=== PATIENT | male | born 1955 | race Caucasian/White ===

== ENCOUNTER 2017-08-06 11:37 | Emergency (ER) | END 2017-08-06 13:35 | disposition home or self-care (01) ==

== ENCOUNTER 2018-07-30 23:46 | Inpatient (IN) | payer MEDICAID, OTHER ==
[~2018-07-30] VITALS: Ht 172.7 cm; Wt 82.0 kg
[~2018-07-30 23:46] MED LIST: FAMO-96 PO
[2018-07-30 23:52] VITALS: Ht 172.7 cm; Wt 82.0 kg
[2018-07-31] VITALS (14 sets, daily range): BP systolic 96–112; BP diastolic 59–93; PULSE 95–107; RESP 18–28
[2018-07-31] MEDS ORDERED: ONDANSETRON 4 MG INJ IV STA (04:20)
[2018-07-31] MEDS ORDERED: PIPER-TAZO 3.375 GM IV (PMX) 100 ML IVPB STA (04:20)
[2018-07-31] MEDS ORDERED: VANCOMYCIN 1 GM (PMX) 250 ML IVPB STA (04:20)
[2018-07-31] MEDS ORDERED: KETAMINE HCL (50 MG/ML) 1ml syringe IV STA (04:20)
[2018-07-31] MEDS ORDERED: SODIUM CHLORIDE 0.9% 1L BAG IV* STA (05:00)
--- NOTE | 2018-07-31 05:35 | ERD ---
ER Documentation Chief Complaint Chief Complaint LENCHO,from home,BLE pain,lower back pain,abd pain HPI 62-year-old homeless male brought in by ambulance complaining of bilateral lower extremity pain that is been going on for quite some time. He states that he was recently admitted to another hospital and discharged ago. He states he was discharged to a rehab but he does not use any drugs or alcohol. He last changed his dressings himself yesterday. He is complaining of severe 10 out of 10 pain in bilateral lower extremities, back, and abdomen. Pain is throbbing, with no alleviating factors. Exacerbated by touch and movement. No fevers or chills. ROS All systems reviewed and are negative except as per history of present illness. Medications Home Meds Discontinued Scripts Famotidine* (Pepcid*) 20 Mg Tablet, 20 MG PO BID for 4 Days, TAB Prov:JAYLINDANITA 08/06/17 Allergies Allergies: Coded Allergies: Fish Containing Products (Unverified Allergy, Unknown, 07/31/18) onion (Unverified Allergy, Unknown, 07/31/18) PMhx/Soc Hx Cardiac Disorders: Yes (htn, dm) Hx Alcohol Use: No Hx Substance Use: No Hx Tobacco Use: No Smoking Status: Current every day smoker FmHx Family History: No diabetes Physical Exam Vitals Vital Signs Date Temp Pulse Resp B/P (MAP) Pulse Ox O2 O2 Flow FiO2 Time Delivery Rate 07/31/18 97.8 106 18 115/89 98 16:06 (98) 07/31/18 106 15 115/ 98 Mechanical 16:00 Ventilator 07/31/18 97.7 108 20 145/86 97 15:30 (105) 07/31/18 115 14 140/86 98 Mechanical 15:00 (104) Ventilator 07/31/18 97.9 114 18 148/88 93 13:30 (108) 07/31/18 97.9 113 18 159/103 93 Nasal 2.0 13:04 (121) Cannula 07/31/18 115 20 146/92 91 Nasal 2.0 11:00 (110) Cannula 07/31/18 109 20 111/71 95 Nasal 3.0 07:00 (84) Cannula 07/31/18 110 16 121/90 95 Nasal 3.0 06:08 (100) Cannula 07/31/18 122 16 104/87 97 Nasal 05:26 (93) Cannula 07/31/18 Nasal 2 05:07 Cannula 07/30/18 99.0 60 18 140/77 99 23:52 (98) Physical Exam Const: In significant distress secondary to pain. Unkempt Head: Atraumatic Eyes: Normal Conjunctiva ENT: Dry oral mucosa. Normal External Ears, Nose and Mouth. Neck: Full range of motion. No meningismus. Resp: Tachypneic. Clear to auscultation bilaterally Cardio: Tachycardic with regular rhythm. no murmurs Abd: Soft, non tender, non distended. Normal bowel sounds Skin: No petechiae or rashes Back: No midline or flank tenderness Ext: Bilateral lower extremities with 3+ edema, symmetric. Multiple wounds on bilateral lower extremities with vesicular lesions with clear fluid. Erythematous bilaterally up to the knees. Cool to touch bilaterally. No crepitus to palpation. No brawny discoloration. No signs of tissue necrosis. Neur: Awake and alert Psych: Very anxious Result Diagram: 07/31/18 0459 07/31/18 0459 Results 24 hrs Laboratory Tests Test 07/31/18 04:43 07/31/18 04:59 07/31/18 06:40 07/31/18 08:43 POC Venous 3.8 mmol/L 3.0 mmol/L Lactate White Blood 8.6 10^3/ul Count Red Blood Count 3.59 10^6/ul Hemoglobin 9.9 g/dl Hematocrit 31.2 % Mean Corpuscular 86.9 fl Volume Mean Corpuscular 27.6 pg Hemoglobin Mean Corpuscular 31.7 g/dl Hemoglobin Daily nt Red Cell 24.4 % Distribution Width Platelet Count 433 10^3/UL Mean Platelet 9.6 fl Volume Immature 0.700 % Granulocytes % Neutrophils % 74.9 % Lymphocytes % 14.3 % Monocytes % 8.9 % Eosinophils % 0.6 % Basophils % 0.6 % Nucleated Red 0.0 /100WBC Blood Cells % Immature 0.060 10^3/ul Granulocytes # Neutrophils # 6.5 10^3/ul Lymphocytes # 1.2 10^3/ul Monocytes # 0.8 10^3/ul Eosinophils # 0.1 10^3/ul Basophils # 0.1 10^3/ul Nucleated Red 0.0 10^3/ul Blood Cells # Prothrombin Time 18.1 Sec Prothrombin Time 1.4 Ratio INR 1.49 International Normalized Ratio Activated 25.6 Sec Partial Thrombop last Time Sodium Level 134 mmol/L Potassium Level 3.2 mmol/L Chloride Level 92 mmol/L Carbon Dioxide 26 mmol/L Level Anion Gap 16 Blood Urea 31 mg/dl Nitrogen Creatinine 1.06 mg/dl Est Glomerular > 60 mL/min Filtrat Rate mL/min Glucose Level 113 mg/dl Calcium Level 8.8 mg/dl Total Bilirubin 0.9 mg/dl Direct Bilirubin 0.00 mg/dl Indirect 0.9 mg/dl Bilirubin Aspartate Amino 65 IU/L Transf (AST/SGOT ) Alanine 42 IU/L Aminotransferase (ALT/SGPT) Alkaline 113 IU/L Phosphatase Total Protein 7.7 g/dl Albumin 3.6 g/dl Globulin 4.10 g/dl Albumin/Globulin 0.87 Ratio Lactic Acid 5.4 mmol/L Level Test 07/31/18 08:45 07/31/18 15:00 Blood Gas Blood arterial Blood arterial Specimen Source Arterial Blood 07/31/2018 8:44: 07/31/2018 3:00: Date Drawn 31 AM 00 PM Arterial Blood 7.430 7.246 pH (Temp corrected) Arterial Blood 36.2 mmhg 45.9 mmhg pCO2 (Temp correct) Arterial Blood 93.1 mmHG 296.5 mmHG pO2 (Temp corrected) Arterial Blood 23.5 mmol/L 19.5 mmol/L HCO3 Arterial Blood -0.5 mmol/L -7.5 mmol/L Base Excess Arterial Blood 96.2 mmHG 99.8 mmHG Oxygen Saturatio n Doug Test N/A N/A Arterial Blood Right Brachial Right Brachial Gas Puncture Site Arterial 0.6 % 0.8 % Blood Carboxyhem oglobin Arterial Blood 0.5 % 0.5 % Methemoglobin Blood Gas A-a O2 56.6 mmHg 370.6 mmHg Differential Oxyhemoglobin 95.1 % 98.5 % Percent Blood Gas 37.0 C 37.0 C Temperature Blood Gas NASAL CANNULA VENT - AC Modality FiO2 27.0 % 100.0 % Blood Gas Luz Elena Laguna Notified Whom Blood Gas 07/31/2018 8:54: 07/31/2018 3:13: Notified Time 14 AM 00 PM Blood Gas 16.0 Respiration Rate Blood Gas Actual 16 Respiration Rate Blood Gas Tidal 500.0 mL Volume Blood Gas Low 5.0 cmH2O PEEP Setting Blood Gas O. IHSAN Critical Value Read Back Current Medications Medications Dose Sig/Yesenia Start Time Status Last (Trade) Ordered Route PRN Stop Time Admin Dose Reason Admin Vancomycin 250 ml @ ONCE STAT 07/31/18 DC 07/31/18 HCl 125 mls/hr IVPB 04:20 06:07 07/31/18 06:19 Piperacillin 100 ml @ ONCE STAT 07/31/18 DC 07/31/18 Sod/ 200 mls/hr IVPB 04:20 05:17 Tazobactam 07/31/18 04:49 Sod Ondansetron 4 mg ONCE STAT 07/31/18 DC 07/31/18 HCl (Zofran IV 04:20 05:16 Inj) 07/31/18 04:22 Ketamine 25 mg ONCE STAT 07/31/18 DC 07/31/18 HCl IV 04:20 05:30 (Ketamine 07/31/18 04:22 HCl) Sodium 2,450 ml BOLUS OVER 2 07/31/18 DC 07/31/18 Chloride HOURS STAT 05:00 05:22 (NS) IV* 07/31/18 05:01 Ondansetron 4 mg ER BRIDGE 07/31/18 HCl (Zofran PRN IV 06:30 Inj) NAUSEA/VOMITI 08/01/18 06:29 NG 650 mg ER BRIDGE 07/31/18 Acetaminophen PRN PO 06:30 (Tylenol .MILD PAIN 08/01/18 06:29 Tab) 1-3 OR TEMP Lorazepam 1 mg ONCE ONCE 07/31/18 DC 07/31/18 (Ativan) IV 07:00 07:02 07/31/18 07:01 Haloperidol 5 mg ONCE ONCE 07/31/18 DC 07/31/18 (Haldol) IM 09:00 09:45 07/31/18 09:01 IV Flush 3 ml PER 07/31/18 (NS 3 ml) PROTOCOL IV 09:30 Ondansetron 4 mg Q6H PRN 07/31/18 HCl (Zofran IV 09:30 Inj) NAUSEA/VOMITI NG 650 mg Q6H PRN 07/31/18 Acetaminophen PO .PAIN 1-3 09:30 (Tylenol OR TEMP Tab) Vancomycin VANCOMYCIN PER 07/31/18 HCl (Vanco PER PHARMACY PROTOCOL XX 09:30 Iv Per Pharmacy) Vancomycin 250 ml @ Q12H IVPB 07/31/18 HCl 125 mls/hr 18:00 VANCO 1700 ONCE 08/01/18 Miscellaneous TROUGH ON XX 17:00 04/2... 08/01/18 17:01 Information (*Rx Drug Level Order Reminder*) Haloperidol 5 mg ONCE ONCE 07/31/18 DC (Haldol) IM 13:30 07/31/18 13:31 Propofol 100 ml @ ud STK-MED 07/31/18 DC ONCE .ROUTE 14:22 07/31/18 14:23 Sodium 1,000 ml @ [id number] IV 07/31/18 Chloride 80 mls/hr 14:15 Famotidine 20 mg Q12 IV 07/31/18 (Pepcid Iv) 21:00 Enoxaparin 40 mg DAILY SC 08/01/18 Sodium 09:00 (Lovenox) Propofol 100 ml @ PER 07/31/18 2.455 mls/ PROTOCOL IV 14:30 hr Piperacillin 100 ml @ Q6H IVPB 07/31/18 Sod/ 200 mls/hr 17:00 Tazobactam Sod 150 mg ONCE STAT 07/31/18 DC 07/31/18 Succinylcholi IV 14:26 14:39 ne Chloride 07/31/18 14:28 (Anectine Syringe) Etomidate 20 mg ONCE STAT 07/31/18 DC 07/31/18 (Amidate) IV 14:26 14:39 07/31/18 14:28 Propofol 100 ml @ ONCE STAT 07/31/18 07/31/18 2.455 mls/ IV 14:26 14:45 hr 08/02/18 07:09 1 mg ONCE STAT 07/31/18 DC 07/31/18 Hydromorphone IV 14:26 14:45 HCl 07/31/18 14:28 (Dilaudid) Potassium 100 ml @ Q2H IVPB 07/31/18 Chloride 50 mls/hr 14:30 07/31/18 18:29 Fentanyl 100 ml @ TITRATE IV 07/31/18 2.5 mls/hr 16:30 Procedures/MDM EMERGENT LABS AND DIAGNOSTIC STUDIES: Lab Results above were reviewed and interpreted by me. CBC: Anemia, thrombocytosis, possibly due to infection. No leukocytosis CMP: No evidence of clinically significant electrolyte abnormality, acidosis, renal failure, hypoglycemia, liver disease, or biliary obstruction Lactate elevated, consistent with severe sepsis 12-lead EKG was interpreted by Vinita Chao MD: Sinus tachycardia at 110 bpm with PACs. Left axis deviation Abnormal R wave progression Inferior Q waves No acute ST or T wave changes suggestive of acute ischemia or STEMI. Radiology Results as interpreted by Radiology below were reviewed by Saravanan Chao MD: Chest x-ray: IMPRESSION: 1. Diffuse right sided opacities improved when compared to the examination of 07/14/2018 representing residual infiltrates, atelectasis, and/or layering pleural effusion. 2. Decreased right-sided pleural effusion with associated right lower lobe atelectasis. 3. Stable moderate cardiomegaly with aortic atherosclerosis. Initial Nursing notes reviewed. Previous Medical Records requested via the Electronic Health Record. EMERGENCY DEPARTMENT COURSE / MEDICAL DECISION MAKING: Admit MDM: Patient's infectious symptoms have not stabilized, and the patient is at risk of rapid decompensation. The patient will be admitted for careful hydration, antibiotic therapy, and infectious source control. Severe Sepsis criteria: Infectious source: Bilateral lower extremity cellulitis End organ damage indicated by: Lactate > 2.0 mmol/L Sepsis Management: Time of recognition of severe sepsis: 0445 Within 3 hours of recognition: Blood cultures x 2 before broad-spectrum antibiotics: Yes 30 ml/kg NS bolus - Completed Initial lactate 3.8 Repeat lactate pending Septic Shock Assessment: Any lactic acid > 4.0 No Persistent hypotension (SBP < 90 or 40 mmHg drop, MAP < 65) despite 30 mL/kg IV fluid bolus No Accepting Care Team Current data and ongoing care discussed. Admitting Physician: [facility] Promotion Officer(s): Outstanding Data: cultures Critical Care Time: 35 minutes Treatments/Evaluations: Close monitoring and treatment of unstable vital signs, cardiorespiratory, and neurologic status, while maintaining tight balance of fluid, respiratory, and cardiac interventions. This includes the administration of emergency fluid management while maintaining close respiratory support as well as the provision of immediate and broad-spectrum antibiotic therapy, while performing a simultaneous assessment for possible sources in order to direct targeted therapy. This time includes discussing the case with the patient and the patients family.This time also includes the consideration for invasive and chemical support to prevent cardiopulmonary collapse. This time does not include all procedures stated elsewhere in this record. This time also includes reviewing old records, labs and radiological studies. This time includes e xamining and reexamining the patient. Additionally, this time also includes arranging care with admitting and consulting physicians. Departure Diagnosis: Primary Impression: Open wound of both lower extremities with complication Encounter type: initial encounter Qualified Codes: S81.801A - Unspecified open wound, right lower leg, initial encounter; S81.802A - Unspecified open wound, left lower leg, initial encounter Additional Impressions: Cellulitis of both lower extremities Severe sepsis Condition: Serious ALEX CHAO MD Jul 31, 2018 05:35 GERMAIN JOHNSON MD Jul 31, 2018 16:20
[2018-07-31] MEDS ORDERED: ACETAMINOPHEN 325 MG TAB PO PRN ×2 (06:30→09:30)
[2018-07-31] MEDS ORDERED: ONDANSETRON 4 MG INJ IV PRN (06:30)
[2018-07-31] MEDS ORDERED: SUCCINYLCHOLINE CHLORIDE 100 MG/5 ML SYG IV ONE (07:00)
[2018-07-31] MEDS ORDERED: LORAZEPAM 2 MG INJ IV ONE (07:00)
[2018-07-31] MEDS ORDERED: ETOMIDATE 20 MG INJ ONE (07:00)
[2018-07-31] MEDS ORDERED: HALOPERIDOL 5 MG INJ IM ONE ×2 (09:00→13:30)
--- NOTE | 2018-07-31 09:21 | HP ---
Date/Time of Note Date/Time of Note DATE: 07/31/18 TIME: 09:13 Assessment/Plan VTE Prophylaxis SCD applied (from Ns): No SCD contraindicated: other Pharmacological prophylaxis: NA/contraindicated Pharm contraindication: low risk/ambulating Lines/Catheters IV [facility]from [facility] Saline Lock Assessment/Plan Hospital Course SUBJECTIVE: Seen and evaluated patient in ER room 18, disoriented x4, moving around/agitated/restless OBJECTIVE: Vital signs-see below PHYSICAL EXAM: Constitutional: Unkempt/disheveled HEENT: Head atraumatic and normocephalic. Eyes: Extraocular muscles intact. Anicteric sclerae. Pupils equal bilaterally, reactive to light. NECK: Supple without lymph node. CHEST: Clear and good breath sounds equally. No wheezing. No rhonchi. HEART: S1, S2. Regular rate and rhythm. ABDOMEN: Soft/non tender with no rebound tenderness. Bowel sounds were present. EXTREMITIES: Bilateral lower extremity cellulitis with multiple open wounds. No cyanosis, clubbing or edema. NEUROLOGIC: Disoriented x4, restless/moving around. No focal deficit. PSYCHOSOCIAL: No signs of depression. INTEGUMENTARY: Multiple open wounds on bilateral lower extremities. ASSESSMENT AND PLAN: 62-year-old homeless male who is also a poor historian, admitted through emergency room with worsening bilateral lower extremity cellulitis/pain.... Bilateral lower extremity open wound/cellulitis -Start antimicrobials -ID consult/podiatry evaluation Lactic acidosis, rule out sepsis vs Type B w/dehydration -Lactate improved with IV fluids. -Continue empiric antimicrobials and follow-up cultures. Encephalopathy, toxic metabolic vs drug-induced -Obtain drug toxicology -Avoid further sedating drugs -Brain CT Dehydration -Fluids Hypokalemia -Replete Chronic normocytic anemia -Stable H&H Homelessness -SW consult DVT prophylaxis: Not indicated PUD prophylaxis: Not indicated Rest of the management depend on hospital course. Approximately 60 m spent on this history and physical. Patient is seen in collaboration with Dr. Barcenas Result Diagram: 07/31/18 0459 07/31/18 0459 Results 24hrs Laboratory Tests Test 07/31/18 04:43 07/31/18 04:59 07/31/18 06:40 07/31/18 08:45 POC Venous 3.8 *H 3.0 *H Lactate White Blood Count 8.6 Red Blood Count 3.59 L Hemoglobin 9.9 #L Hematocrit 31.2 L Mean Corpuscular 86.9 Volume Mean Corpuscular 27.6 L Hemoglobin Mean Corpuscular 31.7 L Hemoglobin Concen t Red Cell 24.4 #H Distribution Width Platelet Count 433 #H Mean Platelet 9.6 Volume Immature 0.700 H Granulocytes % Neutrophils % 74.9 Lymphocytes % 14.3 L Monocytes % 8.9 Eosinophils % 0.6 Basophils % 0.6 Nucleated Red 0.0 Blood Cells % Immature 0.060 H Granulocytes # Neutrophils # 6.5 Lymphocytes # 1.2 Monocytes # 0.8 Eosinophils # 0.1 Basophils # 0.1 Nucleated Red 0.0 Blood Cells # Prothrombin Time 18.1 H Prothrombin Time 1.4 Ratio INR International 1.49 Normalized Ratio Activated 25.6 Partial Thrombopl ast Time Sodium Level 134 L Potassium Level 3.2 L Chloride Level 92 L Carbon Dioxide 26 Level Anion Gap 16 H Blood Urea 31 H Nitrogen Creatinine 1.06 Est Glomerular > 60 Filtrat Rate mL/min Glucose Level 113 Calcium Level 8.8 Total Bilirubin 0.9 Direct Bilirubin 0.00 Indirect 0.9 Bilirubin Aspartate Amino 65 H Transf (AST/SGOT) Alanine 42 Aminotransferase (ALT/SGPT) Alkaline 113 Phosphatase Total Protein 7.7 Albumin 3.6 Globulin 4.10 H Albumin/Globulin 0.87 Ratio Blood Gas Blood arterial Specimen Source Arterial Blood 07/31/2018 8:44:3 Date Drawn 1 AM Arterial Blood pH 7.430 (Temp corrected) Arterial Blood 36.2 pCO2 (Temp correct) Arterial Blood 93.1 pO2 (Temp corrected) Arterial Blood 23.5 HCO3 Arterial Blood -0.5 Base Excess Arterial Blood 96.2 Oxygen Saturation Doug Test N/A Arterial Blood Right Brachial Gas Puncture Site Arterial 0.6 Blood Carboxyhemo globin Arterial Blood 0.5 Methemoglobin Blood Gas A-a O2 56.6 H Differential Oxyhemoglobin 95.1 Percent Blood Gas 37.0 Temperature Blood Gas NASAL CANNULA Modality FiO2 27.0 Blood Gas Luz Elena Notified Whom Blood Gas 07/31/2018 8:54:1 Notified Time 4 AM HPI/ROS Admit Date/Time Admit Date/Time Hx of Present Illness This a 62-year-old male who is also homeless, presented to the emergency room w ith worsening bilateral lower extremity pain with chronic ulcers. Patient denied any IV drug abuse history. In the emergency room, patient was very restless and anxious and agitated and was given haloperidol, Ativan and ketamine. At my encounter with the patient, he is disoriented x4, moving around, not following any commands. As such, ROS is very limited. Labs showed hemoglobin 9.9, hematocrit 31.2, platelet 433, sodium 134, potassium 3.2, venous lactate 3.8. Vital signs with temperature 99.0, blood pressure 140/77, pulse rate 60, respiratory rate 18 on arrival. Patient was given Zosyn and vancomycin in the emergency room with IV fluids. ROS Again, patient is currently sedated, disoriented x4, review of system is unlimited. PMH/Family/Social Past Medical History Unknown Medications Current Medications Ondansetron HCl (Zofran Inj) 4 mg ER BRIDGE PRN IV NAUSEA/VOMITING; Start 07/31/18 at 06:30; Stop 08/01/18 at 06:29 Acetaminophen (Tylenol Tab) 650 mg ER BRIDGE PRN PO .MILD PAIN 1-3 OR TEMP; Start 07/31/18 at 06:30; Stop 08/01/18 at 06:29 Coded Allergies: Fish Containing Products (Unverified Allergy, Unknown, 07/31/18) onion (Unverified Allergy, Unknown, 07/31/18) Past Surgical History Unknown Social History Unknown Smoking Status: Current every day smoker Exam/Review of Systems Vital Signs Vitals Vital Signs Date Temp Pulse Resp B/P (MAP) Pulse Ox O2 O2 Flow FiO2 Time Delivery Rate 07/31/18 109 20 111/71 95 Nasal 3.0 07:00 (84) Cannula 07/30/18 99.0 23:52 ADDI LOPEZ NP Jul 31, 2018 09:21
[2018-07-31] MEDS ORDERED: VANCOMYCIN IV PER PHARMACY XX SCH (09:30)
[2018-07-31] MEDS ORDERED: NACL 0.9% 3 ML SYG IV SCH (09:30)
--- NOTE | 2018-07-31 13:13 | QN ---
Documentation Comment SEPSIS MANAGEMENT Time of recognition of septic shock: 842. VOLUME REASSESSMENT FOR SEPTIC SHOCK: Reevaluation Time: 11:00 AM Temp 97.9, BP 146/92, HR 115, RR 20, Pox 91% Heart tachycardic rate with normal rhythm Lungs no crackles Skin warm & dry Cap Refill less than 2 seconds Peripheral pulses radially present CRITICAL CARE Critical care time 35 minutes Emergent fluid management while maintaining close respiratory support. Provision of immediate and broad-spectrum antibiotic therapy. Simultaneous assessment for possible sources in order to direct targeted therapy. C onsideration for invasive and chemical support to prevent cardiopulmonary collapse. Critical care time is independent of procedures performed. ROBERTH RITTER MD Jul 31, 2018 13:13
--- NOTE | 2018-07-31 14:12 | CONS ---
DATE OF ADMISSION: 07/30/2018 DATE OF CONSULTATION: 07/31/2018 TYPE OF CONSULTATION: Infectious disease. REASON FOR CONSULTATION: Antibiotic management. HISTORY OF PRESENT ILLNESS: Geoff Carty is a 62-year-old homeless male who was brought in by sonya myers complaining of bilateral lower extremity pain, low back pain and abdominal pain which has been going on for a number of weeks. He was admitted to another hospital and was discharged to a rehab [facility], but he did not use any drugs or alcohol at the time. He complains of severe 10/10, bilateral lower extremity, back and abdominal pain. Pain is throbbing with no alleviating factors. PAST MEDICAL HISTORY: Includes hypertension and diabetes. SOCIAL HISTORY: He is a current every day smoker. He does not drink or abuse drugs. ALLERGIES: NONE TO PENICILLIN, SULFA OR FOODS. HE IS ALLERGIC TO FISH CONTAINING PRODUCTS. MEDICATIONS: Per chart. REVIEW OF SYSTEMS: Noncontributory. PHYSICAL EXAMINATION: GENERAL: The patient is a well-developed, well-nourished male who is alert, responsive, in no acute distress. VITAL SIGNS: Stable. He is afebrile. SKIN: Without generalized rash. HEENT: Within normal limits. NECK: Supple. LYMPH NODES: None palpable. CHEST: Decreased breath sounds at the bases. He is tachypneic. HEART: Tachycardic without murmur or gallop. ABDOMEN: Soft, nontender without organosplenomegaly or masses. EXTREMITIES: Without cyanosis, clubbing. He has some bilateral lower extremity 3+ edema, symmetrica l. Multiple wounds on both lower extremities with vesicular lesions with clear fluid, erythema bilat erally up to the knees, cool to the touch. No crepitus to palpation. RECTAL AND GENITAL: Deferred. NEUROLOGICAL: No focal neurological abnormality. ANCILLARY LABORATORY DATA: White count 8.6 with 75% polys, H and H of 9.9 and 31.2, platelet count 4 33,000. BUN and creatinine is 31/1.06. Blood sugar 113. HOSPITAL COURSE: The patient was started on vancomycin and Zosyn. The patient with anemia, thromboc ytosis. No leukocytosis. X-ray shows diffuse right-sided opacities, improved when compared to the e xamination on 07/14/2018, representing residual infiltrates, atelectasis and layering pleural effusio n, decreased right-sided pleural effusion, stable moderate cardiomegaly with atherosclerosis. He had venous studies show no DVT. Arterial studies, with the patient being combative, bilateral lower ext remity arteries monophasic forms could represent inflow disease; however there is much motion which c ould be artifact. The patient was begun on vancomycin and also received some Zosyn. Blood cultures and urine were ordered. He received vancomycin and Zosyn in the emergency room. We will continue liz laboy on this regimen. He should be seen by podiatry. I will dictate my findings to the hospitalist. Dictated By: DELIA TEJADA MD, JD/NTS Conf#: [id number] DID#: [id number] CC: ROBERTH RITTER MD;*End*
--- NOTE | 2018-07-31 14:15 | EN ---
Date/Time of Note Date/Time of Note DATE: 07/31/18 TIME: 14:09 Event Note Medicine Medicine Event Note Nurse called, patient is extremely disoriented, restless, with respiratory distress. Examined patient in the emergency room. Unable to obtain oxygen saturation secondary to too much moving around. He is completely disoriented,garbled speech with slightly labored breathing. Patient already received Haldol, Ativan and ketamine in the emergency room with no improvement in mental status or restlessness. . At this time, we are worried about patient ability to maintain a patent airway and to protect airway against aspiration. I also anticipate a deteriorating course that will eventually lead to respiratory failure. Patient also with Worsening lactate level. So sedating patient more without keeping adequate ventilation is not appropriate. At this time endotracheal tube intubation with mechanical ventilation and keeping patient sedated on propofol for the next 24 to 48 hours would be warranted. Patient also needs hemodynamic monitoring, fluid administration, broad-spectrum IV antimicrobials, lactate monitoring as such placing a central line is also warranted. Discussed this with attending MD Dr. Gamboa and Dr. Chapman in ER. Rec:ER to intubate/central line to be placed. Further studies to rule out infectious encephalitis including West Nile virus,VZV/HSV consider lumbar puncture in light of severe sepsis/acute encephalopathy.Neurology consult.MRI when stable. Case d/w ADDI Bell V. NURSE WOUND Jul 31, 2018 14:15
[2018-07-31] MEDS ORDERED: PROPOFOL 100 ML ONE (14:22)
[2018-07-31] MEDS ORDERED: SUCCINYLCHOLINE CHLORIDE 100 MG/5 ML SYG IV STA (14:26)
[2018-07-31] MEDS ORDERED: HYDROmorphONE 1 MG/ML SYG IV STA (14:26)
[2018-07-31] MEDS ORDERED: ETOMIDATE 20 MG INJ IV STA (14:26)
[2018-07-31] MEDS ORDERED: PROPOFOL 100 ML IV STA (14:26)
--- NOTE | 2018-07-31 15:55 | CONS ---
Assessment/Plan Assessment/Plan Hospital Course 62 yo M with uncertain PMH who presents to the ED for evaluation of pain and other sx. He was noted to become altered... for which neurology is consulted. The clinical picture is most consistent with an acute toxic encephalopathy...due to illicit drug use and multiple psychotropic medications. A focal MANAGEMENT SUPERVISOR process is less likely, though not entirely excluded. CTH was unrevealing. P: Await MRI brain for further characterization Add UA, UDS, B12, ammonia Limit sedating medications where possible Other medical management and supportive care per primary Will follow clinically, to recommend neurologic studies, as necessary Consultation Date/Type/Reason Admit Date/Time Type of Consult Neurology Reason for Consultation ams Requesting Provider: ADDI LOPEZ NP Date/Time of Note DATE: 07/31/18 TIME: 15:55 Hx of Present Illness The pt is currently unable to contribute a hx. He was reportedly agitated, requiring sedation. He was later intubated for airway protection. He remains in the ED, on propofol gtt. He is awaiting transfer to ICU. It is elsewhere noted: Chief Complaint BIBRA,from home,BLE pain,lower back pain,abd pain HPI 62-year-old homeless male brought in by ambulance complaining of bilateral lower extremity pain that is been going on for quite some time. He states that he was recently admitted to another hospital and discharged ago. He states he was discharged to a rehab but he does not use any drugs or alcohol. He last changed his dressings himself yesterday. He is complaining of severe 10 out of 10 pain in bilateral lower extremities, back, and abdomen. Pain is throbbing, with no alleviating factors. Exacerbated by touch and movement. No fevers or chills. Subjective hx not possible: pt non-verbal, pt critical, pt critical status Exam/Review of Systems Exam Vitals Vital Signs Date Temp Pulse Resp B/P (MAP) Pulse Ox O2 O2 Flow FiO2 Time Delivery Rate 07/31/18 97.9 114 18 148/88 93 13:30 (108) 07/31/18 Nasal 2.0 13:04 Cannula Exam PE: Gen Appearance: No Apparent Distress HEENT: Intubated Cardiovascular: Regular rate Abdomen: Soft Extremities: Has multiple BLE ulcers NE: The patient was sedated and nonverbal. Cranial nerve examination was limited by mental status. Pupils were equal and reactive to light. There was no afferent pupillary defect. Funduscopic examination was limited. Face was grossly symmetric, w/ present corneal and cough reflexes. Tone was normal. Muscle bulk was normal. I did not see fasciculations. The patient was moving his extremities spontaneously. Coordination and gait testing was limited by mental status. Arm and leg reflexes were within normal limits and symmetric. Schwarz's sign was absent. Plantar responses were flexor. Results Result Diagram: 07/31/18 0459 07/31/18 0459 Results 24hrs Laboratory Tests Test 07/31/18 04:43 07/31/18 04:59 07/31/18 06:40 07/31/18 08:43 POC Venous 3.8 *H 3.0 *H Lactate White Blood Count 8.6 Red Blood Count 3.59 L Hemoglobin 9.9 #L Hematocrit 31.2 L Mean Corpuscular 86.9 Volume Mean Corpuscular 27.6 L Hemoglobin Mean Corpuscular 31.7 L Hemoglobin Concen t Red Cell 24.4 #H Distribution Width Platelet Count 433 #H Mean Platelet 9.6 Volume Immature 0.700 H Granulocytes % Neutrophils % 74.9 Lymphocytes % 14.3 L Monocytes % 8.9 Eosinophils % 0.6 Basophils % 0.6 Nucleated Red 0.0 Blood Cells % Immature 0.060 H Granulocytes # Neutrophils # 6.5 Lymphocytes # 1.2 Monocytes # 0.8 Eosinophils # 0.1 Basophils # 0.1 Nucleated Red 0.0 Blood Cells # Prothrombin Time 18.1 H Prothrombin Time 1.4 Ratio INR International 1.49 Normalized Ratio Activated 25.6 Partial Thrombopl ast Time Sodium Level 134 L Potassium Level 3.2 L Chloride Level 92 L Carbon Dioxide 26 Level Anion Gap 16 H Blood Urea 31 H Nitrogen Creatinine 1.06 Est Glomerular > 60 Filtrat Rate mL/min Glucose Level 113 Calcium Level 8.8 Total Bilirubin 0.9 Direct Bilirubin 0.00 Indirect 0.9 Bilirubin Aspartate Amino 65 H Transf (AST/SGOT) Alanine 42 Aminotransferase (ALT/SGPT) Alkaline 113 Phosphatase Total Protein 7.7 Albumin 3.6 Globulin 4.10 H Albumin/Globulin 0.87 Ratio Lactic Acid Level 5.4 *H Test 07/31/18 08:45 Blood Gas Blood arterial Specimen Source Arterial Blood 07/31/2018 8:44:3 Date Drawn 1 AM Arterial Blood pH 7.430 (Temp corrected) Arterial Blood 36.2 pCO2 (Temp correct) Arterial Blood 93.1 pO2 (Temp corrected) Arterial Blood 23.5 HCO3 Arterial Blood -0.5 Base Excess Arterial Blood 96.2 Oxygen Saturation Doug Test N/A Arterial Blood Right Brachial Gas Puncture Site Arterial 0.6 Blood Carboxyhemo globin Arterial Blood 0.5 Methemoglobin Blood Gas A-a O2 56.6 H Differential Oxyhemoglobin 95.1 Percent Blood Gas 37.0 Temperature Blood Gas NASAL CANNULA Modality FiO2 27.0 Blood Gas M.D. Notified Whom Blood Gas 07/31/2018 8:54:1 Notified Time 4 AM Medications Medication Current Medications Ondansetron HCl (Zofran Inj) 4 mg ER BRIDGE PRN IV NAUSEA/VOMITING; Start 07/31/18 at 06:30; Stop 08/01/18 at 06:29 Acetaminophen (Tylenol Tab) 650 mg ER BRIDGE PRN PO .MILD PAIN 1-3 OR TEMP; Start 07/31/18 at 06:30; Stop 08/01/18 at 06:29 IV Flush (NS 3 ml) 3 ml PER PROTOCOL IV ; Start 07/31/18 at 09:30 Ondansetron HCl (Zofran Inj) 4 mg Q6H PRN IV NAUSEA/VOMITING; Start 07/31/18 at 09:30 Acetaminophen (Tylenol Tab) 650 mg Q6H PRN PO .PAIN 1-3 OR TEMP; Start 07/31/18 at 09:30 Vancomycin HCl (Vanco Iv Per Pharmacy) VANCOMYCIN PER PHARMACY PER PROTOCOL XX ; Start 07/31/18 at 09:30 Vancomycin HCl 250 ml @ 125 mls/hr Q12H IVPB ; Start 07/31/18 at 18:00 Miscellaneous Information (*Rx Drug Level Order Reminder*) VANCO TROUGH ON 07/07... 1700 ONCE XX ; Start 08/01/18 at 17:00; Stop 08/01/18 at 17:01 Sodium Chloride 1,000 ml @ 80 mls/hr [id number] IV ; Start 07/31/18 at 14:15 Famotidine (Pepcid Iv) 20 mg Q12 IV ; Start 07/31/18 at 21:00 Enoxaparin Sodium (Lovenox) 40 mg DAILY SC ; Start 08/01/18 at 09:00 Propofol 100 ml @ 2.455 mls/ hr PER PROTOCOL IV ; Start 07/31/18 at 14:30 Piperacillin Sod/ Tazobactam Sod 100 ml @ 200 mls/hr Q6H IVPB ; Start 07/31/18 at 17:00 Propofol 100 ml @ 2.455 mls/ hr ONCE STAT IV Last administered on 07/31/18at 14:45; Admin Dose 2.455 MLS/HR; Start 07/31/18 at 14:26; Stop 08/02/18 at 07:09 Potassium Chloride 100 ml @ 50 mls/hr Q2H IVPB ; Start 07/31/18 at 14:30; Stop 07/31/18 at 18:29 Past Medical History reviewed Home Meds Discontinued Scripts Famotidine* (Pepcid*) 20 Mg Tablet, 20 MG PO BID for 4 Days, TAB Prov:DANITA MOSQUEDA 08/06/17 Medications Current Medications Ondansetron HCl (Zofran Inj) 4 mg ER BRIDGE PRN IV NAUSEA/VOMITING; Start 07/31/18 at 06:30; Stop 08/01/18 at 06:29 Acetaminophen (Tylenol Tab) 650 mg ER BRIDGE PRN PO .MILD PAIN 1-3 OR TEMP; Start 07/31/18 at 06:30; Stop 08/01/18 at 06:29 IV Flush (NS 3 ml) 3 ml PER PROTOCOL IV ; Start 07/31/18 at 09:30 Ondansetron HCl (Zofran Inj) 4 mg Q6H PRN IV NAUSEA/VOMITING; Start 07/31/18 at 09:30 Acetaminophen (Tylenol Tab) 650 mg Q6H PRN PO .PAIN 1-3 OR TEMP; Start 07/31/18 at 09:30 Vancomycin HCl (Vanco Iv Per Pharmacy) VANCOMYCIN PER PHARMACY PER PROTOCOL XX ; Start 07/31/18 at 09:30 Vancomycin HCl 250 ml @ 125 mls/hr Q12H IVPB ; Start 07/31/18 at 18:00 Miscellaneous Information (*Rx Drug Level Order Reminder*) VANCO TROUGH ON 07/07... 1700 ONCE XX ; Start 08/01/18 at 17:00; Stop 08/01/18 at 17:01 Sodium Chloride 1,000 ml @ 80 mls/hr [id number] IV ; Start 07/31/18 at 14:15 Famotidine (Pepcid Iv) 20 mg Q12 IV ; Start 07/31/18 at 21:00 Enoxaparin Sodium (Lovenox) 40 mg DAILY SC ; Start 08/01/18 at 09:00 Propofol 100 ml @ 2.455 mls/ hr PER PROTOCOL IV ; Start 07/31/18 at 14:30 Piperacillin Sod/ Tazobactam Sod 100 ml @ 200 mls/hr Q6H IVPB ; Start 07/31/18 at 17:00 Propofol 100 ml @ 2.455 mls/ hr ONCE STAT IV Last administered on 07/31/18at 14:45; Admin Dose 2.455 MLS/HR; Start 07/31/18 at 14:26; Stop 08/02/18 at 07:09 Potassium Chloride 100 ml @ 50 mls/hr Q2H IVPB ; Start 07/31/18 at 14:30; Stop 07/31/18 at 18:29 Allergies: Coded Allergies: Fish Containing Products (Unverified Allergy, Unknown, 07/31/18) onion (Unverified Allergy, Unknown, 07/31/18) Past Surgical History reviewed Social History reviewed Smoking Status: Current every day smoker JUAN ELLINGTON NP Jul 31, 2018 15:55 BRAD BROWER Aug 01, 2018 07:01
--- NOTE | 2018-07-31 16:22 | EN ---
Date/Time of Note Date/Time of Note DATE: 07/31/18 TIME: 16:20 ER Progress Note Lumbar Puncture by me: Patient consented, time out performed, sterilely prepped/draped, anesthetized locally. Anesthesia: 1% lidocaine locally Location: One interspace below the iliac crest Technique: 22 gauge needle with stylet for entry and removal of needle Results: Clear CSF fluid. No complications during the procedure, however the patient did move, mid procedure well collecting fluid, at that point and noted blood tinged CSF, resulting in a traumatic tap, thus I suspect that there will be an increase in RBCs from the first to the second tube. This is likely the cause, and less likely to be a pathologic etiology. Otherwise patient tolerated procedure well. No post procedure complications, bleeding, numbness or weakness. GERMAIN JOHNSON MD Jul 31, 2018 16:22
--- NOTE | 2018-07-31 17:42 | CONS ---
Assessment/Plan Assessment/Plan Assessment/Plan (Daily) Venous hypertension with ulcerations Cellulitis b/l Intubated on ventilator Homeless PAD Plan Patient was seen and evaluated. X-rays ordered and inflammatory labs ordered as well. Repeat non invasive arterial studies as initial attempt was unsuccessful due to combative behavior of patient. Recommend continue with antibiotics and obtain wound cultures. Recommend betadine 4x4 gauze with dry sterile dressings to bilateral lower extremities. Once patient is more stable and able to obtain consent patient would benefit from lower extremity wound debridement. Offload and elevate heels with pillows. Consultation Date/Type/Reason Admit Date/Time Date/Time of Note DATE: 07/31/18 TIME: 17:42 Hx of Present Illness 62 y/o M patient presented to the ED with bilateral multiple venous ulceration sites and cellulitis. Patient was intubated and reported to be combative while in the ED. Urine tox was showing amphetamines and opiates. Patient was unable to obtain arterial studies. Elevated lactic acid was appreciated. Per ED physicians plan for patient transfer to ICU for further monitoring. ROS negative except for HPI Past Medical History homeless Home Meds Discontinued Scripts Famotidine* (Pepcid*) 20 Mg Tablet, 20 MG PO BID for 4 Days, TAB Prov:DANITA MOSQUEDA 08/06/17 Medications Current Medications Ondansetron HCl (Zofran Inj) 4 mg ER BRIDGE PRN IV NAUSEA/VOMITING; Start 07/31/18 at 06:30; Stop 08/01/18 at 06:29 Acetaminophen (Tylenol Tab) 650 mg ER BRIDGE PRN PO .MILD PAIN 1-3 OR TEMP; Start 07/31/18 at 06:30; Stop 08/01/18 at 06:29 IV Flush (NS 3 ml) 3 ml PER PROTOCOL IV ; Start 07/31/18 at 09:30 Ondansetron HCl (Zofran Inj) 4 mg Q6H PRN IV NAUSEA/VOMITING; Start 07/31/18 at 09:30 Acetaminophen (Tylenol Tab) 650 mg Q6H PRN PO .PAIN 1-3 OR TEMP; Start 07/31/18 at 09:30 Vancomycin HCl (Vanco Iv Per Pharmacy) VANCOMYCIN PER PHARMACY PER PROTOCOL XX ; Start 07/31/18 at 09:30 Vancomycin HCl 250 ml @ 125 mls/hr Q12H IVPB ; Start 07/31/18 at 18:00 Miscellaneous Information (*Rx Drug Level Order Reminder*) VANCO TROUGH ON 07/07... 1700 ONCE XX ; Start 08/01/18 at 17:00; Stop 08/01/18 at 17:01 Sodium Chloride 1,000 ml @ 80 mls/hr [id number] IV ; Start 07/31/18 at 14:15 Famotidine (Pepcid Iv) 20 mg Q12 IV ; Start 07/31/18 at 21:00 Enoxaparin Sodium (Lovenox) 40 mg DAILY SC ; Start 08/01/18 at 09:00 Propofol 100 ml @ 2.455 mls/ hr PER PROTOCOL IV ; Start 07/31/18 at 14:30 Piperacillin Sod/ Tazobactam Sod 100 ml @ 200 mls/hr Q6H IVPB ; Start 07/31/18 at 17:00 Propofol 100 ml @ 2.455 mls/ hr ONCE STAT IV Last administered on 07/31/18at 14:45; Admin Dose 2.455 MLS/HR; Start 07/31/18 at 14:26; Stop 08/02/18 at 07:09 Potassium Chloride 100 ml @ 50 mls/hr Q2H IVPB ; Start 07/31/18 at 14:30; Stop 07/31/18 at 18:29 Fentanyl 100 ml @ 2.5 mls/hr TITRATE IV ; Start 07/31/18 at 16:30 Allergies: Coded Allergies: Fish Containing Products (Unverified Allergy, Unknown, 07/31/18) onion (Unverified Allergy, Unknown, 07/31/18) Past Surgical History unknown Family History Significant Family History: no pertinent family hx Social History Smoking Status: Current every day smoker Exam/Review of Systems Exam Vitals Vital Signs Date Temp Pulse Resp B/P (MAP) Pulse Ox O2 O2 Flow FiO2 Time Delivery Rate 07/31/18 103 23 92 50 16:40 07/31/18 97.8 115/89 16:06 (98) 07/31/18 Mechanical 16:00 Ventilator 07/31/18 2.0 13:04 Exam Pedal pulses weakly palpable There is purple discoloration to the digits which feel cool to touch Patient intubated Multiple venous ulcerations and with several bullae formations. Diffuse erythema Patient in restraints Erratic movements appreciated. Results Result Diagram: 07/31/18 0459 07/31/18 0459 Results 24hrs Laboratory Tests Test 07/31/18 04:43 07/31/18 04:59 07/31/18 06:40 07/31/18 08:43 POC Venous 3.8 *H 3.0 *H Lactate White Blood 8.6 Count Red Blood Count 3.59 L Hemoglobin 9.9 #L Hematocrit 31.2 L Mean 86.9 Corpuscular Volume Mean 27.6 L Corpuscular Hemoglobin Mean 31.7 L Corpuscular Hemoglobin Conc ent Red Cell 24.4 #H Distribution Width Platelet Count 433 #H Mean Platelet 9.6 Volume Immature 0.700 H Granulocytes % Neutrophils % 74.9 Lymphocytes % 14.3 L Monocytes % 8.9 Eosinophils % 0.6 Basophils % 0.6 Nucleated Red 0.0 Blood Cells % Immature 0.060 H Granulocytes # Neutrophils # 6.5 Lymphocytes # 1.2 Monocytes # 0.8 Eosinophils # 0.1 Basophils # 0.1 Nucleated Red 0.0 Blood Cells # Prothrombin 18.1 H Time Prothrombin 1.4 Time Ratio INR 1.49 International Normalized Rati o Activated 25.6 Partial Thrombo plast Time Sodium Level 134 L Potassium Level 3.2 L Chloride Level 92 L Carbon Dioxide 26 Level Anion Gap 16 H Blood Urea 31 H Nitrogen Creatinine 1.06 Est Glomerular > 60 Filtrat Rate mL/min Glucose Level 113 Calcium Level 8.8 Total Bilirubin 0.9 Direct 0.00 Bilirubin Indirect 0.9 Bilirubin Aspartate Amino 65 H Transf (AST/SGO T) Alanine 42 Aminotransferas e (ALT/SGPT) Alkaline 113 Phosphatase Total Protein 7.7 Albumin 3.6 Globulin 4.10 H Albumin/Globuli 0.87 n Ratio Lactic Acid 5.4 *H Level Test 07/31/18 08:45 07/31/18 15:00 07/31/18 16:00 07/31/18 16:19 Blood Gas Blood arterial Blood arterial Specimen Source Arterial Blood 07/31/2018 8:44: 07/31/2018 3:00: Date Drawn 31 AM 00 PM Arterial Blood 7.430 7.246 *L pH (Temp corrected ) Arterial Blood 36.2 45.9 H pCO2 (Temp correct) Arterial Blood 93.1 296.5 H pO2 (Temp corrected ) Arterial Blood 23.5 19.5 L HCO3 Arterial Blood -0.5 -7.5 L Base Excess Arterial Blood 96.2 99.8 H Oxygen Saturati on Doug Test N/A N/A Arterial Blood Right Brachial Right Brachial Gas Puncture Site Arterial 0.6 0.8 Blood Carboxyhe moglobin Arterial Blood 0.5 0.5 Methemoglobin Blood Gas A-a 56.6 H 370.6 H O2 Differential Oxyhemoglobin 95.1 98.5 Percent Blood Gas 37.0 37.0 Temperature Blood Gas NASAL CANNULA VENT - AC Modality FiO2 27.0 100.0 Blood Gas Luz Elena Laguna Notified Whom Blood Gas 07/31/2018 8:54: 07/31/2018 3:13: Notified Time 14 AM 00 PM Blood Gas 16.0 Respiration Rate Blood Gas 16 Actual Respiration Rat e Blood Gas Tidal 500.0 Volume Blood Gas Low 5.0 PEEP Setting Blood Gas O. IHSAN Critical Value Read Back Urine Color STEVE Urine Clarity SLIGHTLY CLOUD Y A Urine pH 5.0 Urine Specific 1.021 [place] Urine Ketones TRACE A Urine Nitrite NEGATIVE Urine Bilirubin NEGATIVE Urine 2+ H Urobilinogen Urine Leukocyte NEGATIVE Esterase Urine 2 Microscopic RBC Urine 13 H Microscopic WBC Urine Squamous FEW Epithelial Cell s Urine NEGATIVE Hemoglobin Urine Glucose NEGATIVE Urine Total 1+ H Protein Urine Opiates Positive Screen Urine Negative Barbiturates Urine POSITIVE Amphetamines Screen Urine Negative Benzodiazepines Screen Urine Cocaine Negative Screen Urine Negative Cannabinoids CSF Glucose 46 L CSF Total 41 Protein Medications Medication Current Medications Ondansetron HCl (Zofran Inj) 4 mg ER BRIDGE PRN IV NAUSEA/VOMITING; Start 07/31/18 at 06:30; Stop 08/01/18 at 06:29 Acetaminophen (Tylenol Tab) 650 mg ER BRIDGE PRN PO .MILD PAIN 1-3 OR TEMP; Start 07/31/18 at 06:30; Stop 08/01/18 at 06:29 IV Flush (NS 3 ml) 3 ml PER PROTOCOL IV ; Start 07/31/18 at 09:30 Ondansetron HCl (Zofran Inj) 4 mg Q6H PRN IV NAUSEA/VOMITING; Start 07/31/18 at 09:30 Acetaminophen (Tylenol Tab) 650 mg Q6H PRN PO .PAIN 1-3 OR TEMP; Start 07/31/18 at 09:30 Vancomycin HCl (Vanco Iv Per Pharmacy) VANCOMYCIN PER PHARMACY PER PROTOCOL XX ; Start 07/31/18 at 09:30 Vancomycin HCl 250 ml @ 125 mls/hr Q12H IVPB ; Start 07/31/18 at 18:00 Miscellaneous Information (*Rx Drug Level Order Reminder*) VANCO TROUGH ON 07/07... 1700 ONCE XX ; Start 08/01/18 at 17:00; Stop 08/01/18 at 17:01 Sodium Chloride 1,000 ml @ 80 mls/hr [id number] IV ; Start 07/31/18 at 14:15 Famotidine (Pepcid Iv) 20 mg Q12 IV ; Start 07/31/18 at 21:00 Enoxaparin Sodium (Lovenox) 40 mg DAILY SC ; Start 08/01/18 at 09:00 Propofol 100 ml @ 2.455 mls/ hr PER PROTOCOL IV ; Start 07/31/18 at 14:30 Piperacillin Sod/ Tazobactam Sod 100 ml @ 200 mls/hr Q6H IVPB ; Start 07/31/18 at 17:00 Propofol 100 ml @ 2.455 mls/ hr ONCE STAT IV Last administered on 07/31/18at 14:45; Admin Dose 2.455 MLS/HR; Start 07/31/18 at 14:26; Stop 08/02/18 at 07:09 Potassium Chloride 100 ml @ 50 mls/hr Q2H IVPB ; Start 07/31/18 at 14:30; Stop 07/31/18 at 18:29 Fentanyl 100 ml @ 2.5 mls/hr TITRATE IV ; Start 07/31/18 at 16:30 JOYA LANGFORD DPM Jul 31, 2018 17:42
[2018-07-31] MEDS: FENTAnyl (DRIP) 1000 mcg/100mL 100 ML IV SCH (18:30)
[2018-07-31] MEDS: PIPER-TAZO 3.375 GM IV (PMX) 100 ML IVPB SCH ×2 (18:32→22:32)
[2018-07-31] MEDS: SOD CHLORIDE 0.9% 1,000 ML IV SCH (18:32)
[2018-07-31] MEDS: PROPOFOL 100 ML IV SCH (19:38)
[2018-07-31] MEDS: VANCOMYCIN 1 GM 250 ML IVPB SCH (19:39)
[2018-07-31] MEDS: POTASSIUM CHLORIDE 100 ML IVPB SCH ×2 (19:39→21:22)
[2018-07-31] MEDS: FAMOTIDINE 20 MG INJ IV SCH (21:23)
[2018-08-01] VITALS (48 sets, daily range): BP systolic 77–110; BP diastolic 45–70; PULSE 68–105; RESP 20–21
[2018-08-01] MEDS: PROPOFOL 100 ML IV SCH ×2 (01:29→07:48)
[2018-08-01] MEDS: SOD CHLORIDE 0.9% 1,000 ML IV SCH ×2 (02:01→15:35)
[2018-08-01] MEDS: PIPER-TAZO 3.375 GM IV (PMX) 100 ML IVPB SCH ×4 (04:41→23:02)
[2018-08-01] MEDS: VANCOMYCIN 1 GM 250 ML IVPB SCH (05:58)
[2018-08-01] MEDS: FENTAnyl (DRIP) 1000 mcg/100mL 100 ML IV SCH ×2 (07:09→22:51)
[2018-08-01] MEDS ORDERED: MAGNESIUM SULFATE 3 GM in DEXTROSE 5% 100 ML IVPB ONE (08:00)
--- NOTE | 2018-08-01 08:39 | CONS ---
Assessment/Plan Assessment/Plan Hospital Course 62 yo M with uncertain PMH who presents to the ED for evaluation of pain and other sx. He was noted to become altered... for which neurology is consulted. The clinical picture is most consistent with an acute toxic encephalopathy...due to illicit drug use and multiple psychotropic medications. 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 CTH was unrevealing. UDS + amphetamines, opioids, B12, ammonia wnl P: Await MRI brain for further characterization Limit sedating medications where possible Other medical management and supportive care per primary Will follow clinically, to recommend neurologic studies, as necessary Consultation Date/Type/Reason Admit Date/Time Jul 31, 2018 at 06:30 Type of Consult Neurology Reason for Consultation ams Requesting Provider: ADDI LOPEZ NP Date/Time of Note DATE: 08/01/18 TIME: 08:38 24 HR Interval Summary Free Text/Dictation Continues critical care. Remains intubated on propofol, fentanyl gtt. Subjective hx not possible: pt non-verbal, pt critical Exam Vital Signs Vitals Vital Signs Date Temp Pulse Resp B/P (MAP) Pulse Ox O2 O2 Flow FiO2 Time Delivery Rate 08/01/18 94 20 94/58 (70) 100 06:30 08/01/18 40 05:23 08/01/18 99.0 Mechanical 05:00 Ventilator 07/31/18 2.0 13:04 Intake and Output 07/31/18 07/31/18 08/01/18 1515:00 23:00 07:00 IntakeIntake Total 260 ml OutputOutput Total 360 ml 250 ml BalanceBalance -100 ml -250 ml Exam PE: Gen Appearance: No Apparent Distress HEENT: Intubated Cardiovascular: Regular rate Abdomen: Soft Extremities: Has multiple BLE ulcers NE: The patient was obtunded and nonverbal. Cranial nerve examination was limited by mental status. Pupils were equal and reactive to light. There was no afferent pupillary defect. Funduscopic examination was limited. Face was grossly symmetric, w/ present corneal and cough reflexes. Tone was normal. Muscle bulk was normal. I did not see fasciculations. The patient withdrew his extremities to noxious stimuli Coordination and gait testing was limited by mental status. Arm and leg reflexes were within normal limits and symmetric. Schwarz's sign was absent. Plantar responses were flexor. JUAN ELLINGTON NP Aug 01, 2018 08:39
[2018-08-01] MEDS: FAMOTIDINE 20 MG INJ IV SCH ×2 (09:59→20:57)
[2018-08-01] MEDS: ENOXAPARIN 40 MG/0.4 ML SYG SC SCH (10:00)
[2018-08-01] MEDS: DAKINS 0.0125%(1/40) 473 ML SOLUTION TP SCH (10:01)
--- NOTE | 2018-08-01 10:27 | RADRPT ---
Echocardiogram Report Patient Name: ZORAN VORAPatient ID: [id number] : 1955 (62y 10m)Study Date: 07/31/2018 12:20:59 PM Gender: MAccession #: [id number] Tech: Omar Rahman RDCS [facility] Ref.Physician: ADDI LOPEZ Height(Cm): BSA: Weight(Kg): Quality: Technically Difficult StudyAccount #: Procedures: Echocardiographic Report: Transthoracic echocardiogram with complete 2D, M-Mode, and doppler examination. Indications: Evaluate Left Ventricular function. Measurements: 2D/M Mode Doppler Measurement Value Normal Range Measurement Value Normal Range LVIDd 2D 6.4 [ 4.2 - 5.8 ] cm AV Peak Jordan 1.2 [ 100.0 - 170.0 ] cm/sec LVIDs 2D 6.2 [ 2.5 - 4.0 ] cm AV Peak PG 6.0 [ 2.0 - 9.0 ] mmHg IVSd 2D 1.1 [ 0.6 - 1.0 ] cm LVOT Peak Jordan 0.8 [ 70.0 - 110.0 ] cm/sec AoR Diam 2D 3.4 [ 2.6 - 3.4 ] cm LVOT Peak PG 2.0 [ 2.0 - 6.0 ] mmHg LA Dimen 2D 4.5 [ 3.0 - 4.0 ] cm TR Peak Jordan 3.0 [ 100.0 - 280.0 ] cm/sec TR Peak PG 35.0 mmHg RVSP 50.0 [ 10.0 - 36.0 ] mmHg RA Pressure 15.0 mmHg Findings: Left Ventricle: Normal left ventricular wall thickness. Moderate enlargement of left ventricle cavity. Severe global left ventricular systolic dysfunction. Ejection fraction is visually estimated at 20 %. Right Ventricle: Severe right ventricular systolic dysfunction. Severe enlargement of right ventricle. Severe right ventricular hypokinesis. Left Atrium: There is severe enlargement of left atrium. Right Atrium: There is severe enlargement of right atrium. Mitral Valve: Mild to moderate mitral valve regurgitation. Aortic Valve: Normal appearance of the aortic valve. No significant aortic stenosis or insufficiency. Tricuspid Valve: Normal appearance of the tricuspid valve. Estimated peak PA systolic pressure 50 mmHg. There is mild to moderate tricuspid regurgitation. Pulmonic Valve: Pulmonic valve not well visualized. Pericardium: Normal pericardium with no significant pericardial effusion. Aorta: Normal aortic root. IVC: Dilated IVC without respiratory collapse consistent with elevated right atrial pressure. Conclusions: Normal left ventricular wall thickness. Moderate enlargement of left ventricle cavity. Severe global left ventricular systolic dysfunction. Ejection fraction is visually estimated at 20 %. Severe right ventricular systolic dysfunction. Severe enlargement of right ventricle. Severe right ventricular hypokinesis. Mild to moderate mitral valve regurgitation. There is severe enlargement of left atrium.There is severe enlargement of right atrium. Estimated peak PA systolic pressure 50 mmHg. Dilated IVC without respiratory collapse consistent with elevated right atrial pressure. Electronically Signed By: Dominik Hsu 2018-08-01 10:26:47 PDT
--- NOTE | 2018-08-01 10:30 | CONS ---
Assessment/Plan Assessment/Plan Hospital Course (Demo Recall) ID PROGRESS NOTE CURRENT ABX: DAY # 2=> Vanco IV + Zosyn 08/01/18 0457 08/01/18 0457 24H INTERVAL SUMMARY * Encephalopathic, orally intubated, sepsis, low grade temps DIAGNOSTIC IMAGING * 08/01/18 CXR: 1. ET tube in perfect location at this time. There is no pneumothorax. 2. Otherwise, stable exam, with mild vascular congestion and bilateral pleural effusions. * 08/01/18 BLEXT ARTERIAL DUPLEX Diffuse monophasic waveforms bilaterally with no focal area of high degree stenosis.[id number] arteries on the left cannot be evaluated due to a large ulcers. Follow-up CT angiogram is recommended. * 07/31/18 (-) DVT BLEXT * 07/31/[address]: Venous hypertension with ulcerations MICRO/OTHER * 07/31/18 BCx (+)1/2 bottles from ED ==> (+)GPC Clusters * 07/31/18 Bernard: 07/31/18-1619 Rcvd: 07/31/18-1620 Source: CSF Sp Descrip: Microbiology GRAM STAIN Final WHITE BLOOD CELLS RARE NO ORGANISMS SEEN PHYSICAL EXAMINATION: GENERAL: VSS, NAD HEENT: AT, NC, anicteric, NECK: Supple, CHEST: Vented HEART: Pulse RRR ABDOMEN: EXTREMITIES: Warm, dry BLEXT 3+ edema, symmetrical. Multiple wounds on both lower extremities with vesicular lesions with clear fluid, erythema bilaterally up to the knees, cool to the touch. SKIN: No rash, no diaphoresis ID ASSESSMENT 62 yo M admit with: 1. SEPSIS w/ fevers/tachycardia, lactic acidosis on admission 2. Cellulitis BLEXT (bilat lower ext) 3. Venous hypertension with venous stasis ulcerations 4. Peripheral arterial disease 5. Respiratory failure w/bilateral pleural effusions 6. Acute toxic metabolic encephalopathy => Polysubstance abuse * Due to illicit drug use and multiple psychotropic medications. 7. Homeless 8. Psych Dx NOS (-)MRSA Nares ABX ALLERGIES: KNDA INVASIVES: PIV CURRENT ABX: DAY # 2=> Vanco IV + Zosyn ID RECOMMENDATIONS/PLAN: 1. Continue current ABX over the weekend. 2. Obtain wound cx . Consultation Date/Type/Reason Admit Date/Time Jul 31, 2018 at 06:30 Initial Consult Date Requesting Provider: ADDI LOPEZ NP Date/Time of Note DATE: 08/01/18 TIME: 10:08 Exam/Review of Systems Exam Vitals Vital Signs Date Temp Pulse Resp B/P (MAP) Pulse Ox O2 O2 Flow FiO2 Time Delivery Rate 08/01/18 94 20 94/58 (70) 100 06:30 08/01/18 40 05:23 08/01/18 99.0 Mechanical 05:00 Ventilator 07/31/18 2.0 13:04 Intake and Output 07/31/18 07/31/18 08/01/18 1515:00 23:00 07:00 IntakeIntake Total 260 ml OutputOutput Total 360 ml 250 ml BalanceBalance -100 ml -250 ml Results Result Diagram: 08/01/18 0457 08/01/18 0457 Results 24hrs Laboratory Tests Test 07/31/18 15:00 07/31/18 16:00 07/31/18 16:19 07/31/18 18:00 Blood Gas Blood arterial Blood Specimen arterial Source Arterial Blood 07/31/2018 3:00: 07/31/2018 3:00 Date Drawn 00 PM :00 PM Arterial Blood 7.246 *L 7.246 *L pH (Temp corrected ) Arterial Blood 45.9 H 45.9 H pCO2 (Temp correct) Arterial Blood 296.5 H 296.5 H pO2 (Temp corrected ) Arterial Blood 19.5 L 19.5 L HCO3 Arterial Blood -7.5 L -7.5 L Base Excess Arterial Blood 99.8 H 99.8 H Oxygen Saturati on Doug Test N/A N/A Arterial Blood Right Brachial Right Gas Brachial Puncture Site Arterial 0.8 0.8 Blood Carboxyhe moglobin Arterial Blood 0.5 0.5 Methemoglobin Blood Gas A-a 370.6 H 370.6 H O2 Differential Oxyhemoglobin 98.5 98.5 Percent Blood Gas 37.0 37.0 Temperature Blood Gas 16.0 16.0 Respiration Rate Blood Gas 16 16 Actual Respiration Rat e Blood Gas VENT - AC VENT - AC Modality FiO2 100.0 100.0 Blood Gas Tidal 500.0 500.0 Volume Blood Gas Low 5.0 5.0 PEEP Setting Blood Gas Katarzyna CHAMPAGNE Critical Value Read Back Blood Gas Luz Elena Laguna Notified Whom Blood Gas 07/31/2018 3:13: 07/31/2018 3:13 Notified Time 00 PM :00 PM Urine Color STEVE Urine Clarity SLIGHTLY CLOUD Y A Urine pH 5.0 Urine Specific 1.021 [place] Urine Ketones TRACE A Urine Nitrite NEGATIVE Urine Bilirubin NEGATIVE Urine 2+ H Urobilinogen Urine Leukocyte NEGATIVE Esterase Urine 2 Microscopic RBC Urine 13 H Microscopic WBC Urine Squamous FEW Epithelial Cell s Urine NEGATIVE Hemoglobin Urine Glucose NEGATIVE Urine Total 1+ H Protein Urine Opiates Positive Screen Urine Negative Barbiturates Urine POSITIVE Amphetamines Screen Urine Negative Benzodiazepines Screen Urine Cocaine Negative Screen Urine Negative Cannabinoids Pathologist NO Review (Hematol ogy) CSF Tubes 4 Submitted CSF Volume 6.5 CSF Appearance CLEAR CSF Color COLORLESS CSF WBC 2 CSF RBC 0 CSF Cell Count TUBE#4 Tube # CSF Mononuclear 0.0 Cells % (Auto) CSF Polynuclear 100.0 WBCs (%) CSF Glucose 46 L CSF Total 41 Protein Test 07/31/18 19:19 07/31/18 21:33 07/31/18 21:37 08/01/18 04:57 Ammonia 18 Erythrocyte 30 H Sedimentation Rate C-Reactive 6.4 H Protein Blood Gas Blood Specimen arterial Source Arterial Blood 07/31/2018 9:55 Date Drawn :31 PM Arterial Blood 7.409 pH (Temp corrected ) Arterial Blood 38.4 pCO2 (Temp correct) Arterial Blood 160.4 H pO2 (Temp corrected ) Arterial Blood 23.7 HCO3 Arterial Blood -0.8 Base Excess Arterial Blood 99.0 H Oxygen Saturati on Doug Test ACCEPTAB Arterial Blood Right Radial Gas Puncture Site Arterial 0.5 Blood Carboxyhe moglobin Arterial Blood 0.5 Methemoglobin Blood Gas A-a 152.9 H O2 Differential Oxyhemoglobin 98.0 Percent Blood Gas 37.0 Temperature Blood Gas 20.0 Respiration Rate Blood Gas 20 Actual Respiration Rat e Blood Gas VENT - AC Modality FiO2 50.0 Blood Gas Tidal 500.0 Volume Blood Gas Mean 12 Airway Pressure Blood Gas Low 5.0 PEEP Setting Blood Gas 24.0 Inspiratory Pressure Blood Gas ESTHER DAY Notified Whom Blood Gas 07/31/2018 10:0 Notified Time 3:09 PM White Blood 10.7 # Count Red Blood Count 3.08 L Hemoglobin 8.5 L Hematocrit 26.9 L Mean 87.3 Corpuscular Volume Mean 27.6 L Corpuscular Hemoglobin Mean 31.6 L Corpuscular Hemoglobin Conc ent Red Cell 24.2 H Distribution Width Platelet Count 317 # Mean Platelet 9.9 Volume Immature 0.500 H Granulocytes % Neutrophils % 81.3 H Lymphocytes % 8.2 L Monocytes % 9.2 Eosinophils % 0.4 Basophils % 0.4 Nucleated Red 0.0 Blood Cells % Immature 0.050 H Granulocytes # Neutrophils # 8.7 H Lymphocytes # 0.9 Monocytes # 1.0 H Eosinophils # 0.0 Basophils # 0.0 Nucleated Red 0.0 Blood Cells # Sodium Level 135 Potassium Level 3.5 Chloride Level 102 # Carbon Dioxide 23 Level Anion Gap 10 # Blood Urea 34 H Nitrogen Creatinine 1.12 Est Glomerular > 60 Filtrat Rate mL/min Glucose Level 76 Hemoglobin A1c 5.6 Lactic Acid 2.2 *H Level Calcium Level 7.7 L Phosphorus 4.0 Level Magnesium Level 1.4 L Total Bilirubin 0.7 Direct 0.20 # Bilirubin Indirect 0.5 Bilirubin Aspartate Amino 46 Transf (AST/SGO T) Alanine 36 Aminotransferas e (ALT/SGPT) Alkaline 58 Phosphatase Total Protein 5.6 #L Albumin 2.4 #L Globulin 3.20 Albumin/Globuli 0.75 n Ratio Triglycerides 82 Level Cholesterol 55 L Level LDL 27 Cholesterol, Calculated HDL Cholesterol 12 L Cholesterol/HDL 4.5 Ratio Vitamin B12 768 Level Thyroid 2.660 Stimulating Hormone (TSH) Medications Medication Current Medications IV Flush (NS 3 ml) 3 ml PER PROTOCOL IV ; Start 07/31/18 at 09:30 Ondansetron HCl (Zofran Inj) 4 mg Q6H PRN IV NAUSEA/VOMITING; Start 07/31/18 at 09:30 Acetaminophen (Tylenol Tab) 650 mg Q6H PRN PO .PAIN 1-3 OR TEMP; Start 07/31/18 at 09:30 Vancomycin HCl (Vanco Iv Per Pharmacy) VANCOMYCIN PER PHARMACY PER PROTOCOL XX ; Start 07/31/18 at 09:30 Vancomycin HCl 250 ml @ 125 mls/hr Q12H IVPB Last administered on 08/01/18at 05:58; Admin Dose 125 MLS/HR; Start 07/31/18 at 18:00 Miscellaneous Information (*Rx Drug Level Order Reminder*) VANCO TROUGH ON 07/07... 1700 ONCE XX ; Start 08/01/18 at 17:00; Stop 08/01/18 at 17:01 Sodium Chloride 1,000 ml @ 80 mls/hr [id number] IV Last administered on 08/01/18at 02:01; Admin Dose 80 MLS/HR; Start 07/31/18 at 14:15 Famotidine (Pepcid Iv) 20 mg Q12 IV Last administered on 08/01/18at 09:59; Admin Dose 20 MG; Start 07/31/18 at 21:00 Enoxaparin Sodium (Lovenox) 40 mg DAILY SC Last administered on 08/01/18at 10:00; Admin Dose 40 MG; Start 08/01/18 at 09:00 Propofol 100 ml @ 2.455 mls/ hr PER PROTOCOL IV Last administered on 08/01/18at 07:48; Admin Dose 2.455 MLS/HR; Start 07/31/18 at 14:30 Piperacillin Sod/ Tazobactam Sod 100 ml @ 200 mls/hr Q6H IVPB Last administered on 08/01/18at 04:41; Admin Dose 200 MLS/HR; Start 07/31/18 at 17:00 Propofol 100 ml @ 2.455 mls/ hr ONCE STAT IV Last administered on 07/31/18at 14:45; Admin Dose 2.455 MLS/HR; Start 07/31/18 at 14:26; Stop 08/02/18 at 07:09 Fentanyl 100 ml @ 2.5 mls/hr TITRATE IV Last administered on 08/01/18at 07:09; Admin Dose 7.5 MLS/HR; Start 07/31/18 at 16:30 Sodium Hypochlorite (Dakins Diluted ()) 1 applic DAILY TP Last administered on 08/01/18at 10:01; Admin Dose 1 APPLIC; Start 08/01/18 at 09:00 Magnesium Sulfate 3 gm/Dextrose 106 ml @ 35.333 mls/ hr ONCE ONCE IVPB Last administered on 08/01/18at 08:39; Admin Dose 35.333 MLS/HR; Start 08/01/18 at 08:00; Stop 08/01/18 at 10:59 ESTER TAYLOR NP Aug 01, 2018 10:21
--- NOTE | 2018-08-01 10:38 | CONS ---
Assessment/Plan Assessment/Plan Assessment/Plan (Daily) IMP: 1. Altered Mental Status--encephalopathy may be toxic metabolic in origin. He is bacteremic and had + urine tox for amphetamines. Doubt hepatic encephalopathy, Doubt ETOH withdrawal. No evidence of meningoencephalitis 2. Vent Dependence-- 3. GN+ bacteremia and LE cellulitis--doubt toxic shock syndrome 4. Coagulopathy 5. Lactic Acidosis RECS: 1. Transition to precedex; off propofol 2. Wean in am 3. Obtain ECHO; r/o endocarditis 4. Repeat BC x2 5. Follow lactate 6. Continue zosyn and vanco; follow cultures 7. Wound care 8. Check NH4 level 9. DVT/GI prophylaxis Consultation Date/Type/Reason Admit Date/Time Jul 31, 2018 at 06:30 Date of Consultation: Aug 01, 2018 Type of Consult Pulm/CC Reason for Consultation Resp Failure Date/Time of Note DATE: 08/01/18 TIME: 10:21 Hx of Present Illness Briefly, this is a 62-year-old man with history of HTN, likely substance and possible ETOH abuse, admitted yesterday after presenting with LE and abdominal pain. He appears to have been intubated in the ED for airway protection given extreme agitation and AMS. He is now sedated and on mechanical ventilation. Subjective hx not possible: pt non-verbal Past Medical History Medical History: high cholesterol, hypertension Home Meds Discontinued Scripts Famotidine* (Pepcid*) 20 Mg Tablet, 20 MG PO BID for 4 Days, TAB Prov:DANITA MOSQUEDA 08/06/17 Medications Current Medications IV Flush (NS 3 ml) 3 ml PER PROTOCOL IV ; Start 07/31/18 at 09:30 Ondansetron HCl (Zofran Inj) 4 mg Q6H PRN IV NAUSEA/VOMITING; Start 07/31/18 at 09:30 Acetaminophen (Tylenol Tab) 650 mg Q6H PRN PO .PAIN 1-3 OR TEMP; Start 07/31/18 at 09:30 Vancomycin HCl (Vanco Iv Per Pharmacy) VANCOMYCIN PER PHARMACY PER PROTOCOL XX ; Start 07/31/18 at 09:30 Vancomycin HCl 250 ml @ 125 mls/hr Q12H IVPB Last administered on 08/01/18at 05:58; Admin Dose 125 MLS/HR; Start 07/31/18 at 18:00 Miscellaneous Information (*Rx Drug Level Order Reminder*) VANCO TROUGH ON 07/07... 1700 ONCE XX ; Start 08/01/18 at 17:00; Stop 08/01/18 at 17:01 Sodium Chloride 1,000 ml @ 80 mls/hr [id number] IV Last administered on 08/01/18 02:01; Admin Dose 80 MLS/HR; Start 07/31/18 at 14:15 Famotidine (Pepcid Iv) 20 mg Q12 IV Last administered on 08/01/18 09:59; Admin Dose 20 MG; Start 07/31/18 at 21:00 Enoxaparin Sodium (Lovenox) 40 mg DAILY SC Last administered on 08/01/18 10:00; Admin Dose 40 MG; Start 08/01/18 at 09:00 Propofol 100 ml @ 2.455 mls/ hr PER PROTOCOL IV Last administered on 08/01/18 07:48; Admin Dose 2.455 MLS/HR; Start 07/31/18 at 14:30 Piperacillin Sod/ Tazobactam Sod 100 ml @ 200 mls/hr Q6H IVPB Last administered on 08/01/18 04:41; Admin Dose 200 MLS/HR; Start 07/31/18 at 17:00 Propofol 100 ml @ 2.455 mls/ hr ONCE STAT IV Last administered on 07/31/18at 14:45; Admin Dose 2.455 MLS/HR; Start 07/31/18 at 14:26; Stop 08/02/18 at 07:09 Fentanyl 100 ml @ 2.5 mls/hr TITRATE IV Last administered on 08/01/18 07:09; Admin Dose 7.5 MLS/HR; Start 07/31/18 at 16:30 Sodium Hypochlorite (Dakins Diluted (1/40)) 1 applic DAILY TP Last administered on 08/01/18 10:01; Admin Dose 1 APPLIC; Start 08/01/18 at 09:00 Magnesium Sulfate 3 gm/Dextrose 106 ml @ 35.333 mls/ hr ONCE ONCE IVPB Last administered on 08/01/18 08:39; Admin Dose 35.333 MLS/HR; Start 08/01/18 at 08:00; Stop 08/01/18 at 10:59 Allergies: Coded Allergies: Fish Containing Products (Unverified Allergy, Unknown, 07/31/18) onion (Unverified Allergy, Unknown, 07/31/18) Past Surgical History unknown Family History Significant Family History: no pertinent family hx Social History Smoking Status: Current every day smoker Other Social History Possible metamphetamines based on tox screen Exam/Review of Systems Exam Vitals Vital Signs Date Temp Pulse Resp B/P (MAP) Pulse Ox O2 O2 Flow FiO2 Time Delivery Rate 08/01/18 94 20 94/58 (70) 100 06:30 08/01/18 40 05:23 08/01/18 99.0 Mechanical 05:00 Ventilator 07/31/18 2.0 13:04 Intake and Output 07/31/18 07/31/18 08/01/18 1515:00 23:00 07:00 IntakeIntake Total 260 ml OutputOutput Total 360 ml 250 ml BalanceBalance -100 ml -250 ml Constitutional: non-verbal Head: normocephalic, atraumatic Eyes: nl conjunctiva, EOMI, nl lids ENMT: nl external ears & nose, nl lips & teeth, nl nasal mucosa & septum, mucosa pink and moist, intubated Neck: supple, non-tender Respiratory: clear to auscultation Cardiovascular: regular rate and rhythm Gastrointestinal: soft, nl liver, spleen, non-tender Extremities: edema, other (wounds on both lower extremities with vesicular lesions with clear fluid, erythema bilaterally up to the knees) Neurological: DTR's symmetric Skin: ecchymosis Results Result Diagram: 08/01/18 0457 08/01/18 0457 Results 24hrs Laboratory Tests Test 07/31/18 15:00 07/31/18 16:00 07/31/18 16:19 07/31/18 18:00 Blood Gas Blood arterial Blood Specimen arterial Source Arterial Blood 07/31/2018 3:00: 07/31/2018 3:00 Date Drawn 00 PM :00 PM Arterial Blood 7.246 *L 7.246 *L pH (Temp corrected ) Arterial Blood 45.9 H 45.9 H pCO2 (Temp correct) Arterial Blood 296.5 H 296.5 H pO2 (Temp corrected ) Arterial Blood 19.5 L 19.5 L HCO3 Arterial Blood -7.5 L -7.5 L Base Excess Arterial Blood 99.8 H 99.8 H Oxygen Saturati on Doug Test N/A N/A Arterial Blood Right Brachial Right Gas Brachial Puncture Site Arterial 0.8 0.8 Blood Carboxyhe moglobin Arterial Blood 0.5 0.5 Methemoglobin Blood Gas A-a 370.6 H 370.6 H O2 Differential Oxyhemoglobin 98.5 98.5 Percent Blood Gas 37.0 37.0 Temperature Blood Gas 16.0 16.0 Respiration Rate Blood Gas 16 16 Actual Respiration Rat e Blood Gas VENT - AC VENT - AC Modality FiO2 100.0 100.0 Blood Gas Tidal 500.0 500.0 Volume Blood Gas Low 5.0 5.0 PEEP Setting Blood Gas Katarzyna CHAMPAGNE Critical Value Read Back Blood Gas Luz Elena Laguna Notified Whom Blood Gas 07/31/2018 3:13: 07/31/2018 3:13 Notified Time 00 PM :00 PM Urine Color STEVE Urine Clarity SLIGHTLY CLOUD Y A Urine pH 5.0 Urine Specific 1.021 [place] Urine Ketones TRACE A Urine Nitrite NEGATIVE Urine Bilirubin NEGATIVE Urine 2+ H Urobilinogen Urine Leukocyte NEGATIVE Esterase Urine 2 Microscopic RBC Urine 13 H Microscopic WBC Urine Squamous FEW Epithelial Cell s Urine NEGATIVE Hemoglobin Urine Glucose NEGATIVE Urine Total 1+ H Protein Urine Opiates Positive Screen Urine Negative Barbiturates Urine POSITIVE Amphetamines Screen Urine Negative Benzodiazepines Screen Urine Cocaine Negative Screen Urine Negative Cannabinoids Pathologist NO Review (Hematol ogy) CSF Tubes 4 Submitted CSF Volume 6.5 CSF Appearance CLEAR CSF Color COLORLESS CSF WBC 2 CSF RBC 0 CSF Cell Count TUBE#4 Tube # CSF Mononuclear 0.0 Cells % (Auto) CSF Polynuclear 100.0 WBCs (%) CSF Glucose 46 L CSF Total 41 Protein Test 07/31/18 19:19 07/31/18 21:33 07/31/18 21:37 08/01/18 04:57 Ammonia 18 Erythrocyte 30 H Sedimentation Rate C-Reactive 6.4 H Protein Blood Gas Blood Specimen arterial Source Arterial Blood 07/31/2018 9:55 Date Drawn :31 PM Arterial Blood 7.409 pH (Temp corrected ) Arterial Blood 38.4 pCO2 (Temp correct) Arterial Blood 160.4 H pO2 (Temp corrected ) Arterial Blood 23.7 HCO3 Arterial Blood -0.8 Base Excess Arterial Blood 99.0 H Oxygen Saturati on Doug Test ACCEPTAB Arterial Blood Right Radial Gas Puncture Site Arterial 0.5 Blood Carboxyhe moglobin Arterial Blood 0.5 Methemoglobin Blood Gas A-a 152.9 H O2 Differential Oxyhemoglobin 98.0 Percent Blood Gas 37.0 Temperature Blood Gas 20.0 Respiration Rate Blood Gas 20 Actual Respiration Rat e Blood Gas VENT - AC Modality FiO2 50.0 Blood Gas Tidal 500.0 Volume Blood Gas Mean 12 Airway Pressure Blood Gas Low 5.0 PEEP Setting Blood Gas 24.0 Inspiratory Pressure Blood Gas ESTHER DAY Notified Whom Blood Gas 07/31/2018 10:0 Notified Time 3:09 PM White Blood 10.7 # Count Red Blood Count 3.08 L Hemoglobin 8.5 L Hematocrit 26.9 L Mean 87.3 Corpuscular Volume Mean 27.6 L Corpuscular Hemoglobin Mean 31.6 L Corpuscular Hemoglobin Conc ent Red Cell 24.2 H Distribution Width Platelet Count 317 # Mean Platelet 9.9 Volume Immature 0.500 H Granulocytes % Neutrophils % 81.3 H Lymphocytes % 8.2 L Monocytes % 9.2 Eosinophils % 0.4 Basophils % 0.4 Nucleated Red 0.0 Blood Cells % Immature 0.050 H Granulocytes # Neutrophils # 8.7 H Lymphocytes # 0.9 Monocytes # 1.0 H Eosinophils # 0.0 Basophils # 0.0 Nucleated Red 0.0 Blood Cells # Sodium Level 135 Potassium Level 3.5 Chloride Level 102 # Carbon Dioxide 23 Level Anion Gap 10 # Blood Urea 34 H Nitrogen Creatinine 1.12 Est Glomerular > 60 Filtrat Rate mL/min Glucose Level 76 Hemoglobin A1c 5.6 Lactic Acid 2.2 *H Level Calcium Level 7.7 L Phosphorus 4.0 Level Magnesium Level 1.4 L Total Bilirubin 0.7 Direct 0.20 # Bilirubin Indirect 0.5 Bilirubin Aspartate Amino 46 Transf (AST/SGO T) Alanine 36 Aminotransferas e (ALT/SGPT) Alkaline 58 Phosphatase Total Protein 5.6 #L Albumin 2.4 #L Globulin 3.20 Albumin/Globuli 0.75 n Ratio Triglycerides 82 Level Cholesterol 55 L Level LDL 27 Cholesterol, Calculated HDL Cholesterol 12 L Cholesterol/HDL 4.5 Ratio Vitamin B12 768 Level Thyroid 2.660 Stimulating Hormone (TSH) Medications Medication Current Medications IV Flush (NS 3 ml) 3 ml PER PROTOCOL IV ; Start 07/31/18 at 09:30 Ondansetron HCl (Zofran Inj) 4 mg Q6H PRN IV NAUSEA/VOMITING; Start 07/31/18 at 09:30 Acetaminophen (Tylenol Tab) 650 mg Q6H PRN PO .PAIN 1-3 OR TEMP; Start 07/31/18 at 09:30 Vancomycin HCl (Vanco Iv Per Pharmacy) VANCOMYCIN PER PHARMACY PER PROTOCOL XX ; Start 07/31/18 at 09:30 Vancomycin HCl 250 ml @ 125 mls/hr Q12H IVPB Last administered on 08/01/18at 05:58; Admin Dose 125 MLS/HR; Start 07/31/18 at 18:00 Miscellaneous Information (*Rx Drug Level Order Reminder*) VANCO TROUGH ON 07/07... 1700 ONCE XX ; Start 08/01/18 at 17:00; Stop 08/01/18 at 17:01 Sodium Chloride 1,000 ml @ 80 mls/hr [id number] IV Last administered on 08/01/18at 02:01; Admin Dose 80 MLS/HR; Start 07/31/18 at 14:15 Famotidine (Pepcid Iv) 20 mg Q12 IV Last administered on 08/01/18at 09:59; Admin Dose 20 MG; Start 07/31/18 at 21:00 Enoxaparin Sodium (Lovenox) 40 mg DAILY SC Last administered on 08/01/18at 10:00; Admin Dose 40 MG; Start 08/01/18 at 09:00 Propofol 100 ml @ 2.455 mls/ hr PER PROTOCOL IV Last administered on 08/01/18at 07:48; Admin Dose 2.455 MLS/HR; Start 07/31/18 at 14:30 Piperacillin Sod/ Tazobactam Sod 100 ml @ 200 mls/hr Q6H IVPB Last ad ministered on 08/01/18at 04:41; Admin Dose 200 MLS/HR; Start 07/31/18 at 17:00 Propofol 100 ml @ 2.455 mls/ hr ONCE STAT IV Last administered on 07/31/18at 14:45; Admin Dose 2.455 MLS/HR; Start 07/31/18 at 14:26; Stop 08/02/18 at 07:09 Fentanyl 100 ml @ 2.5 mls/hr TITRATE IV Last administered on 08/01/18at 07:09; Admin Dose 7.5 MLS/HR; Start 07/31/18 at 16:30 Sodium Hypochlorite (Dakins Diluted ()) 1 applic DAILY TP Last administered on 08/01/18at 10:01; Admin Dose 1 APPLIC; Start 08/01/18 at 09:00 Magnesium Sulfate 3 gm/Dextrose 106 ml @ 35.333 mls/ hr ONCE ONCE IVPB Last administered on 08/01/18at 08:39; Admin Dose 35.333 MLS/HR; Start 08/01/18 at 08:00; Stop 08/01/18 at 10:59 ALANNA ZELAYA MD Aug 01, 2018 10:38
[2018-08-01] MEDS: DEXMEDETOMIDINE HCL 200 MCG in SOD CHLORIDE 0.9% 48 ML IV SCH ×2 (11:42→22:48)
--- NOTE | 2018-08-01 11:53 | PN ---
Date/Time of Note Date/Time of Note DATE: 08/01/18 TIME: 11:49 Assessment/Plan VTE Prophylaxis Risk score (from Nsg)>0 risk: 8 Pharmacological prophylaxis: LMWH Lines/Catheters IV Catheter Type (from Nrsg): Peripheral IV Assessment/Plan Hospital Course 62-year-old homeless male who is also a poor historian, admitted through [facility] room with worsening bilateral lower extremity cellulitis/pain.... Acute respiratory secondary to encephalopathy -Continue vent support -Pulmonology and neurology following Bilateral lower extremity open wound/cellulitis -Continue vancomycin and Zosyn -ID and podiatry consultations appreciated Lactic acidosis likely secondary to sepsis -Lactate improved with IV fluids. -Continue empiric antimicrobials and follow-up cultures Acute metabolic/toxic encephalopathy -Toxicology is positive for opiates and amphetamines -Neurology consultation appreciated -CT brain with no acute findings Dehydration -Fluids Hypokalemia -Replete Chronic normocytic anemia -Stable H&H Homelessness -SW consult Prophylaxis: Lovenox and Pepcid Result Diagram: 08/01/18 0457 08/01/18 0457 Results 24hrs Laboratory Tests Test 07/31/18 15:00 07/31/18 16:00 07/31/18 16:19 07/31/18 18:00 Blood Gas Blood arterial Blood Specimen arterial Source Arterial Blood 07/31/2018 3:00: 07/31/2018 3:00 Date Drawn 00 PM :00 PM Arterial Blood 7.246 *L 7.246 *L pH (Temp corrected ) Arterial Blood 45.9 H 45.9 H pCO2 (Temp correct) Arterial Blood 296.5 H 296.5 H pO2 (Temp corrected ) Arterial Blood 19.5 L 19.5 L HCO3 Arterial Blood -7.5 L -7.5 L Base Excess Arterial Blood 99.8 H 99.8 H Oxygen Saturati on Doug Test N/A N/A Arterial Blood Right Brachial Right Gas Brachial Puncture Site Arterial 0.8 0.8 Blood Carboxyhe moglobin Arterial Blood 0.5 0.5 Methemoglobin Blood Gas A-a 370.6 H 370.6 H O2 Differential Oxyhemoglobin 98.5 98.5 Percent Blood Gas 37.0 37.0 Temperature Blood Gas 16.0 16.0 Respiration Rate Blood Gas 16 16 Actual Respiration Rat e Blood Gas VENT - AC VENT - AC Modality FiO2 100.0 100.0 Blood Gas Tidal 500.0 500.0 Volume Blood Gas Low 5.0 5.0 PEEP Setting Blood Gas Katarzyna CHAMPAGNE Critical Value Read Back Blood Gas Luz Elena Laguna Notified Whom Blood Gas 07/31/2018 3:13: 07/31/2018 3:13 Notified Time 00 PM :00 PM Urine Color STEVE Urine Clarity SLIGHTLY CLOUD Y A Urine pH 5.0 Urine Specific 1.021 [place] Urine Ketones TRACE A Urine Nitrite NEGATIVE Urine Bilirubin NEGATIVE Urine 2+ H Urobilinogen Urine Leukocyte NEGATIVE Esterase Urine 2 Microscopic RBC Urine 13 H Microscopic WBC Urine Squamous FEW Epithelial Cell s Urine NEGATIVE Hemoglobin Urine Glucose NEGATIVE Urine Total 1+ H Protein Urine Opiates Positive Screen Urine Negative Barbiturates Urine POSITIVE Amphetamines Screen Urine Negative Benzodiazepines Screen Urine Cocaine Negative Screen Urine Negative Cannabinoids Pathologist NO Review (Hematol ogy) CSF Tubes 4 Submitted CSF Volume 6.5 CSF Appearance CLEAR CSF Color COLORLESS CSF WBC 2 CSF RBC 0 CSF Cell Count TUBE#4 Tube # CSF Mononuclear 0.0 Cells % (Auto) CSF Polynuclear 100.0 WBCs (%) CSF Glucose 46 L CSF Total 41 Protein Test 07/31/18 19:19 07/31/18 21:33 07/31/18 21:37 08/01/18 04:57 Ammonia 18 Erythrocyte 30 H Sedimentation Rate C-Reactive 6.4 H Protein Blood Gas Blood Specimen arterial Source Arterial Blood 07/31/2018 9:55 Date Drawn :31 PM Arterial Blood 7.409 pH (Temp corrected ) Arterial Blood 38.4 pCO2 (Temp correct) Arterial Blood 160.4 H pO2 (Temp corrected ) Arterial Blood 23.7 HCO3 Arterial Blood -0.8 Base Excess Arterial Blood 99.0 H Oxygen Saturati on Doug Test ACCEPTAB Arterial Blood Right Radial Gas Puncture Site Arterial 0.5 Blood Carboxyhe moglobin Arterial Blood 0.5 Methemoglobin Blood Gas A-a 152.9 H O2 Differential Oxyhemoglobin 98.0 Percent Blood Gas 37.0 Temperature Blood Gas 20.0 Respiration Rate Blood Gas 20 Actual Respiration Rat e Blood Gas VENT - AC Modality FiO2 50.0 Blood Gas Tidal 500.0 Volume Blood Gas Mean 12 Airway Pressure Blood Gas Low 5.0 PEEP Setting Blood Gas 24.0 Inspiratory Pressure Blood Gas ESTHER DAY Notified Whom Blood Gas 07/31/2018 10:0 Notified Time 3:09 PM White Blood 10.7 # Count Red Blood Count 3.08 L Hemoglobin 8.5 L Hematocrit 26.9 L Mean 87.3 Corpuscular Volume Mean 27.6 L Corpuscular Hemoglobin Mean 31.6 L Corpuscular Hemoglobin Conc ent Red Cell 24.2 H Distribution Width Platelet Count 317 # Mean Platelet 9.9 Volume Immature 0.500 H Granulocytes % Neutrophils % 81.3 H Lymphocytes % 8.2 L Monocytes % 9.2 Eosinophils % 0.4 Basophils % 0.4 Nucleated Red 0.0 Blood Cells % Immature 0.050 H Granulocytes # Neutrophils # 8.7 H Lymphocytes # 0.9 Monocytes # 1.0 H Eosinophils # 0.0 Basophils # 0.0 Nucleated Red 0.0 Blood Cells # Sodium Level 135 Potassium Level 3.5 Chloride Level 102 # Carbon Dioxide 23 Level Anion Gap 10 # Blood Urea 34 H Nitrogen Creatinine 1.12 Est Glomerular > 60 Filtrat Rate mL/min Glucose Level 76 Hemoglobin A1c 5.6 Lactic Acid 2.2 *H Level Calcium Level 7.7 L Phosphorus 4.0 Level Magnesium Level 1.4 L Total Bilirubin 0.7 Direct 0.20 # Bilirubin Indirect 0.5 Bilirubin Aspartate Amino 46 Transf (AST/SGO T) Alanine 36 Aminotransferas e (ALT/SGPT) Alkaline 58 Phosphatase Total Protein 5.6 #L Albumin 2.4 #L Globulin 3.20 Albumin/Globuli 0.75 n Ratio Triglycerides 82 Level Cholesterol 55 L Level LDL 27 Cholesterol, Calculated HDL Cholesterol 12 L Cholesterol/HDL 4.5 Ratio Vitamin B12 768 Level Thyroid 2.660 Stimulating Hormone (TSH) Subjective 24 Hr Interval Summary Subjective hx not possible: pt non-verbal Exam/Review of Systems Exam Vitals Vital Signs Date Temp Pulse Resp B/P (MAP) Pulse Ox O2 O2 Flow FiO2 Time Delivery Rate 08/01/18 89 08:00 08/01/18 20 94/58 (70) 100 06:30 08/01/18 40 05:23 08/01/18 99.0 Mechanical 05:00 Ventilator 07/31/18 2.0 13:04 Intake and Output 07/31/18 07/31/18 08/01/18 1515:00 23:00 07:00 IntakeIntake Total 260 ml OutputOutput Total 360 ml 250 ml BalanceBalance -100 ml -250 ml Constitutional: non-verbal ENMT: intubated Respiratory: clear to auscultation Cardiovascular: regular rate and rhythm Gastrointestinal: soft; No distended Musculoskeletal: nl extremities to inspection Results Results 24hrs Laboratory Tests Test 07/31/18 15:00 07/31/18 16:00 07/31/18 16:19 07/31/18 18:00 Blood Gas Blood arterial Blood Specimen arterial Source Arterial Blood 07/31/2018 3:00: 07/31/2018 3:00 Date Drawn 00 PM :00 PM Arterial Blood 7.246 *L 7.246 *L pH (Temp corrected ) Arterial Blood 45.9 H 45.9 H pCO2 (Temp correct) Arterial Blood 296.5 H 296.5 H pO2 (Temp corrected ) Arterial Blood 19.5 L 19.5 L HCO3 Arterial Blood -7.5 L -7.5 L Base Excess Arterial Blood 99.8 H 99.8 H Oxygen Saturati on Doug Test N/A N/A Arterial Blood Right Brachial Right Gas Brachial Puncture Site Arterial 0.8 0.8 Blood Carboxyhe moglobin Arterial Blood 0.5 0.5 Methemoglobin Blood Gas A-a 370.6 H 370.6 H O2 Differential Oxyhemoglobin 98.5 98.5 Percent Blood Gas 37.0 37.0 Temperature Blood Gas 16.0 16.0 Respiration Rate Blood Gas 16 16 Actual Respiration Rat e Blood Gas VENT - AC VENT - AC Modality FiO2 100.0 100.0 Blood Gas Tidal 500.0 500.0 Volume Blood Gas Low 5.0 5.0 PEEP Setting Blood Gas Katarzyna CHAMPAGNE Critical Value Read Back Blood Gas Luz Elena Laguna Notified Whom Blood Gas 07/31/2018 3:13: 07/31/2018 3:13 Notified Time 00 PM :00 PM Urine Color STEVE Urine Clarity SLIGHTLY CLOUD Y A Urine pH 5.0 Urine Specific 1.021 [place] Urine Ketones TRACE A Urine Nitrite NEGATIVE Urine Bilirubin NEGATIVE Urine 2+ H Urobilinogen Urine Leukocyte NEGATIVE Esterase Urine 2 Microscopic RBC Urine 13 H Microscopic WBC Urine Squamous FEW Epithelial Cell s Urine NEGATIVE Hemoglobin Urine Glucose NEGATIVE Urine Total 1+ H Protein Urine Opiates Positive Screen Urine Negative Barbiturates Urine POSITIVE Amphetamines Screen Urine Negative Benzodiazepines Screen Urine Cocaine Negative Screen Urine Negative Cannabinoids Pathologist NO Review (Hematol ogy) CSF Tubes 4 Submitted CSF Volume 6.5 CSF Appearance CLEAR CSF Color COLORLESS CSF WBC 2 CSF RBC 0 CSF Cell Count TUBE#4 Tube # CSF Mononuclear 0.0 Cells % (Auto) CSF Polynuclear 100.0 WBCs (%) CSF Glucose 46 L CSF Total 41 Protein Test 07/31/18 19:19 07/31/18 21:33 07/31/18 21:37 08/01/18 04:57 Ammonia 18 Erythrocyte 30 H Sedimentation Rate C-Reactive 6.4 H Protein Blood Gas Blood Specimen arterial Source Arterial Blood 07/31/2018 9:55 Date Drawn :31 PM Arterial Blood 7.409 pH (Temp corrected ) Arterial Blood 38.4 pCO2 (Temp correct) Arterial Blood 160.4 H pO2 (Temp corrected ) Arterial Blood 23.7 HCO3 Arterial Blood -0.8 Base Excess Arterial Blood 99.0 H Oxygen Saturati on Doug Test ACCEPTAB Arterial Blood Right Radial Gas Puncture Site Arterial 0.5 Blood Carboxyhe moglobin Arterial Blood 0.5 Methemoglobin Blood Gas A-a 152.9 H O2 Differential Oxyhemoglobin 98.0 Percent Blood Gas 37.0 Temperature Blood Gas 20.0 Respiration Rate Blood Gas 20 Actual Respiration Rat e Blood Gas VENT - AC Modality FiO2 50.0 Blood Gas Tidal 500.0 Volume Blood Gas Mean 12 Airway Pressure Blood Gas Low 5.0 PEEP Setting Blood Gas 24.0 Inspiratory Pressure Blood Gas ESTHER DAY Notified Whom Blood Gas 07/31/2018 10:0 Notified Time 3:09 PM White Blood 10.7 # Count Red Blood Count 3.08 L Hemoglobin 8.5 L Hematocrit 26.9 L Mean 87.3 Corpuscular Volume Mean 27.6 L Corpuscular Hemoglobin Mean 31.6 L Corpuscular Hemoglobin Conc ent Red Cell 24.2 H Distribution Width Platelet Count 317 # Mean Platelet 9.9 Volume Immature 0.500 H Granulocytes % Neutrophils % 81.3 H Lymphocytes % 8.2 L Monocytes % 9.2 Eosinophils % 0.4 Basophils % 0.4 Nucleated Red 0.0 Blood Cells % Immature 0.050 H Granulocytes # Neutrophils # 8.7 H Lymphocytes # 0.9 Monocytes # 1.0 H Eosinophils # 0.0 Basophils # 0.0 Nucleated Red 0.0 Blood Cells # Sodium Level 135 Potassium Level 3.5 Chloride Level 102 # Carbon Dioxide 23 Level Anion Gap 10 # Blood Urea 34 H Nitrogen Creatinine 1.12 Est Glomerular > 60 Filtrat Rate mL/min Glucose Level 76 Hemoglobin A1c 5.6 Lactic Acid 2.2 *H Level Calcium Level 7.7 L Phosphorus 4.0 Level Magnesium Level 1.4 L Total Bilirubin 0.7 Direct 0.20 # Bilirubin Indirect 0.5 Bilirubin Aspartate Amino 46 Transf (AST/SGO T) Alanine 36 Aminotransferas e (ALT/SGPT) Alkaline 58 Phosphatase Total Protein 5.6 #L Albumin 2.4 #L Globulin 3.20 Albumin/Globuli 0.75 n Ratio Triglycerides 82 Level Cholesterol 55 L Level LDL 27 Cholesterol, Calculated HDL Cholesterol 12 L Cholesterol/HDL 4.5 Ratio Vitamin B12 768 Level Thyroid 2.660 Stimulating Hormone (TSH) Medications Medication Current Medications IV Flush (NS 3 ml) 3 ml PER PROTOCOL IV ; Start 07/31/18 at 09:30 Ondansetron HCl (Zofran Inj) 4 mg Q6H PRN IV NAUSEA/VOMITING; Start 07/31/18 at 09:30 Acetaminophen (Tylenol Tab) 650 mg Q6H PRN PO .PAIN 1-3 OR TEMP; Start 07/31/18 at 09:30 Vancomycin HCl (Vanco Iv Per Pharmacy) VANCOMYCIN PER PHARMACY PER PROTOCOL XX ; Start 07/31/18 at 09:30 Vancomycin HCl 250 ml @ 125 mls/hr Q12H IVPB Last administered on 08/01/18at 05:58; Admin Dose 125 MLS/HR; Start 07/31/18 at 18:00 Miscellaneous Information (*Rx Drug Level Order Reminder*) VANCO TROUGH ON 07/07... 1700 ONCE XX ; Start 08/01/18 at 17:00; Stop 08/01/18 at 17:01 Sodium Chloride 1,000 ml @ 80 mls/hr [id number] IV Last administered on 08/01/18at 02:01; Admin Dose 80 MLS/HR; Start 07/31/18 at 14:15 Famotidine (Pepcid Iv) 20 mg Q12 IV Last administered on 08/01/18at 09:59; Admin Dose 20 MG; Start 07/31/18 at 21:00 Enoxaparin Sodium (Lovenox) 40 mg DAILY SC Last administered on 08/01/18at 10:00; Admin Dose 40 MG; Start 08/01/18 at 09:00 Propofol 100 ml @ 2.455 mls/ hr PER PROTOCOL IV Last administered on 08/01/18 07:48; Admin Dose 2.455 MLS/HR; Start 07/31/18 at 14:30 Piperacillin Sod/ Tazobactam Sod 100 ml @ 200 mls/hr Q6H IVPB Last administered on 08/01/18 11:44; Admin Dose 200 MLS/HR; Start 07/31/18 at 17:00 Fentanyl 100 ml @ 2.5 mls/hr TITRATE IV Last administered on 08/01/18 07:09; Admin Dose 7.5 MLS/HR; Start 07/31/18 at 16:30 Sodium Hypochlorite (Dakins Diluted ()) 1 applic DAILY TP Last administered on 08/01/18at 10:01; Admin Dose 1 APPLIC; Start 08/01/18 at 09:00 Dexmedetomidine HCl 200 mcg/ Sodium Chloride 50 ml @ 8.2 mls/hr TITRATE IV Last administered on 08/01/18 11:42; Admin Dose 8.2 MLS/HR; Start 08/01/18 at 11:00 ALCIRA STEWART Aug 01, 2018 11:53
--- NOTE | 2018-08-01 16:36 | CONS ---
Assessment/Plan Assessment/Plan Assessment/Plan (Daily) Venous hypertension with ulcerations Cellulitis b/l Intubated on ventilator Homeless PAD Plan Patient was seen and evaluated. X-rays were reviewed with no signs of soft ti ssue gas, fracture fragments, erosions, or cortical disruptions. Incidental findings of tibial bone infarct vs enchondroma. Reviewed non invasive studies and could benefit from a vascular surgery evaluation. Recommend continue with antibiotics and obtain wound cultures. Recommend betadine 4x4 gauze with dry sterile dressings to bilateral lower extremities. For now continue with daily dressing changes with wet do to dry dressings. Offload and elevate heels with pillows. Consultation Date/Type/Reason Admit Date/Time Jul 31, 2018 at 06:30 Initial Consult Date 08/01/18 Requesting Provider: ADDI LOPEZ NP Date/Time of Note DATE: 08/01/18 TIME: 16:36 24 HR Interval Summary Free Text/Dictation No acute events overnight. Exam/Review of Systems Exam Vitals Vital Signs Date Temp Pulse Resp B/P (MAP) Pulse Ox O2 O2 Flow FiO2 Time Delivery Rate 08/01/18 68 21 80/60 (67) 96 16:00 08/01/18 40 15:05 08/01/18 99.0 Mechanical 05:00 Ventilator 07/31/18 2.0 13:04 Intake and Output 07/31/18 07/31/18 08/01/18 1515:00 23:00 07:00 IntakeIntake Total 260 ml 2.5 ml OutputOutput Total 360 ml 250 ml BalanceBalance -100 ml -247.5 ml Exam Pedal pulses weakly palpable There is less purple discoloration to the digits and more warmth to touch of the digits bilateral CFT less than 3 seconds Patient intubated Multiple venous ulcerations and with several bullae formations. Diffuse erythema Patient in restraints Non invasive vascular studies IMPRESSION: Diffuse monophasic waveforms bilaterally with no focal area of high degree stenosis. [id number] arteries on the left cannot be evaluated due to a large ulcers. Follow-up CT angiogram is recommended. Left foot & tib fib x-rays IMPRESSION: No definite acute bony abnormality of the foot. 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 Correlate clinically for etiology such as steroid use or sickle cell disease. Right foot and tib fib x-rays IMPRESSION: No definite acute fracture or dislocation. Degenerative change of the first MTP joint. 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 Results Result Diagram: 08/01/18 0457 08/01/18 0457 Results 24hrs Laboratory Tests Test 07/31/18 18:00 07/31/18 19:19 07/31/18 21:33 07/31/18 21:37 Blood Gas Blood arterial Blood arterial Specimen Source Arterial Blood 07/31/2018 3:00: 07/31/2018 9:55: Date Drawn 00 PM 31 PM Arterial Blood 7.246 *L 7.409 pH (Temp corrected) Arterial Blood 45.9 H 38.4 pCO2 (Temp correct) Arterial Blood 296.5 H 160.4 H pO2 (Temp corrected) Arterial Blood 19.5 L 23.7 HCO3 Arterial Blood -7.5 L -0.8 Base Excess Arterial Blood 99.8 H 99.0 H Oxygen Saturatio n Doug Test N/A ACCEPTAB Arterial Blood Right Brachial Right Radial Gas Puncture Site Arterial 0.8 0.5 Blood Carboxyhem oglobin Arterial Blood 0.5 0.5 Methemoglobin Blood Gas A-a O2 370.6 H 152.9 H Differential Oxyhemoglobin 98.5 98.0 Percent Blood Gas 37.0 37.0 Temperature Blood Gas 16.0 20.0 Respiration Rate Blood Gas Actual 16 20 Respiration Rate Blood Gas VENT - AC VENT - AC Modality FiO2 100.0 50.0 Blood Gas Tidal 500.0 500.0 Volume Blood Gas Low 5.0 5.0 PEEP Setting Blood Gas Katarzyna CHAMPAGNE Critical Value Read Back Blood Gas Luz Elena DAY RCP Notified Whom Blood Gas 07/31/2018 3:13: 07/31/2018 10:03 Notified Time 00 PM :09 PM Ammonia 18 Erythrocyte 30 H Sedimentation Rate C-Reactive 6.4 H Protein Blood Gas Mean 12 Airway Pressure Blood Gas 24.0 Inspiratory Pressure Test 08/01/18 04:57 08/01/18 11:40 White Blood 10.7 # Count Red Blood Count 3.08 L Hemoglobin 8.5 L Hematocrit 26.9 L Mean Corpuscular 87.3 Volume Mean Corpuscular 27.6 L Hemoglobin Mean Corpuscular 31.6 L Hemoglobin Daily nt Red Cell 24.2 H Distribution Width Platelet Count 317 # Mean Platelet 9.9 Volume Immature 0.500 H Granulocytes % Neutrophils % 81.3 H Lymphocytes % 8.2 L Monocytes % 9.2 Eosinophils % 0.4 Basophils % 0.4 Nucleated Red 0.0 Blood Cells % Immature 0.050 H Granulocytes # Neutrophils # 8.7 H Lymphocytes # 0.9 Monocytes # 1.0 H Eosinophils # 0.0 Basophils # 0.0 Nucleated Red 0.0 Blood Cells # Sodium Level 135 Potassium Level 3.5 Chloride Level 102 # Carbon Dioxide 23 Level Anion Gap 10 # Blood Urea 34 H Nitrogen Creatinine 1.12 Est Glomerular > 60 Filtrat Rate mL/min Glucose Level 76 Hemoglobin A1c 5.6 Lactic Acid 2.2 *H Level Calcium Level 7.7 L Phosphorus Level 4.0 Magnesium Level 1.4 L Total Bilirubin 0.7 Direct Bilirubin 0.20 # Indirect 0.5 Bilirubin Aspartate Amino 46 Transf (AST/SGOT ) Alanine 36 Aminotransferase (ALT/SGPT) Alkaline 58 Phosphatase Total Protein 5.6 #L Albumin 2.4 #L Globulin 3.20 Albumin/Globulin 0.75 Ratio Triglycerides 82 Level Cholesterol 55 L Level LDL Cholesterol, 27 Calculated HDL Cholesterol 12 L Cholesterol/HDL 4.5 Ratio Vitamin B12 768 Level Thyroid 2.660 Stimulating Hormone (TSH) Ammonia 16 Medications Medication Current Medications IV Flush (NS 3 ml) 3 ml PER PROTOCOL IV ; Start 07/31/18 at 09:30 Ondansetron HCl (Zofran Inj) 4 mg Q6H PRN IV NAUSEA/VOMITING; Start 07/31/18 at 09:30 Acetaminophen (Tylenol Tab) 650 mg Q6H PRN PO .PAIN 1-3 OR TEMP; Start 07/31/18 at 09:30 Vancomycin HCl (Vanco Iv Per Pharmacy) VANCOMYCIN PER PHARMACY PER PROTOCOL XX ; Start 07/31/18 at 09:30 Vancomycin HCl 250 ml @ 125 mls/hr Q12H IVPB Last administered on 08/01/18at 05:58; Admin Dose 125 MLS/HR; Start 07/31/18 at 18:00 Miscellaneous Information (*Rx Drug Level Order Reminder*) VANCO TROUGH ON 07/07... 1700 ONCE XX ; Start 08/01/18 at 17:00; Stop 08/01/18 at 17:01 Sodium Chloride 1,000 ml @ 80 mls/hr [id number] IV Last administered on 08/01/18 15:35; Admin Dose 80 MLS/HR; Start 07/31/18 at 14:15 Famotidine (Pepcid Iv) 20 mg Q12 IV Last administered on 08/01/18 09:59; Admin Dose 20 MG; Start 07/31/18 at 21:00 Enoxaparin Sodium (Lovenox) 40 mg DAILY SC Last administered on 08/01/18 10:00; Admin Dose 40 MG; Start 08/01/18 at 09:00 Piperacillin Sod/ Tazobactam Sod 100 ml @ 200 mls/hr Q6H IVPB Last administered on 08/01/18 11:44; Admin Dose 200 MLS/HR; Start 07/31/18 at 17:00 Fentanyl 100 ml @ 2.5 mls/hr TITRATE IV Last administered on 08/01/18 07:09; Admin Dose 7.5 MLS/HR; Start 07/31/18 at 16:30 Sodium Hypochlorite (Dakins Diluted ()) 1 applic DAILY TP Last administered on 08/01/18 10:01; Admin Dose 1 APPLIC; Start 08/01/18 at 09:00 Dexmedetomidine HCl 200 mcg/ Sodium Chloride 50 ml @ 8.2 mls/hr TITRATE IV Last administered on 08/01/18 11:42; Admin Dose 8.2 MLS/HR; Start 08/01/18 at 11:00 JOYA LANGFORD DPM Aug 01, 2018 16:36
[2018-08-01] MEDS ORDERED: DEXTROSE 50% 50 ML SYRINGE ONE (18:07)
[2018-08-01] MEDS ORDERED: GLUCOSE GEL 15 GRAM TUBE PO PRN ×2 (18:30)
[2018-08-01] MEDS ORDERED: DEXTROSE 50% 50 ML SYRINGE IV PRN (18:30)
[2018-08-01] MEDS ORDERED: GLUCOSE GEL 15 GRAM TUBE BUCCAL PRN (18:30)
[2018-08-01] MEDS ORDERED: GLUCAGON 1 MG INJ IM PRN (18:30)
[2018-08-01] MEDS: VANCOMYCIN 750 MG (PMX) 250 ML IVPB SCH (20:57)
[2018-08-02] VITALS (80 sets, daily range): BP systolic 78–119; BP diastolic 31–92; PULSE 71–121; RESP 18–20
[2018-08-02] MEDS ORDERED: SOD CHLORIDE 0.9% 1,000 ML IV ONE (01:00)
[2018-08-02] MEDS ORDERED: NORepinephrine 8MG/250 ML (PMX 250 ML IV SCH (04:30)
[2018-08-02] MEDS ORDERED: NORepinephrine 8MG/250 ML (PMX 250 ML ONE (04:38)
[2018-08-02] MEDS: SOD CHLORIDE 0.9% 1,000 ML IV SCH (05:42)
[2018-08-02] MEDS: PIPER-TAZO 3.375 GM IV (PMX) 100 ML IVPB SCH ×4 (05:42→22:18)
[2018-08-02] MEDS: DEXMEDETOMIDINE HCL 200 MCG in SOD CHLORIDE 0.9% 48 ML IV SCH ×2 (06:35→20:46)
[2018-08-02] MEDS: VANCOMYCIN 750 MG (PMX) 250 ML IVPB SCH ×2 (08:07→20:49)
[2018-08-02] MEDS: FAMOTIDINE 20 MG INJ IV SCH ×2 (08:07→20:48)
[2018-08-02] MEDS: ENOXAPARIN 40 MG/0.4 ML SYG SC SCH (08:09)
[2018-08-02] MEDS: DAKINS 0.0125%(1/40) 473 ML SOLUTION TP SCH (08:16)
[2018-08-02] MEDS: FENTAnyl (DRIP) 1000 mcg/100mL 100 ML IV SCH (08:26)
--- NOTE | 2018-08-02 10:13 | CONS ---
Assessment/Plan Assessment/Plan Hospital Course 62 yo M with uncertain PMH who presents to the ED for evaluation of pain and other sx. He was noted to become altered... for which neurology is consulted. The clinical picture is most consistent with an acute toxic encephalopathy...due to illicit drug use and multiple psychotropic medications. A focal TEST ANALYST process is less likely, though not entirely excluded. CTH was unrevealing. UDS + amphetamines, opioids, B12, ammonia wnl P: Await MRI brain for further characterization Limit sedating medications where possible Other medical management and supportive care per primary Will follow clinically, to recommend neurologic studies, as necessary Consultation Date/Type/Reason Admit Date/Time Jul 31, 2018 at 06:30 Type of Consult Neurology Reason for Consultation ams Requesting Provider: ADDI LOPEZ NP Date/Time of Note DATE: 08/02/18 TIME: 10:12 24 HR Interval Summary Free Text/Dictation Continues critical care. On precedex, fentanyl gtt. Subjective hx not possible: pt non-verbal, pt critical Exam Vital Signs Vitals Vital Signs Date Temp Pulse Resp B/P (MAP) Pulse Ox O2 O2 Flow FiO2 Time Delivery Rate 08/02/18 74 83/54 (64) 100 Mechanical 09:00 Ventilator 08/02/18 40 08:00 08/02/18 99.1 08:00 08/02/18 20 06:00 07/31/18 2.0 13:04 Intake and Output 08/01/18 08/01/18 08/02/18 1515:00 23:00 07:00 IntakeIntake Total 27.5 ml 1037.70 ml 766.235 ml OutputOutput Total 190 ml 410 ml 365 ml BalanceBalance -162.5 ml 627.70 ml 401.235 ml Exam PE: Gen Appearance: No Apparent Distress HEENT: Intubated Cardiovascular: Regular rate Abdomen: Soft Extremities: Has multiple BLE ulcers NE: The patient was sedated and nonverbal d/t ETT. Off sedation, the pt is able to nod to yes/no questions; able to communicate through handwriting. Is able to follow axial/appendicular commands. Cranial nerve examination was limited by mental status. Pupils were equal and reactive to light. There was no afferent pupillary defect. Funduscopic examination was limited. Face was grossly symmetric, w/ present corneal and cough reflexes. Tone was normal. Muscle bulk was normal. I did not see fasciculations. The patient was mildly weak in his UE, very weak in his lowers. Coordination and gait testing was limited by mental status. Arm and leg reflexes were within normal limits and symmetric. Schwarz's sign was absent. Plantar responses were flexor. JUAN ELLINGTON NP Aug 02, 2018 10:13
--- NOTE | 2018-08-02 10:18 | CONS ---
Assessment/Plan Assessment/Plan Hospital Course (Demo Recall) ID PROGRESS NOTE CURRENT ABX: DAY # 3=> Vanco IV + Zosyn 08/02/18 0527 08/02/18 0526 24H INTERVAL SUMMARY * Remains septic in the ICU, Encephalopathic, orally intubated, low grade temps DIAGNOSTIC IMAGING * 08/01/18 CXR: 1. ET tube in perfect location at this time. There is no pneumothorax. 2. Otherwise, stable exam, with mild vascular congestion and bilateral pleural effusions. * 08/01/18 BLEXT ARTERIAL DUPLEX Diffuse monophasic waveforms bilaterally with no focal area of high degree stenosis.[id number] arteries on the left cannot be evaluated due to a large ulcers. Follow-up CT angiogram is recommended. * 07/31/18 (-) DVT BLEXT * 07/31/[address]: Venous hypertension with ulcerations MICRO/OTHER * 07/31/18 BCx (+)1/2 bottles from ED ==> (+)GPC * BLOOD CULTURE Preliminary Organism 1 STAPHYLOCOCCUS AUREUS * 07/31/18 Bernard: 07/31/18-1619 Rcvd: 07/31/18-1620 Source: CSF Sp Descrip: Microbiology GRAM STAIN Final WHITE BLOOD CELLS RARE NO ORGANISMS SEEN PHYSICAL EXAMINATION: GENERAL: VSS, NAD HEENT: AT, NC, anicteric, NECK: Supple, CHEST: Vented HEART: Pulse RRR ABDOMEN: EXTREMITIES: Warm, dry BLEXT 3+ edema, symmetrical. Multiple wounds on both lower extremities with vesicular lesions with clear fluid, erythema bilaterally up to the knees, cool to the touch. SKIN: No rash, no diaphoresis ID ASSESSMENT 62 yo M admit with: 1. SEPSIS w/ fevers/tachycardia, lactic acidosis on admission * 07/31/18 BCx (+)1/2 bottles from ED ==> (+)GPC * BLOOD CULTURE Preliminary Organism 1 STAPHYLOCOCCUS AUREUS 2. Cellulitis BLEXT (bilat lower ext) 3. Venous hypertension with venous stasis ulcerations 4. Peripheral arterial disease 5. Respiratory failure w/bilateral pleural effusions 6. Acute toxic metabolic encephalopathy => Polysubstance abuse * Due to illicit drug use and multiple psychotropic medications. 7. Homeless 8. Psych Dx NOS (-)MRSA Nares ABX ALLERGIES: KNDA INVASIVES: PIV CURRENT ABX: DAY # 3=> Vanco IV + Zosyn ID RECOMMENDATIONS/PLAN: 1. Continue current ABX over the weekend. 2. Obtain wound cx . Consultation Date/Type/Reason Admit Date/Time Jul 31, 2018 at 06:30 Initial Consult Date Requesting Provider: ADDI LOPEZ NP Date/Time of Note DATE: 08/02/18 TIME: 10:16 Exam/Review of Systems Exam Vitals Vital Signs Date Temp Pulse Resp B/P (MAP) Pulse Ox O2 O2 Flow FiO2 Time Delivery Rate 08/02/18 74 83/54 (64) 100 Mechanical 09:00 Ventilator 08/02/18 40 08:00 08/02/18 99.1 08:00 08/02/18 20 06:00 07/31/18 2.0 13:04 Intake and Output 08/01/18 08/01/18 08/02/18 1515:00 23:00 07:00 IntakeIntake Total 27.5 ml 1037.70 ml 766.235 ml OutputOutput Total 190 ml 410 ml 365 ml BalanceBalance -162.5 ml 627.70 ml 401.235 ml Results Result Diagram: 08/02/18 0527 08/02/18 0526 Results 24hrs Laboratory Tests Test 08/01/18 11:40 08/01/18 16:54 08/01/18 18:09 08/01/18 18:42 Ammonia 16 Vancomycin Level 16.0 Trough Bedside Glucose 65 L 97 Test 08/02/18 05:26 08/02/18 05:27 Sodium Level 137 Potassium Level 3.3 L Chloride Level 107 Carbon Dioxide Level 23 Anion Gap 7 Blood Urea Nitrogen 29 H Creatinine 0.92 Est Glomerular > 60 Filtrat Rate mL/min Glucose Level 60 #L Lactic Acid Level 1.5 Calcium Level 8.0 L White Blood Count 6.4 # Red Blood Count 3.31 L Hemoglobin 9.2 L Hematocrit 28.8 L Mean Corpuscular 87.0 Volume Mean Corpuscular 27.8 L Hemoglobin Mean Corpuscular 31.9 L Hemoglobin Concent Red Cell 24.5 H Distribution Width Platelet Count 282 Mean Platelet Volume 9.6 Immature 0.600 H Granulocytes % Neutrophils % 79.3 H Lymphocytes % 8.0 L Monocytes % 10.3 Eosinophils % 1.3 Basophils % 0.5 Nucleated Red Blood 0.0 Cells % Immature 0.040 H Granulocytes # Neutrophils # 5.1 Lymphocytes # 0.5 L Monocytes # 0.7 Eosinophils # 0.1 Basophils # 0.0 Nucleated Red Blood 0.0 Cells # Medications Medication Current Medications IV Flush (NS 3 ml) 3 ml PER PROTOCOL IV ; Start 07/31/18 at 09:30 Ondansetron HCl (Zofran Inj) 4 mg Q6H PRN IV NAUSEA/VOMITING; Start 07/31/18 at 09:30 Acetaminophen (Tylenol Tab) 650 mg Q6H PRN PO .PAIN 1-3 OR TEMP; Start 07/31/18 at 09:30 Vancomycin HCl (Vanco Iv Per Pharmacy) VANCOMYCIN PER PHARMACY PER PROTOCOL XX ; Start 07/31/18 at 09:30 Sodium Chloride 1,000 ml @ 80 mls/hr [id number] IV Last administered on 08/02/18 05:42; Admin Dose 80 MLS/HR; Start 07/31/18 at 14:15 Famotidine (Pepcid Iv) 20 mg Q12 IV Last administered on 08/02/18 08:07; Admin Dose 20 MG; Start 07/31/18 at 21:00 Enoxaparin Sodium (Lovenox) 40 mg DAILY SC Last administered on 08/02/18 08:09; Admin Dose 40 MG; Start 08/01/18 at 09:00 Piperacillin Sod/ Tazobactam Sod 100 ml @ 200 mls/hr Q6H IVPB Last administered on 08/02/18 05:42; Admin Dose 200 MLS/HR; Start 07/31/18 at 17:00 Fentanyl 100 ml @ 2.5 mls/hr TITRATE IV Last administered on 08/02/18 08:26; Admin Dose 10 MLS/HR; Start 07/31/18 at 16:30 Sodium Hypochlorite (Dakins Diluted ()) 1 applic DAILY TP Last administered on 08/02/18 08:16; Admin Dose 1 APPLIC; Start 08/01/18 at 09:00 Dexmedetomidine HCl 200 mcg/ Sodium Chloride 50 ml @ 8.2 mls/hr TITRATE IV Last administered on 4/28/19at 06:35; Admin Dose 8.2 MLS/HR; Start 08/01/18 at 11:00 Miscellaneous Information (* Miscellaneous Pharmacy Order) HYPOGLYCEMIA PROTOCOL w... ONCE XX ; Start 08/01/18 at 18:30 Miscellaneous Information 1 ea NOTE XX ; Start 08/01/18 at 18:30 Glucose (Glutose) 15 gm Q15M PRN PO DECREASED GLUCOSE; Start 08/01/18 at 18:30 Glucose (Glutose) 22.5 gm Q15M PRN PO DECREASED GLUCOSE; Start 08/01/18 at 18:30 Dextrose (D50w Syringe) 25 ml Q15M PRN IV DECREASED GLUCOSE; Start 08/01/18 at 18:30 Dextrose (D50w Syringe) 50 ml Q15M PRN IV DECREASED GLUCOSE Last administered on 08/01/18at 18:20; Admin Dose 25 ML; Start 08/01/18 at 18:30 Glucagon (Glucagen) 1 mg Q15M PRN IM DECREASED GLUCOSE; Start 08/01/18 at 18:30 Glucose (Glutose) 15 gm Q15M PRN BUCCAL DECREASED GLUCOSE; Start 08/01/18 at 18:30 Vancomycin/Sodium Chloride 250 ml @ 125 mls/hr Q12H IVPB Last administered on 08/02/18at 08:07; Admin Dose 125 MLS/HR; Start 08/01/18 at 21:00 Norepinephrine 250 ml @ 1.875 mls/ hr TITRATE IV Last administered on 08/02/18at 04:44; Admin Dose 1.875 MLS/HR; Start 08/02/18 at 04:30 ESTER TAYLOR NP Aug 02, 2018 10:18
--- NOTE | 2018-08-02 11:17 | CONS ---
Consult Date/Type/Reason Admit Date/Time Jul 31, 2018 at 06:30 Initial Consult Date 08/01/18 Type of Consultation: Pulm/CCM Requesting Provider: ADDI LOPEZ NP Date/Time of Note DATE: 08/02/18 TIME: 11:11 Subjective Doing well on precedex gtt. Follows commands. Objective Vitals Vital Signs Date Temp Pulse Resp B/P (MAP) Pulse Ox O2 O2 Flow FiO2 Time Delivery Rate 08/02/18 77 96/60 (72) 100 10:45 08/02/18 Mechanical 10:00 Ventilator 08/02/18 40 08:00 08/02/18 99.1 08:00 08/02/18 20 06:00 07/31/18 2.0 13:04 Intake and Output 08/01/18 08/01/18 08/02/18 1515:00 23:00 07:00 IntakeIntake Total 27.5 ml 1037.70 ml 766.235 ml OutputOutput Total 190 ml 410 ml 365 ml BalanceBalance -162.5 ml 627.70 ml 401.235 ml Exam HEENT: Neck supple; no JVD; no LAD; + ET tube; + JVP CVS: RRR, S1 and S2, +S3 CHEST: Diminished BS at both bases ABD: Soft, NT, + BS EXT: + erythema and bullae both legs Results/Medications Result Diagram: 08/02/1852608/02/18 05 Results 24 hrs Laboratory Tests Test 08/01/18 11:40 08/01/18 16:54 08/01/18 18:09 08/01/18 18:42 Ammonia 16 Vancomycin Level 16.0 Trough Bedside Glucose 65 L 97 Test 08/02/18 05:26 08/02/18 05:27 Sodium Level 137 Potassium Level 3.3 L Chloride Level 107 Carbon Dioxide Level 23 Anion Gap 7 Blood Urea Nitrogen 29 H Creatinine 0.92 Est Glomerular > 60 Filtrat Rate mL/min Glucose Level 60 #L Lactic Acid Level 1.5 Calcium Level 8.0 L White Blood Count 6.4 # Red Blood Count 3.31 L Hemoglobin 9.2 L Hematocrit 28.8 L Mean Corpuscular 87.0 Volume Mean Corpuscular 27.8 L Hemoglobin Mean Corpuscular 31.9 L Hemoglobin Concent Red Cell 24.5 H Distribution Width Platelet Count 282 Mean Platelet Volume 9.6 Immature 0.600 H Granulocytes % Neutrophils % 79.3 H Lymphocytes % 8.0 L Monocytes % 10.3 Eosinophils % 1.3 Basophils % 0.5 Nucleated Red Blood 0.0 Cells % Immature 0.040 H Granulocytes # Neutrophils # 5.1 Lymphocytes # 0.5 L Monocytes # 0.7 Eosinophils # 0.1 Basophils # 0.0 Nucleated Red Blood 0.0 Cells # Home Meds Discontinued Scripts Famotidine* (Pepcid*) 20 Mg Tablet, 20 MG PO BID for 4 Days, TAB Prov:DANITA MOSQUEDA 08/06/17 Medications Current Medications IV Flush (NS 3 ml) 3 ml PER PROTOCOL IV ; Start 07/31/18 at 09:30 Ondansetron HCl (Zofran Inj) 4 mg Q6H PRN IV NAUSEA/VOMITING; Start 07/31/18 at 09:30 Acetaminophen (Tylenol Tab) 650 mg Q6H PRN PO .PAIN 1-3 OR TEMP; Start 07/31/18 at 09:30 Vancomycin HCl (Vanco Iv Per Pharmacy) VANCOMYCIN PER PHARMACY PER PROTOCOL XX ; Start 07/31/18 at 09:30 Sodium Chloride 1,000 ml @ 80 mls/hr [id number] IV Last administered on 08/02/18at 05:42; Admin Dose 80 MLS/HR; Start 07/31/18 at 14:15 Famotidine (Pepcid Iv) 20 mg Q12 IV Last administered on 08/02/18at 08:07; Admin Dose 20 MG; Start 07/31/18 at 21:00 Enoxaparin Sodium (Lovenox) 40 mg DAILY SC Last administered on 08/02/18at 08:09; Admin Dose 40 MG; Start 08/01/18 at 09:00 Piperacillin Sod/ Tazobactam Sod 100 ml @ 200 mls/hr Q6H IVPB Last administe red on 08/02/18at 05:42; Admin Dose 200 MLS/HR; Start 07/31/18 at 17:00 Fentanyl 100 ml @ 2.5 mls/hr TITRATE IV Last administered on 08/02/18at 08:26; Admin Dose 10 MLS/HR; Start 07/31/18 at 16:30 Sodium Hypochlorite (Dakins Diluted (1/40)) 1 applic DAILY TP Last administered on 08/02/18at 08:16; Admin Dose 1 APPLIC; Start 08/01/18 at 09:00 Dexmedetomidine HCl 200 mcg/ Sodium Chloride 50 ml @ 8.2 mls/hr TITRATE IV Last administered on 08/02/18at 06:35; Admin Dose 8.2 MLS/HR; Start 08/01/18 at 1 1:00 Miscellaneous Information (* Miscellaneous Pharmacy Order) HYPOGLYCEMIA PROTOCOL w... ONCE XX ; Start 08/01/18 at 18:30 Miscellaneous Information 1 ea NOTE XX ; Start 08/01/18 at 18:30 Glucose (Glutose) 15 gm Q15M PRN PO DECREASED GLUCOSE; Start 08/01/18 at 18:30 Glucose (Glutose) 22.5 gm Q15M PRN PO DECREASED GLUCOSE; Start 08/01/18 at 18:30 Dextrose (D50w Syringe) 25 ml Q15M PRN IV DECREASED GLUCOSE; Start 08/01/18 at 18:30 Dextrose (D50w Syringe) 50 ml Q15M PRN IV DECREASED GLUCOSE Last administered on 08/01/18at 18:20; Admin Dose 25 ML; Start 08/01/18 at 18:30 Glucagon (Glucagen) 1 mg Q15M PRN IM DECREASED GLUCOSE; Start 08/01/18 at 18:30 Glucose (Glutose) 15 gm Q15M PRN BUCCAL DECREASED GLUCOSE; Start 08/01/18 at 18:30 Vancomycin/Sodium Chloride 250 ml @ 125 mls/hr Q12H IVPB Last administered on 08/02/18at 08:07; Admin Dose 125 MLS/HR; Start 08/01/18 at 21:00 Norepinephrine 250 ml @ 1.875 mls/ hr TITRATE IV Last administered on 08/02/18at 04:44; Admin Dose 1.875 MLS/HR; Start 08/02/18 at 04:30 Assessment/Plan Assessment/Plan (Daily) IMP: 1. Altered Mental Status--encephalopathy may be toxic metabolic in origin. He is bacteremic and had + urine tox for amphetamines. Doubt hepatic encephalopathy, Doubt ETOH withdrawal. No evidence of meningoencephalitis 2. Vent Dependence--will wean 3. GN+ bacteremia and LE cellulitis--doubt toxic shock syndrome; LRINEC score is low 4. Coagulopathy 5. Lactic Acidosis 6. L Cephalic Vein DVT--query septic phlebitis 7. Cardiomyopathy/HFrEF with b/e effusions RECS: 1. To CPAP with PS 2. D/C IVF's 3. Consider DOLORES 4. Follow-up repeat BC x2 5. Follow lactate 6. Continue zosyn and vanco for now 7. Wound care 8. Check CRP 9. DVT/GI prophylaxis 10. Hold off on full-dose anticoagulation for the time being until evaluation for septic thrombophlebitis is complete 11. Wean off levophed 12. Gentle diuresis 40 min cc time ALANNA ZELAYA MD Aug 02, 2018 11:17
[2018-08-02] MEDS ORDERED: FUROSEMIDE 20 MG INJ IV ONE (11:30)
--- NOTE | 2018-08-02 12:28 | PN ---
Date/Time of Note Date/Time of Note DATE: 08/02/18 TIME: 12:26 Assessment/Plan VTE Prophylaxis Risk score (from Ns)>0 risk: 10 SCD applied (from Nsg): Yes Pharmacological prophylaxis: LMWH Lines/Catheters IV Catheter Type (from Nrsg): Peripheral IV Assessment/Plan Hospital Course 62-year-old homeless male who is also a poor historian, admitted through emergency room with worsening bilateral lower extremity cellulitis/pain.... Acute respiratory secondary to encephalopathy -Continue vent support -Pulmonology and neurology following Bilateral lower extremity open wound/cellulitis -Continue vancomycin and Zosyn -ID and podiatry consultations appreciated -1 out of 2 blood cultures in the initial set is growing staph aureus, repeat blood culture, urine culture and CSF culture are currently negative Lactic acidosis likely secondary to sepsis -Lactate improved with IV fluids. -Continue empiric antimicrobials and follow-up cultures Acute metabolic/toxic encephalopathy -Toxicology is positive for opiates and amphetamines -Neurology consultation appreciated -CT brain with no acute findings Dehydration -Fluids Hypokalemia -Replete Chronic normocytic anemia -Stable H&H Homelessness -SW consult Prophylaxis: Lovenox and Pepcid Result Diagram: 08/02/1852608/02/18 05 Results 24hrs Laboratory Tests Test 08/01/18 16:54 08/01/18 18:09 08/01/18 18:42 08/02/18 05:26 Vancomycin Level 16.0 Trough Bedside Glucose 65 L 97 Sodium Level 137 Potassium Level 3.3 L Chloride Level 107 Carbon Dioxide Level 23 Anion Gap 7 Blood Urea Nitrogen 29 H Creatinine 0.92 Est Glomerular > 60 Filtrat Rate mL/min Glucose Level 60 #L Lactic Acid Level 1.5 Calcium Level 8.0 L Test 08/02/18 05:27 White Blood Count 6.4 # Red Blood Count 3.31 L Hemoglobin 9.2 L Hematocrit 28.8 L Mean Corpuscular 87.0 Volume Mean Corpuscular 27.8 L Hemoglobin Mean Corpuscular 31.9 L Hemoglobin Concent Red Cell 24.5 H Distribution Width Platelet Count 282 Mean Platelet Volume 9.6 Immature 0.600 H Granulocytes % Neutrophils % 79.3 H Lymphocytes % 8.0 L Monocytes % 10.3 Eosinophils % 1.3 Basophils % 0.5 Nucleated Red Blood 0.0 Cells % Immature 0.040 H Granulocytes # Neutrophils # 5.1 Lymphocytes # 0.5 L Monocytes # 0.7 Eosinophils # 0.1 Basophils # 0.0 Nucleated Red Blood 0.0 Cells # Subjective 24 Hr Interval Summary Subjective hx not possible: pt non-verbal Exam/Review of Systems Exam Vitals Vital Signs Date Temp Pulse Resp B/P (MAP) Pulse Ox O2 O2 Flow FiO2 Time Delivery Rate 08/02/18 40 12:24 08/02/18 98.9 80 94/63 (73) 100 Mechanical 12:00 Ventilator 08/02/18 20 06:00 07/31/18 2.0 13:04 Intake and Output 08/01/18 08/01/18 08/02/18 1515:00 23:00 07:00 IntakeIntake Total 27.5 ml 1037.70 ml 846.235 ml OutputOutput Total 190 ml 410 ml 365 ml BalanceBalance -162.5 ml 627.70 ml 481.235 ml Constitutional: non-verbal ENMT: intubated Respiratory: clear to auscultation Cardiovascular: regular rate and rhythm Gastrointestinal: soft; No distended Musculoskeletal: nl extremities to inspection Results Results 24hrs Laboratory Tests Test 08/01/18 16:54 08/01/18 18:09 08/01/18 18:42 08/02/18 05:26 Vancomycin Level 16.0 Trough Bedside Glucose 65 L 97 Sodium Level 137 Potassium Level 3.3 L Chloride Level 107 Carbon Dioxide Level 23 Anion Gap 7 Blood Urea Nitrogen 29 H Creatinine 0.92 Est Glomerular > 60 Filtrat Rate mL/min Glucose Level 60 #L Lactic Acid Level 1.5 Calcium Level 8.0 L Test 08/02/18 05:27 White Blood Count 6.4 # Red Blood Count 3.31 L Hemoglobin 9.2 L Hematocrit 28.8 L Mean Corpuscular 87.0 Volume Mean Corpuscular 27.8 L Hemoglobin Mean Corpuscular 31.9 L Hemoglobin Concent Red Cell 24.5 H Distribution Width Platelet Count 282 Mean Platelet Volume 9.6 Immature 0.600 H Granulocytes % Neutrophils % 79.3 H Lymphocytes % 8.0 L Monocytes % 10.3 Eosinophils % 1.3 Basophils % 0.5 Nucleated Red Blood 0.0 Cells % Immature 0.040 H Granulocytes # Neutrophils # 5.1 Lymphocytes # 0.5 L Monocytes # 0.7 Eosinophils # 0.1 Basophils # 0.0 Nucleated Red Blood 0.0 Cells # Medications Medication Current Medications IV Flush (NS 3 ml) 3 ml PER PROTOCOL IV ; Start 07/31/18 at 09:30 Ondansetron HCl (Zofran Inj) 4 mg Q6H PRN IV NAUSEA/VOMITING; Start 07/31/18 at 09:30 Acetaminophen (Tylenol Tab) 650 mg Q6H PRN PO .PAIN 1-3 OR TEMP; Start 07/31/18 at 09:30 Vancomycin HCl (Vanco Iv Per Pharmacy) VANCOMYCIN PER PHARMACY PER PROTOCOL XX ; Start 07/31/18 at 09:30 Famotidine (Pepcid Iv) 20 mg Q12 IV Last administered on 08/02/18 08:07; Admin Dose 20 MG; Start 07/31/18 at 21:00 Enoxaparin Sodium (Lovenox) 40 mg DAILY SC Last administered on 08/02/18 08:09; Admin Dose 40 MG; Start 08/01/18 at 09:00 Piperacillin Sod/ Tazobactam Sod 100 ml @ 200 mls/hr Q6H IVPB Last administered on 08/02/18at 11:09; Admin Dose 200 MLS/HR; Start 07/31/18 at 17:00 Fentanyl 100 ml @ 2.5 mls/hr TITRATE IV Last administered on 08/02/18 08:26; Admin Dose 10 MLS/HR; Start 07/31/18 at 16:30 Sodium Hypochlorite (Dakins Diluted (1/40)) 1 applic DAILY TP Last administered on 08/02/18at 08:16; Admin Dose 1 APPLIC; Start 08/01/18 at 09:00 Dexmedetomidine HCl 200 mcg/ Sodium Chloride 50 ml @ 8.2 mls/hr TITRATE IV Last administered on 08/02/18at 06:35; Admin Dose 8.2 MLS/HR; Start 08/01/18 at 11:00 Miscellaneous Information (* Miscellaneous Pharmacy Order) HYPOGLYCEMIA PROTOCOL w... ONCE XX ; Start 08/01/18 at 18:30 Miscellaneous Information 1 ea NOTE XX ; Start 08/01/18 at 18:30 Glucose (Glutose) 15 gm Q15M PRN PO DECREASED GLUCOSE; Start 08/01/18 at 18:30 Glucose (Glutose) 22.5 gm Q15M PRN PO DECREASED GLUCOSE; Start 08/01/18 at 18:30 Dextrose (D50w Syringe) 25 ml Q15M PRN IV DECREASED GLUCOSE; Start 08/01/18 at 18:30 Dextrose (D50w Syringe) 50 ml Q15M PRN IV DECREASED GLUCOSE Last administered on 08/01/18at 18:20; Admin Dose 25 ML; Start 08/01/18 at 18:30 Glucagon (Glucagen) 1 mg Q15M PRN IM DECREASED GLUCOSE; Start 08/01/18 at 18:30 Glucose (Glutose) 15 gm Q15M PRN BUCCAL DECREASED GLUCOSE; Start 08/01/18 at 18:30 Vancomycin/Sodium Chloride 250 ml @ 125 mls/hr Q12H IVPB Last administered on 08/02/18at 08:07; Admin Dose 125 MLS/HR; Start 08/01/18 at 21:00 Norepinephrine 250 ml @ 1.875 mls/ hr TITRATE IV Last administered on 08/02/18at 04:44; Admin Dose 1.875 MLS/HR; Start 08/02/18 at 04:30 ALCIRA STEWART Aug 02, 2018 12:28
[2018-08-02] MEDS: DEXTROSE 50% 50 ML SYRINGE IV PRN ×2 (14:06→17:44)
[2018-08-02] MEDS ORDERED: LIDOCAINE 1% (MPF) 5 ML VIAL SC ONE (14:30)
[2018-08-02] MEDS ORDERED: DEXTROSE 5%-0.45% NACL 1,000 ML IV SCH (14:30)
[2018-08-02] MEDS: INSULIN ASPART [NOVOLOG] 3 ML PEN SC SCH ×2 (16:25→20:52)
[2018-08-03] VITALS (61 sets, daily range): BP systolic 63–122; BP diastolic 41–99; PULSE 71–115; RESP 16–24
[2018-08-03] MEDS: INSULIN ASPART [NOVOLOG] 3 ML PEN SC SCH ×6 (01:00→21:00)
[2018-08-03] MEDS: DEXMEDETOMIDINE HCL 200 MCG in SOD CHLORIDE 0.9% 48 ML IV SCH ×2 (05:46→14:33)
[2018-08-03] MEDS: PIPER-TAZO 3.375 GM IV (PMX) 100 ML IVPB SCH ×4 (05:46→23:41)
[2018-08-03] MEDS: VANCOMYCIN 750 MG (PMX) 250 ML IVPB SCH ×2 (08:32→21:09)
[2018-08-03] MEDS: FAMOTIDINE 20 MG INJ IV SCH ×2 (08:32→21:09)
[2018-08-03] MEDS: ENOXAPARIN 40 MG/0.4 ML SYG SC SCH (08:33)
[2018-08-03] MEDS: DAKINS 0.0125%(1/40) 473 ML SOLUTION TP SCH (08:36)
--- NOTE | 2018-08-03 09:34 | CONS ---
Assessment/Plan Assessment/Plan Assessment/Plan (Daily) Ventilator setting; AC of 20, tidal volume 500, PEEP of 5, 35% FiO2. Chest x-ray from today showing cardiomegaly with CHF with possibly right pleural effusion. Patient is off sedation. Assessment and recommendations; 1. Patient admitted respiratory failure due to pneumonia and sepsis source likely is lower extremity wound. 2. Severe cardiomyopathy with EF of around 20%. Chest x-ray showing persistent CHF pattern with possible right pleural effusion. 3. Anemia. 4. Left cephalic vein DVT. 5. MRSA bacteremia. 6. Acute encephalopathy with marked interval resolution. 7. Possible underlying COPD. Patient is a current smoker. Give albumin 25% every 8 hours x3 doses with Lasix 40 mg IV every 12 hours at least for 2 doses. Obtain ultrasound of right chest with evaluation for possible right thoracentesis. Obtain follow-up chest x-ray 24 hours. Based upon clinical and radiological fin dings, patient currently is not in a suitable position to be weaned off from invasive mechanical ventilation as of yet. 35 minutes of critical care time was spent evaluating the patient. Consultation Date/Type/Reason Admit Date/Time Jul 31, 2018 at 06:30 Initial Consult Date 08/01/18 Type of Consult Pulmonary/critical care Patient's condition is critical. Patient however has improved significantly to the point where he is now completely awake and alert. Patient has remained hemodynamically stable. General exam; middle-aged male, orally intubated, awake and alert. Currently in no distress. Reason for Consultation HE ENT exam; supple neck, positive JVD. No lymphadenopathy. Midline trachea. No thyromegaly. Pupils are small bilaterally. Patient is edentulous. Orally intubated. Chest exam; diminished breath sounds bilaterally. S1-S2 audible, no murmurs. Regular rhythm. Abdomen exam; soft, no organomegaly. Bowel sounds are audible. Nontender. Extremity exam; 2+ anasarca. Mild cellulitis in left lower extremity. BSS SOLUTION ARCHITECT exam; no focal deficit. Requesting Provider: ADDI LOPEZ NP Date/Time of Note DATE: 08/03/18 TIME: 09:29 Exam/Review of Systems Exam Vitals Vital Signs Date Temp Pulse Resp B/P (MAP) Pulse Ox O2 O2 Flow FiO2 Time Delivery Rate 08/03/18 71 99/59 (72) 100 Mechanical 09:00 Ventilator 08/03/18 35 08:00 08/03/18 99.2 20 08:00 07/31/18 2.0 13:04 Intake and Output 08/02/18 08/02/18 08/03/18 1515:00 23:00 07:00 IntakeIntake Total 506.755 ml 712.72 ml 387.72 ml OutputOutput Total 230 ml 1715 ml 550 ml BalanceBalance 276.755 ml -1002.28 ml -162.28 ml Results Result Diagram: 08/03/18 0503 08/03/18 0503 Results 24hrs Laboratory Tests Test 08/02/18 13:59 08/02/18 14:21 08/02/18 16:10 08/02/18 17:43 Bedside Glucose 69 L 154 90 68 L Test 08/02/18 18:11 08/02/18 20:50 08/03/18 01:17 08/03/18 05:00 Bedside Glucose 149 102 97 Blood Gas Blood arterial Specimen Source Arterial Blood 08/03/2018 4:27:5 Date Drawn 8 AM Arterial Blood pH 7.437 (Temp corrected) Arterial Blood 36.9 pCO2 (Temp correct) Arterial Blood 122.4 H pO2 (Temp corrected) Arterial Blood 24.3 HCO3 Arterial Blood 0.3 Base Excess Arterial Blood 98.2 H Oxygen Saturation Doug Test ACCEPTAB Arterial Blood Right Radial Gas Puncture Site Arterial 0.5 Blood Carboxyhemo globin Arterial Blood 0.5 Methemoglobin Blood Gas A-a O2 120.4 H Differential Oxyhemoglobin 97.2 Percent Blood Gas 37.0 Temperature Blood Gas 20.0 Respiration Rate Blood Gas Actual 20 Respiration Rate Blood Gas VENT - AC Modality FiO2 40.0 Blood Gas Tidal 500.0 Volume Blood Gas Low 5.0 PEEP Setting Blood Gas LW Notified Whom Blood Gas 08/03/2018 4:38:5 Notified Time 4 AM Test 08/03/18 05:03 08/03/18 05:47 08/03/18 08:29 White Blood Count 5.1 # Red Blood Count 3.28 L Hemoglobin 9.0 L Hematocrit 28.7 L Mean Corpuscular 87.5 Volume Mean Corpuscular 27.4 L Hemoglobin Mean Corpuscular 31.4 L Hemoglobin Concen t Red Cell 24.1 H Distribution Width Platelet Count 252 Mean Platelet 9.3 Volume Immature 0.600 H Granulocytes % Neutrophils % 68.2 Lymphocytes % 16.0 Monocytes % 12.6 H Eosinophils % 1.6 Basophils % 1.0 Nucleated Red 0.0 Blood Cells % Immature 0.030 Granulocytes # Neutrophils # 3.5 Lymphocytes # 0.8 Monocytes # 0.7 Eosinophils # 0.1 Basophils # 0.1 Nucleated Red 0.0 Blood Cells # Sodium Level 140 Potassium Level 2.8 *L Chloride Level 107 Carbon Dioxide 24 Level Anion Gap 9 Blood Urea 21 H Nitrogen Creatinine 0.82 Est Glomerular > 60 Filtrat Rate mL/min Glucose Level 100 # Lactic Acid Level 1.6 Calcium Level 8.4 Bedside Glucose 94 114 Medications Medication Current Medications IV Flush (NS 3 ml) 3 ml PER PROTOCOL IV ; Start 07/31/18 at 09:30 Ondansetron HCl (Zofran Inj) 4 mg Q6H PRN IV NAUSEA/VOMITING; Start 07/31/18 at 09:30 Acetaminophen (Tylenol Tab) 650 mg Q6H PRN PO .PAIN 1-3 OR TEMP; Start 07/31/18 at 09:30 Vancomycin HCl (Vanco Iv Per Pharmacy) VANCOMYCIN PER PHARMACY PER PROTOCOL XX ; Start 07/31/18 at 09:30 Famotidine (Pepcid Iv) 20 mg Q12 IV Last administered on 08/03/18at 08:32; Admin Dose 20 MG; Start 07/31/18 at 21:00 Enoxaparin Sodium (Lovenox) 40 mg DAILY SC Last administered on 08/03/18at 08:33; Admin Dose 40 MG; Start 08/01/18 at 09:00 Piperacillin Sod/ Tazobactam Sod 100 ml @ 200 mls/hr Q6H IVPB Last administered on 08/03/18at 05:46; Admin Dose 200 MLS/HR; Start 07/31/18 at 17:00 Fentanyl 100 ml @ 2.5 mls/hr TITRATE IV Last administered on 08/02/18at 08:26; Admin Dose 10 MLS/HR; Start 07/31/18 at 16:30 Sodium Hypochlorite (Dakins Diluted ()) 1 applic DAILY TP Last administered on 08/03/18at 08:36; Admin Dose 1 APPLIC; Start 08/01/18 at 09:00 Dexmedetomidine HCl 200 mcg/ Sodium Chloride 50 ml @ 8.2 mls/hr TITRATE IV Last administered on 08/03/18at 05:46; Admin Dose 8.2 MLS/HR; Start 08/01/18 at 11:00 Miscellaneous Information (* Miscellaneous Pharmacy Order) HYPOGLYCEMIA PROTOCOL w... ONCE XX ; Start 08/01/18 at 18:30 Miscellaneous Information 1 ea NOTE XX ; Start 08/01/18 at 18:30 Glucose (Glutose) 15 gm Q15M PRN PO DECREASED GLUCOSE; Start 08/01/18 at 18:30 Glucose (Glutose) 22.5 gm Q15M PRN PO DECREASED GLUCOSE; Start 08/01/18 at 18:30 Dextrose (D50w Syringe) 25 ml Q15M PRN IV DECREASED GLUCOSE Last administered on 08/02/18at 17:44; Admin Dose 25 ML; Start 08/01/18 at 18:30 Dextrose (D50w Syringe) 50 ml Q15M PRN IV DECREASED GLUCOSE Last administered on 08/01/18at 18:20; Admin Dose 25 ML; Start 08/01/18 at 18:30 Glucagon (Glucagen) 1 mg Q15M PRN IM DECREASED GLUCOSE; Start 08/01/18 at 18:30 Glucose (Glutose) 15 gm Q15M PRN BUCCAL DECREASED GLUCOSE; Start 08/01/18 at 18:30 Vancomycin/Sodium Chloride 250 ml @ 125 mls/hr Q12H IVPB Last administered on 08/03/18at 08:32; Admin Dose 125 MLS/HR; Start 08/01/18 at 21:00 Norepinephrine 250 ml @ 1.875 mls/ hr TITRATE IV Last administered on 08/02/18at 04:44; Admin Dose 1.875 MLS/HR; Start 08/02/18 at 04:30 Dextrose/Sodium Chloride 1,000 ml @ 30 mls/hr Q24H IV Last administered on 08/02/18at 15:41; Admin Dose 30 MLS/HR; Start 08/02/18 at 14:30 Insulin Aspart (Novolog Insulin Pen) NOVOLOG *MILD* ALGORI... Q4 SC ; Start 08/02/18 at 17:00 Potassium Chloride 100 ml @ 50 mls/hr Q2H IVPB ; Start 08/03/18 at 09:30; Stop 08/03/18 at 13:29; Status UNV QARICK,AMANDA Aug 03, 2018 09:34
[2018-08-03] MEDS: POTASSIUM CHLORIDE 100 ML IVPB SCH ×5 (09:40→22:51)
[2018-08-03] MEDS: ALBUMIN HUMAN 25% 50 ML IV SCH ×2 (10:25→16:54)
--- NOTE | 2018-08-03 12:06 | CONS ---
Assessment/Plan Assessment/Plan Hospital Course (Demo Recall) Patient is intubated lightly sedated he is awake and looks comfortable no fevers overnight. WBC 5.1 platelets 252 neutrophils 68.2 BUN 21 creatinine 0.82 Indwelling: Endotracheal tube and NG tube Becerra peripheral IV Antimicrobials: Vancomycin, Zosyn Microbiology: Blood culture since admission grew MRSA Diagnostics: Chest x-ray this morning revealed increased bibasilar infiltrates concerning for multifocal pneumonia Physical examination: This is a chronically ill-appearing well-developed elderly man who is intubated sedated in no distress. Head atraumatic normocephalic neck is supple chest rise symmetrical breath sounds diminished the bases heart S1-S2 abdomen soft bowel sounds hypoactive extremities with bilateral lower extremities edema patient has significant cellulitis with draining wounds also his right arm he has cellulitis as well Assessment: 1. Severe sepsis, present on admission 2. MRSA bacteremia likely secondary to infected wounds rule out endocarditis 3. Bilateral lower extremity cellulitis with multiple infected wounds 4. Peripheral arterial disease 5. Acute encephalopathy on admission 6. Left cephalic vein DVT 7. Pneumonia requiring intubation 8. Polysubstance abuse Plan: Stable on the vent, on appropriate antibiotic regimen, repeat blood cultu res negative, sputum cultures pending, patient is being followed by multiple consultants, consider [facility] Consultation Date/Type/Reason Admit Date/Time Jul 31, 2018 at 06:30 Initial Consult Date 08/01/18 Type of Consult id Requesting Provider: ADDI LOPEZ NP Date/Time of Note DATE: 08/03/18 TIME: 12:06 Exam/Review of Systems Exam Vitals Vital Signs Date Temp Pulse Resp B/P (MAP) Pulse Ox O2 O2 Flow FiO2 Time Delivery Rate 08/03/18 80 20 100 35 11:10 08/03/18 94/70 (78) Mechanical 11:00 Ventilator 08/03/18 99.2 08:00 07/31/18 2.0 13:04 Intake and Output 08/02/18 08/02/18 08/03/18 1515:00 23:00 07:00 IntakeIntake Total 506.755 ml 712.72 ml 387.72 ml OutputOutput Total 230 ml 1715 ml 550 ml BalanceBalance 276.755 ml -1002.28 ml -162.28 ml Results Result Diagram: 08/03/18 0503 08/03/18 0503 Results 24hrs Laboratory Tests Test 08/02/18 13:59 08/02/18 14:21 08/02/18 16:10 08/02/18 17:43 Bedside Glucose 69 L 154 90 68 L Test 08/02/18 18:11 08/02/18 20:50 08/03/18 01:17 08/03/18 05:00 Bedside Glucose 149 102 97 Blood Gas Blood arterial Specimen Source Arterial Blood 08/03/2018 4:27:5 Date Drawn 8 AM Arterial Blood pH 7.437 (Temp corrected) Arterial Blood 36.9 pCO2 (Temp correct) Arterial Blood 122.4 H pO2 (Temp corrected) Arterial Blood 24.3 HCO3 Arterial Blood 0.3 Base Excess Arterial Blood 98.2 H Oxygen Saturation Doug Test ACCEPTAB Arterial Blood Right Radial Gas Puncture Site Arterial 0.5 Blood Carboxyhemo globin Arterial Blood 0.5 Methemoglobin Blood Gas A-a O2 120.4 H Differential Oxyhemoglobin 97.2 Percent Blood Gas 37.0 Temperature Blood Gas 20.0 Respiration Rate Blood Gas Actual 20 Respiration Rate Blood Gas VENT - AC Modality FiO2 40.0 Blood Gas Tidal 500.0 Volume Blood Gas Low 5.0 PEEP Setting Blood Gas LW Notified Whom Blood Gas 08/03/2018 4:38:5 Notified Time 4 AM Test 08/03/18 05:03 08/03/18 05:47 08/03/18 08:29 White Blood Count 5.1 # Red Blood Count 3.28 L Hemoglobin 9.0 L Hematocrit 28.7 L Mean Corpuscular 87.5 Volume Mean Corpuscular 27.4 L Hemoglobin Mean Corpuscular 31.4 L Hemoglobin Concen t Red Cell 24.1 H Distribution Width Platelet Count 252 Mean Platelet 9.3 Volume Immature 0.600 H Granulocytes % Neutrophils % 68.2 Lymphocytes % 16.0 Monocytes % 12.6 H Eosinophils % 1.6 Basophils % 1.0 Nucleated Red 0.0 Blood Cells % Immature 0.030 Granulocytes # Neutrophils # 3.5 Lymphocytes # 0.8 Monocytes # 0.7 Eosinophils # 0.1 Basophils # 0.1 Nucleated Red 0.0 Blood Cells # Sodium Level 140 Potassium Level 2.8 *L Chloride Level 107 Carbon Dioxide 24 Level Anion Gap 9 Blood Urea 21 H Nitrogen Creatinine 0.82 Est Glomerular > 60 Filtrat Rate mL/min Glucose Level 100 # Lactic Acid Level 1.6 Calcium Level 8.4 Bedside Glucose 94 114 Medications Medication Current Medications IV Flush (NS 3 ml) 3 ml PER PROTOCOL IV ; Start 07/31/18 at 09:30 Ondansetron HCl (Zofran Inj) 4 mg Q6H PRN IV NAUSEA/VOMITING; Start 07/31/18 at 09:30 Acetaminophen (Tylenol Tab) 650 mg Q6H PRN PO .PAIN 1-3 OR TEMP; Start 07/31/18 at 09:30 Vancomycin HCl (Vanco Iv Per Pharmacy) VANCOMYCIN PER PHARMACY PER PROTOCOL XX ; Start 07/31/18 at 09:30 Famotidine (Pepcid Iv) 20 mg Q12 IV Last administered on 08/03/18 08:32; Admin Dose 20 MG; Start 07/31/18 at 21:00 Enoxaparin Sodium (Lovenox) 40 mg DAILY SC Last administered on 08/03/18 08:33; Admin Dose 40 MG; Start 08/01/18 at 09:00 Piperacillin Sod/ Tazobactam Sod 100 ml @ 200 mls/hr Q6H IVPB Last administ ered on 08/03/18at 11:07; Admin Dose 200 MLS/HR; Start 07/31/18 at 17:00 Fentanyl 100 ml @ 2.5 mls/hr TITRATE IV Last administered on 08/02/18 08:26; Admin Dose 10 MLS/HR; Start 07/31/18 at 16:30 Sodium Hypochlorite (Dakins Diluted (40)) 1 applic DAILY TP Last administered on 08/03/18at 08:36; Admin Dose 1 APPLIC; Start 08/01/18 at 09:00 Dexmedetomidine HCl 200 mcg/ Sodium Chloride 50 ml @ 8.2 mls/hr TITRATE IV Last administered on 08/03/18at 05:46; Admin Dose 8.2 MLS/HR; Start 08/01/18 at 11:00 Miscellaneous Information (* Miscellaneous Pharmacy Order) HYPOGLYCEMIA PROTOCOL w... ONCE XX ; Start 08/01/18 at 18:30 Miscellaneous Information 1 ea NOTE XX ; Start 08/01/18 at 18:30 Glucose (Glutose) 15 gm Q15M PRN PO DECREASED GLUCOSE; Start 08/01/18 at 18:30 Glucose (Glutose) 22.5 gm Q15M PRN PO DECREASED GLUCOSE; Start 08/01/18 at 18:30 Dextrose (D50w Syringe) 25 ml Q15M PRN IV DECREASED GLUCOSE Last administered on 08/02/18at 17:44; Admin Dose 25 ML; Start 08/01/18 at 18:30 Dextrose (D50w Syringe) 50 ml Q15M PRN IV DECREASED GLUCOSE Last administered on 08/01/18at 18:20; Admin Dose 25 ML; Start 08/01/18 at 18:30 Glucagon (Glucagen) 1 mg Q15M PRN IM DECREASED GLUCOSE; Start 08/01/18 at 18:30 Glucose (Glutose) 15 gm Q15M PRN BUCCAL DECREASED GLUCOSE; Start 08/01/18 at 18:30 Vancomycin/Sodium Chloride 250 ml @ 125 mls/hr Q12H IVPB Last administered on 08/03/18at 08:32; Admin Dose 125 MLS/HR; Start 08/01/18 at 21:00 Norepinephrine 250 ml @ 1.875 mls/ hr TITRATE IV Last administered on 08/02/18at 04:44; Admin Dose 1.875 MLS/HR; Start 08/02/18 at 04:30 Insulin Aspart (Novolog Insulin Pen) NOVOLOG *MILD* ALGORI... Q4 SC ; Start 08/02/18 at 17:00 Potassium Chloride 100 ml @ 50 mls/hr Q2H IVPB Last administered on 08/03/18at 11:25; Admin Dose 50 MLS/HR; Start 08/03/18 at 09:30; Stop 08/03/18 at 13:29 Albumin Human 50 ml @ 100 mls/hr Q8H IV Last administered on 08/03/18at 10:25; Admin Dose 100 MLS/HR; Start 08/03/18 at 09:30; Stop 08/04/18 at 01:59 Furosemide (Lasix) 40 mg BID DIURETICS IV ; Start 08/03/18 at 09:30 Miscellaneous Information (*Rx Drug Level Order Reminder*) VANCO TROUGH ON 07/08... 0800 ONCE XX ; Start 08/04/18 at 08:00; Stop 08/04/18 at 08:01 BRADY OROURKE NP Aug 03, 2018 12:06
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
[2018-08-03] MEDS ORDERED: LIDOCAINE 1% (MPF) 5 ML VIAL ONE (14:36)
--- NOTE | 2018-08-03 15:04 | PN ---
Date/Time of Note Date/Time of Note DATE: 08/03/18 TIME: 14:55 Assessment/Plan VTE Prophylaxis Risk score (from Ns)>0 risk: 8 SCD applied (from Ns): Yes Pharmacological prophylaxis: heparin Lines/Catheters IV Catheter Type (from Nrs): PICC Line Central line still needed: Yes Urinary Cath still in place: Yes Reason Cath still needed: urinary retention Assessment/Plan Hospital Course Intubated Alert, interactive Clear lungs RRR Abdomen sfot Peripheral edema, ulcerations wrapped A/P: 62 yo male with venous stasis ulcerations, cellulitis, systolic CHF, acute respiratory failure, MRSA bacteremia MRSA bacteremia: - Presumed source is cellulitis, wounds - Continue abx per ID - Repeat cultures negative Systolic CHF: - Diuerisis - Neurohormonal blockaded Acute respiratory failure: - Extubation per pulmonary Hypokalemia: - Repletion as needed Anemia: - Check iron stores Venous stasis disease: - Wound care Result Diagram: 08/03/18 0503 08/03/18 0503 Results 24hrs Laboratory Tests Test 08/02/18 16:10 08/02/18 17:43 08/02/18 18:11 08/02/18 20:50 Bedside Glucose 90 68 L 149 102 Test 08/03/18 01:17 08/03/18 05:00 08/03/18 05:03 08/03/18 05:47 Bedside Glucose 97 94 Blood Gas Blood arterial Specimen Source Arterial Blood 08/03/2018 4:27:5 Date Drawn 8 AM Arterial Blood pH 7.437 (Temp corrected) Arterial Blood 36.9 pCO2 (Temp correct) Arterial Blood 122.4 H pO2 (Temp corrected) Arterial Blood 24.3 HCO3 Arterial Blood 0.3 Base Excess Arterial Blood 98.2 H Oxygen Saturation Doug Test ACCEPTAB Arterial Blood Right Radial Gas Puncture Site Arterial 0.5 Blood Carboxyhemo globin Arterial Blood 0.5 Methemoglobin Blood Gas A-a O2 120.4 H Differential Oxyhemoglobin 97.2 Percent Blood Gas 37.0 Temperature Blood Gas 20.0 Respiration Rate Blood Gas Actual 20 Respiration Rate Blood Gas VENT - AC Modality FiO2 40.0 Blood Gas Tidal 500.0 Volume Blood Gas Low 5.0 PEEP Setting Blood Gas LW Notified Whom Blood Gas 08/03/2018 4:38:5 Notified Time 4 AM White Blood Count 5.1 # Red Blood Count 3.28 L Hemoglobin 9.0 L Hematocrit 28.7 L Mean Corpuscular 87.5 Volume Mean Corpuscular 27.4 L Hemoglobin Mean Corpuscular 31.4 L Hemoglobin Concen t Red Cell 24.1 H Distribution Width Platelet Count 252 Mean Platelet 9.3 Volume Immature 0.600 H Granulocytes % Neutrophils % 68.2 Lymphocytes % 16.0 Monocytes % 12.6 H Eosinophils % 1.6 Basophils % 1.0 Nucleated Red 0.0 Blood Cells % Immature 0.030 Granulocytes # Neutrophils # 3.5 Lymphocytes # 0.8 Monocytes # 0.7 Eosinophils # 0.1 Basophils # 0.1 Nucleated Red 0.0 Blood Cells # Sodium Level 140 Potassium Level 2.8 *L Chloride Level 107 Carbon Dioxide 24 Level Anion Gap 9 Blood Urea 21 H Nitrogen Creatinine 0.82 Est Glomerular > 60 Filtrat Rate mL/min Glucose Level 100 # Lactic Acid Level 1.6 Calcium Level 8.4 Test 08/03/18 08:29 08/03/18 12:39 Bedside Glucose 114 108 Subjective 24 Hr Interval Summary Free Text/Dictation Diuresing Hypokalemia presents Alert on vent, denies complaints Exam/Review of Systems Exam Vitals Vital Signs Date Temp Pulse Resp B/P (MAP) Pulse Ox O2 O2 Flow FiO2 Time Delivery Rate 08/03/18 103/74 Mechanical 13:00 (84) Ventilator 08/03/18 76 100 12:30 08/03/18 98.1 12:00 08/03/18 20 35 11:10 07/31/18 2.0 13:04 Intake and Output 08/02/18 08/02/18 08/03/18 1515:00 23:00 07:00 IntakeIntake Total 506.755 ml 712.72 ml 387.72 ml OutputOutput Total 230 ml 1715 ml 550 ml BalanceBalance 276.755 ml -1002.28 ml -162.28 ml Results Results 24hrs Laboratory Tests Test 08/02/18 16:10 08/02/18 17:43 08/02/18 18:11 08/02/18 20:50 Bedside Glucose 90 68 L 149 102 Test 08/03/18 01:17 08/03/18 05:00 08/03/18 05:03 08/03/18 05:47 Bedside Glucose 97 94 Blood Gas Blood arterial Specimen Source Arterial Blood 08/03/2018 4:27:5 Date Drawn 8 AM Arterial Blood pH 7.437 (Temp corrected) Arterial Blood 36.9 pCO2 (Temp correct) Arterial Blood 122.4 H pO2 (Temp corrected) Arterial Blood 24.3 HCO3 Arterial Blood 0.3 Base Excess Arterial Blood 98.2 H Oxygen Saturation Doug Test ACCEPTAB Arterial Blood Right Radial Gas Puncture Site Arterial 0.5 Blood Carboxyhemo globin Arterial Blood 0.5 Methemoglobin Blood Gas A-a O2 120.4 H Differential Oxyhemoglobin 97.2 Percent Blood Gas 37.0 Temperature Blood Gas 20.0 Respiration Rate Blood Gas Actual 20 Respiration Rate Blood Gas VENT - AC Modality FiO2 40.0 Blood Gas Tidal 500.0 Volume Blood Gas Low 5.0 PEEP Setting Blood Gas LW Notified Whom Blood Gas 08/03/2018 4:38:5 Notified Time 4 AM White Blood Count 5.1 # Red Blood Count 3.28 L Hemoglobin 9.0 L Hematocrit 28.7 L Mean Corpuscular 87.5 Volume Mean Corpuscular 27.4 L Hemoglobin Mean Corpuscular 31.4 L Hemoglobin Concen t Red Cell 24.1 H Distribution Width Platelet Count 252 Mean Platelet 9.3 Volume Immature 0.600 H Granulocytes % Neutrophils % 68.2 Lymphocytes % 16.0 Monocytes % 12.6 H Eosinophils % 1.6 Basophils % 1.0 Nucleated Red 0.0 Blood Cells % Immature 0.030 Granulocytes # Neutrophils # 3.5 Lymphocytes # 0.8 Monocytes # 0.7 Eosinophils # 0.1 Basophils # 0.1 Nucleated Red 0.0 Blood Cells # Sodium Level 140 Potassium Level 2.8 *L Chloride Level 107 Carbon Dioxide 24 Level Anion Gap 9 Blood Urea 21 H Nitrogen Creatinine 0.82 Est Glomerular > 60 Filtrat Rate mL/min Glucose Level 100 # Lactic Acid Level 1.6 Calcium Level 8.4 Test 08/03/18 08:29 08/03/18 12:39 Bedside Glucose 114 108 Medications Medication Current Medications IV Flush (NS 3 ml) 3 ml PER PROTOCOL IV ; Start 07/31/18 at 09:30 Ondansetron HCl (Zofran Inj) 4 mg Q6H PRN IV NAUSEA/VOMITING; Start 07/31/18 at 09:30 Acetaminophen (Tylenol Tab) 650 mg Q6H PRN PO .PAIN 1-3 OR TEMP; Start 07/31/18 at 09:30 Vancomycin HCl (Vanco Iv Per Pharmacy) VANCOMYCIN PER PHARMACY PER PROTOCOL XX ; Start 07/31/18 at 09:30 Famotidine (Pepcid Iv) 20 mg Q12 IV Last administered on 08/03/18 08:32; Admin Dose 20 MG; Start 07/31/18 at 21:00 Enoxaparin Sodium (Lovenox) 40 mg DAILY SC Last administered on 08/03/18 08:33; Admin Dose 40 MG; Start 08/01/18 at 09:00 Piperacillin Sod/ Tazobactam Sod 100 ml @ 200 mls/hr Q6H IVPB Last administered on 08/03/18 11:07; Admin Dose 200 MLS/HR; Start 07/31/18 at 17:00 Fentanyl 100 ml @ 2.5 mls/hr TITRATE IV Last administered on 08/02/18 08:26; Admin Dose 10 MLS/HR; Start 07/31/18 at 16:30 Sodium Hypochlorite (Dakins Diluted ()) 1 applic DAILY TP Last administered on 08/03/18 08:36; Admin Dose 1 APPLIC; Start 08/01/18 at 09:00 Dexmedetomidine HCl 200 mcg/ Sodium Chloride 50 ml @ 8.2 mls/hr TITRATE IV Last administered on 08/03/18 14:33; Admin Dose 8.2 MLS/HR; Start 08/01/18 at 11:00 Miscellaneous Information (* Miscellaneous Pharmacy Order) HYPOGLYCEMIA PROTOCOL w... ONCE XX ; Start 08/01/18 at 18:30 Miscellaneous Information 1 ea NOTE XX ; Start 08/01/18 at 18:30 Glucose (Glutose) 15 gm Q15M PRN PO DECREASED GLUCOSE; Start 08/01/18 at 18:30 Glucose (Glutose) 22.5 gm Q15M PRN PO DECREASED GLUCOSE; Start 08/01/18 at 18:30 Dextrose (D50w Syringe) 25 ml Q15M PRN IV DECREASED GLUCOSE Last administered on 08/02/18at 17:44; Admin Dose 25 ML; Start 08/01/18 at 18:30 Dextrose (D50w Syringe) 50 ml Q15M PRN IV DECREASED GLUCOSE Last administered on 08/01/18at 18:20; Admin Dose 25 ML; Start 08/01/18 at 18:30 Glucagon (Glucagen) 1 mg Q15M PRN IM DECREASED GLUCOSE; Start 08/01/18 at 18:30 Glucose (Glutose) 15 gm Q15M PRN BUCCAL DECREASED GLUCOSE; Start 08/01/18 at 18:30 Vancomycin/Sodium Chloride 250 ml @ 125 mls/hr Q12H IVPB Last administered on 08/03/18at 08:32; Admin Dose 125 MLS/HR; Start 08/01/18 at 21:00 Norepinephrine 250 ml @ 1.875 mls/ hr TITRATE IV Last administered on 08/02/18at 04:44; Admin Dose 1.875 MLS/HR; Start 08/02/18 at 04:30 Insulin Aspart (Novolog Insulin Pen) NOVOLOG *MILD* ALGORI... Q4 SC ; Start 08/02/18 at 17:00 Albumin Human 50 ml @ 100 mls/hr Q8H IV Last administered on 08/03/18at 10:25; Admin Dose 100 MLS/HR; Start 08/03/18 at 09:30; Stop 08/04/18 at 01:59 Furosemide (Lasix) 40 mg BID DIURETICS IV ; Start 08/03/18 at 09:30 Miscellaneous Information (*Rx Drug Level Order Reminder*) VANCO TROUGH ON 07/08... 0800 ONCE XX ; Start 08/04/18 at 08:00; Stop 08/04/18 at 08:01 IV Flush (NS 10 ml) 10 ml PRN PRN IV IV PROTOCOL; Start 08/03/18 at 13:00 KAI FELIX MD Aug 03, 2018 15:04
[2018-08-03] MEDS: FUROSEMIDE 40 MG INJ IV SCH ×2 (15:19→22:50)
[2018-08-04] VITALS (19 sets, daily range): BP systolic 52–118; BP diastolic 41–96; PULSE 80–130; RESP 19
[2018-08-04] MEDS: POTASSIUM CHLORIDE 100 ML IVPB SCH (00:36)
[2018-08-04] MEDS: INSULIN ASPART [NOVOLOG] 3 ML PEN SC SCH ×6 (01:00→21:00)
[2018-08-04] MEDS: ALBUMIN HUMAN 25% 50 ML IV SCH (01:18)
[2018-08-04] MEDS ORDERED: HYDROmorphONE 0.5 MG/0.5 ML SYG IM SCH (04:32)
[2018-08-04] MEDS: DAKINS 0.0125%(1/40) 473 ML SOLUTION TP SCH (05:12)
[2018-08-04] MEDS: PIPER-TAZO 3.375 GM IV (PMX) 100 ML IVPB SCH (05:16)
[2018-08-04] MEDS: FUROSEMIDE 40 MG INJ IV SCH ×2 (07:05→18:09)
[2018-08-04] MEDS: FAMOTIDINE 20 MG INJ IV SCH (08:27)
[2018-08-04] MEDS: VANCOMYCIN 750 MG (PMX) 250 ML IVPB SCH ×2 (08:27→22:18)
[2018-08-04] MEDS: ENOXAPARIN 40 MG/0.4 ML SYG SC SCH (08:49)
[2018-08-04] MEDS ORDERED: HYDROmorphONE 0.5 MG/0.5 ML SYG IV SCH (09:00)
--- NOTE | 2018-08-04 09:34 | CONS ---
Assessment/Plan Assessment/Plan Assessment/Plan (Daily) Chest x-ray was reviewed from today which is showing marked improvement in pulmonary edema. Assessment and recommendations; 1. Patient admitted for respiratory failure due to CHF exacerbation with h istory of cardiomyopathy with marked overall interval improvement. Status post extubation yesterday. 2. Gram-positive bacteremia with MRSA. 3. COPD. 4. Left cephalic vein DVT. Continue current supportive care. Transfer to medical floor. Consultation Date/Type/Reason Admit Date/Time Jul 31, 2018 at 06:30 Initial Consult Date 08/01/18 Type of Consult Pulmonary/critical care Patient's condition is critical. Patient however has improved significantly to the point where he is now completely awake and alert. Patient has remained hemodynamically stable. General exam; middle-aged male, orally intubated, awake and alert. Currently in no distress. Requesting Provider: ADDI LOPEZ NP Date/Time of Note DATE: 08/04/18 TIME: 09:32 24 HR Interval Summary Free Text/Dictation Patient's condition is markedly improved. Patient is extubated. Underwent right thoracentesis yesterday. 1 L of fluid was removed. Patient denies any shortness of breath, chest pain. General exam; elderly male, awake and alert. Currently in no distress. Exam/Review of Systems Exam Vitals Vital Signs Date Temp Pulse Resp B/P (MAP) Pulse Ox O2 O2 Flow FiO2 Time Delivery Rate 08/04/18 98.9 109 84/42 (56) 99 Nasal 4.0 09:00 Cannula 08/03/18 21 38 19:25 Intake and Output 08/03/18 08/03/18 08/04/18 1515:00 23:00 07:00 IntakeIntake Total 625.45 ml 604.09 ml 350 ml OutputOutput Total 170 ml 2130 ml 850 ml BalanceBalance 455.45 ml -1525.91 ml -500 ml Exam H ENT exam; supple neck, positive JVD. No lymphadenopathy. Midline trachea. No thyromegaly. Patient is edentulous. No neck masses. Chest exam; diminished but clear breath sounds. S1-S2 audible, no murmurs. Regular rhythm. Abdomen exam; soft, nontender. No organomegaly. Bowel sounds audible. Extremity exam; significant reduction in generalized anasarca. DIRECTOR WORKFORCE MANAGEMENT exam; no focal deficit. Results Result Diagram: 08/04/18 0451 08/04/18 0451 Results 24hrs Laboratory Tests Test 08/03/18 12:39 08/03/18 16:19 08/03/18 17:00 08/03/18 17:23 Bedside Glucose 108 88 Blood Gas Blood arterial Specimen Source Arterial Blood 08/03/2018 7:45:0 Date Drawn 0 PM Arterial Blood pH 7.475 H (Temp corrected) Arterial Blood 38.0 pCO2 (Temp correct) Arterial Blood 130.5 H pO2 (Temp corrected) Arterial Blood 27.3 H HCO3 Arterial Blood 3.6 H Base Excess Arterial Blood 98.6 H Oxygen Saturation Doug Test ACCEPTAB Arterial Blood Right Radial Gas Puncture Site Arterial 0.3 Blood Carboxyhemo globin Arterial Blood 0.5 Methemoglobin Blood Gas A-a O2 74.9 H Differential Oxyhemoglobin 97.8 Percent Blood Gas 37.0 Temperature Blood Gas VENT - CPAP Modality FiO2 35.0 Blood Gas Low 5.0 PEEP Setting Blood Gas 40 Pressure Support Blood Gas RTR Notified Whom Blood Gas 08/03/2018 8:00:0 Notified Time 0 PM Sodium Level 144 Potassium Level 2.8 *L Chloride Level 103 Carbon Dioxide 23 Level Anion Gap 18 #H Blood Urea 16 Nitrogen Creatinine 0.68 Est Glomerular > 60 Filtrat Rate mL/min Glucose Level 131 Calcium Level 7.6 L Total Bilirubin 0.3 Direct Bilirubin 0.00 Indirect 0.3 Bilirubin Aspartate Amino 30 Transf (AST/SGOT) Alanine 27 Aminotransferase (ALT/SGPT) Alkaline 62 Phosphatase Total Protein 8.2 H Albumin 4.6 Globulin 3.60 H Albumin/Globulin 1.27 Ratio Test 08/03/18 21:08 08/04/18 01:08 08/04/18 04:51 08/04/18 05:08 Bedside Glucose 118 116 100 White Blood Count 6.1 Red Blood Count 3.45 L Hemoglobin 9.5 L Hematocrit 30.8 L Mean Corpuscular 89.3 Volume Mean Corpuscular 27.5 L Hemoglobin Mean Corpuscular 30.8 L Hemoglobin Concen t Red Cell 24.6 H Distribution Width Platelet Count 261 Mean Platelet 9.9 Volume Immature 0.500 H Granulocytes % Neutrophils % 60.0 Lymphocytes % 23.2 Monocytes % 14.3 H Eosinophils % 1.2 Basophils % 0.8 Nucleated Red 0.0 Blood Cells % Immature 0.030 Granulocytes # Neutrophils # 3.7 Lymphocytes # 1.4 Monocytes # 0.9 Eosinophils # 0.1 Basophils # 0.1 Nucleated Red 0.0 Blood Cells # Sodium Level 142 Potassium Level 3.7 Chloride Level 106 Carbon Dioxide 24 Level Anion Gap 12 Blood Urea 16 Nitrogen Creatinine 0.79 Est Glomerular > 60 Filtrat Rate mL/min Glucose Level 113 Calcium Level 8.8 Total Bilirubin 0.5 Direct Bilirubin 0.00 Indirect 0.5 Bilirubin Aspartate Amino 36 Transf (AST/SGOT) Alanine 28 Aminotransferase (ALT/SGPT) Alkaline 66 Phosphatase Total Protein 6.8 # Albumin 3.2 #L Globulin 3.60 H Albumin/Globulin 0.88 Ratio Test 08/04/18 07:52 08/04/18 08:26 Vancomycin Level 15.7 Trough Bedside Glucose 87 Medications Medication Current Medications IV Flush (NS 3 ml) 3 ml PER PROTOCOL IV ; Start 07/31/18 at 09:30 Ondansetron HCl (Zofran Inj) 4 mg Q6H PRN IV NAUSEA/VOMITING; Start 07/31/18 at 09:30 Acetaminophen (Tylenol Tab) 650 mg Q6H PRN PO .PAIN 1-3 OR TEMP; Start 07/31/18 at 09:30 Vancomycin HCl (Vanco Iv Per Pharmacy) VANCOMYCIN PER PHARMACY PER PROTOCOL XX ; Start 07/31/18 at 09:30 Famotidine (Pepcid Iv) 20 mg Q12 IV Last administered on 08/04/18 08:27; Admin Dose 20 MG; Start 07/31/18 at 21:00 Enoxaparin Sodium (Lovenox) 40 mg DAILY SC Last administered on 08/04/18at 08:49; Admin Dose 40 MG; Start 08/01/18 at 09:00 Piperacillin Sod/ Tazobactam Sod 100 ml @ 200 mls/hr Q6H IVPB Last administered on 08/04/18 05:16; Admin Dose 200 MLS/HR; Start 07/31/18 at 17:00 Fentanyl 100 ml @ 2.5 mls/hr TITRATE IV Last administered on 08/02/18 08:26; Admin Dose 10 MLS/HR; Start 07/31/18 at 16:30 Sodium Hypochlorite (Dakins Diluted ()) 1 applic DAILY TP Last administered on 4/30/19at 05:12; Admin Dose 1 APPLIC; Start 08/01/18 at 09:00 Dexmedetomidine HCl 200 mcg/ Sodium Chloride 50 ml @ 8.2 mls/hr TITRATE IV Last administered on 08/03/18at 14:33; Admin Dose 8.2 MLS/HR; Start 08/01/18 at 11:00 Miscellaneous Information (* Miscellaneous Pharmacy Order) HYPOGLYCEMIA PROTOCOL w... ONCE XX ; Start 08/01/18 at 18:30 Miscellaneous Information 1 ea NOTE XX ; Start 08/01/18 at 18:30 Glucose (Glutose) 15 gm Q15M PRN PO DECREASED GLUCOSE; Start 08/01/18 at 18:30 Glucose (Glutose) 22.5 gm Q15M PRN PO DECREASED GLUCOSE; Start 08/01/18 at 18:30 Dextrose (D50w Syringe) 25 ml Q15M PRN IV DECREASED GLUCOSE Last administered on 08/02/18at 17:44; Admin Dose 25 ML; Start 08/01/18 at 18:30 Dextrose (D50w Syringe) 50 ml Q15M PRN IV DECREASED GLUCOSE Last administered on 08/01/18at 18:20; Admin Dose 25 ML; Start 08/01/18 at 18:30 Glucagon (Glucagen) 1 mg Q15M PRN IM DECREASED GLUCOSE; Start 08/01/18 at 18:30 Glucose (Glutose) 15 gm Q15M PRN BUCCAL DECREASED GLUCOSE; Start 08/01/18 at 18:30 Vancomycin/Sodium Chloride 250 ml @ 125 mls/hr Q12H IVPB Last administered on 08/04/18at 08:27; Admin Dose 125 MLS/HR; Start 08/01/18 at 21:00 Norepinephrine 250 ml @ 1.875 mls/ hr TITRATE IV Last administered on 08/02/18at 04:44; Admin Dose 1.875 MLS/HR; Start 08/02/18 at 04:30 Insulin Aspart (Novolog Insulin Pen) NOVOLOG *MILD* ALGORI... Q4 SC ; Start 08/02/18 at 17:00 Furosemide (Lasix) 40 mg BID DIURETICS IV Last administered on 08/04/18at 07:05 ; Admin Dose 40 MG; Start 08/03/18 at 09:30 IV Flush (NS 10 ml) 10 ml PRN PRN IV IV PROTOCOL; Start 08/03/18 at 13:00 Hydromorphone HCl (Dilaudid) 0.5 mg DAILY IV ; Start 08/04/18 at 09:00 AMANDA SOLER Aug 04, 2018 09:34
[2018-08-04] MEDS ORDERED: POTASSIUM CHLORIDE 20 MEQ POWDER FOR ORAL SOLN PO PRN ×2 (10:30)
[2018-08-04] MEDS: POTASSIUM CHLORIDE 20 MEQ POWDER FOR ORAL SOLN PO PRN (10:53)
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
--- NOTE | 2018-08-04 13:13 | PN ---
Date/Time of Note Date/Time of Note DATE: 08/04/18 TIME: 13:12 Assessment/Plan VTE Prophylaxis Risk score (from Ns)>0 risk: 12 SCD applied (from Ns): Yes Pharmacological prophylaxis: heparin Lines/Catheters IV Catheter Type (from Nrsg): PICC Line Central line still needed: Yes Urinary Cath still in place: Yes Reason Cath still needed: urinary retention Assessment/Plan Hospital Course EXAM: Alert, interactive ++ JVD Clear lungs RRR Abdomen soft Peripheral edema, ulcerations wrapped A/P: 62 yo male with venous stasis ulcerations, cellulitis, systolic CHF, acute respiratory failure, MRSA bacteremia MRSA bacteremia: - Presumed source is cellulitis, wounds - Continue abx per ID - Repeat cultures negative Systolic CHF: - Diuresis - Neurohormonal blockade Acute respiratory failure: - s/p exutbation. NC O2 as needed Hypokalemia: - Repletion as needed Anemia: - Check iron stores Venous stasis disease: - Wound care PT/OT Transfer to telemetry Result Diagram: 08/04/18 0451 08/04/18 0451 Results 24hrs Laboratory Tests Test 08/03/18 16:19 08/03/18 17:00 08/03/18 17:23 08/03/18 21:08 Bedside Glucose 88 118 Blood Gas Blood arterial Specimen Source Arterial Blood 08/03/2018 7:45:0 Date Drawn 0 PM Arterial Blood pH 7.475 H (Temp corrected) Arterial Blood 38.0 pCO2 (Temp correct) Arterial Blood 130.5 H pO2 (Temp corrected) Arterial Blood 27.3 H HCO3 Arterial Blood 3.6 H Base Excess Arterial Blood 98.6 H Oxygen Saturation Doug Test ACCEPTAB Arterial Blood Right Radial Gas Puncture Site Arterial 0.3 Blood Carboxyhemo globin Arterial Blood 0.5 Methemoglobin Blood Gas A-a O2 74.9 H Differential Oxyhemoglobin 97.8 Percent Blood Gas 37.0 Temperature Blood Gas VENT - CPAP Modality FiO2 35.0 Blood Gas Low 5.0 PEEP Setting Blood Gas 40 Pressure Support Blood Gas RTR Notified Whom Blood Gas 08/03/2018 8:00:0 Notified Time 0 PM Sodium Level 144 Potassium Level 2.8 *L Chloride Level 103 Carbon Dioxide 23 Level Anion Gap 18 #H Blood Urea 16 Nitrogen Creatinine 0.68 Est Glomerular > 60 Filtrat Rate mL/min Glucose Level 131 Calcium Level 7.6 L Total Bilirubin 0.3 Direct Bilirubin 0.00 Indirect 0.3 Bilirubin Aspartate Amino 30 Transf (AST/SGOT) Alanine 27 Aminotransferase (ALT/SGPT) Alkaline 62 Phosphatase Total Protein 8.2 H Albumin 4.6 Globulin 3.60 H Albumin/Globulin 1.27 Ratio Test 08/04/18 01:08 08/04/18 04:51 08/04/18 05:08 08/04/18 07:52 Bedside Glucose 116 100 White Blood Count 6.1 Red Blood Count 3.45 L Hemoglobin 9.5 L Hematocrit 30.8 L Mean Corpuscular 89.3 Volume Mean Corpuscular 27.5 L Hemoglobin Mean Corpuscular 30.8 L Hemoglobin Concen t Red Cell 24.6 H Distribution Width Platelet Count 261 Mean Platelet 9.9 Volume Immature 0.500 H Granulocytes % Neutrophils % 60.0 Lymphocytes % 23.2 Monocytes % 14.3 H Eosinophils % 1.2 Basophils % 0.8 Nucleated Red 0.0 Blood Cells % Immature 0.030 Granulocytes # Neutrophils # 3.7 Lymphocytes # 1.4 Monocytes # 0.9 Eosinophils # 0.1 Basophils # 0.1 Nucleated Red 0.0 Blood Cells # Sodium Level 142 Potassium Level 3.7 Chloride Level 106 Carbon Dioxide 24 Level Anion Gap 12 Blood Urea 16 Nitrogen Creatinine 0.79 Est Glomerular > 60 Filtrat Rate mL/min Glucose Level 113 Calcium Level 8.8 Total Bilirubin 0.5 Direct Bilirubin 0.00 Indirect 0.5 Bilirubin Aspartate Amino 36 Transf (AST/SGOT) Alanine 28 Aminotransferase (ALT/SGPT) Alkaline 66 Phosphatase Total Protein 6.8 # Albumin 3.2 #L Globulin 3.60 H Albumin/Globulin 0.88 Ratio Vancomycin Level 15.7 Trough Test 08/04/18 08:26 08/04/18 11:18 Bedside Glucose 87 Lab Scanned REFERENCE LAB Report Subjective 24 Hr Interval Summary Free Text/Dictation Extubated Doing well on RA Exam/Review of Systems Exam Vitals Vital Signs Date Temp Pulse Resp B/P (MAP) Pulse Ox O2 O2 Flow FiO2 Time Delivery Rate 08/04/18 107 12:00 08/04/18 2.0 12:00 08/04/18 98.9 84/42 (56) 99 Nasal 09:00 Cannula 08/03/18 21 38 19:25 Intake and Output 08/03/18 08/03/18 08/04/18 1515:00 23:00 07:00 IntakeIntake Total 625.45 ml 604.09 ml 350 ml OutputOutput Total 170 ml 2130 ml 850 ml BalanceBalance 455.45 ml -1525.91 ml -500 ml Results Results 24hrs Laboratory Tests Test 08/03/18 16:19 08/03/18 17:00 08/03/18 17:23 08/03/18 21:08 Bedside Glucose 88 118 Blood Gas Blood arterial Specimen Source Arterial Blood 08/03/2018 7:45:0 Date Drawn 0 PM Arterial Blood pH 7.475 H (Temp corrected) Arterial Blood 38.0 pCO2 (Temp correct) Arterial Blood 130.5 H pO2 (Temp corrected) Arterial Blood 27.3 H HCO3 Arterial Blood 3.6 H Base Excess Arterial Blood 98.6 H Oxygen Saturation Doug Test ACCEPTAB Arterial Blood Right Radial Gas Puncture Site Arterial 0.3 Blood Carboxyhemo globin Arterial Blood 0.5 Methemoglobin Blood Gas A-a O2 74.9 H Differential Oxyhemoglobin 97.8 Percent Blood Gas 37.0 Temperature Blood Gas VENT - CPAP Modality FiO2 35.0 Blood Gas Low 5.0 PEEP Setting Blood Gas 40 Pressure Support Blood Gas RTR Notified Whom Blood Gas 08/03/2018 8:00:0 Notified Time 0 PM Sodium Level 144 Potassium Level 2.8 *L Chloride Level 103 Carbon Dioxide 23 Level Anion Gap 18 #H Blood Urea 16 Nitrogen Creatinine 0.68 Est Glomerular > 60 Filtrat Rate mL/min Glucose Level 131 Calcium Level 7.6 L Total Bilirubin 0.3 Direct Bilirubin 0.00 Indirect 0.3 Bilirubin Aspartate Amino 30 Transf (AST/SGOT) Alanine 27 Aminotransferase (ALT/SGPT) Alkaline 62 Phosphatase Total Protein 8.2 H Albumin 4.6 Globulin 3.60 H Albumin/Globulin 1.27 Ratio Test 08/04/18 01:08 08/04/18 04:51 08/04/18 05:08 08/04/18 07:52 Bedside Glucose 116 100 White Blood Count 6.1 Red Blood Count 3.45 L Hemoglobin 9.5 L Hematocrit 30.8 L Mean Corpuscular 89.3 Volume Mean Corpuscular 27.5 L Hemoglobin Mean Corpuscular 30.8 L Hemoglobin Concen t Red Cell 24.6 H Distribution Width Platelet Count 261 Mean Platelet 9.9 Volume Immature 0.500 H Granulocytes % Neutrophils % 60.0 Lymphocytes % 23.2 Monocytes % 14.3 H Eosinophils % 1.2 Basophils % 0.8 Nucleated Red 0.0 Blood Cells % Immature 0.030 Granulocytes # Neutrophils # 3.7 Lymphocytes # 1.4 Monocytes # 0.9 Eosinophils # 0.1 Basophils # 0.1 Nucleated Red 0.0 Blood Cells # Sodium Level 142 Potassium Level 3.7 Chloride Level 106 Carbon Dioxide 24 Level Anion Gap 12 Blood Urea 16 Nitrogen Creatinine 0.79 Est Glomerular > 60 Filtrat Rate mL/min Glucose Level 113 Calcium Level 8.8 Total Bilirubin 0.5 Direct Bilirubin 0.00 Indirect 0.5 Bilirubin Aspartate Amino 36 Transf (AST/SGOT) Alanine 28 Aminotransferase (ALT/SGPT) Alkaline 66 Phosphatase Total Protein 6.8 # Albumin 3.2 #L Globulin 3.60 H Albumin/Globulin 0.88 Ratio Vancomycin Level 15.7 Trough Test 08/04/18 08:26 08/04/18 11:18 Bedside Glucose 87 Lab Scanned REFERENCE LAB Report Medications Medication Current Medications IV Flush (NS 3 ml) 3 ml PER PROTOCOL IV ; Start 07/31/18 at 09:30 Ondansetron HCl (Zofran Inj) 4 mg Q6H PRN IV NAUSEA/VOMITING; Start 07/31/18 at 09:30 Acetaminophen (Tylenol Tab) 650 mg Q6H PRN PO .PAIN 1-3 OR TEMP; Start 07/31/18 at 09:30 Vancomycin HCl (Vanco Iv Per Pharmacy) VANCOMYCIN PER PHARMACY PER PROTOCOL XX ; Start 07/31/18 at 09:30 Enoxaparin Sodium (Lovenox) 40 mg DAILY SC Last administered on 08/04/18at 08:49; Admin Dose 40 MG; Start 08/01/18 at 09:00 Sodium Hypochlorite (Dakins Diluted (1/40)) 1 applic DAILY TP Last administered on 08/04/18at 05:12; Admin Dose 1 APPLIC; Start 08/01/18 at 09:00 Miscellaneous Information (* Miscellaneous Pharmacy Order) HYPOGLYCEMIA PROTOCOL w... ONCE XX ; Start 08/01/18 at 18:30 Miscellaneous Information 1 ea NOTE XX ; Start 08/01/18 at 18:30 Glucose (Glutose) 15 gm Q15M PRN PO DECREASED GLUCOSE; Start 08/01/18 at 18:30 Glucose (Glutose) 22.5 gm Q15M PRN PO DECREASED GLUCOSE; Start 08/01/18 at 18:30 Dextrose (D50w Syringe) 25 ml Q15M PRN IV DECREASED GLUCOSE Last administered on 08/02/18at 17:44; Admin Dose 25 ML; Start 08/01/18 at 18:30 Dextrose (D50w Syringe) 50 ml Q15M PRN IV DECREASED GLUCOSE Last administered on 08/01/18at 18:20; Admin Dose 25 ML; Start 08/01/18 at 18:30 Glucagon (Glucagen) 1 mg Q15M PRN IM DECREASED GLUCOSE; Start 08/01/18 at 18:30 Glucose (Glutose) 15 gm Q15M PRN BUCCAL DECREASED GLUCOSE; Start 08/01/18 at 18:30 Vancomycin/Sodium Chloride 250 ml @ 125 mls/hr Q12H IVPB Last administered on 08/04/18at 08:27; Admin Dose 125 MLS/HR; Start 08/01/18 at 21:00 Insulin Aspart (Novolog Insulin Pen) NOVOLOG *MILD* ALGORI... Q4 SC ; Start 08/02/18 at 17:00 Furosemide (Lasix) 40 mg BID DIURETICS IV Last administered on 08/04/18at 07:05; Admin Dose 40 MG; Start 08/03/18 at 09:30 IV Flush (NS 10 ml) 10 ml PRN PRN IV IV PROTOCOL; Start 08/03/18 at 13:00 Hydromorphone HCl (Dilaudid) 1 mg DAILY IV ; Start 08/05/18 at 09:00 Potassium Chloride (Potassium Chloride Pwd/Soln) 20 meq PER PROTOCOL PRN PO POTASSIUM REPLACEMENT PROTOCOL Last administered on 08/04/18at 10:53; Admin Dose 20 MEQ; Start 08/04/18 at 10:30 Potassium Chloride (Potassium Chloride Pwd/Soln) 30 meq PER PROTOCOL PRN PO POTASSIUM REPLACEMENT PROTOCOL; Start 08/04/18 at 10:30 Potassium Chloride (Potassium Chloride Pwd/Soln) 40 meq PER PROTOCOL PRN PO POTASSIUM REPLACEMENT PROTOCOL; Start 08/04/18 at 10:30 KAI FELIX MD Aug 04, 2018 13:13
--- NOTE | 2018-08-04 14:09 | CONS ---
Assessment/Plan Assessment/Plan Assessment/Plan (Daily) Venous hypertension with ulcerations Cellulitis b/l Intubated on ventilator - now extubated Homeless PAD Plan Patient was seen and evaluated. X-rays were reviewed with no signs of soft tissue gas, fracture fragments, erosions, or cortical disruptions. Incidental findings of tibial bone infarct vs enchondroma. Reviewed non invasive studies and could benefit from a vascular surgery evaluation. Recommend continue with antibiotics and obtain wound cultures. Stop dakins and use normal saline with xeroform dressing changes. Offload heels with pillows. Consultation Date/Type/Reason Admit Date/Time Jul 31, 2018 at 06:30 Initial Consult Date 08/01/18 Requesting Provider: ADDI LOPEZ NP Date/Time of Note DATE: 08/04/18 TIME: 14:09 24 HR Interval Summary Free Text/Dictation Patient extubated, no other acute events Exam/Review of Systems Exam Vitals Vital Signs Date Temp Pulse Resp B/P (MAP) Pulse Ox O2 O2 Flow FiO2 Time Delivery Rate 08/04/18 107 12:00 08/04/18 2.0 12:00 08/04/18 98.9 84/42 (56) 99 Nasal 09:00 Cannula 08/03/18 21 38 19:25 Intake and Output 08/03/18 08/03/18 08/04/18 1515:00 23:00 07:00 IntakeIntake Total 625.45 ml 604.09 ml 350 ml OutputOutput Total 170 ml 2130 ml 850 ml BalanceBalance 455.45 ml -1525.91 ml -500 ml Exam Pedal pulses weakly palpable CFT less than 3 seconds Patient intubated Multiple venous ulcerations and with several bullae formations. Diffuse erythema Patient in restraints Non invasive vascular studies IMPRESSION: Diffuse monophasic waveforms bilaterally with no focal area of high degree stenosis. Gxita-bbz-meav arteries on the left cannot be evaluated due to a large ulcers. Follow-up CT angiogram is recommended. Left foot & tib fib x-rays IMPRESSION: No definite acute bony abnormality of the foot. 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 Correlate clinically for etiology such as steroid use or sickle cell disease. Right foot and tib fib x-rays IMPRESSION: No definite acute fracture or dislocation. Degenerative change of the first MTP joint. 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 although enchondroma could have a similar appearance Results Result Diagram: 08/04/18 0451 08/04/18 0451 Results 24hrs Laboratory Tests Test 08/03/18 16:19 08/03/18 17:00 08/03/18 17:23 08/03/18 21:08 Bedside Glucose 88 118 Blood Gas Blood arterial Specimen Source Arterial Blood 08/03/2018 7:45:0 Date Drawn 0 PM Arterial Blood pH 7.475 H (Temp corrected) Arterial Blood 38.0 pCO2 (Temp correct) Arterial Blood 130.5 H pO2 (Temp corrected) Arterial Blood 27.3 H HCO3 Arterial Blood 3.6 H Base Excess Arterial Blood 98.6 H Oxygen Saturation Doug Test ACCEPTAB Arterial Blood Right Radial Gas Puncture Site Arterial 0.3 Blood Carboxyhemo globin Arterial Blood 0.5 Methemoglobin Blood Gas A-a O2 74.9 H Differential Oxyhemoglobin 97.8 Percent Blood Gas 37.0 Temperature Blood Gas VENT - CPAP Modality FiO2 35.0 Blood Gas Low 5.0 PEEP Setting Blood Gas 40 Pressure Support Blood Gas RTR Notified Whom Blood Gas 08/03/2018 8:00:0 Notified Time 0 PM Sodium Level 144 Potassium Level 2.8 *L Chloride Level 103 Carbon Dioxide 23 Level Anion Gap 18 #H Blood Urea 16 Nitrogen Creatinine 0.68 Est Glomerular > 60 Filtrat Rate mL/min Glucose Level 131 Calcium Level 7.6 L Total Bilirubin 0.3 Direct Bilirubin 0.00 Indirect 0.3 Bilirubin Aspartate Amino 30 Transf (AST/SGOT) Alanine 27 Aminotransferase (ALT/SGPT) Alkaline 62 Phosphatase Total Protein 8.2 H Albumin 4.6 Globulin 3.60 H Albumin/Globulin 1.27 Ratio Test 08/04/18 01:08 08/04/18 04:51 08/04/18 05:08 08/04/18 07:52 Bedside Glucose 116 100 White Blood Count 6.1 Red Blood Count 3.45 L Hemoglobin 9.5 L Hematocrit 30.8 L Mean Corpuscular 89.3 Volume Mean Corpuscular 27.5 L Hemoglobin Mean Corpuscular 30.8 L Hemoglobin Concen t Red Cell 24.6 H Distribution Width Platelet Count 261 Mean Platelet 9.9 Volume Immature 0.500 H Granulocytes % Neutrophils % 60.0 Lymphocytes % 23.2 Monocytes % 14.3 H Eosinophils % 1.2 Basophils % 0.8 Nucleated Red 0.0 Blood Cells % Immature 0.030 Granulocytes # Neutrophils # 3.7 Lymphocytes # 1.4 Monocytes # 0.9 Eosinophils # 0.1 Basophils # 0.1 Nucleated Red 0.0 Blood Cells # Sodium Level 142 Potassium Level 3.7 Chloride Level 106 Carbon Dioxide 24 Level Anion Gap 12 Blood Urea 16 Nitrogen Creatinine 0.79 Est Glomerular > 60 Filtrat Rate mL/min Glucose Level 113 Calcium Level 8.8 Total Bilirubin 0.5 Direct Bilirubin 0.00 Indirect 0.5 Bilirubin Aspartate Amino 36 Transf (AST/SGOT) Alanine 28 Aminotransferase (ALT/SGPT) Alkaline 66 Phosphatase Total Protein 6.8 # Albumin 3.2 #L Globulin 3.60 H Albumin/Globulin 0.88 Ratio Vancomycin Level 15.7 Trough Test 08/04/18 08:26 08/04/18 11:18 08/04/18 13:10 Bedside Glucose 87 77 Lab Scanned REFERENCE LAB Report Medications Medication Current Medications IV Flush (NS 3 ml) 3 ml PER PROTOCOL IV ; Start 07/31/18 at 09:30 Ondansetron HCl (Zofran Inj) 4 mg Q6H PRN IV NAUSEA/VOMITING; Start 07/31/18 at 09:30 Acetaminophen (Tylenol Tab) 650 mg Q6H PRN PO .PAIN 1-3 OR TEMP; Start 07/31/18 at 09:30 Vancomycin HCl (Vanco Iv Per Pharmacy) VANCOMYCIN PER PHARMACY PER PROTOCOL XX ; Start 07/31/18 at 09:30 Enoxaparin Sodium (Lovenox) 40 mg DAILY SC Last administered on 08/04/18at 08:49; Admin Dose 40 MG; Start 08/01/18 at 09:00 Miscellaneous Information (* Miscellaneous Pharmacy Order) HYPOGLYCEMIA PROTOCOL w... ONCE XX ; Start 08/01/18 at 18:30 Miscellaneous Information 1 ea NOTE XX ; Start 08/01/18 at 18:30 Glucose (Glutose) 15 gm Q15M PRN PO DECREASED GLUCOSE; Start 08/01/18 at 18:30 Glucose (Glutose) 22.5 gm Q15M PRN PO DECREASED GLUCOSE; Start 08/01/18 at 18:30 Dextrose (D50w Syringe) 25 ml Q15M PRN IV DECREASED GLUCOSE Last administered on 08/02/18at 17:44; Admin Dose 25 ML; Start 08/01/18 at 18:30 Dextrose (D50w Syringe) 50 ml Q15M PRN IV DECREASED GLUCOSE Last administered on 08/01/18at 18:20; Admin Dose 25 ML; Start 08/01/18 at 18:30 Glucagon (Glucagen) 1 mg Q15M PRN IM DECREASED GLUCOSE; Start 08/01/18 at 18:30 Glucose (Glutose) 15 gm Q15M PRN BUCCAL DECREASED GLUCOSE; Start 08/01/18 at 18:30 Vancomycin/Sodium Chloride 250 ml @ 125 mls/hr Q12H IVPB Last administered on 08/04/18at 08:27; Admin Dose 125 MLS/HR; Start 08/01/18 at 21:00 Insulin Aspart (Novolog Insulin Pen) NOVOLOG *MILD* ALGORI... Q4 SC ; Start 08/02/18 at 17:00 Furosemide (Lasix) 40 mg BID DIURETICS IV Last administered on 08/04/18at 07:05; Admin Dose 40 MG; Start 08/03/18 at 09:30 IV Flush (NS 10 ml) 10 ml PRN PRN IV IV PROTOCOL; Start 08/03/18 at 13:00 Hydromorphone HCl (Dilaudid) 1 mg DAILY IV ; Start 08/05/18 at 09:00 Potassium Chloride (Potassium Chloride Pwd/Soln) 20 meq PER PROTOCOL PRN PO POTASSIUM REPLACEMENT PROTOCOL Last administered on 08/04/18at 10:53; Admin Dose 20 MEQ; Start 08/04/18 at 10:30 Potassium Chloride (Potassium Chloride Pwd/Soln) 30 meq PER PROTOCOL PRN PO POTASSIUM REPLACEMENT PROTOCOL; Start 08/04/18 at 10:30 Potassium Chloride (Potassium Chloride Pwd/Soln) 40 meq PER PROTOCOL PRN PO POTASSIUM REPLACEMENT PROTOCOL; Start 08/04/18 at 10:30 Metoprolol Tartrate (Lopressor) 25 mg BID PO ; Start 08/04/18 at 21:00 JOYA LANGFORD DPSunita Aug 04, 2018 14:09
--- NOTE | 2018-08-04 14:26 | CONS ---
Assessment/Plan Assessment/Plan Hospital Course (Demo Recall) No acute changes overnight. Patient was extubated he is awake follows commands and in no distress no fevers overnight WBC 6.1 platelets 261 neutrophils 60 BUN 16 creatinine 0.79 Indwelling: Right upper extremity PICC line, Becerra catheter Chest x-ray revealed stable patchy right lower lobe infiltrates and small right pleural effusion. Please see full report in chart Antimicrobials: Vancomycin, Zosyn Microbiology: Blood culture since admission grew MRSA Physical examination: This is a chronically ill-appearing well-developed elderly man who is in no distress. Head atraumatic normocephalic neck is supple chest rise symmetrical breath sounds diminished the bases heart S1-S2 abdomen soft bowel sounds hypoactive extremities with bilateral lower extremities edema patient has significant cellulitis with draining wounds Assessment: 1. Severe sepsis, present on admission 2. MRSA bacteremia likely secondary to infected wounds rule out endocarditis 3. Bilateral lower extremity cellulitis with multiple infected wounds 4. Peripheral arterial disease 5. Acute encephalopathy on admission 6. Left cephalic vein DVT 7. Pneumonia requiring intubation 8. Polysubstance abuse Plan: Stable post extubation, on appropriate antibiotic regimen, repeat blood cultures negative, sputum and wound cultures pending, podiatry rec-s noted Consultation Date/Type/Reason Admit Date/Time Jul 31, 2018 at 06:30 Initial Consult Date 08/01/18 Type of Consult id Requesting Provider: ADDI LOPEZ NP Date/Time of Note DATE: 08/04/18 TIME: 14:23 Exam/Review of Systems Exam Vitals Vital Signs Date Temp Pulse Resp B/P (MAP) Pulse Ox O2 O2 Flow FiO2 Time Delivery Rate 08/04/18 107 12:00 08/04/18 2.0 12:00 08/04/18 98.9 84/42 (56) 99 Nasal 09:00 Cannula 08/03/18 21 38 19:25 Intake and Output 08/03/18 08/03/18 08/04/18 1515:00 23:00 07:00 IntakeIntake Total 625.45 ml 604.09 ml 350 ml OutputOutput Total 170 ml 2130 ml 850 ml BalanceBalance 455.45 ml -1525.91 ml -500 ml Results Result Diagram: 08/04/18 0451 08/04/18 0451 Results 24hrs Laboratory Tests Test 08/03/18 16:19 08/03/18 17:00 08/03/18 17:23 08/03/18 21:08 Bedside Glucose 88 118 Blood Gas Blood arterial Specimen Source Arterial Blood 08/03/2018 7:45:0 Date Drawn 0 PM Arterial Blood pH 7.475 H (Temp corrected) Arterial Blood 38.0 pCO2 (Temp correct) Arterial Blood 130.5 H pO2 (Temp corrected) Arterial Blood 27.3 H HCO3 Arterial Blood 3.6 H Base Excess Arterial Blood 98.6 H Oxygen Saturation Doug Test ACCEPTAB Arterial Blood Right Radial Gas Puncture Site Arterial 0.3 Blood Carboxyhemo globin Arterial Blood 0.5 Methemoglobin Blood Gas A-a O2 74.9 H Differential Oxyhemoglobin 97.8 Percent Blood Gas 37.0 Temperature Blood Gas VENT - CPAP Modality FiO2 35.0 Blood Gas Low 5.0 PEEP Setting Blood Gas 40 Pressure Support Blood Gas RTR Notified Whom Blood Gas 08/03/2018 8:00:0 Notified Time 0 PM Sodium Level 144 Potassium Level 2.8 *L Chloride Level 103 Carbon Dioxide 23 Level Anion Gap 18 #H Blood Urea 16 Nitrogen Creatinine 0.68 Est Glomerular > 60 Filtrat Rate mL/min Glucose Level 131 Calcium Level 7.6 L Total Bilirubin 0.3 Direct Bilirubin 0.00 Indirect 0.3 Bilirubin Aspartate Amino 30 Transf (AST/SGOT) Alanine 27 Aminotransferase (ALT/SGPT) Alkaline 62 Phosphatase Total Protein 8.2 H Albumin 4.6 Globulin 3.60 H Albumin/Globulin 1.27 Ratio Test 08/04/18 01:08 08/04/18 04:51 08/04/18 05:08 08/04/18 07:52 Bedside Glucose 116 100 White Blood Count 6.1 Red Blood Count 3.45 L Hemoglobin 9.5 L Hematocrit 30.8 L Mean Corpuscular 89.3 Volume Mean Corpuscular 27.5 L Hemoglobin Mean Corpuscular 30.8 L Hemoglobin Concen t Red Cell 24.6 H Distribution Width Platelet Count 261 Mean Platelet 9.9 Volume Immature 0.500 H Granulocytes % Neutrophils % 60.0 Lymphocytes % 23.2 Monocytes % 14.3 H Eosinophils % 1.2 Basophils % 0.8 Nucleated Red 0.0 Blood Cells % Immature 0.030 Granulocytes # Neutrophils # 3.7 Lymphocytes # 1.4 Monocytes # 0.9 Eosinophils # 0.1 Basophils # 0.1 Nucleated Red 0.0 Blood Cells # Sodium Level 142 Potassium Level 3.7 Chloride Level 106 Carbon Dioxide 24 Level Anion Gap 12 Blood Urea 16 Nitrogen Creatinine 0.79 Est Glomerular > 60 Filtrat Rate mL/min Glucose Level 113 Calcium Level 8.8 Total Bilirubin 0.5 Direct Bilirubin 0.00 Indirect 0.5 Bilirubin Aspartate Amino 36 Transf (AST/SGOT) Alanine 28 Aminotransferase (ALT/SGPT) Alkaline 66 Phosphatase Total Protein 6.8 # Albumin 3.2 #L Globulin 3.60 H Albumin/Globulin 0.88 Ratio Vancomycin Level 15.7 Trough Test 08/04/18 08:26 08/04/18 11:18 08/04/18 13:10 Bedside Glucose 87 77 Lab Scanned REFERENCE LAB Report Medications Medication Current Medications IV Flush (NS 3 ml) 3 ml PER PROTOCOL IV ; Start 07/31/18 at 09:30 Ondansetron HCl (Zofran Inj) 4 mg Q6H PRN IV NAUSEA/VOMITING; Start 07/31/18 at 09:30 Acetaminophen (Tylenol Tab) 650 mg Q6H PRN PO .PAIN 1-3 OR TEMP; Start 07/31/18 at 09:30 Vancomycin HCl (Vanco Iv Per Pharmacy) VANCOMYCIN PER PHARMACY PER PROTOCOL XX ; Start 07/31/18 at 09:30 Enoxaparin Sodium (Lovenox) 40 mg DAILY SC Last administered on 08/04/18at 08:49; Admin Dose 40 MG; Start 08/01/18 at 09:00 Miscellaneous Information (* Miscellaneous Pharmacy Order) HYPOGLYCEMIA PROTOCOL w... ONCE XX ; Start 08/01/18 at 18:30 Miscellaneous Information 1 ea NOTE XX ; Start 08/01/18 at 18:30 Glucose (Glutose) 15 gm Q15M PRN PO DECREASED GLUCOSE; Start 08/01/18 at 18:30 Glucose (Glutose) 22.5 gm Q15M PRN PO DECREASED GLUCOSE; Start 08/01/18 at 18:30 Dextrose (D50w Syringe) 25 ml Q15M PRN IV DECREASED GLUCOSE Last administered on 08/02/18at 17:44; Admin Dose 25 ML; Start 08/01/18 at 18:30 Dextrose (D50w Syringe) 50 ml Q15M PRN IV DECREASED GLUCOSE Last administered on 08/01/18at 18:20; Admin Dose 25 ML; Start 08/01/18 at 18:30 Glucagon (Glucagen) 1 mg Q15M PRN IM DECREASED GLUCOSE; Start 08/01/18 at 18:30 Glucose (Glutose) 15 gm Q15M PRN BUCCAL DECREASED GLUCOSE; Start 08/01/18 at 18:30 Vancomycin/Sodium Chloride 250 ml @ 125 mls/hr Q12H IVPB Last administered on 08/04/18at 08:27; Admin Dose 125 MLS/HR; Start 08/01/18 at 21:00 Insulin Aspart (Novolog Insulin Pen) NOVOLOG *MILD* ALGORI... Q4 SC ; Start 08/02/18 at 17:00 Furosemide (Lasix) 40 mg BID DIURETICS IV Last administered on 08/04/18at 07:05; Admin Dose 40 MG; Start 08/03/18 at 09:30 IV Flush (NS 10 ml) 10 ml PRN PRN IV IV PROTOCOL; Start 08/03/18 at 13:00 Hydromorphone HCl (Dilaudid) 1 mg DAILY IV ; Start 08/05/18 at 09:00 Potassium Chloride (Potassium Chloride Pwd/Soln) 20 meq PER PROTOCOL PRN PO POTASSIUM REPLACEMENT PROTOCOL Last administered on 08/04/18at 10:53; Admin Dose 20 MEQ; Start 08/04/18 at 10:30 Potassium Chloride (Potassium Chloride Pwd/Soln) 30 meq PER PROTOCOL PRN PO POTASSIUM REPLACEMENT PROTOCOL; Start 08/04/18 at 10:30 Potassium Chloride (Potassium Chloride Pwd/Soln) 40 meq PER PROTOCOL PRN PO POTASSIUM REPLACEMENT PROTOCOL; Start 08/04/18 at 10:30 Metoprolol Tartrate (Lopressor) 25 mg BID PO ; Start 08/04/18 at 21:00 BRADY OROURKE NP Aug 04, 2018 14:26
[2018-08-04] MEDS: BALSAM PERU/CASTOR OIL 60 GM TUBE TOP SCH ×2 (14:29→22:07)
[2018-08-04] MEDS: HYDROmorphONE 0.5 MG/0.5 ML SYG IV SCH (14:29)
[2018-08-04] MEDS: METOPROLOL 50 MG TAB PO SCH ×2 (16:40→21:00)
[2018-08-04 20:51] LABS: VARICELLA-ZOSTER VIRUS AB IgM 0.57
[2018-08-04] MEDS ORDERED: METOPROLOL 25 MG TAB PO SCH (21:00)
[2018-08-04] MEDS: CEFEPIME 1GM/50 ML (PMX) 50 ML IVPB SCH (22:17)
[2018-08-05] VITALS (11 sets, daily range): BP systolic 92–113; BP diastolic 56–72; PULSE 63–93; RESP 18–20
[2018-08-05] MEDS: INSULIN ASPART [NOVOLOG] 3 ML PEN SC SCH ×3 (02:00→08:55)
[2018-08-05] MEDS: FUROSEMIDE 40 MG INJ IV SCH (05:40)
[2018-08-05] MEDS: HYDROmorphONE 0.5 MG/0.5 ML SYG IV SCH (08:43)
[2018-08-05] MEDS: CEFEPIME 1GM/50 ML (PMX) 50 ML IVPB SCH (08:45)
[2018-08-05] MEDS: VANCOMYCIN 750 MG (PMX) 250 ML IVPB SCH (08:45)
[2018-08-05] MEDS: METOPROLOL 50 MG TAB PO SCH ×2 (08:46→21:00)
[2018-08-05] MEDS: ENOXAPARIN 40 MG/0.4 ML SYG SC SCH (08:47)
[2018-08-05] MEDS: BALSAM PERU/CASTOR OIL 60 GM TUBE TOP SCH ×2 (08:59→21:04)
[2018-08-05] MEDS ORDERED: HYDROmorphONE 0.5 MG/0.5 ML SYG IV SCH (09:00)
--- NOTE | 2018-08-05 11:11 | CONS ---
Consult Date/Type/Reason Admit Date/Time Jul 31, 2018 at 06:30 Initial Consult Date 08/01/18 Type of Consult Pulmonary Requesting Provider: ADDI LOPEZ NP Date/Time of Note DATE: 08/05/18 TIME: 11:09 Subjective Patient stable this morning no respiratory distress. Objective Vital Signs Date Temp Pulse Resp B/P (MAP) Pulse Ox O2 O2 Flow FiO2 Time Delivery Rate 08/05/18 Nasal 2.0 09:05 Cannula 08/05/18 87 08:40 08/05/18 97.8 18 113/63 90 07:51 (80) 08/03/18 38 19:25 Intake and Output 08/04/18 08/04/18 08/05/18 1515:00 23:00 07:00 IntakeIntake Total 610 ml 290 ml 450 ml OutputOutput Total 300 ml 100 ml BalanceBalance 310 ml 190 ml 450 ml Exam GENERAL: Chronically ill-appearing gentleman comfortable at rest VITAL SIGNS: per chart NECK: Supple. No JVD or lymphadenopathy. CARDIAC EXAM: S1, S2. No added sounds or murmurs. CHEST: clear bilaterally, No added sounds, rales or wheezes ABDOMEN: Soft, nontender. No guarding or rebound. EXTREMITIES: No cyanosis, clubbing significant lower extremity wounds with dressings NEUROLOGIC: Generalized weakness. No focal deficits. Vent Setting Ventilator Support Mode: CPAP Fraction of Inspired Oxygen pe: 38 Positive End Expiratory Pressu: 5.0 Results/Medications Result Diagram: 08/05/18 0543 08/05/18 0543 Results 24 hrs Laboratory Tests Test 08/04/18 11:18 08/04/18 13:10 08/04/18 16:37 08/04/18 22:06 Lab Scanned Report REFERENCE LAB Bedside Glucose 77 110 95 Test 08/05/18 02:40 08/05/18 05:43 08/05/18 08:48 08/05/18 09:08 Bedside Glucose 106 69 L 67 L White Blood Count 6.3 Red Blood Count 3.64 L Hemoglobin 9.8 L Hematocrit 32.4 L Mean Corpuscular 89.0 Volume Mean Corpuscular 26.9 L Hemoglobin Mean Corpuscular 30.2 L Hemoglobin Concent Red Cell 23.9 H Distribution Width Platelet Count 217 Mean Platelet 9.7 Volume Immature 1.300 H Granulocytes % Neutrophils % Segmented 49 Neutrophils % (Manual) Band Neutrophils % 8 H (Manual) Lymphocytes % Lymphocytes % 29 (Manual) Reactive 1 H Lymphocytes % (Manual) Monocytes % Monocytes % 11 (Manual) Eosinophils % Eosinophils % 2 (Manual) Basophils % Nucleated Red 2 H Blood Cells % Immature 0.080 H Granulocytes # Neutrophils # Neutrophils # 3.1 (Manual) Band Neutrophils # 0.5 Lymphocytes 1.8 (Manual) Lymphocytes # Reactive 0.0 Lymphocytes # Monocytes # Monocytes # 0.6 (Manual) Eosinophils # Basophils # Nucleated Red Blood Cells # Platelet Estimate NORMAL Giant Platelets 1 H Polychromasia 1+ Hypochromasia 2+ Poikilocytosis 2+ Anisocytosis 1+ Macrocytosis 1+ Spherocytes 1+ Sodium Level 137 Potassium Level 4.0 Chloride Level 101 Carbon Dioxide 19 L Level Anion Gap 17 H Blood Urea 20 Nitrogen Creatinine 1.44 H Est Glomerular 50 L Filtrat Rate mL/min Glucose Level 70 # Calcium Level 8.5 Test 08/05/18 09:35 08/05/18 09:59 Bedside Glucose 62 L 86 Medications Current Medications IV Flush (NS 3 ml) 3 ml PER PROTOCOL IV ; Start 07/31/18 at 09:30 Ondansetron HCl (Zofran Inj) 4 mg Q6H PRN IV NAUSEA/VOMITING; Start 07/31/18 at 09:30 Acetaminophen (Tylenol Tab) 650 mg Q6H PRN PO .PAIN 1-3 OR TEMP; Start 07/31/18 at 09:30 Vancomycin HCl (Vanco Iv Per Pharmacy) VANCOMYCIN PER PHARMACY PER PROTOCOL XX ; Start 07/31/18 at 09:30 Enoxaparin Sodium (Lovenox) 40 mg DAILY SC Last administered on 08/05/18at 08:47; Admin Dose 40 MG; Start 08/01/18 at 09:00 Miscellaneous Information (* Miscellaneous Pharmacy Order) HYPOGLYCEMIA PROTOCOL w... ONCE XX ; Start 08/01/18 at 18:30 Miscellaneous Information 1 ea NOTE XX ; Start 08/01/18 at 18:30 Glucose (Glutose) 15 gm Q15M PRN PO DECREASED GLUCOSE Last administered on 08/05/18at 09:43; Admin Dose 15 GM; Start 08/01/18 at 18:30 Glucose (Glutose) 22.5 gm Q15M PRN PO DECREASED GLUCOSE; Start 08/01/18 at 18:30 Dextrose (D50w Syringe) 25 ml Q15M PRN IV DECREASED GLUCOSE Last administered on 08/02/18at 17:44; Admin Dose 25 ML; Start 08/01/18 at 18:30 Dextrose (D50w Syringe) 50 ml Q15M PRN IV DECREASED GLUCOSE Last administered on 08/01/18at 18:20; Admin Dose 25 ML; Start 08/01/18 at 18:30 Glucagon (Glucagen) 1 mg Q15M PRN IM DECREASED GLUCOSE; Start 08/01/18 at 18:30 Glucose (Glutose) 15 gm Q15M PRN BUCCAL DECREASED GLUCOSE; Start 08/01/18 at 18:30 Vancomycin/Sodium Chloride 250 ml @ 125 mls/hr Q12H IVPB Last administered on 08/05/18at 08:45; Admin Dose 125 MLS/HR; Start 08/01/18 at 21:00 Insulin Aspart (Novolog Insulin Pen) NOVOLOG *MILD* ALGORI... Q4 SC ; Start 08/02/18 at 17:00 Furosemide (Lasix) 40 mg BID DIURETICS IV Last administered on 08/05/18at 05:40; Admin Dose 40 MG; Start 08/03/18 at 09:30 IV Flush (NS 10 ml) 10 ml PRN PRN IV IV PROTOCOL; Start 08/03/18 at 13:00 Potassium Chloride (Potassium Chloride Pwd/Soln) 20 meq PER PROTOCOL PRN PO POTASSIUM REPLACEMENT PROTOCOL Last administered on 08/04/18at 10:53; Admin Dose 20 MEQ; Start 08/04/18 at 10:30 Potassium Chloride (Potassium Chloride Pwd/Soln) 30 meq PER PROTOCOL PRN PO POTASSIUM REPLACEMENT PROTOCOL; Start 08/04/18 at 10:30 Potassium Chloride (Potassium Chloride Pwd/Soln) 40 meq PER PROTOCOL PRN PO POTASSIUM REPLACEMENT PROTOCOL; Start 08/04/18 at 10:30 Hydromorphone HCl (Dilaudid) 1 mg DAILY IV Last administered on 08/05/18at 08:43; Admin Dose 1 MG; Start 08/04/18 at 14:30 Cefepime HCl 50 ml @ 100 mls/hr Q12 IVPB Last administered on 08/05/18at 08:45; Admin Dose 100 MLS/HR; Start 08/04/18 at 21:00 Metoprolol Tartrate (Lopressor) 50 mg BID PO Last administered on 08/05/18at 08:46; Admin Dose 50 MG; Start 08/04/18 at 16:30 Assessment/Plan Hospital Course (Demo Recall) Assessment 1. Status post acute hypoxemic respiratory 2. Acute congestive cardiac failure with a history of underlying cardiomyopathy 3. Gram-positive bacteremia consistent with MRSA. 4. Left cephalic vein DVT Plan 1. Aspiration precautions 2. Antibiotics per infectious diseases 3. Wound care 4. Bronchodilator therapy and decrease O2 as tolerated 5. will likely require placement JENNIFER LESTER MD, [facility] August 05, 2018 11:11
[2018-08-05] MEDS ORDERED: INSULIN ASPART [NOVOLOG] 3 ML PEN SC SCH (11:30)
[2018-08-05] MEDS: Insulin NOVOLOG SS MILD Algorithm (SS with meals and bedtime) SC SCH ×3 (11:30→21:00)
--- NOTE | 2018-08-05 12:21 | CONS ---
Assessment/Plan Assessment/Plan Hospital Course (Demo Recall) No acute changes, tx to tele, no fevers, nad Indwelling: Right upper extremity PICC line, Becerra catheter Chest x-ray revealed stable patchy right lower lobe infiltrates and small right pleural effusion. Please see full report in chart Antimicrobials: Vancomycin Microbiology: Blood culture since admission grew MRSA, repeat bld cx neg, wound cx + St aureus prelim Physical examination: This is a chronically ill-appearing well-developed elderly man who is awake in no distress. Head atraumatic normocephalic neck is supple chest rise symmetrical breath sounds diminished the bases heart S1-S2 abdomen soft bowel sounds hypoactive extremities with bilateral lower extremities edema patient has significant cellulitis with draining wounds Assessment: 1. Severe sepsis, present on admission 2. MRSA bacteremia likely secondary to infected wounds 3. Bilateral lower extremity cellulitis with multiple infected wounds 4. Peripheral arterial disease 5. Acute encephalopathy on admission 6. Left cephalic vein DVT 7. Pneumonia/CHF exacerbation==>s/p extubated 8. Polysubstance abuse Plan: Remains stable, repeat bld cx neg, pending wound cx, continue Vanco, add Rifampin, monitor renal f-n, podiatry rec-s Consultation Date/Type/Reason Admit Date/Time Jul 31, 2018 at 06:30 Initial Consult Date 08/01/18 Type of Consult id Requesting Provider: ADDI LOPEZ NP Date/Time of Note DATE: 08/05/18 TIME: 12:17 Exam/Review of Systems Exam Vitals Vital Signs Date Temp Pulse Resp B/P (MAP) Pulse Ox O2 O2 Flow FiO2 Time Delivery Rate 08/05/18 97.6 63 19 110/58 95 12:10 (75) 08/05/18 Nasal 2.0 09:05 Cannula 08/03/18 38 19:25 Intake and Output 08/04/18 08/04/18 08/05/18 1515:00 23:00 07:00 IntakeIntake Total 610 ml 290 ml 450 ml OutputOutput Total 300 ml 100 ml BalanceBalance 310 ml 190 ml 450 ml Results Result Diagram: 08/05/18 0543 08/05/18 0543 Results 24hrs Laboratory Tests Test 08/04/18 13:10 08/04/18 16:37 08/04/18 22:06 08/05/18 02:40 Bedside Glucose 77 110 95 106 Test 08/05/18 05:43 08/05/18 08:48 08/05/18 09:08 08/05/18 09:35 White Blood Count 6.3 Red Blood Count 3.64 L Hemoglobin 9.8 L Hematocrit 32.4 L Mean Corpuscular 89.0 Volume Mean Corpuscular 26.9 L Hemoglobin Mean Corpuscular 30.2 L Hemoglobin Concent Red Cell Distribution 23.9 H Width Platelet Count 217 Mean Platelet Volume 9.7 Immature Granulocytes 1.300 H % Neutrophils % Segmented Neutrophils 49 % (Manual) Band Neutrophils % 8 H (Manual) Lymphocytes % Lymphocytes % 29 (Manual) Reactive Lymphocytes 1 H % (Manual) Monocytes % Monocytes % (Manual) 11 Eosinophils % Eosinophils % 2 (Manual) Basophils % Nucleated Red Blood 2 H Cells % Immature Granulocytes 0.080 H # Neutrophils # Neutrophils # 3.1 (Manual) Band Neutrophils # 0.5 Lymphocytes (Manual) 1.8 Lymphocytes # Reactive Lymphocytes 0.0 # Monocytes # Monocytes # (Manual) 0.6 Eosinophils # Basophils # Nucleated Red Blood Cells # Platelet Estimate NORMAL Giant Platelets 1 H Polychromasia 1+ Hypochromasia 2+ Poikilocytosis 2+ Anisocytosis 1+ Macrocytosis 1+ Spherocytes 1+ Sodium Level 137 Potassium Level 4.0 Chloride Level 101 Carbon Dioxide Level 19 L Anion Gap 17 H Blood Urea Nitrogen 20 Creatinine 1.44 H Est Glomerular 50 L Filtrat Rate mL/min Glucose Level 70 # Calcium Level 8.5 Bedside Glucose 69 L 67 L 62 L Test 08/05/18 09:59 08/05/18 10:49 08/05/18 11:08 Bedside Glucose 86 88 86 Medications Medication Current Medications IV Flush (NS 3 ml) 3 ml PER PROTOCOL IV ; Start 07/31/18 at 09:30 Ondansetron HCl (Zofran Inj) 4 mg Q6H PRN IV NAUSEA/VOMITING; Start 07/31/18 at 09:30 Acetaminophen (Tylenol Tab) 650 mg Q6H PRN PO .PAIN 1-3 OR TEMP; Start 07/31/18 at 09:30 Enoxaparin Sodium (Lovenox) 40 mg DAILY SC Last administered on 08/05/18at 08:47; Admin Dose 40 MG; Start 08/01/18 at 09:00 Miscellaneous Information (* Miscellaneous Pharmacy Order) HYPOGLYCEMIA PROTOCOL w... ONCE XX ; Start 08/01/18 at 18:30 Miscellaneous Information 1 ea NOTE XX ; Start 08/01/18 at 18:30 Glucose (Glutose) 15 gm Q15M PRN PO DECREASED GLUCOSE Last administered on 08/05/18at 09:43; Admin Dose 15 GM; Start 08/01/18 at 18:30 Glucose (Glutose) 22.5 gm Q15M PRN PO DECREASED GLUCOSE; Start 08/01/18 at 18:30 Dextrose (D50w Syringe) 25 ml Q15M PRN IV DECREASED GLUCOSE Last administered on 08/02/18at 17:44; Admin Dose 25 ML; Start 08/01/18 at 18:30 Dextrose (D50w Syringe) 50 ml Q15M PRN IV DECREASED GLUCOSE Last administered on 08/01/18at 18:20; Admin Dose 25 ML; Start 08/01/18 at 18:30 Glucagon (Glucagen) 1 mg Q15M PRN IM DECREASED GLUCOSE; Start 08/01/18 at 18:30 Glucose (Glutose) 15 gm Q15M PRN BUCCAL DECREASED GLUCOSE; Start 08/01/18 at 18:30 Furosemide (Lasix) 40 mg BID DIURETICS IV Last administered on 08/05/18at 05:40; Admin Dose 40 MG; Start 08/03/18 at 09:30 IV Flush (NS 10 ml) 10 ml PRN PRN IV IV PROTOCOL; Start 08/03/18 at 13:00 Potassium Chloride (Potassium Chloride Pwd/Soln) 20 meq PER PROTOCOL PRN PO POTASSIUM REPLACEMENT PROTOCOL Last administered on 08/04/18at 10:53; Admin Dose 20 MEQ; Start 08/04/18 at 10:30 Potassium Chloride (Potassium Chloride Pwd/Soln) 30 meq PER PROTOCOL PRN PO POTASSIUM REPLACEMENT PROTOCOL; Start 08/04/18 at 10:30 Potassium Chloride (Potassium Chloride Pwd/Soln) 40 meq PER PROTOCOL PRN PO POTASSIUM REPLACEMENT PROTOCOL; Start 08/04/18 at 10:30 Metoprolol Tartrate (Lopressor) 50 mg BID PO Last administered on 08/05/18at 08:46; Admin Dose 50 MG; Start 08/04/18 at 16:30 Hydromorphone HCl (Dilaudid) 1.5 mg DAILY IV ; Start 08/06/18 at 09:00 Acetaminophen/ Hydrocodone Bitart ([place] ()) 1 tab Q4H PRN NGT MODERATE PAIN LEVEL 4-6; Start 08/05/18 at 11:30 Insulin Aspart (Novolog Insulin Pen) (Adult SC Insulin - Mild Algorithm)... AC MEALS AND BEDTIME SC ; Start 08/05/18 at 11:30 BRADY OROURKE NP August 05, 2018 12:21
[2018-08-05] MEDS ORDERED: VANCOMYCIN IV PER PHARMACY XX SCH (12:30)
[2018-08-05] MEDS: HYDROCODONE/APAP (10/325) TAB NGT PRN ×3 (13:10→22:21)
--- NOTE | 2018-08-05 13:42 | PN ---
Date/Time of Note Date/Time of Note DATE: 08/05/18 TIME: 13:40 Assessment/Plan VTE Prophylaxis Risk score (from Ns)>0 risk: 6 SCD applied (from Ns): Yes Pharmacological prophylaxis: heparin, apixaban Lines/Catheters IV Catheter Type (from Nrsg): PICC Line Central line still needed: Yes Urinary Cath still in place: Yes Reason Cath still needed: urinary retention Assessment/Plan Hospital Course EXAM: Alert, interactive ++ JVD Clear lungs RRR Abdomen soft Peripheral edema improving, extensive superficial venous ulcerations on b/l legs without signs of infection A/P: 62 yo male with venous stasis ulcerations, cellulitis, systolic CHF, acute respiratory failure, MRSA bacteremia MRSA bacteremia: - Presumed source is cellulitis, wounds on legs with extensive open skin - Continue Vanco course per ID - Repeat cultures negative Systolic CHF: - Diuresis - Neurohormonal blockade Acute respiratory failure: - s/p exutbation. NC O2 as needed Hypokalemia: - Repletion as needed Anemia: - Check iron stores Venous stasis disease: - Wound care Atrial fibrillation: - Metoprolol for rate control - Apixaban PT/OT Transfer to telemetry Result Diagram: 08/05/18 0543 08/05/18 0543 Results 24hrs Laboratory Tests Test 08/04/18 16:37 08/04/18 22:06 08/05/18 02:40 08/05/18 05:43 Bedside Glucose 110 95 106 White Blood Count 6.3 Red Blood Count 3.64 L Hemoglobin 9.8 L Hematocrit 32.4 L Mean Corpuscular 89.0 Volume Mean Corpuscular 26.9 L Hemoglobin Mean Corpuscular 30.2 L Hemoglobin Concent Red Cell Distribution 23.9 H Width Platelet Count 217 Mean Platelet Volume 9.7 Immature Granulocytes 1.300 H % Neutrophils % Segmented Neutrophils 49 % (Manual) Band Neutrophils % 8 H (Manual) Lymphocytes % Lymphocytes % (Manual) 29 Reactive Lymphocytes 1 H % (Manual) Monocytes % Monocytes % (Manual) 11 Eosinophils % Eosinophils % (Manual) 2 Basophils % Nucleated Red Blood 2 H Cells % Immature Granulocytes 0.080 H # Neutrophils # Neutrophils # (Manual) 3.1 Band Neutrophils # 0.5 Lymphocytes (Manual) 1.8 Lymphocytes # Reactive Lymphocytes # 0.0 Monocytes # Monocytes # (Manual) 0.6 Eosinophils # Basophils # Nucleated Red Blood Cells # Platelet Estimate NORMAL Giant Platelets 1 H Polychromasia 1+ Hypochromasia 2+ Poikilocytosis 2+ Anisocytosis 1+ Macrocytosis 1+ Spherocytes 1+ Sodium Level 137 Potassium Level 4.0 Chloride Level 101 Carbon Dioxide Level 19 L Anion Gap 17 H Blood Urea Nitrogen 20 Creatinine 1.44 H Est Glomerular Filtrat 50 L Rate mL/min Glucose Level 70 # Calcium Level 8.5 Test 08/05/18 08:48 08/05/18 09:08 08/05/18 09:35 08/05/18 09:59 Bedside Glucose 69 L 67 L 62 L 86 Test 08/05/18 10:49 08/05/18 11:08 Bedside Glucose 88 86 Subjective 24 Hr Interval Summary Free Text/Dictation Breathing comfortably Great amount of pain in leg ulcerations Exam/Review of Systems Exam Vitals Vital Signs Date Temp Pulse Resp B/P (MAP) Pulse Ox O2 O2 Flow FiO2 Time Delivery Rate 08/05/18 93 12:34 08/05/18 97.6 19 110/58 95 12:10 (75) 08/05/18 Nasal 2.0 09:05 Cannula 08/03/18 38 19:25 Intake and Output 08/04/18 08/04/18 08/05/18 1515:00 23:00 07:00 IntakeIntake Total 610 ml 290 ml 450 ml OutputOutput Total 300 ml 100 ml BalanceBalance 310 ml 190 ml 450 ml Results Results 24hrs Laboratory Tests Test 08/04/18 16:37 08/04/18 22:06 08/05/18 02:40 08/05/18 05:43 Bedside Glucose 110 95 106 White Blood Count 6.3 Red Blood Count 3.64 L Hemoglobin 9.8 L Hematocrit 32.4 L Mean Corpuscular 89.0 Volume Mean Corpuscular 26.9 L Hemoglobin Mean Corpuscular 30.2 L Hemoglobin Concent Red Cell Distribution 23.9 H Width Platelet Count 217 Mean Platelet Volume 9.7 Immature Granulocytes 1.300 H % Neutrophils % Segmented Neutrophils 49 % (Manual) Band Neutrophils % 8 H (Manual) Lymphocytes % Lymphocytes % (Manual) 29 Reactive Lymphocytes 1 H % (Manual) Monocytes % Monocytes % (Manual) 11 Eosinophils % Eosinophils % (Manual) 2 Basophils % Nucleated Red Blood 2 H Cells % Immature Granulocytes 0.080 H # Neutrophils # Neutrophils # (Manual) 3.1 Band Neutrophils # 0.5 Lymphocytes (Manual) 1.8 Lymphocytes # Reactive Lymphocytes # 0.0 Monocytes # Monocytes # (Manual) 0.6 Eosinophils # Basophils # Nucleated Red Blood Cells # Platelet Estimate NORMAL Giant Platelets 1 H Polychromasia 1+ Hypochromasia 2+ Poikilocytosis 2+ Anisocytosis 1+ Macrocytosis 1+ Spherocytes 1+ Sodium Level 137 Potassium Level 4.0 Chloride Level 101 Carbon Dioxide Level 19 L Anion Gap 17 H Blood Urea Nitrogen 20 Creatinine 1.44 H Est Glomerular Filtrat 50 L Rate mL/min Glucose Level 70 # Calcium Level 8.5 Test 08/05/18 08:48 08/05/18 09:08 08/05/18 09:35 08/05/18 09:59 Bedside Glucose 69 L 67 L 62 L 86 Test 08/05/18 10:49 08/05/18 11:08 Bedside Glucose 88 86 Medications Medication Current Medications IV Flush (NS 3 ml) 3 ml PER PROTOCOL IV ; Start 07/31/18 at 09:30 Ondansetron HCl (Zofran Inj) 4 mg Q6H PRN IV NAUSEA/VOMITING; Start 07/31/18 at 09:30 Acetaminophen (Tylenol Tab) 650 mg Q6H PRN PO .PAIN 1-3 OR TEMP; Start 07/31/18 at 09:30 Enoxaparin Sodium (Lovenox) 40 mg DAILY SC Last administered on 08/05/18at 08:47; Admin Dose 40 MG; Start 08/01/18 at 09:00 Miscellaneous Information (* Miscellaneous Pharmacy Order) HYPOGLYCEMIA PROTOCOL w... ONCE XX ; Start 08/01/18 at 18:30 Miscellaneous Information 1 ea NOTE XX ; Start 08/01/18 at 18:30 Glucose (Glutose) 15 gm Q15M PRN PO DECREASED GLUCOSE Last administered on at 09:43; Admin Dose 15 GM; Start 08/01/18 at 18:30 Glucose (Glutose) 22.5 gm Q15M PRN PO DECREASED GLUCOSE; Start 08/01/18 at 18:30 Dextrose (D50w Syringe) 25 ml Q15M PRN IV DECREASED GLUCOSE Last administered on 08/02/18at 17:44; Admin Dose 25 ML; Start 08/01/18 at 18:30 Dextrose (D50w Syringe) 50 ml Q15M PRN IV DECREASED GLUCOSE Last administered on 08/01/18at 18:20; Admin Dose 25 ML; Start 08/01/18 at 18:30 Glucagon (Glucagen) 1 mg Q15M PRN IM DECREASED GLUCOSE; Start 08/01/18 at 18:30 Glucose (Glutose) 15 gm Q15M PRN BUCCAL DECREASED GLUCOSE; Start 08/01/18 at 18:30 Furosemide (Lasix) 40 mg BID DIURETICS IV Last administered on 08/05/18at 05:40; Admin Dose 40 MG; Start 08/03/18 at 09:30 IV Flush (NS 10 ml) 10 ml PRN PRN IV IV PROTOCOL; Start 08/03/18 at 13:00 Potassium Chloride (Potassium Chloride Pwd/Soln) 20 meq PER PROTOCOL PRN PO POTASSIUM REPLACEMENT PROTOCOL Last administered on 08/04/18at 10:53; Admin Dose 20 MEQ; Start 08/04/18 at 10:30 Potassium Chloride (Potassium Chloride Pwd/Soln) 30 meq PER PROTOCOL PRN PO POTASSIUM REPLACEMENT PROTOCOL; Start 08/04/18 at 10:30 Potassium Chloride (Potassium Chloride Pwd/Soln) 40 meq PER PROTOCOL PRN PO POTASSIUM REPLACEMENT PROTOCOL; Start 08/04/18 at 10:30 Metoprolol Tartrate (Lopressor) 50 mg BID PO Last administered on 08/05/18at 08:46; Admin Dose 50 MG; Start 08/04/18 at 16:30 Hydromorphone HCl (Dilaudid) 1.5 mg DAILY IV ; Start 08/06/18 at 09:00 Acetaminophen/ Hydrocodone Bitart ([place] (10/325)) 1 tab Q4H PRN NGT MODERATE PAIN LEVEL 4-6 Last administered on 08/05/18at 13:10; Admin Dose 1 TAB; Start 08/05/18 at 11:30 Insulin Aspart (Novolog Insulin Pen) (Adult SC Insulin - Mild Algorithm)... AC MEALS AND BEDTIME SC ; Start 08/05/18 at 11:30 Vancomycin HCl (Vanco Iv Per Pharmacy) VANCOMYCIN PER PHARMACY PER PROTOCOL XX ; Start 08/05/18 at 12:30 Rifampin (Rifampin) 600 mg DAILY PO ; Start 08/05/18 at 14:00 Vancomycin/Sodium Chloride 250 ml @ 125 mls/hr Q12H IVPB ; Start 08/05/18 at 21:00 KAI FELIX MD August 05, 2018 13:42
[2018-08-05] MEDS: RIFAMPIN 300 MG CAP PO SCH (14:46)
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
[2018-08-05] MEDS ORDERED: VANCOMYCIN 750 MG (PMX) 250 ML IVPB SCH (21:00)
[2018-08-05] MEDS: APIXABAN 5 MG TABLET PO SCH (21:03)
[2018-08-06] VITALS (12 sets, daily range): BP systolic 89–106; BP diastolic 60–68; PULSE 73–84; RESP 18
[2018-08-06] MEDS: HYDROCODONE/APAP (10/325) TAB NGT PRN ×4 (03:56→21:33)
[2018-08-06] MEDS: Insulin NOVOLOG SS MILD Algorithm (SS with meals and bedtime) SC SCH ×4 (07:00→20:13)
[2018-08-06] MEDS: HYDROmorphONE 2 MG/ML SYG IV SCH (10:02)
[2018-08-06] MEDS: BALSAM PERU/CASTOR OIL 60 GM TUBE TOP SCH ×2 (10:03→20:14)
[2018-08-06] MEDS: RIFAMPIN 300 MG CAP PO SCH (10:03)
[2018-08-06] MEDS: METOPROLOL 50 MG TAB PO SCH ×2 (10:07→20:10)
--- NOTE | 2018-08-06 12:18 | PN ---
Date/Time of Note Date/Time of Note DATE: 08/06/18 TIME: 12:10 Assessment/Plan VTE Prophylaxis Risk score (from Ns)>0 risk: 7 SCD applied (from Ns): Yes Pharmacological prophylaxis: heparin Lines/Catheters IV Catheter Type (from Nrsg): PICC Line Central line still needed: Yes Urinary Cath still in place: Yes Reason Cath still needed: urinary retention Assessment/Plan Hospital Course EXAM: Alert, interactive ++ JVD Clear lungs RRR Abdomen soft Peripheral edema improving, extensive superficial venous ulcerations on b/l legs without signs of infection A/P: 62 yo male with venous stasis ulcerations, cellulitis, systolic CHF, acute respi ratory failure, MRSA bacteremia MRSA bacteremia: - Presumed source is cellulitis, wounds on legs with extensive open skin - Continue Vanco course per ID - Repeat cultures negative Systolic CHF: - Diuresis - Neurohormonal blockade ASA: - Hold lasix for now - Perhaps prerenal vs ATN from abx - Monitor creatinine Acute respiratory failure: - s/p exutbation. NC O2 as needed Hypokalemia: - Repletion as needed Anemia: - Check iron stores Venous stasis disease: - Wound care Atrial fibrillation: - Metoprolol for rate control - hold Apixaban until creatinine stabilizes PT/OT \ Result Diagram: 08/05/18 0543 08/06/18 0509 Results 24hrs Laboratory Tests Test 08/05/18 17:29 08/05/18 20:43 08/06/18 05:09 08/06/18 07:49 Bedside Glucose 107 132 122 Sodium Level 133 L Potassium Level 3.8 Chloride Level 99 Carbon Dioxide Level 21 Anion Gap 13 Blood Urea Nitrogen 29 H Creatinine 1.74 H Est Glomerular Filtrat 40 L Rate mL/min Glucose Level 116 # Calcium Level 8.2 L Subjective 24 Hr Interval Summary Free Text/Dictation Patient still with pain in legs Lasix held given ASA Exam/Review of Systems Exam Vitals Vital Signs Date Temp Pulse Resp B/P (MAP) Pulse Ox O2 O2 Flow FiO2 Time Delivery Rate 08/06/18 98.1 82 18 100/68 91 11:48 (79) 08/06/18 Nasal 2.0 08:30 Cannula 08/06/18 27 04:07 Intake and Output 08/05/18 08/05/18 08/06/18 1515:00 23:00 07:00 IntakeIntake Total 950 ml OutputOutput Total 300 ml BalanceBalance 650 ml Results Results 24hrs Laboratory Tests Test 08/05/18 17:29 08/05/18 20:43 08/06/18 05:09 08/06/18 07:49 Bedside Glucose 107 132 122 Sodium Level 133 L Potassium Level 3.8 Chloride Level 99 Carbon Dioxide Level 21 Anion Gap 13 Blood Urea Nitrogen 29 H Creatinine 1.74 H Est Glomerular Filtrat 40 L Rate mL/min Glucose Level 116 # Calcium Level 8.2 L Medications Medication Current Medications IV Flush (NS 3 ml) 3 ml PER PROTOCOL IV ; Start 07/31/18 at 09:30 Ondansetron HCl (Zofran Inj) 4 mg Q6H PRN IV NAUSEA/VOMITING; Start 07/31/18 at 09:30 Acetaminophen (Tylenol Tab) 650 mg Q6H PRN PO .PAIN 1-3 OR TEMP; Start 07/31/18 at 09:30 Miscellaneous Information (* Miscellaneous Pharmacy Order) HYPOGLYCEMIA PROTOCOL w... ONCE XX ; Start 08/01/18 at 18:30 Miscellaneous Information 1 ea NOTE XX ; Start 08/01/18 at 18:30 Glucose (Glutose) 15 gm Q15M PRN PO DECREASED GLUCOSE Last administered on 08/05/18at 09:43; Admin Dose 15 GM; Start 08/01/18 at 18:30 Glucose (Glutose) 22.5 gm Q15M PRN PO DECREASED GLUCOSE; Start 08/01/18 at 18:30 Dextrose (D50w Syringe) 25 ml Q15M PRN IV DECREASED GLUCOSE Last administered on 08/02/18at 17:44; Admin Dose 25 ML; Start 08/01/18 at 18:30 Dextrose (D50w Syringe) 50 ml Q15M PRN IV DECREASED GLUCOSE Last administered on 08/01/18at 18:20; Admin Dose 25 ML; Start 08/01/18 at 18:30 Glucagon (Glucagen) 1 mg Q15M PRN IM DECREASED GLUCOSE; Start 08/01/18 at 18:30 Glucose (Glutose) 15 gm Q15M PRN BUCCAL DECREASED GLUCOSE; Start 08/01/18 at 18:30 Furosemide (Lasix) 40 mg BID DIURETICS IV Last administered on 08/05/18at 05:40; Admin Dose 40 MG; Start 08/03/18 at 09:30; Status Hold IV Flush (NS 10 ml) 10 ml PRN PRN IV IV PROTOCOL; Start 08/03/18 at 13:00 Potassium Chloride (Potassium Chloride Pwd/Soln) 20 meq PER PROTOCOL PRN PO POTASSIUM REPLACEMENT PROTOCOL Last administered on 08/04/18at 10:53; Admin Dose 20 MEQ; Start 08/04/18 at 10:30 Potassium Chloride (Potassium Chloride Pwd/Soln) 30 meq PER PROTOCOL PRN PO POTASSIUM REPLACEMENT PROTOCOL; Start 08/04/18 at 10:30 Potassium Chloride (Potassium Chloride Pwd/Soln) 40 meq PER PROTOCOL PRN PO POTASSIUM REPLACEMENT PROTOCOL; Start 08/04/18 at 10:30 Metoprolol Tartrate (Lopressor) 50 mg BID PO Last administered on 08/06/18 10:07; Admin Dose 50 MG; Start 08/04/18 at 16:30 Hydromorphone HCl (Dilaudid) 1.5 mg DAILY IV Last administered on 08/06/18 10:02; Admin Dose 1.5 MG; Start 08/06/18 at 09:00 Acetaminophen/ Hydrocodone Bitart ([place] (10/325)) 1 tab Q4H PRN NGT MODERATE PAIN LEVEL 4-6 Last administered on 08/06/18 03:56; Admin Dose 1 TAB; Start 08/05/18 at 11:30 Insulin Aspart (Novolog Insulin Pen) (Adult SC Insulin - Mild Algorithm)... AC MEALS AND BEDTIME SC ; Start 08/05/18 at 11:30 Vancomycin HCl (Vanco Iv Per Pharmacy) VANCOMYCIN PER PHARMACY PER PROTOCOL XX ; Start 08/05/18 at 12:30 Rifampin (Rifampin) 600 mg DAILY PO Last administered on 08/06/18 10:03; Admin Dose 600 MG; Start 08/05/18 at 14:00 Apixaban (Eliquis) 5 mg BID PO Last administered on 08/05/18 21:03; Admin Dose 5 MG; Start 08/05/18 at 21:00; Status Hold KAI FELIX MD August 06, 2018 12:18
--- NOTE | 2018-08-06 12:28 | CONS ---
Assessment/Plan Assessment/Plan Assessment/Plan (Daily) Assessment and recommendations; 1. Patient admitted for respiratory failure due to CHF exacerbation with marked interval improvement. Status post extubation. 2. Gram-positive bacteremia, currently on appropriate antimicrobial regimen. 3. Left cephalic vein DVT. 4. COPD. 5. Patient is homeless. Continue current supportive care. Antibiotics per ID recommendations. Patient will need placement. Consultation Date/Type/Reason Admit Date/Time Jul 31, 2018 at 06:30 Initial Consult Date 08/01/18 Type of Consult Pulmonary/critical care Patient's condition is critical. Patient however has improved significantly to the point where he is now completely awake and alert. Patient has remained hemodynamically stable. General exam; middle-aged male, orally intubated, awake and alert. Currently in no distress. Requesting Provider: ADDI LOPEZ NP Date/Time of Note DATE: 08/06/18 TIME: 12:26 24 HR Interval Summary Free Text/Dictation Patient's condition is stable. Has been transferred to medical floor. Denies any chest pain, shortness of breath, coughing, wheezing. General exam; elderly male, awake alert, currently in no distress. Exam/Review of Systems Exam Vitals Vital Signs Date Temp Pulse Resp B/P (MAP) Pulse Ox O2 O2 Flow FiO2 Time Delivery Rate 08/06/18 98.1 82 18 100/68 91 11:48 (79) 08/06/18 Nasal 2.0 08:30 Cannula 08/06/18 04:07 Intake and Output 08/05/18 08/05/18 08/06/18 1515:00 23:00 07:00 IntakeIntake Total 950 ml OutputOutput Total 300 ml BalanceBalance 650 ml Exam H E ENT exam; supple neck, no JVD. No lymphadenopathy. Midline trachea. No thyromegaly. Patient is edentulous. Chest exam; diminished but clear breath sounds. S1-S2 audible, no murmurs. Regular rhythm. Abdomen exam; soft, nontender. No organomegaly. Bowel sounds audible. Extremity exam; trace edema with superficial skin ulcerations. [employer] exam; no focal deficit. Results Result Diagram: 08/05/18 0543 08/06/18 0509 Results 24hrs Laboratory Tests Test 08/05/18 17:29 08/05/18 20:43 08/06/18 05:09 08/06/18 07:49 Bedside Glucose 107 132 122 Sodium Level 133 L Potassium Level 3.8 Chloride Level 99 Carbon Dioxide Level 21 Anion Gap 13 Blood Urea Nitrogen 29 H Creatinine 1.74 H Est Glomerular Filtrat 40 L Rate mL/min Glucose Level 116 # Calcium Level 8.2 L Test 08/06/18 12:14 Bedside Glucose 133 Medications Medication Current Medications IV Flush (NS 3 ml) 3 ml PER PROTOCOL IV ; Start 07/31/18 at 09:30 Ondansetron HCl (Zofran Inj) 4 mg Q6H PRN IV NAUSEA/VOMITING; Start 07/31/18 at 09:30 Acetaminophen (Tylenol Tab) 650 mg Q6H PRN PO .PAIN 1-3 OR TEMP; Start 07/31/18 at 09:30 Miscellaneous Information (* Miscellaneous Pharmacy Order) HYPOGLYCEMIA PROTOCOL w... ONCE XX ; Start 08/01/18 at 18:30 Miscellaneous Information 1 ea NOTE XX ; Start 08/01/18 at 18:30 Glucose (Glutose) 15 gm Q15M PRN PO DECREASED GLUCOSE Last administered on 08/05/18at 09:43; Admin Dose 15 GM; Start 08/01/18 at 18:30 Glucose (Glutose) 22.5 gm Q15M PRN PO DECREASED GLUCOSE; Start 08/01/18 at 18:30 Dextrose (D50w Syringe) 25 ml Q15M PRN IV DECREASED GLUCOSE Last administered on 08/02/18at 17:44; Admin Dose 25 ML; Start 08/01/18 at 18:30 Dextrose (D50w Syringe) 50 ml Q15M PRN IV DECREASED GLUCOSE Last administered on 08/01/18at 18:20; Admin Dose 25 ML; Start 08/01/18 at 18:30 Glucagon (Glucagen) 1 mg Q15M PRN IM DECREASED GLUCOSE; Start 08/01/18 at 18:30 Glucose (Glutose) 15 gm Q15M PRN BUCCAL DECREASED GLUCOSE; Start 08/01/18 at 18:30 Furosemide (Lasix) 40 mg BID DIURETICS IV Last administered on 08/05/18at 05:40; Admin Dose 40 MG; Start 08/03/18 at 09:30; Status Hold IV Flush (NS 10 ml) 10 ml PRN PRN IV IV PROTOCOL; Start 08/03/18 at 13:00 Potassium Chloride (Potassium Chloride Pwd/Soln) 20 meq PER PROTOCOL PRN PO POTASSIUM REPLACEMENT PROTOCOL Last administered on 08/04/18 10:53; Admin Dose 20 MEQ; Start 08/04/18 at 10:30 Potassium Chloride (Potassium Chloride Pwd/Soln) 30 meq PER PROTOCOL PRN PO POTASSIUM REPLACEMENT PROTOCOL; Start 08/04/18 at 10:30 Potassium Chloride (Potassium Chloride Pwd/Soln) 40 meq PER PROTOCOL PRN PO POTASSIUM REPLACEMENT PROTOCOL; Start 08/04/18 at 10:30 Metoprolol Tartrate (Lopressor) 50 mg BID PO Last administered on 08/06/18 10:07; Admin Dose 50 MG; Start 08/04/18 at 16:30 Hydromorphone HCl (Dilaudid) 1.5 mg DAILY IV Last administered on 08/06/18 10:02; Admin Dose 1.5 MG; Start 08/06/18 at 09:00 Acetaminophen/ Hydrocodone Bitart ([place] (10/325)) 1 tab Q4H PRN NGT MODERATE PAIN LEVEL 4-6 Last administered on 08/06/18 12:13; Admin Dose 1 TAB; Start 08/05 at 11:30 Insulin Aspart (Novolog Insulin Pen) (Adult SC Insulin - Mild Algorithm)... AC MEALS AND BEDTIME SC ; Start 08/05/18 at 11:30 Vancomycin HCl (Vanco Iv Per Pharmacy) VANCOMYCIN PER PHARMACY PER PROTOCOL XX ; Start 08/05/18 at 12:30 Rifampin (Rifampin) 600 mg DAILY PO Last administered on 08/06/18 10:03; Admin Dose 600 MG; Start 08/05/18 at 14:00 Apixaban (Eliquis) 5 mg BID PO Last administered on 08/05/18 21:03; Admin Dose 5 MG; Start 08/05/18 at 21:00; Status Hold AMANDA SOLER August 06, 2018 12:28
--- NOTE | 2018-08-06 14:04 | CONS ---
Assessment/Plan Assessment/Plan Hospital Course (Demo Recall) No acute changes, alert, feels ok, no fevers Indwelling: Right upper extremity PICC line, Becerra catheter Antimicrobials: Vancomycin Rifampin Microbiology: Blood culture since admission grew MRSA, repeat bld cx neg, wound cx + MRSA Physical examination: This is a chronically ill-appearing well-developed elderly man who is awake in no distress. Head atraumatic normocephalic neck is supple chest rise symmetrical breath sounds diminished the bases heart S1-S2 abdomen soft bowel sounds hypoactive extremities with bilateral lower extremities edema patient has significant cellulitis with draining wounds Assessment: 1. Severe sepsis, present on admission 2. MRSA bacteremia likely secondary to infected wounds 3. Bilateral lower extremity cellulitis 4. Peripheral arterial disease 5. Acute encephalopathy on admission 6. Left cephalic vein DVT 7. Pneumonia/CHF exacerbation==>s/p extubated 8. Polysubstance abuse Plan: Remains stable, repeat bld cx neg, continue abx, monitor renal f-n, podiatry rec-s Consultation Date/Type/Reason Admit Date/Time Jul 31, 2018 at 06:30 Initial Consult Date 08/01/18 Type of Consult id Requesting Provider: ADDI LOPEZ NP Date/Time of Note DATE: 08/06/18 TIME: 14:02 Exam/Review of Systems Exam Vitals Vital Signs Date Temp Pulse Resp B/P (MAP) Pulse Ox O2 O2 Flow FiO2 Time Delivery Rate 08/06/18 80 13:59 08/06/18 98.1 18 100/68 91 11:48 (79) 08/06/18 Nasal 2.0 08:30 Cannula 08/06/18 27 04:07 Intake and Output 08/05/18 08/05/18 08/06/18 1515:00 23:00 07:00 IntakeIntake Total 950 ml OutputOutput Total 300 ml BalanceBalance 650 ml Results Result Diagram: 08/05/18 0543 08/06/18 0509 Results 24hrs Laboratory Tests Test 08/05/18 17:29 08/05/18 20:43 08/06/18 05:09 08/06/18 07:49 Bedside Glucose 107 132 122 Sodium Level 133 L Potassium Level 3.8 Chloride Level 99 Carbon Dioxide Level 21 Anion Gap 13 Blood Urea Nitrogen 29 H Creatinine 1.74 H Est Glomerular Filtrat 40 L Rate mL/min Glucose Level 116 # Calcium Level 8.2 L Test 08/06/18 12:14 Bedside Glucose 133 Medications Medication Current Medications IV Flush (NS 3 ml) 3 ml PER PROTOCOL IV ; Start 07/31/18 at 09:30 Ondansetron HCl (Zofran Inj) 4 mg Q6H PRN IV NAUSEA/VOMITING; Start 07/31/18 at 09:30 Acetaminophen (Tylenol Tab) 650 mg Q6H PRN PO .PAIN 1-3 OR TEMP; Start 07/31/18 at 09:30 Miscellaneous Information (* Miscellaneous Pharmacy Order) HYPOGLYCEMIA PROTOCOL w... ONCE XX ; Start 08/01/18 at 18:30 Miscellaneous Information 1 ea NOTE XX ; Start 08/01/18 at 18:30 Glucose (Glutose) 15 gm Q15M PRN PO DECREASED GLUCOSE Last administered on 08/05/18at 09:43; Admin Dose 15 GM; Start 08/01/18 at 18:30 Glucose (Glutose) 22.5 gm Q15M PRN PO DECREASED GLUCOSE; Start 08/01/18 at 18:30 Dextrose (D50w Syringe) 25 ml Q15M PRN IV DECREASED GLUCOSE Last administered on 08/02/18at 17:44; Admin Dose 25 ML; Start 08/01/18 at 18:30 Dextrose (D50w Syringe) 50 ml Q15M PRN IV DECREASED GLUCOSE Last administered on 08/01/18at 18:20; Admin Dose 25 ML; Start 08/01/18 at 18:30 Glucagon (Glucagen) 1 mg Q15M PRN IM DECREASED GLUCOSE; Start 08/01/18 at 18:30 Glucose (Glutose) 15 gm Q15M PRN BUCCAL DECREASED GLUCOSE; Start 08/01/18 at 18:30 Furosemide (Lasix) 40 mg BID DIURETICS IV Last administered on 08/05/18at 05:40; Admin Dose 40 MG; Start 08/03/18 at 09:30; Status Hold IV Flush (NS 10 ml) 10 ml PRN PRN IV IV PROTOCOL; Start 08/03/18 at 13:00 Potassium Chloride (Potassium Chloride Pwd/Soln) 20 meq PER PROTOCOL PRN PO POTASSIUM REPLACEMENT PROTOCOL Last administered on 08/04/18at 10:53; Admin Dose 20 MEQ; Start 08/04/18 at 10:30 Potassium Chloride (Potassium Chloride Pwd/Soln) 30 meq PER PROTOCOL PRN PO POTASSIUM REPLACEMENT PROTOCOL; Start 08/04/18 at 10:30 Potassium Chloride (Potassium Chloride Pwd/Soln) 40 meq PER PROTOCOL PRN PO POTASSIUM REPLACEMENT PROTOCOL; Start 08/04/18 at 10:30 Metoprolol Tartrate (Lopressor) 50 mg BID PO Last administered on 08/06/18at 10:07; Admin Dose 50 MG; Start 08/04/18 at 16:30 Hydromorphone HCl (Dilaudid) 1.5 mg DAILY IV Last administered on 08/06/18 10:02; Admin Dose 1.5 MG; Start 08/06/18 at 09:00 Acetaminophen/ Hydrocodone Bitart ([place] ()) 1 tab Q4H PRN NGT MODERATE PAIN LEVEL 4-6 Last administered on 08/06/18 12:13; Admin Dose 1 TAB; Start 08/05/18 at 11:30 Insulin Aspart (Novolog Insulin Pen) (Adult SC Insulin - Mild Algorithm)... AC MEALS AND BEDTIME SC ; Start 08/05/18 at 11:30 Vancomycin HCl (Vanco Iv Per Pharmacy) VANCOMYCIN PER PHARMACY PER PROTOCOL XX ; Start 08/05/18 at 12:30 Rifampin (Rifampin) 600 mg DAILY PO Last administered on 08/06/18at 10:03; Admin Dose 600 MG; Start 08/05/18 at 14:00 Apixaban (Eliquis) 5 mg BID PO Last administered on 08/05/18at 21:03; Admin Dose 5 MG; Start 08/05/18 at 21:00; Status Hold BRADY OROURKE NP August 06, 2018 14:03
[2018-08-06] MEDS ORDERED: LORAZEPAM 0.5 MG TAB PO ONE (21:00)
[2018-08-07] VITALS (9 sets, daily range): BP systolic 96–115; BP diastolic 63–81; PULSE 70–83; RESP 17–19
[2018-08-07] MEDS ORDERED: POTASSIUM CHLORIDE (SR) 20 MEQ TAB PO STA (00:18)
[2018-08-07] MEDS: ONDANSETRON 4 MG INJ IV PRN (03:53)
[2018-08-07] MEDS: Insulin NOVOLOG SS MILD Algorithm (SS with meals and bedtime) SC SCH ×4 (07:00→21:17)
[2018-08-07] MEDS ORDERED: MAGNESIUM SULFATE 3 GM in DEXTROSE 5% 100 ML IVPB ONE (08:00)
[2018-08-07] MEDS: RIFAMPIN 300 MG CAP PO SCH (08:42)
[2018-08-07] MEDS: BALSAM PERU/CASTOR OIL 60 GM TUBE TOP SCH ×2 (08:43→20:51)
[2018-08-07] MEDS: METOPROLOL 50 MG TAB PO SCH ×2 (08:43→20:51)
[2018-08-07] MEDS ORDERED: VANCOMYCIN 750 MG (PMX) 250 ML IVPB SCH (09:00)
[2018-08-07] MEDS: HYDROmorphONE 2 MG/ML SYG IV SCH (10:11)
--- NOTE | 2018-08-07 10:48 | CONS ---
Assessment/Plan Assessment/Plan Assessment/Plan (Daily) Assessment and recommendations; 1. Patient admitted with respiratory failure due to CHF exacerbation with marked overall interval improvement. 2. Possibly some element of superimposed pneumonia clinically improved as well. 3. Left cephalic vein DVT. 4. COPD. Continue current supportive care. Antibiotics per ID recommendations. Patient is homeless and therefore will need placement. Consultation Date/Type/Reason Admit Date/Time Jul 31, 2018 at 06:30 Initial Consult Date 08/01/18 Type of Consult Pulmonary/critical care Patient's condition is critical. Patient however has improved significantly to the point where he is now completely awake and alert. Patient has remained hemodynamically stable. General exam; middle-aged male, orally intubated, awake and alert. Currently in no distress. Requesting Provider: ADDI LOPEZ NP Date/Time of Note DATE: 08/07/18 TIME: 10:46 24 HR Interval Summary Free Text/Dictation Patient's condition is stable. Remains awake and alert. Denies any shortness of breath any coughing or wheezing. General exam; elderly male, awake alert, currently no distress. Exam/Review of Systems Exam Vitals Vital Signs Date Temp Pulse Resp B/P (MAP) Pulse Ox O2 O2 Flow FiO2 Time Delivery Rate 08/07/18 Nasal 2.0 08:05 Cannula 08/07/18 81 08:00 08/07/18 97.8 17 99/63 (75) 96 07:31 08/07/18 27 02:17 Intake and Output 08/06/18 08/06/18 08/07/18 1515:00 23:00 07:00 IntakeIntake Total 400 ml OutputOutput Total 700 ml BalanceBalance -300 ml Exam H ENT exam; supple neck, positive JVD. No lymphadenopathy. Midline trachea. No thyromegaly. Patient is edentulous. No neck masses. Chest exam; diminished but clear breath sounds. S1-S2 audible, no murmurs. Regular rhythm. Abdomen exam; soft, protuberant. Nontender. Bowel sounds audible. No organomegaly. Extremity exam; trace edema. Patient has a superficial skin ulcerations and lower extremities. [employer] exam; no focal deficit. Results Result Diagram: 08/05/18 0543 08/07/18 0515 Results 24hrs Laboratory Tests Test 08/06/18 12:14 08/06/18 16:45 08/06/18 17:29 08/06/18 20:13 Bedside Glucose 133 134 124 Urine Color STEVE Urine Clarity SLIGHTLY CLOUDY A Urine pH 5.0 Urine Specific 1.019 [place] Urine Ketones TRACE A Urine Nitrite NEGATIVE Urine Bilirubin NEGATIVE Urine Urobilinogen 1+ H Urine Leukocyte NEGATIVE Esterase Urine Microscopic 0 RBC Urine Microscopic 4 WBC Urine Squamous MODERATE Epithelial Cells Urine Hyaline FEW A Casts Urine Hemoglobin NEGATIVE Urine Random 185.38 Creatinine Urine Random < 13 L Sodium Urine Glucose NEGATIVE Urine Total NEGATIVE Protein Test 08/06/18 21:56 08/06/18 22:00 08/07/18 05:14 08/07/18 05:15 Sodium Level 133 L 134 L Potassium Level 3.6 3.7 Chloride Level 97 98 Carbon Dioxide 25 24 Level Anion Gap 11 12 Blood Urea 34 H 36 H Nitrogen Creatinine 1.74 H 1.70 H Est Glomerular 40 L 41 L Filtrat Rate mL/min Glucose Level 128 115 Calcium Level 7.9 L 8.3 L Thyroid 8.820 H Stimulating Hormone (TSH) Magnesium Level 1.2 L Random Vancomycin 14.9 Level Test 08/07/18 07:34 Bedside Glucose 130 Medications Medication Current Medications IV Flush (NS 3 ml) 3 ml PER PROTOCOL IV ; Start 07/31/18 at 09:30 Ondansetron HCl (Zofran Inj) 4 mg Q6H PRN IV NAUSEA/VOMITING Last administered on 08/07/18at 03:53; Admin Dose 4 MG; Start 07/31/18 at 09:30 Acetaminophen (Tylenol Tab) 650 mg Q6H PRN PO .PAIN 1-3 OR TEMP; Start 07/31/18 at 09:30 Miscellaneous Information (* Miscellaneous Pharmacy Order) HYPOGLYCEMIA PROTOCOL w... ONCE XX ; Start 08/01/18 at 18:30 Miscellaneous Information 1 ea NOTE XX ; Start 08/01/18 at 18:30 Glucose (Glutose) 15 gm Q15M PRN PO DECREASED GLUCOSE Last administered on 08/05/18at 09:43; Admin Dose 15 GM; Start 08/01/18 at 18:30 Glucose (Glutose) 22.5 gm Q15M PRN PO DECREASED GLUCOSE; Start 08/01/18 at 18:30 Dextrose (D50w Syringe) 25 ml Q15M PRN IV DECREASED GLUCOSE Last administered on 08/02/18at 17:44; Admin Dose 25 ML; Start 08/01/18 at 18:30 Dextrose (D50w Syringe) 50 ml Q15M PRN IV DECREASED GLUCOSE Last administered on 08/01/18at 18:20; Admin Dose 25 ML; Start 08/01/18 at 18:30 Glucagon (Glucagen) 1 mg Q15M PRN IM DECREASED GLUCOSE; Start 08/01/18 at 18:30 Glucose (Glutose) 15 gm Q15M PRN BUCCAL DECREASED GLUCOSE; Start 08/01/18 at 18:30 Furosemide (Lasix) 40 mg BID DIURETICS IV Last administered on 08/05/18at 05:40; Admin Dose 40 MG; Start 08/03/18 at 09:30; Status Hold IV Flush (NS 10 ml) 10 ml PRN PRN IV IV PROTOCOL; Start 08/03/18 at 13:00 Potassium Chloride (Potassium Chloride Pwd/Soln) 20 meq PER PROTOCOL PRN PO POTASSIUM REPLACEMENT PROTOCOL Last administered on 08/04/18at 10:53; Admin Dose 20 MEQ; Start 08/04/18 at 10:30 Potassium Chloride (Potassium Chloride Pwd/Soln) 30 meq PER PROTOCOL PRN PO POTASSIUM REPLACEMENT PROTOCOL; Start 08/04/18 at 10:30 Potassium Chloride (Potassium Chloride Pwd/Soln) 40 meq PER PROTOCOL PRN PO POTASSIUM REPLACEMENT PROTOCOL; Start 08/04/18 at 10:30 Metoprolol Tartrate (Lopressor) 50 mg BID PO Last administered on 08/07/18at 08:43; Admin Dose 50 MG; Start 08/04/18 at 16:30 Hydromorphone HCl (Dilaudid) 1.5 mg DAILY IV Last administered on 08/07/18at 10:11; Admin Dose 1.5 MG; Start 08/06/18 at 09:00 Acetaminophen/ Hydrocodone Bitart ([place] (10/325)) 1 tab Q4H PRN NGT MODERATE PAIN LEVEL 4-6 Last administered on 08/06/18at 21:33; Admin Dose 1 TAB; Start 08/05/18 at 11:30 Insulin Aspart (Novolog Insulin Pen) (Adult SC Insulin - Mild Algorithm)... AC MEALS AND BEDTIME SC ; Start 08/05/18 at 11:30 Vancomycin HCl (Vanco Iv Per Pharmacy) VANCOMYCIN PER PHARMACY PER PROTOCOL XX ; Start 08/05/18 at 12:30 Rifampin (Rifampin) 600 mg DAILY PO Last administered on 08/07/18at 08:42; Admin Dose 600 MG; Start 08/05/18 at 14:00 Apixaban (Eliquis) 5 mg BID PO Last administered on 08/05/18at 21:03; Admin Dose 5 MG; Start 08/05/18 at 21:00; Status Hold Magnesium Sulfate 3 gm/Dextrose 106 ml @ 35.333 mls/ hr ONCE ONCE IVPB Last administered on 08/07/18at 08:57; Admin Dose 35.333 MLS/HR; Start 08/07/18 at 08:00; Stop 08/07/18 at 10:59 Vancomycin/Sodium Chloride 250 ml @ 125 mls/hr Q48H IVPB Last administered on 08/07/18at 08:39; Admin Dose 125 MLS/HR; Start 08/07/18 at 09:00 AMANDA SOLER August 07, 2018 10:48
--- NOTE | 2018-08-07 11:10 | CONS ---
Assessment/Plan Assessment/Plan Assessment/Plan (Daily) Venous hypertension with ulcerations Cellulitis b/l Intubated on ventilator - now extubated Homeless PAD Plan Patient refused dressing changes. X-rays were reviewed with no signs of soft tissue gas, fracture fragments, erosions, or cortical disruptions. Incidental findings of tibial bone infarct vs enchondroma. Reviewed non invasive studies and could benefit from a vascular surgery evaluation. Recommend continue with antibiotics and wound cultures showing MRSA. Daily dressing changes with bactroban, moistened 4x4 gauze, kerlix and yaima wrap. Offload heels with pillows Consultation Date/Type/Reason Admit Date/Time Jul 31, 2018 at 06:30 Initial Consult Date 08/01/18 Requesting Provider: ADDI LOPEZ NP Date/Time of Note DATE: 08/07/18 TIME: 11:10 24 HR Interval Summary Free Text/Dictation No acute events overnight. Exam/Review of Systems Exam Vitals Vital Signs Date Temp Pulse Resp B/P (MAP) Pulse Ox O2 O2 Flow FiO2 Time Delivery Rate 08/07/18 Nasal 2.0 08:05 Cannula 08/07/18 81 08:00 08/07/18 97.8 17 99/63 (75) 96 07:31 08/07/18 27 02:17 Intake and Output 08/06/18 08/06/18 08/07/18 1515:00 23:00 07:00 IntakeIntake Total 400 ml OutputOutput Total 700 ml BalanceBalance -300 ml Exam Pedal pulses weakly palpable CFT less than 3 seconds protective sensations intact Dressings in place with no proximal streaking, no strikethrough drainage, no foul odor decreased erythema Non invasive vascular studies IMPRESSION: Diffuse monophasic waveforms bilaterally with no focal area of high degree stenosis. [id number] arteries on the left cannot be evaluated due to a large ulcers. Follow-up CT angiogram is recommended. Left foot & tib fib x-rays IMPRESSION: No definite acute bony abnormality of the foot. 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 Correlate clinically for etiology such as steroid use or sickle cell disease. Right foot and tib fib x-rays IMPRESSION: No definite acute fracture or dislocation. Degenerative change of the first MTP joint. 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 although enchondroma could have a similar appearance Results Result Diagram: 08/05/18 0543 08/07/18 0515 Results 24hrs Laboratory Tests Test 08/06/18 12:14 08/06/18 16:45 08/06/18 17:29 08/06/18 20:13 Bedside Glucose 133 134 124 Urine Color STEVE Urine Clarity SLIGHTLY CLOUDY A Urine pH 5.0 Urine Specific 1.019 [place] Urine Ketones TRACE A Urine Nitrite NEGATIVE Urine Bilirubin NEGATIVE Urine Urobilinogen 1+ H Urine Leukocyte NEGATIVE Esterase Urine Microscopic 0 RBC Urine Microscopic 4 WBC Urine Squamous MODERATE Epithelial Cells Urine Hyaline FEW A Casts Urine Hemoglobin NEGATIVE Urine Random 185.38 Creatinine Urine Random < 13 L Sodium Urine Glucose NEGATIVE Urine Total NEGATIVE Protein Test 08/06/18 21:56 08/06/18 22:00 08/07/18 05:14 08/07/18 05:15 Sodium Level 133 L 134 L Potassium Level 3.6 3.7 Chloride Level 97 98 Carbon Dioxide 25 24 Level Anion Gap 11 12 Blood Urea 34 H 36 H Nitrogen Creatinine 1.74 H 1.70 H Est Glomerular 40 L 41 L Filtrat Rate mL/min Glucose Level 128 115 Calcium Level 7.9 L 8.3 L Thyroid 8.820 H Stimulating Hormone (TSH) Magnesium Level 1.2 L Random Vancomycin 14.9 Level Test 08/07/18 07:34 Bedside Glucose 130 Medications Medication Current Medications IV Flush (NS 3 ml) 3 ml PER PROTOCOL IV ; Start 07/31/18 at 09:30 Ondansetron HCl (Zofran Inj) 4 mg Q6H PRN IV NAUSEA/VOMITING Last administered on 08/07/18at 03:53; Admin Dose 4 MG; Start 07/31/18 at 09:30 Acetaminophen (Tylenol Tab) 650 mg Q6H PRN PO .PAIN 1-3 OR TEMP; Start 07/31/18 at 09:30 Miscellaneous Information (* Miscellaneous Pharmacy Order) HYPOGLYCEMIA PROTOCOL w... ONCE XX ; Start 08/01/18 at 18:30 Miscellaneous Information 1 ea NOTE XX ; Start 08/01/18 at 18:30 Glucose (Glutose) 15 gm Q15M PRN PO DECREASED GLUCOSE Last administered on 08/05/18at 09:43; Admin Dose 15 GM; Start 08/01/18 at 18:30 Glucose (Glutose) 22.5 gm Q15M PRN PO DECREASED GLUCOSE; Start 08/01/18 at 18:30 Dextrose (D50w Syringe) 25 ml Q15M PRN IV DECREASED GLUCOSE Last administered on 08/02/18at 17:44; Admin Dose 25 ML; Start 08/01/18 at 18:30 Dextrose (D50w Syringe) 50 ml Q15M PRN IV DECREASED GLUCOSE Last administered on 08/01/18at 18:20; Admin Dose 25 ML; Start 08/01/18 at 18:30 Glucagon (Glucagen) 1 mg Q15M PRN IM DECREASED GLUCOSE; Start 08/01/18 at 18:30 Glucose (Glutose) 15 gm Q15M PRN BUCCAL DECREASED GLUCOSE; Start 08/01/18 at 18:30 Furosemide (Lasix) 40 mg BID DIURETICS IV Last administered on 08/05/18at 05:40; Admin Dose 40 MG; Start 08/03/18 at 09:30; Status Hold IV Flush (NS 10 ml) 10 ml PRN PRN IV IV PROTOCOL; Start 08/03/18 at 13:00 Potassium Chloride (Potassium Chloride Pwd/Soln) 20 meq PER PROTOCOL PRN PO POTASSIUM REPLACEMENT PROTOCOL Last administered on 08/04/18at 10:53; Admin Dose 20 MEQ; Start 08/04/18 at 10:30 Potassium Chloride (Potassium Chloride Pwd/Soln) 30 meq PER PROTOCOL PRN PO POTASSIUM REPLACEMENT PROTOCOL; Start 08/04/18 at 10:30 Potassium Chloride (Potassium Chloride Pwd/Soln) 40 meq PER PROTOCOL PRN PO POTASSIUM REPLACEMENT PROTOCOL; Start 08/04/18 at 10:30 Metoprolol Tartrate (Lopressor) 50 mg BID PO Last administered on 08/07/18at 08:43; Admin Dose 50 MG; Start 08/04/18 at 16:30 Hydromorphone HCl (Dilaudid) 1.5 mg DAILY IV Last administered on 08/07/18at 10:11; Admin Dose 1.5 MG; Start 08/06/18 at 09:00 Acetaminophen/ Hydrocodone Bitart ([place] (10/325)) 1 tab Q4H PRN NGT MODERATE PAIN LEVEL 4-6 Last administered on 08/06/18at 21:33; Admin Dose 1 TAB; Start 08/05/18 at 11:30 Insulin Aspart (Novolog Insulin Pen) (Adult SC Insulin - Mild Algorithm)... AC MEALS AND BEDTIME SC ; Start 08/05/18 at 11:30 Vancomycin HCl (Vanco Iv Per Pharmacy) VANCOMYCIN PER PHARMACY PER PROTOCOL XX ; Start 08/05/18 at 12:30 Rifampin (Rifampin) 600 mg DAILY PO Last administered on 08/07/18at 08:42; Admin Dose 600 MG; Start 08/05/18 at 14:00 Apixaban (Eliquis) 5 mg BID PO Last administered on 08/05/18at 21:03; Admin Dose 5 MG; Start 08/05/18 at 21:00; Status Hold Vancomycin/Sodium Chloride 250 ml @ 125 mls/hr Q48H IVPB Last administered on 08/07/18at 08:39; Admin Dose 125 MLS/HR; Start 08/07/18 at 09:00 JOYA LANGFORD DPM August 07, 2018 11:10
[2018-08-07] MEDS ORDERED: LORAZEPAM 1 MG TAB PO PRN (11:30)
--- NOTE | 2018-08-07 13:30 | CONS ---
Assessment/Plan Assessment/Plan Hospital Course (Demo Recall) No acute changes, alert, complaining of pain, looks comfortable, no fevers Indwelling: Right upper extremity PICC line, Becerra catheter BUN 36 creatinine 1.70 Antimicrobials: Vancomycin Rifampin Microbiology: Blood culture since admission grew MRSA, repeat bld cx neg, wound cx + MRSA Physical examination: This is a chronically ill-appearing well-developed elderly man who is awake in no distress. Head atraumatic normocephalic neck is supple chest rise symmetrical breath sounds diminished the bases heart S1-S2 abdomen soft bowel sounds hypoactive extremities with bilateral lower extremities edema patient has significant cellulitis with draining wounds Assessment: 1. Severe sepsis, present on admission 2. MRSA bacteremia likely secondary to infected wounds 3. Bilateral lower extremity cellulitis 4. Peripheral arterial disease 5. Acute encephalopathy on admission 6. Left cephalic vein DVT 7. Pneumonia/CHF exacerbation==>s/p extubated 8. Polysubstance abuse Plan: Medically unchanged, repeat bld cx neg, change antibiotics to IV clindamycin given worsening renal function, continue local wound care per podiatry recommendations Consultation Date/Type/Reason Admit Date/Time Jul 31, 2018 at 06:30 Initial Consult Date 08/01/18 Type of Consult id Requesting Provider: ADDI LOPEZ NP Date/Time of Note DATE: 08/07/18 TIME: 13:29 Exam/Review of Systems Exam Vitals Vital Signs Date Temp Pulse Resp B/P (MAP) Pulse Ox O2 O2 Flow FiO2 Time Delivery Rate 08/07/18 70 12:21 08/07/18 97.9 19 114/81 96 12:08 (92) 08/07/18 Nasal 2.0 08:05 Cannula 08/07/18 27 02:17 Intake and Output 08/06/18 08/06/18 08/07/18 1414:59 22:59 06:59 IntakeIntake Total 400 ml OutputOutput Total 700 ml BalanceBalance -300 ml Results Result Diagram: 08/05/18 0543 08/07/18 0515 Results 24hrs Laboratory Tests Test 08/06/18 16:45 08/06/18 17:29 08/06/18 20:13 08/06/18 21:56 Urine Color STEVE Urine Clarity SLIGHTLY CLOUDY A Urine pH 5.0 Urine Specific 1.019 [place] Urine Ketones TRACE A Urine Nitrite NEGATIVE Urine Bilirubin NEGATIVE Urine Urobilinogen 1+ H Urine Leukocyte NEGATIVE Esterase Urine Microscopic 0 RBC Urine Microscopic 4 WBC Urine Squamous MODERATE Epithelial Cells Urine Hyaline FEW A Casts Urine Hemoglobin NEGATIVE Urine Random 185.38 Creatinine Urine Random < 13 L Sodium Urine Glucose NEGATIVE Urine Total NEGATIVE Protein Bedside Glucose 134 124 Sodium Level 133 L Potassium Level 3.6 Chloride Level 97 Carbon Dioxide 25 Level Anion Gap 11 Blood Urea 34 H Nitrogen Creatinine 1.74 H Est Glomerular 40 L Filtrat Rate mL/min Glucose Level 128 Calcium Level 7.9 L Thyroid 8.820 H Stimulating Hormone (TSH) Test 08/06/18 22:00 08/07/18 05:14 08/07/18 05:15 08/07/18 07:34 Magnesium Level 1.2 L Random Vancomycin 14.9 Level Sodium Level 134 L Potassium Level 3.7 Chloride Level 98 Carbon Dioxide 24 Level Anion Gap 12 Blood Urea 36 H Nitrogen Creatinine 1.70 H Est Glomerular 41 L Filtrat Rate mL/min Glucose Level 115 Calcium Level 8.3 L Bedside Glucose 130 Medications Medication Current Medications IV Flush (NS 3 ml) 3 ml PER PROTOCOL IV ; Start 07/31/18 at 09:30 Ondansetron HCl (Zofran Inj) 4 mg Q6H PRN IV NAUSEA/VOMITING Last administered on 08/07/18at 03:53; Admin Dose 4 MG; Start 07/31/18 at 09:30 Acetaminophen (Tylenol Tab) 650 mg Q6H PRN PO .PAIN 1-3 OR TEMP; Start 07/31/18 at 09:30 Miscellaneous Information (* Miscellaneous Pharmacy Order) HYPOGLYCEMIA PROTOCOL w... ONCE XX ; Start 08/01/18 at 18:30 Miscellaneous Information 1 ea NOTE XX ; Start 08/01/18 at 18:30 Glucose (Glutose) 15 gm Q15M PRN PO DECREASED GLUCOSE Last administered on 08/05/18at 09:43; Admin Dose 15 GM; Start 08/01/18 at 18:30 Glucose (Glutose) 22.5 gm Q15M PRN PO DECREASED GLUCOSE; Start 08/01/18 at 18:30 Dextrose (D50w Syringe) 25 ml Q15M PRN IV DECREASED GLUCOSE Last administered on 08/02/18at 17:44; Admin Dose 25 ML; Start 08/01/18 at 18:30 Dextrose (D50w Syringe) 50 ml Q15M PRN IV DECREASED GLUCOSE Last administered on 08/01/18at 18:20; Admin Dose 25 ML; Start 08/01/18 at 18:30 Glucagon (Glucagen) 1 mg Q15M PRN IM DECREASED GLUCOSE; Start 08/01/18 at 18:30 Glucose (Glutose) 15 gm Q15M PRN BUCCAL DECREASED GLUCOSE; Start 08/01/18 at 18:30 Furosemide (Lasix) 40 mg BID DIURETICS IV Last administered on 08/05/18at 05:40; Admin Dose 40 MG; Start 08/03/18 at 09:30; Status Hold IV Flush (NS 10 ml) 10 ml PRN PRN IV IV PROTOCOL; Start 08/03/18 at 13:00 Potassium Chloride (Potassium Chloride Pwd/Soln) 20 meq PER PROTOCOL PRN PO POTASSIUM REPLACEMENT PROTOCOL Last administered on 08/04/18at 10:53; Admin Dose 20 MEQ; Start 08/04/18 at 10:30 Potassium Chloride (Potassium Chloride Pwd/Soln) 30 meq PER PROTOCOL PRN PO POTASSIUM REPLACEMENT PROTOCOL; Start 08/04/18 at 10:30 Potassium Chloride (Potassium Chloride Pwd/Soln) 40 meq PER PROTOCOL PRN PO POTASSIUM REPLACEMENT PROTOCOL; Start 08/04/18 at 10:30 Metoprolol Tartrate (Lopressor) 50 mg BID PO Last administered on 08/07/18at 08:43; Admin Dose 50 MG; Start 08/04/18 at 16:30 Hydromorphone HCl (Dilaudid) 1.5 mg DAILY IV Last administered on 08/07/18at 10:11; Admin Dose 1.5 MG; Start 08/06/18 at 09:00 Acetaminophen/ Hydrocodone Bitart ([place] (10/325)) 1 tab Q4H PRN NGT MODERATE PAIN LEVEL 4-6 Last administered on 08/06/18at 21:33; Admin Dose 1 TAB; Start 08/05/18 at 11:30 Insulin Aspart (Novolog Insulin Pen) (Adult SC Insulin - Mild Algorithm)... AC MEALS AND BEDTIME SC ; Start 08/05/18 at 11:30 Vancomycin HCl (Vanco Iv Per Pharmacy) VANCOMYCIN PER PHARMACY PER PROTOCOL XX ; Start 08/05/18 at 12:30 Rifampin (Rifampin) 600 mg DAILY PO Last administered on 5/3/19at 08:42; Admin Dose 600 MG; Start 08/05/18 at 14:00 Apixaban (Eliquis) 5 mg BID PO Last administered on 08/05/18at 21:03; Admin Dose 5 MG; Start 08/05/18 at 21:00; Status Hold Vancomycin/Sodium Chloride 250 ml @ 125 mls/hr Q48H IVPB Last administered on 08/07/18at 08:39; Admin Dose 125 MLS/HR; Start 08/07/18 at 09:00 Mupirocin (Bactroban) 1 applic DAILY TOP ; Start 08/08/18 at 09:00 Lorazepam (Ativan) 2 mg Q8H PRN PO ANXIETY or insommia; Start 08/07/18 at 11:30 BRADY OROURKE NP August 07, 2018 13:30
--- NOTE | 2018-08-07 14:44 | PN ---
Date/Time of Note Date/Time of Note DATE: 08/07/18 TIME: 14:39 Assessment/Plan VTE Prophylaxis Risk score (from Ns)>0 risk: 6 SCD applied (from Ns): Yes Pharmacological prophylaxis: heparin Lines/Catheters IV Catheter Type (from Nrsg): PICC Line Central line still needed: Yes Urinary Cath still in place: Yes Reason Cath still needed: urinary retention Assessment/Plan Hospital Course EXAM: Alert, interactive ++ JVD Clear lungs RRR Abdomen soft Peripheral edema improving, extensive superficial venous ulcerations on b/l legs without signs of infection A/P: 62 yo male with venous stasis ulcerations, cellulitis, systolic CHF, acute respi ratory failure, MRSA bacteremia MRSA bacteremia: - Presumed source is cellulitis, wounds on legs with extensive open skin - Abx changed to clindamycin per ID - Repeat cultures negative Systolic CHF: - Diuresis held given ASA. Still hypervolemic - Neurohormonal blockade (currently on Metoprolol. Will add RORO-I when creatinine stable) ASA: - Hold lasix for now - Perhaps prerenal vs ATN from abx - Monitor creatinine Acute respiratory failure: - s/p exutbation. NC O2 as needed Hypokalemia: - Repletion as needed Anemia: - Check iron stores Venous stasis disease: - Wound care Atrial fibrillation: - Metoprolol for rate control - hold Apixaban until creatinine stabilizes PT/OT \ Result Diagram: 08/05/18 0543 08/07/18 0515 Results 24hrs Laboratory Tests Test 08/06/18 16:45 08/06/18 17:29 08/06/18 20:13 08/06/18 21:56 Urine Color STEVE Urine Clarity SLIGHTLY CLOUDY A Urine pH 5.0 Urine Specific 1.019 [place] Urine Ketones TRACE A Urine Nitrite NEGATIVE Urine Bilirubin NEGATIVE Urine Urobilinogen 1+ H Urine Leukocyte NEGATIVE Esterase Urine Microscopic 0 RBC Urine Microscopic 4 WBC Urine Squamous MODERATE Epithelial Cells Urine Hyaline FEW A Casts Urine Hemoglobin NEGATIVE Urine Random 185.38 Creatinine Urine Random < 13 L Sodium Urine Glucose NEGATIVE Urine Total NEGATIVE Protein Bedside Glucose 134 124 Sodium Level 133 L Potassium Level 3.6 Chloride Level 97 Carbon Dioxide 25 Level Anion Gap 11 Blood Urea 34 H Nitrogen Creatinine 1.74 H Est Glomerular 40 L Filtrat Rate mL/min Glucose Level 128 Calcium Level 7.9 L Thyroid 8.820 H Stimulating Hormone (TSH) Test 08/06/18 22:00 08/07/18 05:14 08/07/18 05:15 08/07/18 07:34 Magnesium Level 1.2 L Random Vancomycin 14.9 Level Sodium Level 134 L Potassium Level 3.7 Chloride Level 98 Carbon Dioxide 24 Level Anion Gap 12 Blood Urea 36 H Nitrogen Creatinine 1.70 H Est Glomerular 41 L Filtrat Rate mL/min Glucose Level 115 Calcium Level 8.3 L Bedside Glucose 130 Subjective 24 Hr Interval Summary Free Text/Dictation Stable Unable to sleep is major complaint Exam/Review of Systems Exam Vitals Vital Signs Date Temp Pulse Resp B/P (MAP) Pulse Ox O2 O2 Flow FiO2 Time Delivery Rate 08/07/18 70 12:21 08/07/18 97.9 19 114/81 96 12:08 (92) 08/07/18 Nasal 2.0 08:05 Cannula 08/07/18 27 02:17 Intake and Output 08/06/18 08/06/18 08/07/18 1515:00 23:00 07:00 IntakeIntake Total 400 ml OutputOutput Total 700 ml BalanceBalance -300 ml Results Results 24hrs Laboratory Tests Test 08/06/18 16:45 08/06/18 17:29 08/06/18 20:13 08/06/18 21:56 Urine Color STEVE Urine Clarity SLIGHTLY CLOUDY A Urine pH 5.0 Urine Specific 1.019 [place] Urine Ketones TRACE A Urine Nitrite NEGATIVE Urine Bilirubin NEGATIVE Urine Urobilinogen 1+ H Urine Leukocyte NEGATIVE Esterase Urine Microscopic 0 RBC Urine Microscopic 4 WBC Urine Squamous MODERATE Epithelial Cells Urine Hyaline FEW A Casts Urine Hemoglobin NEGATIVE Urine Random 185.38 Creatinine Urine Random < 13 L Sodium Urine Glucose NEGATIVE Urine Total NEGATIVE Protein Bedside Glucose 134 124 Sodium Level 133 L Potassium Level 3.6 Chloride Level 97 Carbon Dioxide 25 Level Anion Gap 11 Blood Urea 34 H Nitrogen Creatinine 1.74 H Est Glomerular 40 L Filtrat Rate mL/min Glucose Level 128 Calcium Level 7.9 L Thyroid 8.820 H Stimulating Hormone (TSH) Test 08/06/18 22:00 08/07/18 05:14 08/07/18 05:15 08/07/18 07:34 Magnesium Level 1.2 L Random Vancomycin 14.9 Level Sodium Level 134 L Potassium Level 3.7 Chloride Level 98 Carbon Dioxide 24 Level Anion Gap 12 Blood Urea 36 H Nitrogen Creatinine 1.70 H Est Glomerular 41 L Filtrat Rate mL/min Glucose Level 115 Calcium Level 8.3 L Bedside Glucose 130 Medications Medication Current Medications IV Flush (NS 3 ml) 3 ml PER PROTOCOL IV ; Start 07/31/18 at 09:30 Ondansetron HCl (Zofran Inj) 4 mg Q6H PRN IV NAUSEA/VOMITING Last administered on 08/07/18at 03:53; Admin Dose 4 MG; Start 07/31/18 at 09:30 Acetaminophen (Tylenol Tab) 650 mg Q6H PRN PO .PAIN 1-3 OR TEMP; Start 07/31/18 at 09:30 Miscellaneous Information (* Miscellaneous Pharmacy Order) HYPOGLYCEMIA PROTOCOL w... ONCE XX ; Start 08/01/18 at 18:30 Miscellaneous Information 1 ea NOTE XX ; Start 08/01/18 at 18:30 Glucose (Glutose) 15 gm Q15M PRN PO DECREASED GLUCOSE Last administered on 08/05/18at 09:43; Admin Dose 15 GM; Start 08/01/18 at 18:30 Glucose (Glutose) 22.5 gm Q15M PRN PO DECREASED GLUCOSE; Start 08/01/18 at 18:30 Dextrose (D50w Syringe) 25 ml Q15M PRN IV DECREASED GLUCOSE Last administered on 08/02/18at 17:44; Admin Dose 25 ML; Start 08/01/18 at 18:30 Dextrose (D50w Syringe) 50 ml Q15M PRN IV DECREASED GLUCOSE Last administered on 08/01/18at 18:20; Admin Dose 25 ML; Start 08/01/18 at 18:30 Glucagon (Glucagen) 1 mg Q15M PRN IM DECREASED GLUCOSE; Start 08/01/18 at 18:30 Glucose (Glutose) 15 gm Q15M PRN BUCCAL DECREASED GLUCOSE; Start 08/01/18 at 18:30 Furosemide (Lasix) 40 mg BID DIURETICS IV Last administered on 08/05/18at 05:40; Admin Dose 40 MG; Start 08/03/18 at 09:30; Status Hold IV Flush (NS 10 ml) 10 ml PRN PRN IV IV PROTOCOL; Start 08/03/18 at 13:00 Potassium Chloride (Potassium Chloride Pwd/Soln) 20 meq PER PROTOCOL PRN PO POTA SSIUM REPLACEMENT PROTOCOL Last administered on 08/04/18at 10:53; Admin Dose 20 MEQ; Start 08/04/18 at 10:30 Potassium Chloride (Potassium Chloride Pwd/Soln) 30 meq PER PROTOCOL PRN PO POTASSIUM REPLACEMENT PROTOCOL; Start 08/04/18 at 10:30 Potassium Chloride (Potassium Chloride Pwd/Soln) 40 meq PER PROTOCOL PRN PO POTASSIUM REPLACEMENT PROTOCOL; Start 08/04/18 at 10:30 Metoprolol Tartrate (Lopressor) 50 mg BID PO Last administered on 08/07/18at 08:43; Admin Dose 50 MG; Start 08/04/18 at 16:30 Hydromorphone HCl (Dilaudid) 1.5 mg DAILY IV Last administered on 08/07/18at 10:11; Admin Dose 1.5 MG; Start 08/06/18 at 09:00 Acetaminophen/ Hydrocodone Bitart ([place] (10)) 1 tab Q4H PRN NGT MODERATE PAIN LEVEL 4-6 Last administered on 08/06/18at 21:33; Admin Dose 1 TAB; Start 08/05/18 at 11:30 Insulin Aspart (Novolog Insulin Pen) (Adult SC Insulin - Mild Algorithm)... AC MEALS AND BEDTIME SC ; Start 08/05/18 at 11:30 Apixaban (Eliquis) 5 mg BID PO Last administered on 08/05/18at 21:03; Admin Dose 5 MG; Start 08/05/18 at 21:00; Status Hold Mupirocin (Bactroban) 1 applic DAILY TOP ; Start 08/08/18 at 09:00 Lorazepam (Ativan) 2 mg Q8H PRN PO ANXIETY or insommia; Start 08/07/18 at 11:30 Clindamycin HCl/ Dextrose 50 ml @ 50 mls/hr Q8 IVPB ; Start 08/07/18 at 14:00 KAI FELIX MD August 07, 2018 14:44
[2018-08-07] MEDS: CLINDAMYCIN 900 MG/D5W (PMX) 50 ML IVPB SCH ×2 (16:33→22:16)
[2018-08-07] MEDS: HYDROCODONE/APAP (10/325) TAB NGT PRN (17:23)
[2018-08-07] MEDS: POTASSIUM CHLORIDE 20 MEQ POWDER FOR ORAL SOLN PO PRN (20:53)
[2018-08-08] VITALS (15 sets, daily range): BP systolic 90–135; BP diastolic 60–84; PULSE 52–82; RESP 16–19
[2018-08-08] MEDS ORDERED: LORAZEPAM 2 MG INJ IV ONE ×2 (04:42→05:00)
[2018-08-08] MEDS ORDERED: HALOPERIDOL 5 MG INJ IV ONE ×2 (04:42→05:00)
[2018-08-08] MEDS: CLINDAMYCIN 900 MG/D5W (PMX) 50 ML IVPB SCH ×3 (05:22→22:19)
[2018-08-08] MEDS: Insulin NOVOLOG SS MILD Algorithm (SS with meals and bedtime) SC SCH ×4 (07:00→21:00)
[2018-08-08] MEDS: MUPIROCIN 2% 22 GM OINT TOP SCH (09:00)
[2018-08-08] MEDS: METOPROLOL 50 MG TAB PO SCH ×3 (09:00→22:20)
--- NOTE | 2018-08-08 10:08 | PSY ---
Date/Time of Note Date/Time of Note DATE: 08/08/18 TIME: 10:03 Psychiatric Subjective Eval Consent Pt consented to telemedicine: No Subjective Evaluation Patient location: inpatient Chief Complaint: BIBRA,from home,BLE pain,lower back pain,abd pain History of present illness Patient is a 62-year-old male who currently admitted to the 6 floor for bilate ral lower extremity pain, low back pain and abdominal pain. [id number] evaluation patient is not speaking, staff reports he has been increasingly agitated combative and difficult to redirect. This interview I read through the history and does not seem like this patient has any psych history however he cooled be delirious because of his sepsis Past psychiatric history Unknown Medical history Problems Medical Problems: (1) Cellulitis of both lower extremities Status: Acute (2) Chest pain Status: Acute (3) Open wound of both lower extremities with complication Status: Acute (4) Septic shock Status: Acute (5) Severe sepsis Status: Acute Allergies: Coded Allergies: Fish Containing Products (Unverified Allergy, Unknown, 07/31/18) onion (Unverified Allergy, Unknown, 07/31/18) Substance Abuse Substance use: other Substance abuse history: No Prior substance abuse treatmen: No Social History Marital status: other DPA/Conservatorship: No Psychiatric Objective Eval Physical Examination: Physical Examination: Not Applicable Mental Status Examination: Appearance: Disheveled Eye Contact: None Psychomotor Activity: Other (Currently restrained because of agitation) Behavior: Agitated Speech: Other (Not speaking) AFFECT: [place] Suicidal: No Homicidal: No On 72 hour hold: No Orientation: No orientation Cognition: Unable to assess due to Insight: Severe Judgement: Severe Laboratory Results Laboratory Tests Test 08/06/18 12:14 08/06/18 16:45 08/06/18 17:29 08/06/18 20:13 Bedside Glucose 133 mg/dL 134 mg/dL 124 mg/dL Urine Color STEVE Urine Clarity SLIGHTLY CLOUDY Urine pH 5.0 Urine Specific 1.019 [place] Urine Ketones TRACE mg/dL Urine Nitrite NEGATIVE mg/dL Urine Bilirubin NEGATIVE mg/dL Urine Urobilinogen 1+ mg/dL Urine Leukocyte NEGATIVE [place]/ul Esterase Urine Microscopic 0 /HPF RBC Urine Microscopic 4 /HPF WBC Urine Squamous MODERATE /HPF Epithelial Cells Urine Hyaline Casts FEW /HPF Urine Hemoglobin NEGATIVE mg/dL Urine Random 185.38 mg/dl Creatinine Urine Random Sodium < 13 mmol/L Urine Glucose NEGATIVE mg/dL Urine Total Protein NEGATIVE mg/dl Test 08/06/18 21:56 08/06/18 22:00 08/07/18 05:14 08/07/18 05:15 Sodium Level 133 mmol/L 134 mmol/L Potassium Level 3.6 mmol/L 3.7 mmol/L Chloride Level 97 mmol/L 98 mmol/L Carbon Dioxide Level 25 mmol/L 24 mmol/L Anion Gap 11 12 Blood Urea Nitrogen 34 mg/dl 36 mg/dl Creatinine 1.74 mg/dl 1.70 mg/dl Est Glomerular 40 mL/min 41 mL/min Filtrat Rate mL/min Glucose Level 128 mg/dl 115 mg/dl Calcium Level 7.9 mg/dl 8.3 mg/dl Thyroid Stimulating 8.820 MIU/L Hormone (TSH) Magnesium Level 1.2 mg/dl Random Vancomycin 14.9 ug/ml Level Test 08/07/18 07:34 08/07/18 14:11 08/07/18 17:21 08/07/18 20:49 Bedside Glucose 130 mg/dL 128 mg/dL 232 mg/dL Magnesium Level 1.6 mg/dl Test 08/08/18 05:33 08/08/18 08:55 Sodium Level 133 mmol/L Potassium Level 4.2 mmol/L Chloride Level 98 mmol/L Carbon Dioxide Level 19 mmol/L Anion Gap 16 Blood Urea Nitrogen 37 mg/dl Creatinine 1.70 mg/dl Est Glomerular 41 mL/min Filtrat Rate mL/min Glucose Level 105 mg/dl Calcium Level 8.3 mg/dl Iron Level 28 ug/dl Total Iron Binding 349 ug/dl Capacity Percent Iron 8 % SAT Saturation Ferritin 119.0 ng/ml Bedside Glucose 92 mg/dL Assessment and Plan Assessment/Diagnosis Diagnosis Rule out there with delirium Recommendation/Plan Medication Management Medication right now patient will continue with Ativan, for anxiety Multiple antipsychotics: No Discharge Disposition: Other Legal Status: Voluntary (Does not meet criteria for 5150 hold) LEONARD REY NP August 08, 2018 10:08
--- NOTE | 2018-08-08 10:49 | CONS ---
Consultation Date/Type/Reason Admit Date/Time Jul 31, 2018 at 06:30 Initial Consult Date 08/01/18 Type of Consult SUBJECTIVE: Pt is awake, alert, afebrile. NO acute events over night. VS: stable T: 97.5 LABS: Reviewed. BUN 37 creatinine 1.70 Indwelling: Right upper extremity PICC line, Becerra catheter Antimicrobials: IV Clindamycin Microbiology: Blood culture since admission grew MRSA, repeat bld cx neg, wound cx + MRSA Physical examination: GEN: This is a chronically ill-appearing well-developed elderly man, who is awake in no distress. HENT: Head atraumatic normocephalic; neck is supple PULM: chest rise symmetrical, breath sounds diminished the bases Heart: S1-S2 Abdomen: soft, bowel sounds hypoactive Extremities with bilateral lower extremities edema patient has significant cellulitis with draining wounds Assessment: 1. Severe sepsis, present on admission 2. MRSA bacteremia likely secondary to infected wounds 3. Bilateral lower extremity cellulitis 4. Peripheral arterial disease 5. Acute encephalopathy on admission 6. Left cephalic vein DVT 7. Pneumonia/CHF exacerbation==>s/p extubated 8. Polysubstance abuse Plan: Pt is clinically unchanged. Continue with current antbx. No change in renal function over night. Will monitor. Continue local wound care per podiatry recommendations Requesting Provider: ADDI LOPEZ NP Date/Time of Note DATE: 08/08/18 TIME: 10:43 Exam/Review of Systems Exam Vitals Vital Signs Date Temp Pulse Resp B/P (MAP) Pulse Ox O2 O2 Flow FiO2 Time Delivery Rate 08/08/18 97.5 81 18 111/60 100 10:15 (77) 08/08/18 2.0 28 02:23 08/07/18 Nasal 08:05 Cannula Intake and Output 08/07/18 08/07/18 08/08/18 1515:00 23:00 07:00 IntakeIntake Total 906 ml 50 ml OutputOutput Total 300 ml BalanceBalance 606 ml 50 ml Results Result Diagram: 08/05/18 0543 08/08/18 0533 Results 24hrs Laboratory Tests Test 08/07/18 14:11 08/07/18 17:21 08/07/18 20:49 08/08/18 05:33 Magnesium Level 1.6 L Bedside Glucose 128 232 H Sodium Level 133 L Potassium Level 4.2 Chloride Level 98 Carbon Dioxide Level 19 L Anion Gap 16 H Blood Urea Nitrogen 37 H Creatinine 1.70 H Est Glomerular Filtrat 41 L Rate mL/min Glucose Level 105 Calcium Level 8.3 L Iron Level 28 L Total Iron Binding 349 Capacity Percent Iron Saturation 8 L Ferritin 119.0 Test 08/08/18 08:55 Bedside Glucose 92 Medications Medication Current Medications IV Flush (NS 3 ml) 3 ml PER PROTOCOL IV ; Start 07/31/18 at 09:30 Ondansetron HCl (Zofran Inj) 4 mg Q6H PRN IV NAUSEA/VOMITING Last administered on 08/07/18at 03:53; Admin Dose 4 MG; Start 07/31/18 at 09:30 Acetaminophen (Tylenol Tab) 650 mg Q6H PRN PO .PAIN 1-3 OR TEMP; Start 07/31/18 at 09:30 Miscellaneous Information (* Miscellaneous Pharmacy Order) HYPOGLYCEMIA PROTOCOL w... ONCE XX ; Start 08/01/18 at 18:30 Miscellaneous Information 1 ea NOTE XX ; Start 08/01/18 at 18:30 Glucose (Glutose) 15 gm Q15M PRN PO DECREASED GLUCOSE Last administered on 08/05/18at 09:43; Admin Dose 15 GM; Start 08/01/18 at 18:30 Glucose (Glutose) 22.5 gm Q15M PRN PO DECREASED GLUCOSE; Start 08/01/18 at 18:30 Dextrose (D50w Syringe) 25 ml Q15M PRN IV DECREASED GLUCOSE Last administered on 08/02/18at 17:44; Admin Dose 25 ML; Start 08/01/18 at 18:30 Dextrose (D50w Syringe) 50 ml Q15M PRN IV DECREASED GLUCOSE Last administered on 08/01/18at 18:20; Admin Dose 25 ML; Start 08/01/18 at 18:30 Glucagon (Glucagen) 1 mg Q15M PRN IM DECREASED GLUCOSE; Start 08/01/18 at 18:30 Glucose (Glutose) 15 gm Q15M PRN BUCCAL DECREASED GLUCOSE; Start 08/01/18 at 18:30 Furosemide (Lasix) 40 mg BID DIURETICS IV Last administered on 08/05/18at 05:40; Admin Dose 40 MG; Start 08/03/18 at 09:30; Status Hold IV Flush (NS 10 ml) 10 ml PRN PRN IV IV PROTOCOL; Start 08/03/18 at 13:00 Potassium Chloride (Potassium Chloride Pwd/Soln) 20 meq PER PROTOCOL PRN PO POTASSIUM REPLACEMENT PROTOCOL Last administered on 08/07/18 20:53; Admin Dose 20 MEQ; Start 08/04/18 at 10:30 Potassium Chloride (Potassium Chloride Pwd/Soln) 30 meq PER PROTOCOL PRN PO POTASSIUM REPLACEMENT PROTOCOL; Start 08/04/18 at 10:30 Potassium Chloride (Potassium Chloride Pwd/Soln) 40 meq PER PROTOCOL PRN PO POTA SSIUM REPLACEMENT PROTOCOL; Start 08/04/18 at 10:30 Metoprolol Tartrate (Lopressor) 50 mg BID PO Last administered on 08/07/18 20:51; Admin Dose 50 MG; Start 08/04/18 at 16:30 Hydromorphone HCl (Dilaudid) 1.5 mg DAILY IV Last administered on 08/07/18 10:11; Admin Dose 1.5 MG; Start 08/06/18 at 09:00 Acetaminophen/ Hydrocodone Bitart ([place] (10/325)) 1 tab Q4H PRN NGT MODERATE PAIN LEVEL 4-6 Last administered on 08/07/18 17:23; Admin Dose 1 TAB; Start 08/05/18 at 11:30 Insulin Aspart (Novolog Insulin Pen) (Adult SC Insulin - Mild Algorithm)... AC MEALS AND BEDTIME SC Last administered on 08/07/18 21:17; Admin Dose 2 UNIT; Start 08/05/18 at 11:30 Apixaban (Eliquis) 5 mg BID PO Last administered on 08/05/18 21:03; Admin Dose 5 MG; Start 08/05/18 at 21:00; Status Hold Mupirocin (Bactroban) 1 applic DAILY TOP ; Start 08/08/18 at 09:00 Lorazepam (Ativan) 2 mg Q8H PRN PO ANXIETY or insommia Last administered on 08/07/18 22:17; Admin Dose 2 MG; Start 08/07/18 at 11:30 Clindamycin HCl/ Dextrose 50 ml @ 50 mls/hr Q8 IVPB Last administered on 08/08/18 05:22; Admin Dose 50 MLS/HR; Start 08/07/18 at 14:00 Haloperidol (Haldol) 2 mg ONCE ONCE IM ; Start 08/08/18 at 11:00; Stop 08/08/18 at 11:01 Lorazepam (Ativan) 1 mg Q6H PRN IV agitation; Start 08/08/18 at 11:00 ANGELICA FORTE August 08, 2018 10:49
[2018-08-08] MEDS: BALSAM PERU/CASTOR OIL 60 GM TUBE TOP SCH ×2 (10:55→22:19)
[2018-08-08] MEDS ORDERED: LORAZEPAM 2 MG INJ IV PRN (11:00)
[2018-08-08] MEDS ORDERED: HALOPERIDOL 5 MG INJ IM ONE (11:00)
[2018-08-08] MEDS: HYDROmorphONE 2 MG/ML SYG IV SCH (13:06)
--- NOTE | 2018-08-08 14:21 | CONS ---
Consult Date/Type/Reason Admit Date/Time Jul 31, 2018 at 06:30 Initial Consult Date 08/01/18 Type of Consultation: Pulm/CCM Requesting Provider: ADDI LOPEZ NP Date/Time of Note DATE: 08/08/18 TIME: 14:18 Subjective Overall improved. No events. Objective Vitals Vital Signs Date Temp Pulse Resp B/P (MAP) Pulse Ox O2 O2 Flow FiO2 Time Delivery Rate 08/08/18 82 12:01 08/08/18 97.5 18 111/60 100 10:15 (77) 08/08/18 Nasal 2.0 07:55 Cannula 08/08/18 28 02:23 Intake and Output 08/07/18 08/07/18 08/08/18 1414:59 22:59 06:59 IntakeIntake Total 856 ml 100 ml OutputOutput Total 300 ml BalanceBalance 556 ml 100 ml Exam HEENT: Neck supple; no JVD; no LAD; + JVP CVS: RRR, S1 and S2, +S3 CHEST: Diminished BS at both bases ABD: Soft, NT, + BS EXT: + erythema and bullae both legs Results/Medications Result Diagram: 08/05/18 0543 08/08/18 0533 Results 24 hrs Laboratory Tests Test 08/07/18 17:21 08/07/18 20:49 08/08/18 05:33 08/08/18 08:55 Bedside Glucose 128 232 H 92 Sodium Level 133 L Potassium Level 4.2 Chloride Level 98 Carbon Dioxide Level 19 L Anion Gap 16 H Blood Urea Nitrogen 37 H Creatinine 1.70 H Est Glomerular Filtrat 41 L Rate mL/min Glucose Level 105 Calcium Level 8.3 L Iron Level 28 L Total Iron Binding 349 Capacity Percent Iron Saturation 8 L Ferritin 119.0 Test 08/08/18 12:14 Bedside Glucose 98 Home Meds Unable to Obtain Active Prescriptions or Reported Meds Medications Current Medications IV Flush (NS 3 ml) 3 ml PER PROTOCOL IV ; Start 07/31/18 at 09:30 Ondansetron HCl (Zofran Inj) 4 mg Q6H PRN IV NAUSEA/VOMITING Last administered on 08/07/18at 03:53; Admin Dose 4 MG; Start 07/31/18 at 09:30 Acetaminophen (Tylenol Tab) 650 mg Q6H PRN PO .PAIN 1-3 OR TEMP; Start 07/31/18 at 09:30 Miscellaneous Information (* Miscellaneous Pharmacy Order) HYPOGLYCEMIA PROTOCOL w... ONCE XX ; Start 08/01/18 at 18:30 Miscellaneous Information 1 ea NOTE XX ; Start 08/01/18 at 18:30 Glucose (Glutose) 15 gm Q15M PRN PO DECREASED GLUCOSE Last administered on 08/05/18at 09:43; Admin Dose 15 GM; Start 08/01/18 at 18:30 Glucose (Glutose) 22.5 gm Q15M PRN PO DECREASED GLUCOSE; Start 08/01/18 at 18:30 Dextrose (D50w Syringe) 25 ml Q15M PRN IV DECREASED GLUCOSE Last administered on 08/02/18at 17:44; Admin Dose 25 ML; Start 08/01/18 at 18:30 Dextrose (D50w Syringe) 50 ml Q15M PRN IV DECREASED GLUCOSE Last administered on 08/01/18at 18:20; Admin Dose 25 ML; Start 08/01/18 at 18:30 Glucagon (Glucagen) 1 mg Q15M PRN IM DECREASED GLUCOSE; Start 08/01/18 at 18:30 Glucose (Glutose) 15 gm Q15M PRN BUCCAL DECREASED GLUCOSE; Start 08/01/18 at 18:30 Furosemide (Lasix) 40 mg BID DIURETICS IV Last administered on 08/05/18at 05:40; Admin Dose 40 MG; Start 08/03/18 at 09:30; Status Hold IV Flush (NS 10 ml) 10 ml PRN PRN IV IV PROTOCOL; Start 08/03/18 at 13:00 Potassium Chloride (Potassium Chloride Pwd/Soln) 20 meq PER PROTOCOL PRN PO POTASSIUM REPLACEMENT PROTOCOL Last administered on 08/07/18at 20:53; Admin Dose 20 MEQ; Start 08/04/18 at 10:30 Potassium Chloride (Potassium Chloride Pwd/Soln) 30 meq PER PROTOCOL PRN PO POTASSIUM REPLACEMENT PROTOCOL; Start 08/04/18 at 10:30 Potassium Chloride (Potassium Chloride Pwd/Soln) 40 meq PER PROTOCOL PRN PO POTASSIUM REPLACEMENT PROTOCOL; Start 08/04/18 at 10:30 Metoprolol Tartrate (Lopressor) 50 mg BID PO Last administered on 08/07/18at 20 :51; Admin Dose 50 MG; Start 08/04/18 at 16:30 Hydromorphone HCl (Dilaudid) 1.5 mg DAILY IV Last administered on 08/08/18 13:06; Admin Dose 1.5 MG; Start 08/06/18 at 09:00 Acetaminophen/ Hydrocodone Bitart ([place] (10/325)) 1 tab Q4H PRN NGT MODERATE PAIN LEVEL 4-6 Last administered on 08/07/18 17:23; Admin Dose 1 TAB; Start 08/05/18 at 11:30 Insulin Aspart (Novolog Insulin Pen) (Adult SC Insulin - Mild Algorithm)... AC MEALS AND BEDTIME SC Last administered on 08/07/18 21:17; Admin Dose 2 UNIT; Start 08/05/18 at 11:30 Apixaban (Eliquis) 5 mg BID PO Last administered on 08/05/18 21:03; Admin Dose 5 MG; Start 08/05/18 at 21:00; Status Hold Mupirocin (Bactroban) 1 applic DAILY TOP ; Start 08/08/18 at 09:00 Lorazepam (Ativan) 2 mg Q8H PRN PO ANXIETY or insommia Last administered on 08/07/18 22:17; Admin Dose 2 MG; Start 08/07/18 at 11:30 Clindamycin HCl/ Dextrose 50 ml @ 50 mls/hr Q8 IVPB Last administered on 08/08/18 05:22; Admin Dose 50 MLS/HR; Start 08/07/18 at 14:00 Lorazepam (Ativan) 1 mg Q6H PRN IV agitation Last administered on 08/08/18 10:51; Admin Dose 1 MG; Start 08/08/18 at 11:00 Assessment/Plan Assessment/Plan (Daily) IMP: 1. Altered Mental Status--encephalopathy--improved 2. s/p Resp Failure 3. GN+ bacteremia and LE cellulitis 4. Coagulopathy 5. s/p Lactic Acidosis 6. L Cephalic Vein DVT--query septic phlebitis 7. Cardiomyopathy/HFrEF with b/e effusions RECS: 1. Continue management as per ID and Cards 2. F/U pleural fluid studies ALANNA ZELAYA MD August 08, 2018 14:21
--- NOTE | 2018-08-08 14:59 | PN ---
Date/Time of Note Date/Time of Note DATE: 08/08/18 TIME: 14:45 Assessment/Plan VTE Prophylaxis Risk score (from Ns)>0 risk: 10 SCD applied (from Ns): Yes Pharmacological prophylaxis: heparin Lines/Catheters IV Catheter Type (from Nrsg): PICC Line Central line still needed: Yes Urinary Cath still in place: Yes Reason Cath still needed: urinary retention Assessment/Plan Hospital Course EXAM: Currently sedated + JVD Clear lungs RRR Abdomen soft Peripheral edema much improved extensive superficial venous ulcerations on b/l legs without signs of infection A/P: 62 yo male with venous stasis ulcerations, cellulitis, systolic CHF, acute res piratory failure, MRSA bacteremia MRSA bacteremia: - Presumed source is cellulitis, wounds on legs with extensive open skin - Abx changed to clindamycin per ID - Repeat cultures negative Systolic CHF: - Diuresis held given ASA. Still mildly hypervolemic - Neurohormonal blockade (currently on Metoprolol. Will add RORO-I when creatinine stable) ASA: - Holding lasix for now - Perhaps prerenal vs ATN from abx - Monitor creatinine Acute respiratory failure: - s/p exutbation. NC O2 as needed Hypokalemia: - Repletion as needed Anemia: - Mild iron deficiency. Replete iron Venous stasis disease: - Wound care Atrial fibrillation: - Metoprolol for rate control - hold Apixaban until creatinine stabilizes PT/OT \ Result Diagram: 08/05/18 0543 08/08/18 0533 Results 24hrs Laboratory Tests Test 08/07/18 17:21 08/07/18 20:49 08/08/18 05:33 08/08/18 08:55 Bedside Glucose 128 232 H 92 Sodium Level 133 L Potassium Level 4.2 Chloride Level 98 Carbon Dioxide Level 19 L Anion Gap 16 H Blood Urea Nitrogen 37 H Creatinine 1.70 H Est Glomerular Filtrat 41 L Rate mL/min Glucose Level 105 Calcium Level 8.3 L Iron Level 28 L Total Iron Binding 349 Capacity Percent Iron Saturation 8 L Ferritin 119.0 Test 08/08/18 12:14 Bedside Glucose 98 Subjective 24 Hr Interval Summary Free Text/Dictation Episodes of agitation and delirium for which he was givne benzos and haldol, restraints Exam/Review of Systems Exam Vitals Vital Signs Date Temp Pulse Resp B/P (MAP) Pulse Ox O2 O2 Flow FiO2 Time Delivery Rate 08/08/18 82 12:01 08/08/18 97.5 18 111/60 100 10:15 (77) 08/08/18 Nasal 2.0 07:55 Cannula 08/08/18 28 02:23 Intake and Output 08/07/18 08/07/18 08/08/18 1515:00 23:00 07:00 IntakeIntake Total 906 ml 50 ml OutputOutput Total 300 ml BalanceBalance 606 ml 50 ml Results Results 24hrs Laboratory Tests Test 08/07/18 17:21 08/07/18 20:49 08/08/18 05:33 08/08/18 08:55 Bedside Glucose 128 232 H 92 Sodium Level 133 L Potassium Level 4.2 Chloride Level 98 Carbon Dioxide Level 19 L Anion Gap 16 H Blood Urea Nitrogen 37 H Creatinine 1.70 H Est Glomerular Filtrat 41 L Rate mL/min Glucose Level 105 Calcium Level 8.3 L Iron Level 28 L Total Iron Binding 349 Capacity Percent Iron Saturation 8 L Ferritin 119.0 Test 08/08/18 12:14 Bedside Glucose 98 Medications Medication Current Medications IV Flush (NS 3 ml) 3 ml PER PROTOCOL IV ; Start 07/31/18 at 09:30 Ondansetron HCl (Zofran Inj) 4 mg Q6H PRN IV NAUSEA/VOMITING Last administered on 08/07/18at 03:53; Admin Dose 4 MG; Start 07/31/18 at 09:30 Acetaminophen (Tylenol Tab) 650 mg Q6H PRN PO .PAIN 1-3 OR TEMP; Start 07/31/18 at 09:30 Miscellaneous Information (* Miscellaneous Pharmacy Order) HYPOGLYCEMIA PROTOCOL w... ONCE XX ; Start 08/01/18 at 18:30 Miscellaneous Information 1 ea NOTE XX ; Start 08/01/18 at 18:30 Glucose (Glutose) 15 gm Q15M PRN PO DECREASED GLUCOSE Last administered on 08/05/18at 09:43; Admin Dose 15 GM; Start 08/01/18 at 18:30 Glucose (Glutose) 22.5 gm Q15M PRN PO DECREASED GLUCOSE; Start 08/01/18 at 18:30 Dextrose (D50w Syringe) 25 ml Q15M PRN IV DECREASED GLUCOSE Last administered on 08/02/18at 17:44; Admin Dose 25 ML; Start 08/01/18 at 18:30 Dextrose (D50w Syringe) 50 ml Q15M PRN IV DECREASED GLUCOSE Last administered on 08/01/18 18:20; Admin Dose 25 ML; Start 08/01/18 at 18:30 Glucagon (Glucagen) 1 mg Q15M PRN IM DECREASED GLUCOSE; Start 08/01/18 at 18:30 Glucose (Glutose) 15 gm Q15M PRN BUCCAL DECREASED GLUCOSE; Start 08/01/18 at 18:30 Furosemide (Lasix) 40 mg BID DIURETICS IV Last administered on 08/05/18 05:40; Admin Dose 40 MG; Start 08/03/18 at 09:30; Status Hold IV Flush (NS 10 ml) 10 ml PRN PRN IV IV PROTOCOL; Start 08/03/18 at 13:00 Potassium Chloride (Potassium Chloride Pwd/Soln) 20 meq PER PROTOCOL PRN PO POTASSIUM REPLACEMENT PROTOCOL Last administered on 08/07/18 20:53; Admin Dose 20 MEQ; Start 08/04/18 at 10:30 Potassium Chloride (Potassium Chloride Pwd/Soln) 30 meq PER PROTOCOL PRN PO POTASSIUM REPLACEMENT PROTOCOL; Start 08/04/18 at 10:30 Potassium Chloride (Potassium Chloride Pwd/Soln) 40 meq PER PROTOCOL PRN PO POTASSIUM REPLACEMENT PROTOCOL; Start 08/04/18 at 10:30 Metoprolol Tartrate (Lopressor) 50 mg BID PO Last administered on 08/07/18 20:51; Admin Dose 50 MG; Start 08/04/18 at 16:30 Hydromorphone HCl (Dilaudid) 1.5 mg DAILY IV Last administered on 08/08/18 13:06; Admin Dose 1.5 MG; Start 08/06/18 at 09:00 Acetaminophen/ Hydrocodone Bitart ([place] (10/325)) 1 tab Q4H PRN NGT MODERATE PAIN LEVEL 4-6 Last administered on 08/07/18 17:23; Admin Dose 1 TAB; Start 08/05/18 at 11:30 Insulin Aspart (Novolog Insulin Pen) (Adult SC Insulin - Mild Algorithm)... AC MEALS AND BEDTIME SC Last administered on 08/07/18 21:17; Admin Dose 2 UNIT; Start 08/05/18 at 11:30 Apixaban (Eliquis) 5 mg BID PO Last administered on 08/05/18at 21:03; Admin Dose 5 MG; Start 08/05/18 at 21:00; Status Hold Mupirocin (Bactroban) 1 applic DAILY TOP ; Start 08/08/18 at 09:00 Lorazepam (Ativan) 2 mg Q8H PRN PO ANXIETY or insommia Last administered on 08/07/18at 22:17; Admin Dose 2 MG; Start 08/07/18 at 11:30 Clindamycin HCl/ Dextrose 50 ml @ 50 mls/hr Q8 IVPB Last administered on 08/08/18at 05:22; Admin Dose 50 MLS/HR; Start 08/07/18 at 14:00 Lorazepam (Ativan) 1 mg Q6H PRN IV agitation Last administered on 08/08/18at 10:51; Admin Dose 1 MG; Start 08/08/18 at 11:00 KAI FELIX MD August 08, 2018 14:58
[2018-08-09] VITALS (11 sets, daily range): BP systolic 96–121; BP diastolic 61–75; PULSE 58–87; RESP 14–18
[2018-08-09] MEDS: CLINDAMYCIN 900 MG/D5W (PMX) 50 ML IVPB SCH ×3 (06:07→21:18)
[2018-08-09] MEDS: Insulin NOVOLOG SS MILD Algorithm (SS with meals and bedtime) SC SCH ×4 (07:00→21:00)
[2018-08-09] MEDS: HYDROmorphONE 2 MG/ML SYG IV SCH (08:14)
[2018-08-09] MEDS: MUPIROCIN 2% 22 GM OINT TOP SCH (08:17)
[2018-08-09] MEDS: METOPROLOL 50 MG TAB PO SCH ×2 (08:18→21:17)
[2018-08-09] MEDS: BALSAM PERU/CASTOR OIL 60 GM TUBE TOP SCH ×2 (08:18→21:18)
--- NOTE | 2018-08-09 11:56 | CONS ---
Consultation Date/Type/Reason Admit Date/Time Jul 31, 2018 at 06:30 Initial Consult Date 08/01/18 Type of Consult SUBJECTIVE: Pt is awake, alert, afebrile. VS: stable T: 97.6 LABS: Reviewed. BUN 36 creatinine 1.28 Indwelling: Right upper extremity PICC line, Becerra catheter Antimicrobials: IV Clindamycin Microbiology: Blood culture since admission grew MRSA, repeat bld cx neg, wound cx + MRSA Physical examination: GEN: This is a chronically ill-appearing well-developed elderly man, who is awake in no distress. HENT: Head atraumatic normocephalic; neck is supple PULM: chest rise symmetrical, breath sounds diminished the bases Heart: S1-S2 Abdomen: soft, bowel sounds hypoactive Extremities with bilateral lower extremities edema patient has significant cellulitis with draining wounds Assessment: 1. Severe sepsis, present on admission 2. MRSA bacteremia likely secondary to infected wounds 3. Bilateral lower extremity cellulitis 4. Peripheral arterial disease 5. Acute encephalopathy on admission 6. Left cephalic vein DVT 7. Pneumonia/CHF exacerbation==>s/p extubated 8. Polysubstance abuse Plan: Pt is clinically unchanged. Continue with current antbx. Renal function is improving. Will monitor. Continue local wound care per podiatry recommendations Requesting Provider: ADDI LOPEZ NP Date/Time of Note DATE: 08/09/18 TIME: 11:55 Exam/Review of Systems Exam Vitals Vital Signs Date Temp Pulse Resp B/P (MAP) Pulse Ox O2 O2 Flow FiO2 Time Delivery Rate 08/09/18 98.0 79 16 96/64 (75) 90 Nasal 2.0 11:53 Cannula 08/08/18 28 02:23 Intake and Output 08/08/18 08/08/18 08/09/18 1515:00 23:00 07:00 IntakeIntake Total 750 ml 690 ml 350 ml OutputOutput Total 250 ml BalanceBalance 500 ml 690 ml 350 ml Results Result Diagram: 08/05/18 0543 08/09/18 0940 Results 24hrs Laboratory Tests Test 08/08/18 12:14 08/08/18 17:19 08/08/18 21:02 08/09/18 08:13 Bedside Glucose 98 124 89 121 Test 08/09/18 09:40 Sodium Level 132 L Potassium Level 3.8 Chloride Level 97 Carbon Dioxide Level 24 Anion Gap 11 Blood Urea Nitrogen 36 H Creatinine 1.28 H Est Glomerular Filtrat 57 L Rate mL/min Glucose Level 127 Calcium Level 8.4 Medications Medication Current Medications IV Flush (NS 3 ml) 3 ml PER PROTOCOL IV ; Start 07/31/18 at 09:30 Ondansetron HCl (Zofran Inj) 4 mg Q6H PRN IV NAUSEA/VOMITING Last administered on 08/07/18at 03:53; Admin Dose 4 MG; Start 07/31/18 at 09:30 Acetaminophen (Tylenol Tab) 650 mg Q6H PRN PO .PAIN 1-3 OR TEMP; Start 07/31/18 at 09:30 Miscellaneous Information (* Miscellaneous Pharmacy Order) HYPOGLYCEMIA PROTOCOL w... ONCE XX ; Start 08/01/18 at 18:30 Miscellaneous Information 1 ea NOTE XX ; Start 08/01/18 at 18:30 Glucose (Glutose) 15 gm Q15M PRN PO DECREASED GLUCOSE Last administered on 08/05/18at 09:43; Admin Dose 15 GM; Start 08/01/18 at 18:30 Glucose (Glutose) 22.5 gm Q15M PRN PO DECREASED GLUCOSE; Start 08/01/18 at 18:30 Dextrose (D50w Syringe) 25 ml Q15M PRN IV DECREASED GLUCOSE Last administered on 08/02/18at 17:44; Admin Dose 25 ML; Start 08/01/18 at 18:30 Dextrose (D50w Syringe) 50 ml Q15M PRN IV DECREASED GLUCOSE Last administered on 08/01/18at 18:20; Admin Dose 25 ML; Start 08/01/18 at 18:30 Glucagon (Glucagen) 1 mg Q15M PRN IM DECREASED GLUCOSE; Start 08/01/18 at 18:30 Glucose (Glutose) 15 gm Q15M PRN BUCCAL DECREASED GLUCOSE; Start 08/01/18 at 18:30 Furosemide (Lasix) 40 mg BID DIURETICS IV Last administered on 08/05/18at 05:40; Admin Dose 40 MG; Start 08/03/18 at 09:30; Status Hold IV Flush (NS 10 ml) 10 ml PRN PRN IV IV PROTOCOL; Start 08/03/18 at 13:00 Potassium Chloride (Potassium Chloride Pwd/Soln) 20 meq PER PROTOCOL PRN PO POTASSIUM REPLACEMENT PROTOCOL Last administered on 08/07/18 20:53; Admin Dose 20 MEQ; Start 08/04/18 at 10:30 Potassium Chloride (Potassium Chloride Pwd/Soln) 30 meq PER PROTOCOL PRN PO POTASSIUM REPLACEMENT PROTOCOL; Start 08/04/18 at 10:30 Potassium Chloride (Potassium Chloride Pwd/Soln) 40 meq PER PROTOCOL PRN PO POTASSIUM REPLACEMENT PROTOCOL; Start 08/04/18 at 10:30 Metoprolol Tartrate (Lopressor) 50 mg BID PO Last administered on 08/08/18 22:20; Admin Dose 50 MG; Start 08/04/18 at 16:30 Hydromorphone HCl (Dilaudid) 1.5 mg DAILY IV Last administered on 08/09/18 08:14; Admin Dose 1.5 MG; Start 08/06/18 at 09:00 Acetaminophen/ Hydrocodone Bitart ([place] (10/325)) 1 tab Q4H PRN NGT MODERATE PAIN LEVEL 4-6 Last administered on 08/07/18 17:23; Admin Dose 1 TAB; Start 08/05/18 at 11:30 Insulin Aspart (Novolog Insulin Pen) (Adult SC Insulin - Mild Algorithm)... AC MEALS AND BEDTIME SC Last administered on 08/07/18 21:17; Admin Dose 2 UNIT; Start 08/05/18 at 11:30 Apixaban (Eliquis) 5 mg BID PO Last administered on 08/05/18 21:03; Admin Dose 5 MG; Start 08/05/18 at 21:00; Status Hold Mupirocin (Bactroban) 1 applic DAILY TOP Last administered on 08/09/18 08:17; Admin Dose 1 APPLIC; Start 08/08/18 at 09:00 Clindamycin HCl/ Dextrose 50 ml @ 50 mls/hr Q8 IVPB Last administered on 08/09/18 06:07; Admin Dose 50 MLS/HR; Start 08/07/18 at 14:00 ANGELICA FORTE August 09, 2018 11:56
--- NOTE | 2018-08-09 13:36 | CONS ---
Consult Date/Type/Reason Admit Date/Time Jul 31, 2018 at 06:30 Initial Consult Date 08/01/18 Type of Consultation: Pulm/CCM Requesting Provider: ADDI LOPEZ NP Date/Time of Note DATE: 08/09/18 TIME: 13:35 Subjective Mildly confused. No events overnight. Objective Vitals Vital Signs Date Temp Pulse Resp B/P (MAP) Pulse Ox O2 O2 Flow FiO2 Time Delivery Rate 08/09/18 98.0 79 16 96/64 (75) 90 Nasal 2.0 11:53 Cannula 08/08/18 28 02:23 Intake and Output 08/08/18 08/08/18 08/09/18 1515:00 23:00 07:00 IntakeIntake Total 750 ml 690 ml 350 ml OutputOutput Total 250 ml BalanceBalance 500 ml 690 ml 350 ml Exam HEENT: Neck supple; no JVD; no LAD; + JVP CVS: RRR, S1 and S2, +S3 CHEST: Diminished BS at both bases ABD: Soft, NT, + BS EXT: + erythema and bullae both legs Results/Medications Result Diagram: 08/05/18 0543 08/09/18 0940 Results 24 hrs Laboratory Tests Test 08/08/18 17:19 08/08/18 21:02 08/09/18 08:13 08/09/18 09:40 Bedside Glucose 124 89 121 Sodium Level 132 L Potassium Level 3.8 Chloride Level 97 Carbon Dioxide Level 24 Anion Gap 11 Blood Urea Nitrogen 36 H Creatinine 1.28 H Est Glomerular Filtrat 57 L Rate mL/min Glucose Level 127 Calcium Level 8.4 Test 08/09/18 12:02 Bedside Glucose 127 Home Meds Unable to Obtain Active Prescriptions or Reported Meds Medications Current Medications IV Flush (NS 3 ml) 3 ml PER PROTOCOL IV ; Start 07/31/18 at 09:30 Ondansetron HCl (Zofran Inj) 4 mg Q6H PRN IV NAUSEA/VOMITING Last administered on 08/07/18at 03:53; Admin Dose 4 MG; Start 07/31/18 at 09:30 Acetaminophen (Tylenol Tab) 650 mg Q6H PRN PO .PAIN 1-3 OR TEMP; Start 07/31/18 at 09:30 Miscellaneous Information (* Miscellaneous Pharmacy Order) HYPOGLYCEMIA PROTOCOL w... ONCE XX ; Start 08/01/18 at 18:30 Miscellaneous Information 1 ea NOTE XX ; Start 08/01/18 at 18:30 Glucose (Glutose) 15 gm Q15M PRN PO DECREASED GLUCOSE Last administered on 08/05/18at 09:43; Admin Dose 15 GM; Start 08/01/18 at 18:30 Glucose (Glutose) 22.5 gm Q15M PRN PO DECREASED GLUCOSE; Start 08/01/18 at 18:30 Dextrose (D50w Syringe) 25 ml Q15M PRN IV DECREASED GLUCOSE Last administered on 08/02/18at 17:44; Admin Dose 25 ML; Start 08/01/18 at 18:30 Dextrose (D50w Syringe) 50 ml Q15M PRN IV DECREASED GLUCOSE Last administered on 08/01/18at 18:20; Admin Dose 25 ML; Start 08/01/18 at 18:30 Glucagon (Glucagen) 1 mg Q15M PRN IM DECREASED GLUCOSE; Start 08/01/18 at 18:30 Glucose (Glutose) 15 gm Q15M PRN BUCCAL DECREASED GLUCOSE; Start 08/01/18 at 18:30 Furosemide (Lasix) 40 mg BID DIURETICS IV Last administered on 08/05/18at 05:40; Admin Dose 40 MG; Start 08/03/18 at 09:30; Status Hold IV Flush (NS 10 ml) 10 ml PRN PRN IV IV PROTOCOL; Start 08/03/18 at 13:00 Potassium Chloride (Potassium Chloride Pwd/Soln) 20 meq PER PROTOCOL PRN PO POTASSIUM REPLACEMENT PROTOCOL Last administered on 08/07/18at 20:53; Admin Dose 20 MEQ; Start 08/04/18 at 10:30 Potassium Chloride (Potassium Chloride Pwd/Soln) 30 meq PER PROTOCOL PRN PO POTASSIUM REPLACEMENT PROTOCOL; Start 08/04/18 at 10:30 Potassium Chloride (Potassium Chloride Pwd/Soln) 40 meq PER PROTOCOL PRN PO POTASSIUM REPLACEMENT PROTOCOL; Start 08/04/18 at 10:30 Metoprolol Tartrate (Lopressor) 50 mg BID PO Last administered on 08/08/18 22:20; Admin Dose 50 MG; Start 08/04/18 at 16:30 Hydromorphone HCl (Dilaudid) 1.5 mg DAILY IV Last administered on 08/09/18 08:14; Admin Dose 1.5 MG; Start 08/06/18 at 09:00 Acetaminophen/ Hydrocodone Bitart ([place] (10)) 1 tab Q4H PRN NGT MODERATE PAIN LEVEL 4-6 Last administered on 08/07/18 17:23; Admin Dose 1 TAB; Start 08/05/18 at 11:30 Insulin Aspart (Novolog Insulin Pen) (Adult SC Insulin - Mild Algorithm)... AC MEALS AND BEDTIME SC Last administered on 08/07/18 21:17; Admin Dose 2 UNIT; Start 08/05/18 at 11:30 Apixaban (Eliquis) 5 mg BID PO Last administered on 08/05/18 21:03; Admin Dose 5 MG; Start 08/05/18 at 21:00; Status Hold Mupirocin (Bactroban) 1 applic DAILY TOP Last administered on 08/09/18 08:17; Admin Dose 1 APPLIC; Start 08/08/18 at 09:00 Clindamycin HCl/ Dextrose 50 ml @ 50 mls/hr Q8 IVPB Last administered on 06:07; Admin Dose 50 MLS/HR; Start 08/07/18 at 14:00 Assessment/Plan Assessment/Plan (Daily) IMP: 1. Altered Mental Status--encephalopathy--improved 2. s/p Resp Failure 3. GN+ bacteremia and LE cellulitis 4. Coagulopathy 5. s/p Lactic Acidosis 6. L Cephalic Vein DVT--query septic phlebitis 7. Cardiomyopathy/HFrEF with b/e effusions RECS: 1. Continue management as per ID and Cards 2. F/U pleural fluid studies ALANNA ZELAYA MD August 09, 2018 13:36
--- NOTE | 2018-08-09 15:29 | PN ---
Date/Time of Note Date/Time of Note DATE: 08/09/18 TIME: 15:27 Assessment/Plan VTE Prophylaxis Risk score (from Ns)>0 risk: 8 SCD applied (from Ns): Yes Pharmacological prophylaxis: apixaban Lines/Catheters IV Catheter Type (from Nrsg): PICC Line Central line still needed: Yes Urinary Cath still in place: Yes Reason Cath still needed: urinary retention Assessment/Plan Hospital Course EXAM: Mildly sedated, calm + JVD Clear lungs RRR Abdomen soft Peripheral edema much improved extensive superficial venous ulcerations on b/l legs without signs of infection A/P: 62 yo male with venous stasis ulcerations, cellulitis, systolic CHF, acute respiratory failure, MRSA bacteremia MRSA bacteremia: - Presumed source is cellulitis, wounds on legs with extensive open skin - Abx changed to clindamycin per ID - Repeat cultures negative Systolic CHF: - Diuresis held given ASA. Still mildly hypervolemic - Neurohormonal blockade (currently on Metoprolol. Add RORO-I, ketty when creatinine stable) ASA: - Holding lasix for now, renal function improving. Restart lasix in coming days if renal function normal - Perhaps prerenal vs ATN from abx - Monitor creatinine Acute respiratory failure: - s/p exutbation. NC O2 as needed Hypokalemia: - Repletion as needed Anemia: - Mild iron deficiency. Replete iron Venous stasis disease: - Wound care Atrial fibrillation: - Metoprolol for rate control - Apixaban PT/OT \ Result Diagram: 08/05/18 0543 08/09/18 0940 Results 24hrs Laboratory Tests Test 08/08/18 17:19 08/08/18 21:02 08/09/18 08:13 08/09/18 09:40 Bedside Glucose 124 89 121 Sodium Level 132 L Potassium Level 3.8 Chloride Level 97 Carbon Dioxide Level 24 Anion Gap 11 Blood Urea Nitrogen 36 H Creatinine 1.28 H Est Glomerular Filtrat 57 L Rate mL/min Glucose Level 127 Calcium Level 8.4 Test 08/09/18 12:02 Bedside Glucose 127 Subjective 24 Hr Interval Summary Free Text/Dictation Behavior is controlled No issues Exam/Review of Systems Exam Vitals Vital Signs Date Temp Pulse Resp B/P (MAP) Pulse Ox O2 O2 Flow FiO2 Time Delivery Rate 08/09/18 96.1 78 17 109/75 97 14:22 (86) 5/5/19 Room Air 13:53 08/09/18 2.0 11:53 08/08/18 28 02:23 Intake and Output 08/08/18 08/08/18 08/09/18 1515:00 23:00 07:00 IntakeIntake Total 750 ml 690 ml 350 ml OutputOutput Total 250 ml BalanceBalance 500 ml 690 ml 350 ml Results Results 24hrs Laboratory Tests Test 08/08/18 17:19 08/08/18 21:02 08/09/18 08:13 08/09/18 09:40 Bedside Glucose 124 89 121 Sodium Level 132 L Potassium Level 3.8 Chloride Level 97 Carbon Dioxide Level 24 Anion Gap 11 Blood Urea Nitrogen 36 H Creatinine 1.28 H Est Glomerular Filtrat 57 L Rate mL/min Glucose Level 127 Calcium Level 8.4 Test 08/09/18 12:02 Bedside Glucose 127 Medications Medication Current Medications IV Flush (NS 3 ml) 3 ml PER PROTOCOL IV ; Start 07/31/18 at 09:30 Ondansetron HCl (Zofran Inj) 4 mg Q6H PRN IV NAUSEA/VOMITING Last administered on 08/07/18at 03:53; Admin Dose 4 MG; Start 07/31/18 at 09:30 Acetaminophen (Tylenol Tab) 650 mg Q6H PRN PO .PAIN 1-3 OR TEMP; Start 07/31/18 at 09:30 Miscellaneous Information (* Miscellaneous Pharmacy Order) HYPOGLYCEMIA PROTOCOL w... ONCE XX ; Start 08/01/18 at 18:30 Miscellaneous Information 1 ea NOTE XX ; Start 08/01/18 at 18:30 Glucose (Glutose) 15 gm Q15M PRN PO DECREASED GLUCOSE Last administered on at 09:43; Admin Dose 15 GM; Start 08/01/18 at 18:30 Glucose (Glutose) 22.5 gm Q15M PRN PO DECREASED GLUCOSE; Start 08/01/18 at 18:30 Dextrose (D50w Syringe) 25 ml Q15M PRN IV DECREASED GLUCOSE Last administered on 08/02/18at 17:44; Admin Dose 25 ML; Start 08/01/18 at 18:30 Dextrose (D50w Syringe) 50 ml Q15M PRN IV DECREASED GLUCOSE Last administered on 08/01/18at 18:20; Admin Dose 25 ML; Start 08/01/18 at 18:30 Glucagon (Glucagen) 1 mg Q15M PRN IM DECREASED GLUCOSE; Start 08/01/18 at 18:30 Glucose (Glutose) 15 gm Q15M PRN BUCCAL DECREASED GLUCOSE; Start 08/01/18 at 18:30 Furosemide (Lasix) 40 mg BID DIURETICS IV Last administered on 08/05/18at 05:40; Admin Dose 40 MG; Start 08/03/18 at 09:30; Status Hold IV Flush (NS 10 ml) 10 ml PRN PRN IV IV PROTOCOL; Start 08/03/18 at 13:00 Potassium Chloride (Potassium Chloride Pwd/Soln) 20 meq PER PROTOCOL PRN PO POTASSIUM REPLACEMENT PROTOCOL Last administered on 08/07/18 20:53; Admin Dose 20 MEQ; Start 08/04/18 at 10:30 Potassium Chloride (Potassium Chloride Pwd/Soln) 30 meq PER PROTOCOL PRN PO POTASSIUM REPLACEMENT PROTOCOL; Start 08/04/18 at 10:30 Potassium Chloride (Potassium Chloride Pwd/Soln) 40 meq PER PROTOCOL PRN PO POTASSIUM REPLACEMENT PROTOCOL; Start 08/04/18 at 10:30 Metoprolol Tartrate (Lopressor) 50 mg BID PO Last administered on 08/08/18 22:20; Admin Dose 50 MG; Start 08/04/18 at 16:30 Hydromorphone HCl (Dilaudid) 1.5 mg DAILY IV Last administered on 08/09/18 08:14; Admin Dose 1.5 MG; Start 08/06/18 at 09:00 Acetaminophen/ Hydrocodone Bitart ([place] (10/325)) 1 tab Q4H PRN NGT MODERATE PAIN LEVEL 4-6 Last administered on 08/07/18 17:23; Admin Dose 1 TAB; Start 08/05/18 at 11:30 Insulin Aspart (Novolog Insulin Pen) (Adult SC Insulin - Mild Algorithm)... AC MEALS AND BEDTIME SC Last administered on 08/07/18 21:17; Admin Dose 2 UNIT; Start 08/05/18 at 11:30 Apixaban (Eliquis) 5 mg BID PO Last administered on 08/05/18 21:03; Admin Dose 5 MG; Start 08/05/18 at 21:00; Status Hold Mupirocin (Bactroban) 1 applic DAILY TOP Last administered on 08/09/18at 08:17; Admin Dose 1 APPLIC; Start 08/08/18 at 09:00 Clindamycin HCl/ Dextrose 50 ml @ 50 mls/hr Q8 IVPB Last administered on 08/09/18at 14:26; Admin Dose 50 MLS/HR; Start 08/07/18 at 14:00 KAI FELIX MD August 09, 2018 15:29
[2018-08-09] MEDS: APIXABAN 5 MG TABLET PO SCH ×2 (15:55→21:17)
[2018-08-09] MEDS: HYDROCODONE/APAP (10/325) TAB NGT PRN (21:14)
[2018-08-10 02:20] VITALS: BP_SYST 119; BP_SYST 96; BP_DIAS 51; BP_DIAS 76; PULSE 78; PULSE 80; RESP 16; RESP 18
[2018-08-10] MEDS ORDERED: HALOPERIDOL 5 MG INJ IM ONE (04:30)
[2018-08-10] MEDS: CLINDAMYCIN 900 MG/D5W (PMX) 50 ML IVPB SCH ×3 (05:29→21:43)
[2018-08-10] MEDS: HYDROCODONE/APAP (10/325) TAB NGT PRN ×4 (05:29→20:55)
[2018-08-10] MEDS: Insulin NOVOLOG SS MILD Algorithm (SS with meals and bedtime) SC SCH ×4 (08:09→21:06)
[2018-08-10] MEDS: HYDROmorphONE 2 MG/ML SYG IV SCH (08:11)
[2018-08-10] MEDS: APIXABAN 5 MG TABLET PO SCH ×2 (08:14→20:55)
[2018-08-10] MEDS: METOPROLOL 50 MG TAB PO SCH ×2 (08:14→20:56)
[2018-08-10 08:15] VITALS: BP 125/74; PULSE 72; RESP 18
[2018-08-10] MEDS: BALSAM PERU/CASTOR OIL 60 GM TUBE TOP SCH ×2 (08:16→20:40)
[2018-08-10] MEDS: MUPIROCIN 2% 22 GM OINT TOP SCH (08:16)
--- NOTE | 2018-08-10 13:13 | CONS ---
Assessment/Plan Assessment/Plan Hospital Course (Demo Recall) Still with significant amount of pain in his lower extremities in no distress afebrile creatinine yesterday went down to 1.28 Indwelling: Right upper extremity PICC line, Becerra catheter Antimicrobials: IV clindamycin Microbiology: Blood culture since admission grew MRSA, repeat bld cx neg, wound cx + MRSA Physical examination: This is a chronically ill-appearing well-developed elderly man who is awake in no distress. Head atraumatic normocephalic neck is supple chest rise symmetrical breath sounds diminished the bases heart S1-S2 abdomen soft bowel sounds hypoactive extremities with bilateral lower extremities edema patient has significant cellulitis with draining wounds Assessment: 1. Severe sepsis, present on admission 2. MRSA bacteremia likely secondary to infected wounds 3. Bilateral lower extremity cellulitis 4. Peripheral arterial disease 5. Acute encephalopathy on admission 6. Left cephalic vein DVT 7. Pneumonia/CHF exacerbation==>s/p extubated 8. Polysubstance abuse Plan: Stable, continue on IV antibiotics for 5 more days then can downgrade to oral clindamycin, continue local wound care per podiatry Consultation Date/Type/Reason Admit Date/Time Jul 31, 2018 at 06:30 Initial Consult Date 08/01/18 Type of Consult id Requesting Provider: ADDI LOPEZ NP Date/Time of Note DATE: 08/10/18 TIME: 13:11 Exam/Review of Systems Exam Vitals Vital Signs Date Temp Pulse Resp B/P (MAP) Pulse Ox O2 O2 Flow FiO2 Time Delivery Rate 08/10/18 Nasal 2.0 09:00 Cannula 08/10/18 97.6 72 18 125/74 98 08:15 (91) 08/08/18 28 02:23 Intake and Output 08/09/18 08/09/18 08/10/18 1515:00 23:00 07:00 IntakeIntake Total 1010 ml 820 ml OutputOutput Total 600 ml BalanceBalance 1010 ml 220 ml Results Result Diagram: 08/09/18 0940 Results 24hrs Laboratory Tests Test 08/09/18 17:13 08/09/18 21:11 08/10/18 08:08 08/10/18 12:27 Bedside Glucose 125 188 150 149 Medications Medication Current Medications IV Flush (NS 3 ml) 3 ml PER PROTOCOL IV ; Start 07/31/18 at 09:30 Ondansetron HCl (Zofran Inj) 4 mg Q6H PRN IV NAUSEA/VOMITING Last administered on 08/07/18at 03:53; Admin Dose 4 MG; Start 07/31/18 at 09:30 Acetaminophen (Tylenol Tab) 650 mg Q6H PRN PO .PAIN 1-3 OR TEMP; Start 07/31/18 at 09:30 Miscellaneous Information (* Miscellaneous Pharmacy Order) HYPOGLYCEMIA PROTOCOL w... ONCE XX ; Start 08/01/18 at 18:30 Miscellaneous Information 1 ea NOTE XX ; Start 08/01/18 at 18:30 Glucose (Glutose) 15 gm Q15M PRN PO DECREASED GLUCOSE Last administered on 08/05/18at 09:43; Admin Dose 15 GM; Start 08/01/18 at 18:30 Glucose (Glutose) 22.5 gm Q15M PRN PO DECREASED GLUCOSE; Start 08/01/18 at 18:30 Dextrose (D50w Syringe) 25 ml Q15M PRN IV DECREASED GLUCOSE Last administered on 08/02/18at 17:44; Admin Dose 25 ML; Start 08/01/18 at 18:30 Dextrose (D50w Syringe) 50 ml Q15M PRN IV DECREASED GLUCOSE Last administered on 08/01/18at 18:20; Admin Dose 25 ML; Start 08/01/18 at 18:30 Glucagon (Glucagen) 1 mg Q15M PRN IM DECREASED GLUCOSE; Start 08/01/18 at 18:30 Glucose (Glutose) 15 gm Q15M PRN BUCCAL DECREASED GLUCOSE; Start 08/01/18 at 18:30 Furosemide (Lasix) 40 mg BID DIURETICS IV Last administered on 08/05/18at 05:40; Admin Dose 40 MG; Start 08/03/18 at 09:30; Status Hold IV Flush (NS 10 ml) 10 ml PRN PRN IV IV PROTOCOL; Start 08/03/18 at 13:00 Potassium Chloride (Potassium Chloride Pwd/Soln) 20 meq PER PROTOCOL PRN PO POTASSIUM REPLACEMENT PROTOCOL Last administered on 08/07/18at 20:53; Admin Dose 20 MEQ; Start 08/04/18 at 10:30 Potassium Chloride (Potassium Chloride Pwd/Soln) 30 meq PER PROTOCOL PRN PO POTASSIUM REPLACEMENT PROTOCOL; Start 08/04/18 at 10:30 Potassium Chloride (Potassium Chloride Pwd/Soln) 40 meq PER PROTOCOL PRN PO POTASSIUM REPLACEMENT PROTOCOL; Start 08/04/18 at 10:30 Metoprolol Tartrate (Lopressor) 50 mg BID PO Last administered on 08/10/18 08:14; Admin Dose 50 MG; Start 08/04/18 at 16:30 Hydromorphone HCl (Dilaudid) 1.5 mg DAILY IV Last administered on 08/10/18 08:11; Admin Dose 1.5 MG; Start 08/06/18 at 09:00 Acetaminophen/ Hydrocodone Bitart ([place] ()) 1 tab Q4H PRN NGT MODERATE PAIN LEVEL 4-6 Last administered on 08/10/18 12:31; Admin Dose 1 TAB; Start 08/05/18 at 11:30 Insulin Aspart (Novolog Insulin Pen) (Adult SC Insulin - Mild Algorithm)... AC MEALS AND BEDTIME SC Last administered on 08/10/18 12:34; Admin Dose 1 UNIT; Start 08/05/18 at 11:30 Apixaban (Eliquis) 5 mg BID PO Last administered on 08/10/18 08:14; Admin Dose 5 MG; Start 08/05/18 at 21:00 Mupirocin (Bactroban) 1 applic DAILY TOP Last administered on 08/10/18 08:16; A dmin Dose 1 APPLIC; Start 08/08/18 at 09:00 Clindamycin HCl/ Dextrose 50 ml @ 50 mls/hr Q8 IVPB Last administered on 08/10/18 05:29; Admin Dose 50 MLS/HR; Start 08/07/18 at 14:00 BRADY OROURKE NP August 10, 2018 13:13
[2018-08-10 13:40] VITALS: BP 132/72; PULSE 78; RESP 18
--- NOTE | 2018-08-10 14:48 | PN ---
Date/Time of Note Date/Time of Note DATE: 08/10/18 TIME: 14:46 Assessment/Plan VTE Prophylaxis Risk score (from Nsg)>0 risk: 11 Pharmacological prophylaxis: apixaban Assessment/Plan Hospital Course 62 yo male with venous stasis ulcerations, cellulitis, systolic CHF, acute respiratory failure, MRSA bacteremia MRSA bacteremia: - Presumed source is cellulitis, wounds on legs with extensive open skin - Abx changed to clindamycin per ID - Repeat cultures negative Systolic CHF: - Diuresis held given ASA. Still mildly hypervolemic - Neurohormonal blockade (currently on Metoprolol. Add RORO-I, ketty when creatinine stable) ASA: - Holding lasix for now, renal function improving. Restart lasix in coming days if renal function normal - Perhaps prerenal vs ATN from abx - Monitor creatinine Acute respiratory failure: - s/p extubation. NC O2 as needed Hypokalemia: - Repletion as needed Anemia: - Mild iron deficiency. Replete iron Venous stasis disease: - Wound care Atrial fibrillation: - Metoprolol for rate control - Apixaban Result Diagram: 08/09/18 0940 Results 24hrs Laboratory Tests Test 08/09/18 17:13 08/09/18 21:11 08/10/18 08:08 08/10/18 12:27 Bedside Glucose 125 188 150 149 Subjective 24 Hr Interval Summary Constitutional: no complaints Exam/Review of Systems Exam Vitals Vital Signs Date Temp Pulse Resp B/P (MAP) Pulse Ox O2 O2 Flow FiO2 Time Delivery Rate 08/10/18 97.6 78 18 132/72 92 Room Air 13:40 (92) 08/10/18 2.0 09:00 08/08/18 28 02:23 Intake and Output 08/09/18 08/09/18 08/10/18 1515:00 23:00 07:00 IntakeIntake Total 1010 ml 820 ml OutputOutput Total 600 ml BalanceBalance 1010 ml 220 ml Constitutional: alert Respiratory: clear to auscultation Cardiovascular: regular rate and rhythm Gastrointestinal: soft; No distended Musculoskeletal: No nl extremities to inspection Results Results 24hrs Laboratory Tests Test 08/09/18 17:13 08/09/18 21:11 08/10/18 08:08 08/10/18 12:27 Bedside Glucose 125 188 150 149 Medications Medication Current Medications IV Flush (NS 3 ml) 3 ml PER PROTOCOL IV ; Start 07/31/18 at 09:30 Ondansetron HCl (Zofran Inj) 4 mg Q6H PRN IV NAUSEA/VOMITING Last administered on 08/07/18at 03:53; Admin Dose 4 MG; Start 07/31/18 at 09:30 Acetaminophen (Tylenol Tab) 650 mg Q6H PRN PO .PAIN 1-3 OR TEMP; Start 07/31/18 at 09:30 Miscellaneous Information (* Miscellaneous Pharmacy Order) HYPOGLYCEMIA PROTOCOL w... ONCE XX ; Start 08/01/18 at 18:30 Miscellaneous Information 1 ea NOTE XX ; Start 08/01/18 at 18:30 Glucose (Glutose) 15 gm Q15M PRN PO DECREASED GLUCOSE Last administered on 08/05/18at 09:43; Admin Dose 15 GM; Start 08/01/18 at 18:30 Glucose (Glutose) 22.5 gm Q15M PRN PO DECREASED GLUCOSE; Start 08/01/18 at 18:30 Dextrose (D50w Syringe) 25 ml Q15M PRN IV DECREASED GLUCOSE Last administered on 08/02/18at 17:44; Admin Dose 25 ML; Start 08/01/18 at 18:30 Dextrose (D50w Syringe) 50 ml Q15M PRN IV DECREASED GLUCOSE Last administered o n 08/01/18at 18:20; Admin Dose 25 ML; Start 08/01/18 at 18:30 Glucagon (Glucagen) 1 mg Q15M PRN IM DECREASED GLUCOSE; Start 08/01/18 at 18:30 Glucose (Glutose) 15 gm Q15M PRN BUCCAL DECREASED GLUCOSE; Start 08/01/18 at 18:30 Furosemide (Lasix) 40 mg BID DIURETICS IV Last administered on 08/05/18at 05:40; Admin Dose 40 MG; Start 08/03/18 at 09:30; Status Hold IV Flush (NS 10 ml) 10 ml PRN PRN IV IV PROTOCOL; Start 08/03/18 at 13:00 Potassium Chloride (Potassium Chloride Pwd/Soln) 20 meq PER PROTOCOL PRN PO POTASSIUM REPLACEMENT PROTOCOL Last administered on 08/07/18at 20:53; Admin Dose 20 MEQ; Start 08/04/18 at 10:30 Potassium Chloride (Potassium Chloride Pwd/Soln) 30 meq PER PROTOCOL PRN PO POTASSIUM REPLACEMENT PROTOCOL; Start 08/04/18 at 10:30 Potassium Chloride (Potassium Chloride Pwd/Soln) 40 meq PER PROTOCOL PRN PO POTASSIUM REPLACEMENT PROTOCOL; Start 08/04/18 at 10:30 Metoprolol Tartrate (Lopressor) 50 mg BID PO Last administered on 08/10/18 08:14; Admin Dose 50 MG; Start 08/04/18 at 16:30 Hydromorphone HCl (Dilaudid) 1.5 mg DAILY IV Last administered on 08/10/18 08:11; Admin Dose 1.5 MG; Start 08/06/18 at 09:00 Acetaminophen/ Hydrocodone Bitart ([place] (10/)) 1 tab Q4H PRN NGT MODERATE PAIN LEVEL 4-6 Last administered on 08/10/18 12:31; Admin Dose 1 TAB; Start 08/05/18 at 11:30 Insulin Aspart (Novolog Insulin Pen) (Adult SC Insulin - Mild Algorithm)... AC MEALS AND BEDTIME SC Last administered on 08/10/18 12:34; Admin Dose 1 UNIT; Start 08/05/18 at 11:30 Apixaban (Eliquis) 5 mg BID PO Last administered on 08/10/18 08:14; Admin Dose 5 MG; Start 08/05/18 at 21:00 Mupirocin (Bactroban) 1 applic DAILY TOP Last administered on 08/10/18 08:16; Admin Dose 1 APPLIC; Start 08/08/18 at 09:00 Clindamycin HCl/ Dextrose 50 ml @ 50 mls/hr Q8 IVPB Last administered on 05:29; Admin Dose 50 MLS/HR; Start 08/07/18 at 14:00 ALCIRA STEWART August 10, 2018 14:48
[2018-08-10 20:06] VITALS: BP 105/70; PULSE 81; RESP 18
[2018-08-11] MEDS: HYDROCODONE/APAP (10/325) TAB NGT PRN (00:55)
[2018-08-11] MEDS ORDERED: MELATONIN 3 MG TABLET PO ONE ×2 (02:00→02:45)
[2018-08-11 02:34] VITALS: BP 101/71; PULSE 79; RESP 18
[2018-08-11] MEDS: HYDROCODONE/APAP (10/325) TAB PO PRN ×5 (04:16→22:11)
[2018-08-11] MEDS: CLINDAMYCIN 900 MG/D5W (PMX) 50 ML IVPB SCH ×3 (06:26→22:11)
[2018-08-11] MEDS: Insulin NOVOLOG SS MILD Algorithm (SS with meals and bedtime) SC SCH ×4 (07:00→21:00)
[2018-08-11 08:01] VITALS: BP 98/70; PULSE 75; RESP 18
[2018-08-11] MEDS: COLLAGENASE 5 GM (UD JAR) TOP SCH (08:49)
[2018-08-11] MEDS: MUPIROCIN 2% 22 GM OINT TOP SCH (08:50)
[2018-08-11] MEDS: BALSAM PERU/CASTOR OIL 60 GM TUBE TOP SCH ×2 (08:50→21:23)
[2018-08-11] MEDS: APIXABAN 5 MG TABLET PO SCH ×2 (08:51→21:22)
[2018-08-11] MEDS: ZINC SULFATE 220 MG CAP PO SCH (08:52)
[2018-08-11] MEDS: METOPROLOL 50 MG TAB PO SCH ×2 (08:52→21:22)
[2018-08-11] MEDS: ASCORBIC ACID 500 MG TAB PO SCH (08:52)
[2018-08-11] MEDS: MULTIVITAMINS THERAPEUTIC TAB PO SCH (08:52)
[2018-08-11] MEDS: FOLIC ACID 1 MG TAB PO SCH (08:52)
[2018-08-11] MEDS: ONDANSETRON 4 MG INJ IV PRN (09:49)
--- NOTE | 2018-08-11 11:40 | CONS ---
Assessment/Plan Assessment/Plan Hospital Course (Demo Recall) All noted, no events, looks comfortable, no fevers Indwelling: Right upper extremity PICC line, Becerra catheter Antimicrobials: IV clindamycin Microbiology: Blood culture since admission grew MRSA, repeat bld cx neg, wound cx + MRSA Physical examination: This is a chronically ill-appearing well-developed elderly man who is awake in no distress. Head atraumatic normocephalic neck is supple chest rise symmetrical breath sounds diminished the bases heart S1-S2 abdomen soft bowel sounds hypoactive extremities with bilateral lower extremities edema patient has significant cellulitis with draining wounds Assessment: 1. Severe sepsis, present on admission 2. MRSA bacteremia likely secondary to infected wounds 3. Bilateral lower extremity cellulitis 4. Peripheral arterial disease 5. Acute encephalopathy on admission 6. Left cephalic vein DVT 7. Pneumonia/CHF exacerbation==>s/p extubated 8. Polysubstance abuse Plan: Stable, continue on IV antibiotics for 4 more days then can downgrade to oral clindamycin, continue local wound care per podiatry Consultation Date/Type/Reason Admit Date/Time Jul 31, 2018 at 06:30 Initial Consult Date 08/01/18 Type of Consult id Requesting Provider: ADDI LOPEZ NP Date/Time of Note DATE: 08/11/18 TIME: 11:40 Exam/Review of Systems Exam Vitals Vital Signs Date Temp Pulse Resp B/P (MAP) Pulse Ox O2 O2 Flow FiO2 Time Delivery Rate 08/11/18 98.1 75 18 98/70 (79) 95 Room Air 08:01 08/10/18 2.0 09:00 08/08/18 28 02:23 Intake and Output 08/10/18 08/10/18 08/11/18 1515:00 23:00 07:00 IntakeIntake Total 320 ml 410 ml 530 ml OutputOutput Total 150 ml 100 ml BalanceBalance 170 ml 410 ml 430 ml Results Result Diagram: 08/09/18 0940 Results 24hrs Laboratory Tests Test 08/10/18 12:27 08/10/18 17:09 08/10/18 21:01 08/11/18 03:03 Bedside Glucose 149 137 181 112 Test 08/11/18 08:36 Bedside Glucose 131 Medications Medication Current Medications IV Flush (NS 3 ml) 3 ml PER PROTOCOL IV ; Start 07/31/18 at 09:30 Ondansetron HCl (Zofran Inj) 4 mg Q6H PRN IV NAUSEA/VOMITING Last administered on 08/11/18at 09:49; Admin Dose 4 MG; Start 07/31/18 at 09:30 Acetaminophen (Tylenol Tab) 650 mg Q6H PRN PO .PAIN 1-3 OR TEMP; Start 07/31/18 at 09:30 Miscellaneous Information (* Miscellaneous Pharmacy Order) HYPOGLYCEMIA PROTOCOL w... ONCE XX ; Start 08/01/18 at 18:30 Miscellaneous Information 1 ea NOTE XX ; Start 08/01/18 at 18:30 Glucose (Glutose) 15 gm Q15M PRN PO DECREASED GLUCOSE Last administered on 08/05/18at 09:43; Admin Dose 15 GM; Start 08/01/18 at 18:30 Glucose (Glutose) 22.5 gm Q15M PRN PO DECREASED GLUCOSE; Start 08/01/18 at 18:30 Dextrose (D50w Syringe) 25 ml Q15M PRN IV DECREASED GLUCOSE Last administered on 08/02/18at 17:44; Admin Dose 25 ML; Start 08/01/18 at 18:30 Dextrose (D50w Syringe) 50 ml Q15M PRN IV DECREASED GLUCOSE Last administered on 08/01/18at 18:20; Admin Dose 25 ML; Start 08/01/18 at 18:30 Glucagon (Glucagen) 1 mg Q15M PRN IM DECREASED GLUCOSE; Start 08/01/18 at 18:30 Glucose (Glutose) 15 gm Q15M PRN BUCCAL DECREASED GLUCOSE; Start 08/01/18 at 18:30 Furosemide (Lasix) 40 mg BID DIURETICS IV Last administered on 08/05/18at 05:40; Admin Dose 40 MG; Start 08/03/18 at 09:30; Status Hold IV Flush (NS 10 ml) 10 ml PRN PRN IV IV PROTOCOL; Start 08/03/18 at 13:00 Potassium Chloride (Potassium Chloride Pwd/Soln) 20 meq PER PROTOCOL PRN PO POTASSIUM REPLACEMENT PROTOCOL Last administered on 08/07/18at 20:53; Admin Dose 20 MEQ; Start 08/04/18 at 10:30 Potassium Chloride (Potassium Chloride Pwd/Soln) 30 meq PER PROTOCOL PRN PO POTASSIUM REPLACEMENT PROTOCOL; Start 08/04/18 at 10:30 Potassium Chloride (Potassium Chloride Pwd/Soln) 40 meq PER PROTOCOL PRN PO POTASSIUM REPLACEMENT PROTOCOL; Start 08/04/18 at 10:30 Metoprolol Tartrate (Lopressor) 50 mg BID PO Last administered on 08/10/18 20:56; Admin Dose 50 MG; Start 08/04/18 at 16:30 Hydromorphone HCl (Dilaudid) 1.5 mg DAILY IV Last administered on 08/10/18 08 :11; Admin Dose 1.5 MG; Start 08/06/18 at 09:00 Insulin Aspart (Novolog Insulin Pen) (Adult SC Insulin - Mild Algorithm)... AC MEALS AND BEDTIME SC Last administered on 08/10/18 21:06; Admin Dose 1 UNIT; Start 08/05/18 at 11:30 Apixaban (Eliquis) 5 mg BID PO Last administered on 08/11/18 08:51; Admin Dose 5 MG; Start 08/05/18 at 21:00 Mupirocin (Bactroban) 1 applic DAILY TOP Last administered on 08/11/18 08:50; Admin Dose 1 APPLIC; Start 08/08/18 at 09:00 Clindamycin HCl/ Dextrose 50 ml @ 50 mls/hr Q8 IVPB Last administered on 08/11/18 06:26; Admin Dose 50 MLS/HR; Start 08/07/18 at 14:00 Collagenase (Santyl) 1 applic DAILY TOP Last administered on 08/11/18 08:49; Admin Dose 1 APPLIC; Start 08/11/18 at 09:00 Multivitamins Therapeutic (Theragran) 1 tab DAILY PO Last administered on 08/11/18 08:52; Admin Dose 1 TAB; Start 08/11/18 at 09:00 Ascorbic Acid (Vitamin C) 500 mg DAILY PO Last administered on 08/11/18 08:52; Admin Dose 500 MG; Start 08/11/18 at 09:00 Folic Acid (Folic Acid) 1 mg DAILY PO Last administered on 08/11/18 08:52; Admin Dose 1 MG; Start 08/11/18 at 09:00 Zinc Sulfate (Zinc Sulfate) 220 mg DAILY PO Last administered on 08/11/18 08:52; Admin Dose 220 MG; Start 08/11/18 at 09:00 Acetaminophen/ Hydrocodone Bitart ([place] (325)) 1 tab Q4H PRN PO MODERATE PAIN LEVEL 4-6 Last administered on 08/11/18at 08:52; Admin Dose 1 TAB; Start 08/11/18 at 03:30 BRADY OROURKE NP August 11, 2018 11:40
[2018-08-11 12:48] VITALS: BP 105/77; PULSE 83; RESP 20
[2018-08-11] MEDS: HYDROmorphONE 2 MG/ML SYG IV SCH (13:14)
[2018-08-11 14:05] VITALS: BP 117/72; PULSE 87; RESP 18
--- NOTE | 2018-08-11 14:06 | PN ---
Date/Time of Note Date/Time of Note DATE: 08/11/18 TIME: 14:05 Assessment/Plan VTE Prophylaxis Risk score (from Nsg)>0 risk: 11 Pharmacological prophylaxis: NA/contraindicated Pharm contraindication: other Assessment/Plan Hospital Course 62 yo male with venous stasis ulcerations, cellulitis, systolic CHF, acute respiratory failure, MRSA bacteremia MRSA bacteremia: - Presumed source is cellulitis, wounds on legs with extensive open skin - Abx changed to clindamycin per ID - Repeat cultures negative -Podiatry consultation appreciated Systolic CHF: - Diuresis held given ASA. Still mildly hypervolemic - Neurohormonal blockade (currently on Metoprolol. Add RORO-I, ketty when creatinine stable) ASA: - Holding lasix for now, renal function improving. Restart lasix in coming days if renal function normal - Perhaps prerenal vs ATN from abx - Monitor creatinine Acute respiratory failure: - s/p extubation. NC O2 as needed Hypokalemia: - Repletion as needed Anemia: - Mild iron deficiency. Replete iron Venous stasis disease: - Wound care Atrial fibrillation: - Metoprolol for rate control - Apixaban DC planning: Patient will need placement in facility, PT eval Result Diagram: 08/09/18 0940 Results 24hrs Laboratory Tests Test 08/10/18 17:09 08/10/18 21:01 08/11/18 03:03 08/11/18 08:36 Bedside Glucose 137 181 112 131 Test 08/11/18 12:20 Bedside Glucose 155 Subjective 24 Hr Interval Summary Musculoskeletal: bone/joint pain Exam/Review of Systems Exam Vitals Vital Signs Date Temp Pulse Resp B/P (MAP) Pulse Ox O2 O2 Flow FiO2 Time Delivery Rate 08/11/18 83 20 105/77 12:48 (86) 08/11/18 98.1 95 Room Air 08:01 08/10/18 2.0 09:00 08/08/18 28 02:23 Intake and Output 08/10/18 08/10/18 08/11/18 1515:00 23:00 07:00 IntakeIntake Total 320 ml 410 ml 530 ml OutputOutput Total 150 ml 100 ml BalanceBalance 170 ml 410 ml 430 ml Constitutional: alert, oriented Respiratory: clear to auscultation Cardiovascular: regular rate and rhythm Gastrointestinal: soft; No distended Musculoskeletal: No nl extremities to inspection Results Results 24hrs Laboratory Tests Test 08/10/18 17:09 08/10/18 21:01 08/11/18 03:03 08/11/18 08:36 Bedside Glucose 137 181 112 131 Test 08/11/18 12:20 Bedside Glucose 155 Medications Medication Current Medications IV Flush (NS 3 ml) 3 ml PER PROTOCOL IV ; Start 07/31/18 at 09:30 Ondansetron HCl (Zofran Inj) 4 mg Q6H PRN IV NAUSEA/VOMITING Last administered on 08/11/18at 09:49; Admin Dose 4 MG; Start 07/31/18 at 09:30 Acetaminophen (Tylenol Tab) 650 mg Q6H PRN PO .PAIN 1-3 OR TEMP; Start 07/31/18 at 09:30 Miscellaneous Information (* Miscellaneous Pharmacy Order) HYPOGLYCEMIA PROTOCOL w... ONCE XX ; Start 08/01/18 at 18:30 Miscellaneous Information 1 ea NOTE XX ; Start 08/01/18 at 18:30 Glucose (Glutose) 15 gm Q15M PRN PO DECREASED GLUCOSE Last administered on 08/05/18at 09:43; Admin Dose 15 GM; Start 08/01/18 at 18:30 Glucose (Glutose) 22.5 gm Q15M PRN PO DECREASED GLUCOSE; Start 08/01/18 at 18:30 Dextrose (D50w Syringe) 25 ml Q15M PRN IV DECREASED GLUCOSE Last administered on 08/02/18at 17:44; Admin Dose 25 ML; Start 08/01/18 at 18:30 Dextrose (D50w Syringe) 50 ml Q15M PRN IV DECREASED GLUCOSE Last administered on 08/01/18at 18:20; Admin Dose 25 ML; Start 08/01/18 at 18:30 Glucagon (Glucagen) 1 mg Q15M PRN IM DECREASED GLUCOSE; Start 08/01/18 at 18:30 Glucose (Glutose) 15 gm Q15M PRN BUCCAL DECREASED GLUCOSE; Start 08/01/18 at 18:30 Furosemide (Lasix) 40 mg BID DIURETICS IV Last administered on 08/05/18at 05:40; Admin Dose 40 MG; Start 08/03/18 at 09:30; Status Hold IV Flush (NS 10 ml) 10 ml PRN PRN IV IV PROTOCOL; Start 08/03/18 at 13:00 Potassium Chloride (Potassium Chloride Pwd/Soln) 20 meq PER PROTOCOL PRN PO POTASSIUM REPLACEMENT PROTOCOL Last administered on 08/07/18 20:53; Admin Dose 20 MEQ; Start 08/04/18 at 10:30 Potassium Chloride (Potassium Chloride Pwd/Soln) 30 meq PER PROTOCOL PRN PO POTASSIUM REPLACEMENT PROTOCOL; Start 08/04/18 at 10:30 Potassium Chloride (Potassium Chloride Pwd/Soln) 40 meq PER PROTOCOL PRN PO POTASSIUM REPLACEMENT PROTOCOL; Start 08/04/18 at 10:30 Metoprolol Tartrate (Lopressor) 50 mg BID PO Last administered on 08/10/18 20:56; Admin Dose 50 MG; Start 08/04/18 at 16:30 Hydromorphone HCl (Dilaudid) 1.5 mg DAILY IV Last administered on 08/11/18 13:14; Admin Dose 1.5 MG; Start 08/06/18 at 09:00 Insulin Aspart (Novolog Insulin Pen) (Adult SC Insulin - Mild Algorithm)... AC MEALS AND BEDTIME SC Last administered on 08/11/18 12:44; Admin Dose 1 UNIT; Start 08/05/18 at 11:30 Apixaban (Eliquis) 5 mg BID PO Last administered on 08/11/18 08:51; Admin Dose 5 MG; Start 08/05/18 at 21:00 Mupirocin (Bactroban) 1 applic DAILY TOP Last administered on 08/11/18 08:50; Admin Dose 1 APPLIC; Start 08/08/18 at 09:00 Clindamycin HCl/ Dextrose 50 ml @ 50 mls/hr Q8 IVPB Last administered on 08/11/18 06:26; Admin Dose 50 MLS/HR; Start 08/07/18 at 14:00 Collagenase (Santyl) 1 applic DAILY TOP Last administered on 08/11/18 08:49; Admin Dose 1 APPLIC; Start 08/11/18 at 09:00 Multivitamins Therapeutic (Theragran) 1 tab DAILY PO Last administered on 08/11/18 08:52; Admin Dose 1 TAB; Start 08/11/18 at 09:00 Ascorbic Acid (Vitamin C) 500 mg DAILY PO Last administered on 08/11/18 08:52; Admin Dose 500 MG; Start 08/11/18 at 09:00 Folic Acid (Folic Acid) 1 mg DAILY PO Last administered on 08/11/18 08:52; Admin Dose 1 MG; Start 08/11/18 at 09:00 Zinc Sulfate (Zinc Sulfate) 220 mg DAILY PO Last administered on 08/11/18at 08:52; Admin Dose 220 MG; Start 08/11/18 at 09:00 Acetaminophen/ Hydrocodone Bitart ([place] (10/325)) 1 tab Q4H PRN PO MODERATE PAIN LEVEL 4-6 Last administered on 08/11/18at 12:41; Admin Dose 1 TAB; Start 08/11/18 at 03:30 ALCIRA STEWART August 11, 2018 14:06
[2018-08-11 19:50] VITALS: BP 112/70; PULSE 83; RESP 18
[2018-08-12 02:15] VITALS: BP 101/69; PULSE 77; RESP 18
[2018-08-12] MEDS: HYDROCODONE/APAP (10/325) TAB PO PRN ×3 (03:36→18:30)
[2018-08-12] MEDS: CLINDAMYCIN 900 MG/D5W (PMX) 50 ML IVPB SCH ×3 (05:19→21:39)
[2018-08-12 07:35] VITALS: BP 98/64; PULSE 78; RESP 18
[2018-08-12] MEDS: Insulin NOVOLOG SS MILD Algorithm (SS with meals and bedtime) SC SCH ×4 (08:28→21:00)
[2018-08-12] MEDS: COLLAGENASE 5 GM (UD JAR) TOP SCH (08:30)
[2018-08-12] MEDS: MULTIVITAMINS THERAPEUTIC TAB PO SCH (08:30)
[2018-08-12] MEDS: ASCORBIC ACID 500 MG TAB PO SCH (08:30)
[2018-08-12] MEDS: ZINC SULFATE 220 MG CAP PO SCH (08:30)
[2018-08-12] MEDS: APIXABAN 5 MG TABLET PO SCH ×2 (08:30→21:39)
[2018-08-12] MEDS: MUPIROCIN 2% 22 GM OINT TOP SCH (08:31)
[2018-08-12] MEDS: FOLIC ACID 1 MG TAB PO SCH (08:31)
[2018-08-12] MEDS: BALSAM PERU/CASTOR OIL 60 GM TUBE TOP SCH ×2 (08:31→21:39)
[2018-08-12] MEDS: METOPROLOL 50 MG TAB PO SCH ×2 (08:31→21:39)
[2018-08-12] MEDS: HYDROmorphONE 2 MG/ML SYG IV SCH (12:53)
--- NOTE | 2018-08-12 13:41 | CONS ---
Assessment/Plan Assessment/Plan Hospital Course (Demo Recall) Awake, looks comfortable no fevers Indwelling: Right upper extremity PICC line, Becerra catheter Antimicrobials: IV clindamycin Microbiology: Blood culture since admission grew MRSA, repeat bld cx neg, wound cx + MRSA Physical examination: This is a chronically ill-appearing well-developed elderly man who is awake in no distress. Head atraumatic normocephalic neck is supple chest rise symmetrical breath sounds diminished the bases heart S1-S2 abdomen soft bowel sounds hypoactive extremities with bilateral lower extremities edema patient has significant cellulitis with draining wounds Assessment: 1. Severe sepsis, present on admission 2. MRSA bacteremia likely secondary to infected wounds 3. Bilateral lower extremity cellulitis 4. Peripheral arterial disease 5. Acute encephalopathy on admission 6. Left cephalic vein DVT 7. Pneumonia/CHF exacerbation==>s/p extubated 8. Polysubstance abuse Plan: Stable, continue on IV antibiotics for 3 more days then can downgrade to oral clindamycin, continue local wound care per podiatry Consultation Date/Type/Reason Admit Date/Time Jul 31, 2018 at 06:30 Initial Consult Date 08/01/18 Type of Consult id Requesting Provider: ADDI LOPEZ NP Date/Time of Note DATE: 08/12/18 TIME: 13:40 Exam/Review of Systems Exam Vitals Vital Signs Date Temp Pulse Resp B/P (MAP) Pulse Ox O2 O2 Flow FiO2 Time Delivery Rate 08/12/18 98.8 78 18 98/64 (75) 95 Room Air 07:35 08/12/18 2.0 06:42 Intake and Output 08/11/18 08/11/18 08/12/18 1515:00 23:00 07:00 IntakeIntake Total 610 ml 50 ml 100 ml OutputOutput Total 300 ml 300 ml BalanceBalance 310 ml -250 ml 100 ml Results Result Diagram: 08/09/18 0940 Results 24hrs Laboratory Tests Test 08/11/18 17:14 08/11/18 21:20 08/12/18 08:24 08/12/18 12:30 Bedside Glucose 140 167 146 161 Medications Medication Current Medications IV Flush (NS 3 ml) 3 ml PER PROTOCOL IV ; Start 07/31/18 at 09:30 Ondansetron HCl (Zofran Inj) 4 mg Q6H PRN IV NAUSEA/VOMITING Last administered on 08/11/18at 09:49; Admin Dose 4 MG; Start 07/31/18 at 09:30 Acetaminophen (Tylenol Tab) 650 mg Q6H PRN PO .PAIN 1-3 OR TEMP; Start 07/31/18 at 09:30 Miscellaneous Information (* Miscellaneous Pharmacy Order) HYPOGLYCEMIA PROTOCOL w... ONCE XX ; Start 08/01/18 at 18:30 Miscellaneous Information 1 ea NOTE XX ; Start 08/01/18 at 18:30 Glucose (Glutose) 15 gm Q15M PRN PO DECREASED GLUCOSE Last administered on 08/05/18at 09:43; Admin Dose 15 GM; Start 08/01/18 at 18:30 Glucose (Glutose) 22.5 gm Q15M PRN PO DECREASED GLUCOSE; Start 08/01/18 at 18:30 Dextrose (D50w Syringe) 25 ml Q15M PRN IV DECREASED GLUCOSE Last administered on 08/02/18at 17:44; Admin Dose 25 ML; Start 08/01/18 at 18:30 Dextrose (D50w Syringe) 50 ml Q15M PRN IV DECREASED GLUCOSE Last administered on 08/01/18at 18:20; Admin Dose 25 ML; Start 08/01/18 at 18:30 Glucagon (Glucagen) 1 mg Q15M PRN IM DECREASED GLUCOSE; Start 08/01/18 at 18:30 Glucose (Glutose) 15 gm Q15M PRN BUCCAL DECREASED GLUCOSE; Start 08/01/18 at 18:30 Furosemide (Lasix) 40 mg BID DIURETICS IV Last administered on 08/05/18at 05:40; Admin Dose 40 MG; Start 08/03/18 at 09:30; Status Hold IV Flush (NS 10 ml) 10 ml PRN PRN IV IV PROTOCOL; Start 08/03/18 at 13:00 Potassium Chloride (Potassium Chloride Pwd/Soln) 20 meq PER PROTOCOL PRN PO POTASSIUM REPLACEMENT PROTOCOL Last administered on 08/07/18at 20:53; Admin Dose 20 MEQ; Start 08/04/18 at 10:30 Potassium Chloride (Potassium Chloride Pwd/Soln) 30 meq PER PROTOCOL PRN PO POTASSIUM REPLACEMENT PROTOCOL; Start 08/04/18 at 10:30 Potassium Chloride (Potassium Chloride Pwd/Soln) 40 meq PER PROTOCOL PRN PO POTASSIUM REPLACEMENT PROTOCOL; Start 08/04/18 at 10:30 Metoprolol Tartrate (Lopressor) 50 mg BID PO Last administered on 08/11/18 21:22; Admin Dose 50 MG; Start 08/04/18 at 16:30 Hydromorphone HCl (Dilaudid) 1.5 mg DAILY IV Last administered on 08/12/18 12:53; Admin Dose 1.5 MG; Start 08/06/18 at 09:00 Insulin Aspart (Novolog Insulin Pen) (Adult SC Insulin - Mild Algorithm)... AC MEALS AND BEDTIME SC Last administered on 08/12/18 12:46; Admin Dose 1 UNIT; Start 08/05/18 at 11:30 Apixaban (Eliquis) 5 mg BID PO Last administered on 08/12/18 08:30; Admin Dose 5 MG; Start 08/05/18 at 21:00 Mupirocin (Bactroban) 1 applic DAILY TOP Last administered on 08/12/18 08:31; Admin Dose 1 APPLIC; Start 08/08/18 at 09:00 Clindamycin HCl/ Dextrose 50 ml @ 50 mls/hr Q8 IVPB Last administered on 08/12/18 05:19; Admin Dose 50 MLS/HR; Start 08/07/18 at 14:00 Collagenase (Santyl) 1 applic DAILY TOP Last administered on 08/12/18 08:30; Admin Dose 1 APPLIC; Start 08/11/18 at 09:00 Multivitamins Therapeutic (Theragran) 1 tab DAILY PO Last administered on 08/12 08:30; Admin Dose 1 TAB; Start 08/11/18 at 09:00 Ascorbic Acid (Vitamin C) 500 mg DAILY PO Last administered on 08/12/18 08:30; Admin Dose 500 MG; Start 08/11/18 at 09:00 Folic Acid (Folic Acid) 1 mg DAILY PO Last administered on 08/12/18 08:31; Admin Dose 1 MG; Start 08/11/18 at 09:00 Zinc Sulfate (Zinc Sulfate) 220 mg DAILY PO Last administered on 08/12/18 08:30; Admin Dose 220 MG; Start 08/11/18 at 09:00 Acetaminophen/ Hydrocodone Bitart ([place] (10/325)) 1 tab Q4H PRN PO MODERATE PAIN LEVEL 4-6 Last administered on 08/12/18at 07:45; Admin Dose 1 TAB; Start 08/11/18 at 03:30 BRADY OROURKE NP August 12, 2018 13:41
[2018-08-12 14:00] VITALS: BP 115/71; PULSE 89; RESP 16
--- NOTE | 2018-08-12 14:13 | PN ---
Date/Time of Note Date/Time of Note DATE: 08/12/18 TIME: 14:12 Assessment/Plan VTE Prophylaxis Risk score (from Ns)>0 risk: 10 Pharmacological prophylaxis: apixaban Assessment/Plan Hospital Course 62 yo male with venous stasis ulcerations, cellulitis, systolic CHF, acute respiratory failure, MRSA bacteremia MRSA bacteremia: - Presumed source is cellulitis, wounds on legs with extensive open skin - Abx changed to clindamycin per ID - Repeat cultures negative -Podiatry consultation appreciated Systolic CHF: - Diuresis held given ASA. Still mildly hypervolemic - Neurohormonal blockade (currently on Metoprolol. Add RORO-I, ketty when creatinine stable) ASA: - Holding lasix for now, renal function improving. Restart lasix in coming days if renal function normal - Perhaps prerenal vs ATN from abx - Monitor creatinine Acute respiratory failure: - s/p extubation. NC O2 as needed Hypokalemia: - Repletion as needed Anemia: - Mild iron deficiency. Replete iron Venous stasis disease: - Wound care Atrial fibrillation: - Metoprolol for rate control - Apixaban Prophylaxis: [place] [facility]UE[facility] planning: Patient will need placement in facility, PT eval Result Diagram: 08/09/18 0940 Results 24hrs Laboratory Tests Test 08/11/18 17:14 08/11/18 21:20 08/12/18 08:24 08/12/18 12:30 Bedside Glucose 140 167 146 161 Subjective 24 Hr Interval Summary Constitutional: no complaints Exam/Review of Systems Exam Vitals Vital Signs Date Temp Pulse Resp B/P (MAP) Pulse Ox O2 O2 Flow FiO2 Time Delivery Rate 08/12/18 97.5 89 16 115/71 93 Room Air 14:00 (86) 08/12/18 2.0 06:42 Intake and Output 08/11/18 08/11/18 08/12/18 1414:59 22:59 06:59 IntakeIntake Total 610 ml 50 ml 100 ml OutputOutput Total 300 ml 300 ml BalanceBalance 310 ml -250 ml 100 ml Constitutional: alert, oriented Respiratory: clear to auscultation Cardiovascular: regular rate and rhythm Gastrointestinal: soft; No distended Musculoskeletal: No nl extremities to inspection Results Results 24hrs Laboratory Tests Test 08/11/18 17:14 08/11/18 21:20 08/12/18 08:24 08/12/18 12:30 Bedside Glucose 140 167 146 161 Medications Medication Current Medications IV Flush (NS 3 ml) 3 ml PER PROTOCOL IV ; Start 07/31/18 at 09:30 Ondansetron HCl (Zofran Inj) 4 mg Q6H PRN IV NAUSEA/VOMITING Last administered on 08/11/18at 09:49; Admin Dose 4 MG; Start 07/31/18 at 09:30 Acetaminophen (Tylenol Tab) 650 mg Q6H PRN PO .PAIN 1-3 OR TEMP; Start 07/31/18 at 09:30 Miscellaneous Information (* Miscellaneous Pharmacy Order) HYPOGLYCEMIA PROTOCOL w... ONCE XX ; Start 08/01/18 at 18:30 Miscellaneous Information 1 ea NOTE XX ; Start 08/01/18 at 18:30 Glucose (Glutose) 15 gm Q15M PRN PO DECREASED GLUCOSE Last administered on 08/05/18at 09:43; Admin Dose 15 GM; Start 08/01/18 at 18:30 Glucose (Glutose) 22.5 gm Q15M PRN PO DECREASED GLUCOSE; Start 08/01/18 at 18:30 Dextrose (D50w Syringe) 25 ml Q15M PRN IV DECREASED GLUCOSE Last administered on 08/02/18at 17:44; Admin Dose 25 ML; Start 08/01/18 at 18:30 Dextrose (D50w Syringe) 50 ml Q15M PRN IV DECREASED GLUCOSE Last administered on 08/01/18at 18:20; Admin Dose 25 ML; Start 08/01/18 at 18:30 Glucagon (Glucagen) 1 mg Q15M PRN IM DECREASED GLUCOSE; Start 08/01/18 at 18:30 Glucose (Glutose) 15 gm Q15M PRN BUCCAL DECREASED GLUCOSE; Start 08/01/18 at 18:30 Furosemide (Lasix) 40 mg BID DIURETICS IV Last administered on 08/05/18at 05:40; Admin Dose 40 MG; Start 08/03/18 at 09:30; Status Hold IV Flush (NS 10 ml) 10 ml PRN PRN IV IV PROTOCOL; Start 08/03/18 at 13:00 Potassium Chloride (Potassium Chloride Pwd/Soln) 20 meq PER PROTOCOL PRN PO POTASSIUM REPLACEMENT PROTOCOL Last administered on 08/07/18at 20:53; Admin Dose 20 MEQ; Start 08/04/18 at 10:30 Potassium Chloride (Potassium Chloride Pwd/Soln) 30 meq PER PROTOCOL PRN PO POTASSIUM REPLACEMENT PROTOCOL; Start 08/04/18 at 10:30 Potassium Chloride (Potassium Chloride Pwd/Soln) 40 meq PER PROTOCOL PRN PO POTASSIUM REPLACEMENT PROTOCOL; Start 08/04/18 at 10:30 Metoprolol Tartrate (Lopressor) 50 mg BID PO Last administered on 08/11/18 21:22; Admin Dose 50 MG; Start 08/04/18 at 16:30 Hydromorphone HCl (Dilaudid) 1.5 mg DAILY IV Last administered on 08/12/18 12:53; Admin Dose 1.5 MG; Start 08/06/18 at 09:00 Insulin Aspart (Novolog Insulin Pen) (Adult SC Insulin - Mild Algorithm)... AC MEALS AND BEDTIME SC Last administered on 08/12/18 12:46; Admin Dose 1 UNIT; Start 08/05/18 at 11:30 Apixaban (Eliquis) 5 mg BID PO Last administered on 08/12/18 08:30; Admin Dose 5 MG; Start 08/05/18 at 21:00 Mupirocin (Bactroban) 1 applic DAILY TOP Last administered on 08/12/18 08:31; Admin Dose 1 APPLIC; Start 08/08/18 at 09:00 Clindamycin HCl/ Dextrose 50 ml @ 50 mls/hr Q8 IVPB Last administered on 08/12/18 05:19; Admin Dose 50 MLS/HR; Start 08/07/18 at 14:00 Collagenase (Santyl) 1 applic DAILY TOP Last administered on 08/12/18 08:30; Admin Dose 1 APPLIC; Start 08/11/18 at 09:00 Multivitamins Therapeutic (Theragran) 1 tab DAILY PO Last administered on 08/12/18 08:30; Admin Dose 1 TAB; Start 08/11/18 at 09:00 Ascorbic Acid (Vitamin C) 500 mg DAILY PO Last administered on 08/12/18 08:30; Admin Dose 500 MG; Start 08/11/18 at 09:00 Folic Acid (Folic Acid) 1 mg DAILY PO Last administered on 08/12/18 08:31; Admin Dose 1 MG; Start 08/11/18 at 09:00 Zinc Sulfate (Zinc Sulfate) 220 mg DAILY PO Last administered on 08/12/18 08:30; Admin Dose 220 MG; Start 08/11/18 at 09:00 Acetaminophen/ Hydrocodone Bitart ([place] (10)) 1 tab Q4H PRN PO MODERATE PAIN LEVEL 4-6 Last administered on 08/12/18 07:45; Admin Dose 1 TAB; Start 08/11/18 at 03:30 ALCIRA STEWART August 12, 2018 14:13
[2018-08-12 19:49] VITALS: BP 106/70; PULSE 88; RESP 19
[2018-08-12] MEDS: traMADol 50 MG TAB PO PRN (22:53)
[2018-08-12] MEDS: ONDANSETRON 4 MG INJ IV PRN (23:07)
[2018-08-13] MEDS: HYDROCODONE/APAP (10/325) TAB PO PRN ×4 (02:09→22:39)
[2018-08-13 02:20] VITALS: BP 114/74; PULSE 84; RESP 18
[2018-08-13] MEDS: CLINDAMYCIN 900 MG/D5W (PMX) 50 ML IVPB SCH ×2 (05:15→13:09)
[2018-08-13 07:39] VITALS: BP 96/73; PULSE 85; RESP 18
[2018-08-13] MEDS: MULTIVITAMINS THERAPEUTIC TAB PO SCH (08:49)
[2018-08-13] MEDS: APIXABAN 5 MG TABLET PO SCH ×2 (08:49→21:12)
[2018-08-13] MEDS: FOLIC ACID 1 MG TAB PO SCH (08:49)
[2018-08-13] MEDS: BALSAM PERU/CASTOR OIL 60 GM TUBE TOP SCH ×2 (08:50→21:14)
[2018-08-13] MEDS: COLLAGENASE 5 GM (UD JAR) TOP SCH (08:50)
[2018-08-13] MEDS: ASCORBIC ACID 500 MG TAB PO SCH (08:50)
[2018-08-13] MEDS: ZINC SULFATE 220 MG CAP PO SCH (08:50)
[2018-08-13] MEDS: MUPIROCIN 2% 22 GM OINT TOP SCH (08:50)
[2018-08-13] MEDS: METOPROLOL 50 MG TAB PO SCH ×2 (08:51→21:13)
[2018-08-13] MEDS: Insulin NOVOLOG SS MILD Algorithm (SS with meals and bedtime) SC SCH ×4 (08:51→21:00)
[2018-08-13] MEDS: ONDANSETRON 4 MG INJ IV PRN (09:33)
--- NOTE | 2018-08-13 11:09 | CONS ---
Date/Time of Note Date/Time of Note DATE: 08/13/18 TIME: 11:03 Consult Date/Type/Reason Admit Date Jul 31, 2018 at 06:30 Type of Consult Psych Ordering Provider: ADDI LOPEZ NP Subjective Patient is withdrawn and isolative with no interaction with peers. Reports sadness and hopelessness, since the of his . He however denies suicidal ideation, and unable to contract for safety Objective Patient Appearance: Appropriate dress, Disheveled Voice Loudness: Mildly Soft/Quiet, Moderately Soft/Quiet Mood and Affect Description: Flat affect Mood or Affect: Withdrawn Speech Pattern: Clear Thought Process: Intact Hallucination Type: None Delusion Description: Not Present LEONARD REY NP August 13, 2018 11:09
--- NOTE | 2018-08-13 12:08 | CONS ---
Assessment/Plan Assessment/Plan Hospital Course (Demo Recall) + diarrhea Indwelling: Right upper extremity PICC line, Becerra catheter Antimicrobials: IV clindamycin Microbiology: Blood culture since admission grew MRSA, repeat bld cx neg, wound cx + MRSA Physical examination: This is a chronically ill-appearing well-developed elderly man who is awake in no distress. Head atraumatic normocephalic neck is supple chest rise symmetrical breath sounds diminished the bases heart S1-S2 abdomen soft bowel sounds hypoactive extremities with bilateral lower extremities edema patient has significant cellulitis with draining wounds Assessment: 1. S/p severe sepsis, present on admission 2. MRSA bacteremia likely secondary to infected wounds 3. Bilateral lower extremity cellulitis 4. Peripheral arterial disease 5. Acute encephalopathy on admission 6. Left cephalic vein DVT 7. Pneumonia/CHF exacerbation==>s/p extubated 8. Polysubstance abuse Plan: Change Clindamycin to Doxycycline, add empiric Flagyl, send stool for C dif Consultation Date/Type/Reason Admit Date/Time Jul 31, 2018 at 06:30 Initial Consult Date 08/01/18 Type of Consult id Requesting Provider: ADDI LOPEZ NP Date/Time of Note DATE: 08/13/18 TIME: 12:04 Exam/Review of Systems Exam Vitals Vital Signs Date Temp Pulse Resp B/P (MAP) Pulse Ox O2 O2 Flow FiO2 Time Delivery Rate 08/13/18 98.0 85 18 96/73 (81) 94 Room Air 07:39 08/13/18 2.0 05:41 Intake and Output 08/12/18 08/12/18 08/13/18 1515:00 23:00 07:00 IntakeIntake Total 700 ml 50 ml OutputOutput Total 900 ml 900 ml BalanceBalance -200 ml -850 ml Results Result Diagram: 08/09/18 0940 Results 24hrs Laboratory Tests Test 08/12/18 12:30 08/12/18 17:07 08/12/18 21:36 08/13/18 08:48 Bedside Glucose 161 149 128 117 Medications Medication Current Medications IV Flush (NS 3 ml) 3 ml PER PROTOCOL IV ; Start 07/31/18 at 09:30 Ondansetron HCl (Zofran Inj) 4 mg Q6H PRN IV NAUSEA/VOMITING Last administered on 08/13/18at 09:33; Admin Dose 4 MG; Start 07/31/18 at 09:30 Acetaminophen (Tylenol Tab) 650 mg Q6H PRN PO .PAIN 1-3 OR TEMP; Start 07/31/18 at 09:30 Miscellaneous Information (* Miscellaneous Pharmacy Order) HYPOGLYCEMIA PROTOCOL w... ONCE XX ; Start 08/01/18 at 18:30 Miscellaneous Information 1 ea NOTE XX ; Start 08/01/18 at 18:30 Glucose (Glutose) 15 gm Q15M PRN PO DECREASED GLUCOSE Last administered on 08/05/18at 09:43; Admin Dose 15 GM; Start 08/01/18 at 18:30 Glucose (Glutose) 22.5 gm Q15M PRN PO DECREASED GLUCOSE; Start 08/01/18 at 18:30 Dextrose (D50w Syringe) 25 ml Q15M PRN IV DECREASED GLUCOSE Last administered on 08/02/18at 17:44; Admin Dose 25 ML; Start 08/01/18 at 18:30 Dextrose (D50w Syringe) 50 ml Q15M PRN IV DECREASED GLUCOSE Last administered on 08/01/18at 18:20; Admin Dose 25 ML; Start 08/01/18 at 18:30 Glucagon (Glucagen) 1 mg Q15M PRN IM DECREASED GLUCOSE; Start 08/01/18 at 18:30 Glucose (Glutose) 15 gm Q15M PRN BUCCAL DECREASED GLUCOSE; Start 08/01/18 at 18:30 Furosemide (Lasix) 40 mg BID DIURETICS IV Last administered on 08/05/18at 05:40; Admin Dose 40 MG; Start 08/03/18 at 09:30; Status Hold IV Flush (NS 10 ml) 10 ml PRN PRN IV IV PROTOCOL; Start 08/03/18 at 13:00 Potassium Chloride (Potassium Chloride Pwd/Soln) 20 meq PER PROTOCOL PRN PO POTASSIUM REPLACEMENT PROTOCOL Last administered on 08/07/18at 20:53; Admin Dose 20 MEQ; Start 08/04/18 at 10:30 Potassium Chloride (Potassium Chloride Pwd/Soln) 30 meq PER PROTOCOL PRN PO POTASSIUM REPLACEMENT PROTOCOL; Start 08/04/18 at 10:30 Potassium Chloride (Potassium Chloride Pwd/Soln) 40 meq PER PROTOCOL PRN PO POTASSIUM REPLACEMENT PROTOCOL; Start 08/04/18 at 10:30 Metoprolol Tartrate (Lopressor) 50 mg BID PO Last administered on 08/12/18 21:39; Admin Dose 50 MG; Start 08/04/18 at 16:30 Hydromorphone HCl (Dilaudid) 1.5 mg DAILY IV Last administered on 08/12/18 12:53; Admin Dose 1.5 MG; Start 08/06/18 at 09:00 Insulin Aspart (Novolog Insulin Pen) (Adult SC Insulin - Mild Algorithm)... AC MEALS AND BEDTIME SC Last administered on 08/12/18 17:15; Admin Dose 1 UNIT; Start 08/05/18 at 11:30 Apixaban (Eliquis) 5 mg BID PO Last administered on 08/13/18 08:49; Admin Dose 5 MG; Start 08/05/18 at 21:00 Mupirocin (Bactroban) 1 applic DAILY TOP Last administered on 08/13/18 08:50; Admin Dose 1 APPLIC; Start 08/08/18 at 09:00 Clindamycin HCl/ Dextrose 50 ml @ 50 mls/hr Q8 IVPB Last administered on 08/13/18 05:15; Admin Dose 50 MLS/HR; Start 08/07/18 at 14:00 Collagenase (Santyl) 1 applic DAILY TOP Last administered on 08/13/18 08:50; Admin Dose 1 APPLIC; Start 08/11/18 at 09:00 Multivitamins Therapeutic (Theragran) 1 tab DAILY PO Last administered on 08/13/18 08:49; Admin Dose 1 TAB; Start 08/11/18 at 09:00 Ascorbic Acid (Vitamin C) 500 mg DAILY PO Last administered on 08/13/18 08:50; Admin Dose 500 MG; Start 08/11/18 at 09:00 Folic Acid (Folic Acid) 1 mg DAILY PO Last administered on 08/13/18 08:49; Admin Dose 1 MG; Start 08/11/18 at 09:00 Zinc Sulfate (Zinc Sulfate) 220 mg DAILY PO Last administered on 08/13/18 08:50; Admin Dose 220 MG; Start 08/11/18 at 09:00 Acetaminophen/ Hydrocodone Bitart (Ray (10/325)) 1 tab Q4H PRN PO MODERATE PAIN LEVEL 4-6 Last administered on 08/13/18 02:09; Admin Dose 1 TAB; Start 08/11/18 at 03:30 Tramadol HCl (Ultram) 50 mg Q6H PRN PO MODERATE PAIN LEVEL 4-6 Last administered on 08/12/18at 22:53; Admin Dose 50 MG; Start 08/12/18 at 22:00 Citalopram Hydrobromide (Celexa) 20 mg DAILY PO ; Start 08/13/18 at 11:30 BRADY OROURKE NP August 13, 2018 12:08
[2018-08-13] MEDS: CITALOPRAM 20 MG TAB PO SCH (12:30)
[2018-08-13 13:44] VITALS: BP 94/56; PULSE 91; RESP 18
[2018-08-13] MEDS: FUROSEMIDE 40 MG INJ IV SCH (14:13)
--- NOTE | 2018-08-13 14:19 | PN ---
Date/Time of Note Date/Time of Note DATE: 08/13/18 TIME: 14:16 Assessment/Plan VTE Prophylaxis Risk score (from Nsg)>0 risk: 8 Pharmacological prophylaxis: apixaban Lines/Catheters Urinary Cath still in place: No Assessment/Plan Hospital Course 62 yo male with venous stasis ulcerations, cellulitis, systolic CHF, acute respiratory failure, MRSA bacteremia MRSA bacteremia: - Presumed source is cellulitis, wounds on legs with extensive open skin - Abx changed to clindamycin per ID - Repeat cultures negative -Podiatry consultation appreciated Systolic CHF: -Echo shows an EF of 20% -Renal function improved, resume Lasix - Neurohormonal blockade (currently on Metoprolol. Add RORO-I, ketty when creatinine stable) ASA: Improving -Resume Lasix - Perhaps prerenal vs ATN from abx - Monitor creatinine Gastroparesis -Reglan with meals Acute respiratory failure: - s/p extubation. NC O2 as needed Hypokalemia: - Repletion as needed Anemia: - Mild iron deficiency. Replete iron Venous stasis disease: - Wound care, pain control Atrial fibrillation: - Metoprolol for rate control - Apixaban Prophylaxis: [place] [facility] planning: Patient will need placement in facility, PT eval Result Diagram: 08/09/18 0940 Results 24hrs Laboratory Tests Test 08/12/18 17:07 08/12/18 21:36 08/13/18 08:48 08/13/18 12:29 Bedside Glucose 149 128 117 118 Subjective 24 Hr Interval Summary Gastrointestinal: nausea Musculoskeletal: bone/joint pain Exam/Review of Systems Exam Vitals Vital Signs Date Temp Pulse Resp B/P (MAP) Pulse Ox O2 O2 Flow FiO2 Time Delivery Rate 08/13/18 97.8 91 18 94/56 (69) 91 Room Air 13:44 08/13/18 2.0 05:41 Intake and Output 08/12/18 08/12/18 08/13/18 1414:59 22:59 06:59 IntakeIntake Total 700 ml 50 ml OutputOutput Total 900 ml 900 ml BalanceBalance -200 ml -850 ml Constitutional: alert, oriented Respiratory: clear to auscultation Cardiovascular: regular rate and rhythm Gastrointestinal: soft; No distended Musculoskeletal: No nl extremities to inspection Results Results 24hrs Laboratory Tests Test 08/12/18 17:07 08/12/18 21:36 08/13/18 08:48 08/13/18 12:29 Bedside Glucose 149 128 117 118 Medications Medication Current Medications IV Flush (NS 3 ml) 3 ml PER PROTOCOL IV ; Start 07/31/18 at 09:30 Ondansetron HCl (Zofran Inj) 4 mg Q6H PRN IV NAUSEA/VOMITING Last administered on 08/13/18at 09:33; Admin Dose 4 MG; Start 07/31/18 at 09:30 Acetaminophen (Tylenol Tab) 650 mg Q6H PRN PO .PAIN 1-3 OR TEMP; Start 07/31/18 at 09:30 Miscellaneous Information (* Miscellaneous Pharmacy Order) HYPOGLYCEMIA PROTOCOL w... ONCE XX ; Start 08/01/18 at 18:30 Miscellaneous Information 1 ea NOTE XX ; Start 08/01/18 at 18:30 Glucose (Glutose) 15 gm Q15M PRN PO DECREASED GLUCOSE Last administered on 08/05/18at 09:43; Admin Dose 15 GM; Start 08/01/18 at 18:30 Glucose (Glutose) 22.5 gm Q15M PRN PO DECREASED GLUCOSE; Start 08/01/18 at 18:30 Dextrose (D50w Syringe) 25 ml Q15M PRN IV DECREASED GLUCOSE Last administered on 08/02/18at 17:44; Admin Dose 25 ML; Start 08/01/18 at 18:30 Dextrose (D50w Syringe) 50 ml Q15M PRN IV DECREASED GLUCOSE Last administered on 08/01/18at 18:20; Admin Dose 25 ML; Start 08/01/18 at 18:30 Glucagon (Glucagen) 1 mg Q15M PRN IM DECREASED GLUCOSE; Start 08/01/18 at 18:30 Glucose (Glutose) 15 gm Q15M PRN BUCCAL DECREASED GLUCOSE; Start 08/01/18 at 18:30 Furosemide (Lasix) 40 mg BID DIURETICS IV Last administered on 08/05/18at 05:40; Admin Dose 40 MG; Start 08/03/18 at 09:30; Status Hold IV Flush (NS 10 ml) 10 ml PRN PRN IV IV PROTOCOL; Start 08/03/18 at 13:00 Potassium Chloride (Potassium Chloride Pwd/Soln) 20 meq PER PROTOCOL PRN PO POTASSIUM REPLACEMENT PROTOCOL Last administered on 08/07/18at 20:53; Admin Dose 20 MEQ; Start 08/04/18 at 10:30 Potassium Chloride (Potassium Chloride Pwd/Soln) 30 meq PER PROTOCOL PRN PO POTASSIUM REPLACEMENT PROTOCOL; Start 08/04/18 at 10:30 Potassium Chloride (Potassium Chloride Pwd/Soln) 40 meq PER PROTOCOL PRN PO POTASSIUM REPLACEMENT PROTOCOL; Start 08/04/18 at 10:30 Metoprolol Tartrate (Lopressor) 50 mg BID PO Last administered on 08/12/18 21:39; Admin Dose 50 MG; Start 08/04/18 at 16:30 Hydromorphone HCl (Dilaudid) 1.5 mg DAILY IV Last administered on 08/12/18 12:53; Admin Dose 1.5 MG; Start 08/06/18 at 09:00 Insulin Aspart (Novolog Insulin Pen) (Adult SC Insulin - Mild Algorithm)... AC MEALS AND BEDTIME SC Last administered on 08/12/18 17:15; Admin Dose 1 UNIT; Start 08/05/18 at 11:30 Apixaban (Eliquis) 5 mg BID PO Last administered on 08/13/18 08:49; Admin Dose 5 MG; Start 08/05/18 at 21:00 Mupirocin (Bactroban) 1 applic DAILY TOP Last administered on 08/13/18 08:50; Admin Dose 1 APPLIC; Start 08/08/18 at 09:00 Clindamycin HCl/ Dextrose 50 ml @ 50 mls/hr Q8 IVPB Last administered on 08/13/18 13:09; Admin Dose 50 MLS/HR; Start 08/07/18 at 14:00 Collagenase (Santyl) 1 applic DAILY TOP Last administered on 08/13/18 08:50; Admin Dose 1 APPLIC; Start 08/11/18 at 09:00 Multivitamins Therapeutic (Theragran) 1 tab DAILY PO Last administered on 08/13/18 08:49; Admin Dose 1 TAB; Start 08/11/18 at 09:00 Ascorbic Acid (Vitamin C) 500 mg DAILY PO Last administered on 08/13/18 08:50; Admin Dose 500 MG; Start 08/11/18 at 09:00 Folic Acid (Folic Acid) 1 mg DAILY PO Last administered on 08/13/18 08:49; Admin Dose 1 MG; Start 08/11/18 at 09:00 Zinc Sulfate (Zinc Sulfate) 220 mg DAILY PO Last administered on 08/13/18at 08:50; Admin Dose 220 MG; Start 08/11/18 at 09:00 Acetaminophen/ Hydrocodone Bitart ([place] (10/325)) 1 tab Q4H PRN PO MODERATE PAIN LEVEL 4-6 Last administered on 08/13/18at 12:33; Admin Dose 1 TAB; Start 08/11/18 at 03:30 Tramadol HCl (Ultram) 50 mg Q6H PRN PO MODERATE PAIN LEVEL 4-6 Last administered on 08/12/18at 22:53; Admin Dose 50 MG; Start 08/12/18 at 22:00 Citalopram Hydrobromide (Celexa) 20 mg DAILY PO Last administered on 08/13/18at 12:30; Admin Dose 20 MG; Start 08/13/18 at 11:30 Furosemide (Lasix) 40 mg DAILY IV ; Start 08/13/18 at 14:00 Metoclopramide HCl (Reglan) 5 mg AC MEALS PO ; Start 08/13/18 at 17:30 ALCIRA STEWART August 13, 2018 14:19
[2018-08-13] MEDS: metroNIDAZOLE 500 MG TAB PO SCH ×2 (15:38→21:13)
[2018-08-13] MEDS: HYDROmorphONE 2 MG/ML SYG IV SCH (15:42)
[2018-08-13] MEDS: METOCLOPRAMIDE 5 MG TAB PO SCH (17:25)
[2018-08-13] MEDS: traMADol 50 MG TAB PO PRN (18:45)
[2018-08-13 20:27] VITALS: BP 100/61; PULSE 86; RESP 18
[2018-08-13] MEDS: DOXYCYCLINE 100 MG TAB PO SCH (21:13)
[2018-08-14] MEDS: traMADol 50 MG TAB PO PRN (00:48)
[2018-08-14 01:48] VITALS: BP 95/62; PULSE 71; RESP 18
[2018-08-14] MEDS: metroNIDAZOLE 500 MG TAB PO SCH ×3 (06:03→20:59)
[2018-08-14] MEDS: METOCLOPRAMIDE 5 MG TAB PO SCH ×3 (06:03→17:30)
[2018-08-14] MEDS: HYDROCODONE/APAP (10/325) TAB PO PRN ×3 (06:03→20:42)
[2018-08-14] MEDS: Insulin NOVOLOG SS MILD Algorithm (SS with meals and bedtime) SC SCH ×4 (07:00→20:59)
[2018-08-14 08:00] VITALS: BP 118/65; PULSE 71; RESP 18
[2018-08-14] MEDS: HYDROmorphONE 2 MG/ML SYG IV SCH (09:00)
[2018-08-14] MEDS ORDERED: MAGNESIUM SULFATE 4 GM/100 ML 100 ML IVPB ONE (10:30)
[2018-08-14] MEDS: DOXYCYCLINE 100 MG TAB PO SCH ×2 (10:37→20:58)
[2018-08-14] MEDS: MULTIVITAMINS THERAPEUTIC TAB PO SCH (10:37)
[2018-08-14] MEDS: FOLIC ACID 1 MG TAB PO SCH (10:37)
[2018-08-14] MEDS: COLLAGENASE 5 GM (UD JAR) TOP SCH (10:37)
[2018-08-14] MEDS: ASCORBIC ACID 500 MG TAB PO SCH (10:37)
[2018-08-14] MEDS: CITALOPRAM 20 MG TAB PO SCH (10:38)
[2018-08-14] MEDS: ZINC SULFATE 220 MG CAP PO SCH (10:38)
[2018-08-14] MEDS: BALSAM PERU/CASTOR OIL 60 GM TUBE TOP SCH ×2 (10:38→20:59)
[2018-08-14] MEDS: APIXABAN 5 MG TABLET PO SCH ×2 (10:38→20:58)
[2018-08-14] MEDS: MUPIROCIN 2% 22 GM OINT TOP SCH (10:39)
[2018-08-14] MEDS: FUROSEMIDE 40 MG INJ IV SCH (10:41)
[2018-08-14] MEDS: METOPROLOL 50 MG TAB PO SCH ×2 (10:42→20:58)
--- NOTE | 2018-08-14 11:45 | CONS ---
Assessment/Plan Assessment/Plan Hospital Course (Demo Recall) All noted, no events over night Indwelling: Right upper extremity PICC line, Becerra catheter Antimicrobials: Flagyl Doxycycline Microbiology: Blood culture since admission grew MRSA, repeat bld cx neg, wound cx + MRSA Physical examination: This is a chronically ill-appearing well-developed elderly man who is awake in no distress. Head atraumatic normocephalic neck is supple chest rise symmetrical breath sounds diminished the bases heart S1-S2 abdomen soft bowel sounds hypoactive extremities with bilateral lower extremities edema patient has significant cellulitis with draining wounds Assessment: 1. S/p severe sepsis, present on admission 2. MRSA bacteremia likely secondary to infected wounds 3. Bilateral lower extremity cellulitis 4. Peripheral arterial disease 5. Acute encephalopathy on admission 6. Left cephalic vein DVT 7. Pneumonia/CHF exacerbation==>s/p extubated 8. Polysubstance abuse Plan: Stable, stool for C dif neg preliminary, continue abx Consultation Date/Type/Reason Admit Date/Time Jul 31, 2018 at 06:30 Initial Consult Date 08/01/18 Type of Consult id Requesting Provider: ADDI LOPEZ NP Date/Time of Note DATE: 08/14/18 TIME: 11:44 Exam/Review of Systems Exam Vitals Vital Signs Date Temp Pulse Resp B/P (MAP) Pulse Ox O2 O2 Flow FiO2 Time Delivery Rate 08/14/18 98.1 71 18 118/65 92 08:00 (82) 08/13/18 Room Air 13:44 08/13/18 2.0 05:41 Intake and Output 08/13/18 08/13/18 08/14/18 1515:00 23:00 07:00 IntakeIntake Total 370 ml 420 ml 900 ml OutputOutput Total 300 ml 950 ml 920 ml BalanceBalance 70 ml -530 ml -20 ml Results Result Diagram: 08/14/18 0652 08/14/18 0652 Results 24hrs Laboratory Tests Test 08/13/18 12:29 08/13/18 17:26 08/13/18 21:11 08/14/18 06:52 Bedside Glucose 118 122 146 White Blood Count 8.2 # Red Blood Count 3.32 L Hemoglobin 9.2 L Hematocrit 27.8 L Mean Corpuscular 83.7 Volume Mean Corpuscular 27.7 L Hemoglobin Mean Corpuscular 33.1 Hemoglobin Concent Red Cell Distribution 24.3 H Width Platelet Count 162 # Mean Platelet Volume 9.6 Immature Granulocytes 0.700 H % Neutrophils % 74.9 Lymphocytes % 13.1 L Monocytes % 9.5 Eosinophils % 1.3 Basophils % 0.5 Nucleated Red Blood 0.0 Cells % Immature Granulocytes 0.060 H # Neutrophils # 6.1 Lymphocytes # 1.1 Monocytes # 0.8 Eosinophils # 0.1 Basophils # 0.0 Nucleated Red Blood 0.0 Cells # Sodium Level 133 L Potassium Level 3.0 L Chloride Level 98 Carbon Dioxide Level 26 Anion Gap 9 Blood Urea Nitrogen 26 H Creatinine 0.85 Est Glomerular Filtrat > 60 Rate mL/min Glucose Level 95 Calcium Level 8.1 L Phosphorus Level 3.5 Magnesium Level 1.2 L Test 08/14/18 08:24 Bedside Glucose 107 Medications Medication Current Medications IV Flush (NS 3 ml) 3 ml PER PROTOCOL IV ; Start 07/31/18 at 09:30 Ondansetron HCl (Zofran Inj) 4 mg Q6H PRN IV NAUSEA/VOMITING Last administered on 08/13/18at 09:33; Admin Dose 4 MG; Start 07/31/18 at 09:30 Acetaminophen (Tylenol Tab) 650 mg Q6H PRN PO .PAIN 1-3 OR TEMP; Start 07/31/18 at 09:30 Miscellaneous Information (* Miscellaneous Pharmacy Order) HYPOGLYCEMIA PROTOCOL w... ONCE XX ; Start 08/01/18 at 18:30 Miscellaneous Information 1 ea NOTE XX ; Start 08/01/18 at 18:30 Glucose (Glutose) 15 gm Q15M PRN PO DECREASED GLUCOSE Last administered on 08/05/18at 09:43; Admin Dose 15 GM; Start 08/01/18 at 18:30 Glucose (Glutose) 22.5 gm Q15M PRN PO DECREASED GLUCOSE; Start 08/01/18 at 18:30 Dextrose (D50w Syringe) 25 ml Q15M PRN IV DECREASED GLUCOSE Last administered on 08/02/18at 17:44; Admin Dose 25 ML; Start 08/01/18 at 18:30 Dextrose (D50w Syringe) 50 ml Q15M PRN IV DECREASED GLUCOSE Last administered on 08/01/18at 18:20; Admin Dose 25 ML; Start 08/01/18 at 18:30 Glucagon (Glucagen) 1 mg Q15M PRN IM DECREASED GLUCOSE; Start 08/01/18 at 18:30 Glucose (Glutose) 15 gm Q15M PRN BUCCAL DECREASED GLUCOSE; Start 08/01/18 at 18:30 Furosemide (Lasix) 40 mg BID DIURETICS IV Last administered on 08/05/18at 05:40; Admin Dose 40 MG; Start 08/03/18 at 09:30; Status Hold IV Flush (NS 10 ml) 10 ml PRN PRN IV IV PROTOCOL; Start 08/03/18 at 13:00 Potassium Chloride (Potassium Chloride Pwd/Soln) 20 meq PER PROTOCOL PRN PO POTASSIUM REPLACEMENT PROTOCOL Last administered on 08/07/18at 20:53; Admin Dose 20 MEQ; Start 08/04/18 at 10:30 Potassium Chloride (Potassium Chloride Pwd/Soln) 30 meq PER PROTOCOL PRN PO POTASSIUM REPLACEMENT PROTOCOL; Start 08/04/18 at 10:30 Potassium Chloride (Potassium Chloride Pwd/Soln) 40 meq PER PROTOCOL PRN PO POTASSIUM REPLACEMENT PROTOCOL; Start 08/04/18 at 10:30 Metoprolol Tartrate (Lopressor) 50 mg BID PO Last administered on 08/14/18 10:42; Admin Dose 50 MG; Start 08/04/18 at 16:30 Hydromorphone HCl (Dilaudid) 1.5 mg DAILY IV Last administered on 08/13/18 15:42; Admin Dose 1.5 MG; Start 08/06/18 at 09:00 Insulin Aspart (Novolog Insulin Pen) (Adult SC Insulin - Mild Algorithm)... AC MEALS AND BEDTIME SC Last administered on 08/12/18 17:15; Admin Dose 1 UNIT; Start 08/05/18 at 11:30 Apixaban (Eliquis) 5 mg BID PO Last administered on 08/14/18 10:38; Admin Dose 5 MG; Start 08/05/18 at 21:00 Mupirocin (Bactroban) 1 applic DAILY TOP Last administered on 08/14/18 10:39; Admin Dose 1 APPLIC; Start 08/08/18 at 09:00 Collagenase (Santyl) 1 applic DAILY TOP Last administered on 08/14/18 10:37; Admin Dose 1 APPLIC; Start 08/11/18 at 09:00 Multivitamins Therapeutic (Theragran) 1 tab DAILY PO Last administered on 08/14/18 10:37; Admin Dose 1 TAB; Start 08/11/18 at 09:00 Ascorbic Acid (Vitamin C) 500 mg DAILY PO Last administered on 08/14/18 10:37; Admin Dose 500 MG; Start 08/11/18 at 09:00 Folic Acid (Folic Acid) 1 mg DAILY PO Last administered on 08/14/18 10:37; Admin Dose 1 MG; Start 08/11/18 at 09:00 Zinc Sulfate (Zinc Sulfate) 220 mg DAILY PO Last administered on 08/14/18 10:38; Admin Dose 220 MG; Start 08/11/18 at 09:00 Acetaminophen/ Hydrocodone Bitart ([place] ()) 1 tab Q4H PRN PO MODERATE PAIN LEVEL 4-6 Last administered on 08/14/18 10:42; Admin Dose 1 TAB; Start 08/11/18 at 03:30 Tramadol HCl (Ultram) 50 mg Q6H PRN PO MODERATE PAIN LEVEL 4-6 Last administered on 08/14/18 00:48; Admin Dose 50 MG; Start 08/12/18 at 22:00 Citalopram Hydrobromide (Celexa) 20 mg DAILY PO Last administered on 08/14/18 10:38; Admin Dose 20 MG; Start 08/13/18 at 11:30 Furosemide (Lasix) 40 mg DAILY IV Last administered on 08/14/18 10:41; Admin Dose 40 MG; Start 08/13/18 at 14:00 Metoclopramide HCl (Reglan) 5 mg AC MEALS PO Last administered on 08/14/18 10:41; Admin Dose 5 MG; Start 08/13/18 at 17:30 Doxycycline Hyclate (Vibramycin) 100 mg BID PO Last administered on 08/14/18 10:37; Admin Dose 100 MG; Start 08/13/18 at 21:00 Metronidazole (Flagyl) 500 mg Q8 PO Last administered on 08/14/18 06:03; Admin Dose 500 MG; Start 08/13/18 at 15:00 Magnesium Sulfate 100 ml @ 25 mls/hr ONCE ONCE IVPB ; Start 08/14/18 at 10:30; Stop 08/14/18 at 14:29 Quetiapine Fumarate (Seroquel) 100 mg HS PO ; Start 08/14/18 at 21:00 BRADY OROURKE NP August 14, 2018 11:45
[2018-08-14] MEDS ORDERED: POTASSIUM CHLORIDE (SR) 20 MEQ TAB PO ONE ×2 (12:00→13:00)
--- NOTE | 2018-08-14 13:45 | PN ---
Date/Time of Note Date/Time of Note DATE: 08/14/18 TIME: 13:44 Assessment/Plan VTE Prophylaxis Risk score (from Ns)>0 risk: 8 Pharmacological prophylaxis: apixaban Lines/Catheters Urinary Cath still in place: No Assessment/Plan Hospital Course 62 yo male with venous stasis ulcerations, cellulitis, systolic CHF, acute respiratory failure, MRSA bacteremia MRSA bacteremia: - Presumed source is cellulitis, wounds on legs with extensive open skin - Abx changed to clindamycin per ID - Repeat cultures negative -Podiatry consultation appreciated Systolic CHF: -Echo shows an EF of 20% -Renal function improved, resumed Lasix - Neurohormonal blockade (currently on Metoprolol. Add RORO-I, ketty when creatinine stable) ASA: Resolved -Resumed Lasix - Perhaps prerenal vs ATN from abx - Monitor creatinine Gastroparesis -Reglan with meals Acute respiratory failure: - s/p extubation. NC O2 as needed Hypokalemia: - Repletion as needed Anemia: - Mild iron deficiency. Replete iron Venous stasis disease: - Wound care, pain control Atrial fibrillation: - Metoprolol for rate control - Apixaban Prophylaxis: [place] KRUE[facility] planning: Patient will need placement in facility, PT eval Result Diagram: 08/14/1852 08/14/1852 Results 24hrs Laboratory Tests Test 08/13/18 17:26 08/13/18 21:11 08/14/18 06:52 08/14/18 08:24 Bedside Glucose 122 146 107 White Blood Count 8.2 # Red Blood Count 3.32 L Hemoglobin 9.2 L Hematocrit 27.8 L Mean Corpuscular 83.7 Volume Mean Corpuscular 27.7 L Hemoglobin Mean Corpuscular 33.1 Hemoglobin Concent Red Cell Distribution 24.3 H Width Platelet Count 162 # Mean Platelet Volume 9.6 Immature Granulocytes 0.700 H % Neutrophils % 74.9 Lymphocytes % 13.1 L Monocytes % 9.5 Eosinophils % 1.3 Basophils % 0.5 Nucleated Red Blood 0.0 Cells % Immature Granulocytes 0.060 H # Neutrophils # 6.1 Lymphocytes # 1.1 Monocytes # 0.8 Eosinophils # 0.1 Basophils # 0.0 Nucleated Red Blood 0.0 Cells # Sodium Level 133 L Potassium Level 3.0 L Chloride Level 98 Carbon Dioxide Level 26 Anion Gap 9 Blood Urea Nitrogen 26 H Creatinine 0.85 Est Glomerular > 60 Filtrat Rate mL/min Glucose Level 95 Calcium Level 8.1 L Phosphorus Level 3.5 Magnesium Level 1.2 L Test 08/14/18 13:00 Bedside Glucose 124 Subjective 24 Hr Interval Summary Constitutional: no complaints Exam/Review of Systems Exam Vitals Vital Signs Date Temp Pulse Resp B/P (MAP) Pulse Ox O2 O2 Flow FiO2 Time Delivery Rate 08/14/18 98.1 71 18 118/65 92 08:00 (82) 08/13/18 Room Air 13:44 08/13/18 2.0 05:41 Intake and Output 08/13/18 08/13/18 08/14/18 1515:00 23:00 07:00 IntakeIntake Total 370 ml 420 ml 900 ml OutputOutput Total 300 ml 950 ml 920 ml BalanceBalance 70 ml -530 ml -20 ml Constitutional: alert, oriented Respiratory: clear to auscultation Cardiovascular: regular rate and rhythm Gastrointestinal: soft; No distended Musculoskeletal: No nl extremities to inspection Results Results 24hrs Laboratory Tests Test 08/13/18 17:26 08/13/18 21:11 08/14/18 06:52 08/14/18 08:24 Bedside Glucose 122 146 107 White Blood Count 8.2 # Red Blood Count 3.32 L Hemoglobin 9.2 L Hematocrit 27.8 L Mean Corpuscular 83.7 Volume Mean Corpuscular 27.7 L Hemoglobin Mean Corpuscular 33.1 Hemoglobin Concent Red Cell Distribution 24.3 H Width Platelet Count 162 # Mean Platelet Volume 9.6 Immature Granulocytes 0.700 H % Neutrophils % 74.9 Lymphocytes % 13.1 L Monocytes % 9.5 Eosinophils % 1.3 Basophils % 0.5 Nucleated Red Blood 0.0 Cells % Immature Granulocytes 0.060 H # Neutrophils # 6.1 Lymphocytes # 1.1 Monocytes # 0.8 Eosinophils # 0.1 Basophils # 0.0 Nucleated Red Blood 0.0 Cells # Sodium Level 133 L Potassium Level 3.0 L Chloride Level 98 Carbon Dioxide Level 26 Anion Gap 9 Blood Urea Nitrogen 26 H Creatinine 0.85 Est Glomerular > 60 Filtrat Rate mL/min Glucose Level 95 Calcium Level 8.1 L Phosphorus Level 3.5 Magnesium Level 1.2 L Test 08/14/18 13:00 Bedside Glucose 124 Medications Medication Current Medications IV Flush (NS 3 ml) 3 ml PER PROTOCOL IV ; Start 07/31/18 at 09:30 Ondansetron HCl (Zofran Inj) 4 mg Q6H PRN IV NAUSEA/VOMITING Last administered on 08/13/18at 09:33; Admin Dose 4 MG; Start 07/31/18 at 09:30 Acetaminophen (Tylenol Tab) 650 mg Q6H PRN PO .PAIN 1-3 OR TEMP; Start 07/31/18 at 09:30 Miscellaneous Information (* Miscellaneous Pharmacy Order) HYPOGLYCEMIA PROTOCOL w... ONCE XX ; Start 08/01/18 at 18:30 Miscellaneous Information 1 ea NOTE XX ; Start 08/01/18 at 18:30 Glucose (Glutose) 15 gm Q15M PRN PO DECREASED GLUCOSE Last administered on 08/05at 09:43; Admin Dose 15 GM; Start 08/01/18 at 18:30 Glucose (Glutose) 22.5 gm Q15M PRN PO DECREASED GLUCOSE; Start 08/01/18 at 18:30 Dextrose (D50w Syringe) 25 ml Q15M PRN IV DECREASED GLUCOSE Last administered on 08/02/18at 17:44; Admin Dose 25 ML; Start 08/01/18 at 18:30 Dextrose (D50w Syringe) 50 ml Q15M PRN IV DECREASED GLUCOSE Last administered on 08/01/18at 18:20; Admin Dose 25 ML; Start 08/01/18 at 18:30 Glucagon (Glucagen) 1 mg Q15M PRN IM DECREASED GLUCOSE; Start 08/01/18 at 18:30 Glucose (Glutose) 15 gm Q15M PRN BUCCAL DECREASED GLUCOSE; Start 08/01/18 at 18:30 Furosemide (Lasix) 40 mg BID DIURETICS IV Last administered on 08/05/18at 05:40; Admin Dose 40 MG; Start 08/03/18 at 09:30; Status Hold IV Flush (NS 10 ml) 10 ml PRN PRN IV IV PROTOCOL; Start 08/03/18 at 13:00 Potassium Chloride (Potassium Chloride Pwd/Soln) 20 meq PER PROTOCOL PRN PO POTASSIUM REPLACEMENT PROTOCOL Last administered on 08/07/18at 20:53; Admin Dose 20 MEQ; Start 08/04/18 at 10:30 Potassium Chloride (Potassium Chloride Pwd/Soln) 30 meq PER PROTOCOL PRN PO POTASSIUM REPLACEMENT PROTOCOL; Start 08/04/18 at 10:30 Potassium Chloride (Potassium Chloride Pwd/Soln) 40 meq PER PROTOCOL PRN PO POTASSIUM REPLACEMENT PROTOCOL; Start 08/04/18 at 10:30 Metoprolol Tartrate (Lopressor) 50 mg BID PO Last administered on 08/14/18 10:42; Admin Dose 50 MG; Start 08/04/18 at 16:30 Hydromorphone HCl (Dilaudid) 1.5 mg DAILY IV Last administered on 08/13/18 15:42; Admin Dose 1.5 MG; Start 08/06/18 at 09:00 Insulin Aspart (Novolog Insulin Pen) (Adult SC Insulin - Mild Algorithm)... AC MEALS AND BEDTIME SC Last administered on 08/12/18 17:15; Admin Dose 1 UNIT; Start 08/05/18 at 11:30 Apixaban (Eliquis) 5 mg BID PO Last administered on 08/14/18 10:38; Admin Dose 5 MG; Start 08/05/18 at 21:00 Mupirocin (Bactroban) 1 applic DAILY TOP Last administered on 08/14/18 10:39; Admin Dose 1 APPLIC; Start 08/08/18 at 09:00 Collagenase (Santyl) 1 applic DAILY TOP Last administered on 08/14/18 10:37; Admin Dose 1 APPLIC; Start 08/11/18 at 09:00 Multivitamins Therapeutic (Theragran) 1 tab DAILY PO Last administered on 08/14/18 10:37; Admin Dose 1 TAB; Start 08/11/18 at 09:00 Ascorbic Acid (Vitamin C) 500 mg DAILY PO Last administered on 08/14/18 10:37; Admin Dose 500 MG; Start 08/11/18 at 09:00 Folic Acid (Folic Acid) 1 mg DAILY PO Last administered on 08/14/18 10:37; Admin Dose 1 MG; Start 08/11/18 at 09:00 Zinc Sulfate (Zinc Sulfate) 220 mg DAILY PO Last administered on 08/14/18 10:38; Admin Dose 220 MG; Start 08/11/18 at 09:00 Acetaminophen/ Hydrocodone Bitart ([place] (10/325)) 1 tab Q4H PRN PO MODERATE PAIN LEVEL 4-6 Last administered on 08/14/18 10:42; Admin Dose 1 TAB; Start 08/11/18 at 03:30 Tramadol HCl (Ultram) 50 mg Q6H PRN PO MODERATE PAIN LEVEL 4-6 Last administered on 08/14/18 00:48; Admin Dose 50 MG; Start 08/12/18 at 22:00 Citalopram Hydrobromide (Celexa) 20 mg DAILY PO Last administered on 08/14/18 10:38; Admin Dose 20 MG; Start 08/13/18 at 11:30 Furosemide (Lasix) 40 mg DAILY IV Last administered on 08/14/18 10:41; Admin Dose 40 MG; Start 08/13/18 at 14:00 Metoclopramide HCl (Reglan) 5 mg AC MEALS PO Last administered on 08/14/18 10:41; Admin Dose 5 MG; Start 08/13/18 at 17:30 Doxycycline Hyclate (Vibramycin) 100 mg BID PO Last administered on 08/14/18 10:37; Admin Dose 100 MG; Start 08/13/18 at 21:00 Metronidazole (Flagyl) 500 mg Q8 PO Last administered on 08/14/18 06:03; Admin Dose 500 MG; Start 08/13/18 at 15:00 Magnesium Sulfate 100 ml @ 25 mls/hr ONCE ONCE IVPB Last administered on 08/14/18 13:02; Admin Dose 25 MLS/HR; Start 08/14/18 at 10:30; Stop 08/14/18 at 14:29 Quetiapine Fumarate (Seroquel) 100 mg HS PO ; Start 08/14/18 at 21:00 ALCIRA STEWART August 14, 2018 13:45
[2018-08-14 14:00] VITALS: BP 97/61; PULSE 63; RESP 18
[2018-08-14 19:45] VITALS: BP 106/68; PULSE 68; RESP 19
[2018-08-14] MEDS: ONDANSETRON 4 MG INJ IV PRN (20:34)
[2018-08-14] MEDS: QUETIAPINE 100 MG TAB PO SCH (20:35)
[2018-08-15 01:43] VITALS: BP 110/64; PULSE 65; RESP 19
[2018-08-15] MEDS: metroNIDAZOLE 500 MG TAB PO SCH ×3 (06:33→22:24)
[2018-08-15] MEDS: HYDROCODONE/APAP (10/325) TAB PO PRN ×4 (06:33→22:25)
[2018-08-15] MEDS: METOCLOPRAMIDE 5 MG TAB PO SCH ×3 (06:33→17:06)
[2018-08-15] MEDS: Insulin NOVOLOG SS MILD Algorithm (SS with meals and bedtime) SC SCH ×4 (07:00→21:00)
[2018-08-15 07:32] VITALS: BP 97/57; PULSE 51; RESP 18
[2018-08-15] MEDS: FUROSEMIDE 40 MG INJ IV SCH (09:00)
[2018-08-15] MEDS: METOPROLOL 50 MG TAB PO SCH ×2 (09:00→21:22)
[2018-08-15] MEDS: MUPIROCIN 2% 22 GM OINT TOP SCH (10:00)
[2018-08-15] MEDS: BALSAM PERU/CASTOR OIL 60 GM TUBE TOP SCH ×2 (10:00→21:24)
[2018-08-15] MEDS: COLLAGENASE 5 GM (UD JAR) TOP SCH (10:00)
[2018-08-15] MEDS: FOLIC ACID 1 MG TAB PO SCH (10:01)
[2018-08-15] MEDS: ZINC SULFATE 220 MG CAP PO SCH (10:01)
[2018-08-15] MEDS: ASCORBIC ACID 500 MG TAB PO SCH (10:01)
[2018-08-15] MEDS: MULTIVITAMINS THERAPEUTIC TAB PO SCH (10:01)
[2018-08-15] MEDS: CITALOPRAM 20 MG TAB PO SCH (10:01)
[2018-08-15] MEDS: DOXYCYCLINE 100 MG TAB PO SCH ×2 (10:01→21:22)
[2018-08-15] MEDS: APIXABAN 5 MG TABLET PO SCH ×2 (10:02→21:22)
[2018-08-15 14:01] VITALS: BP 112/52; PULSE 58; RESP 18
[2018-08-15] MEDS: HYDROmorphONE 2 MG/ML SYG IV SCH (14:54)
--- NOTE | 2018-08-15 16:41 | PN ---
Date/Time of Note Date/Time of Note DATE: 08/15/18 TIME: 16:13 Assessment/Plan VTE Prophylaxis Risk score (from Ns)>0 risk: 8 Pharmacological prophylaxis: apixaban Assessment/Plan Hospital Course 62 yo male with venous stasis ulcerations, cellulitis, systolic CHF, acute respiratory failure, MRSA bacteremia MRSA bacteremia: - Presumed source is cellulitis, wounds on legs with extensive open skin - Abx changed to clindamycin per ID - Repeat cultures negative -Podiatry consultation appreciated Systolic CHF: -Echo shows an EF of 20% -Renal function improved, resumed Lasix - Neurohormonal blockade (currently on Metoprolol. Add RORO-I, ketty when creatinine stable) ASA: Resolved -Resumed Lasix - Perhaps prerenal vs ATN from abx - Monitor creatinine Gastroparesis -Reglan with meals Acute respiratory failure: - s/p extubation. NC O2 as needed Hypokalemia: - Repletion as needed Anemia: - Mild iron deficiency. Replete iron Venous stasis disease: - Wound care, pain control Atrial fibrillation: - Metoprolol for rate control - Apixaban Prophylaxis: [place] [facility] planning: Patient will need placement in facility, PT eval Result Diagram: 08/14/18 0652 08/15/18 1046 Results 24hrs Laboratory Tests Test 08/15/18 08:11 08/15/18 10:46 08/15/18 12:29 Bedside Glucose 117 132 Sodium Level 135 Potassium Level 3.1 L Chloride Level 99 Carbon Dioxide Level 27 Anion Gap 9 Blood Urea Nitrogen 20 Creatinine 0.81 Est Glomerular Filtrat Rate mL/min > 60 Glucose Level 124 Calcium Level 8.2 L Phosphorus Level 2.9 Magnesium Level 1.5 L Subjective 24 Hr Interval Summary Constitutional: no complaints Exam/Review of Systems Exam Vitals Vital Signs Date Temp Pulse Resp B/P (MAP) Pulse Ox O2 O2 Flow FiO2 Time Delivery Rate 08/15/18 98.1 58 18 112/52 93 Room Air 14:01 (72) 08/13/18 2.0 05:41 Intake and Output 08/14/18 08/14/18 08/15/18 1515:00 23:00 07:00 IntakeIntake Total 560 ml 280 ml OutputOutput Total 300 ml 300 ml BalanceBalance 260 ml 280 ml -300 ml Constitutional: alert Respiratory: clear to auscultation Cardiovascular: regular rate and rhythm Gastrointestinal: soft; No distended Musculoskeletal: No nl extremities to inspection Results Results 24hrs Laboratory Tests Test 08/15/18 08:11 08/15/18 10:46 08/15/18 12:29 Bedside Glucose 117 132 Sodium Level 135 Potassium Level 3.1 L Chloride Level 99 Carbon Dioxide Level 27 Anion Gap 9 Blood Urea Nitrogen 20 Creatinine 0.81 Est Glomerular Filtrat Rate mL/min > 60 Glucose Level 124 Calcium Level 8.2 L Phosphorus Level 2.9 Magnesium Level 1.5 L Medications Medication Current Medications IV Flush (NS 3 ml) 3 ml PER PROTOCOL IV ; Start 07/31/18 at 09:30 Ondansetron HCl (Zofran Inj) 4 mg Q6H PRN IV NAUSEA/VOMITING Last administered on 08/14/18at 20:34; Admin Dose 4 MG; Start 07/31/18 at 09:30 Acetaminophen (Tylenol Tab) 650 mg Q6H PRN PO .PAIN 1-3 OR TEMP; Start 07/31/18 at 09:30 Miscellaneous Information (* Miscellaneous Pharmacy Order) HYPOGLYCEMIA PROTOCOL w... ONCE XX ; Start 08/01/18 at 18:30 Miscellaneous Information 1 ea NOTE XX ; Start 08/01/18 at 18:30 Glucose (Glutose) 15 gm Q15M PRN PO DECREASED GLUCOSE Last administered on 08/05/18at 09:43; Admin Dose 15 GM; Start 08/01/18 at 18:30 Glucose (Glutose) 22.5 gm Q15M PRN PO DECREASED GLUCOSE; Start 08/01/18 at 18:30 Dextrose (D50w Syringe) 25 ml Q15M PRN IV DECREASED GLUCOSE Last administered on 08/02/18at 17:44; Admin Dose 25 ML; Start 08/01/18 at 18:30 Dextrose (D50w Syringe) 50 ml Q15M PRN IV DECREASED GLUCOSE Last administered on 08/01/18at 18:20; Admin Dose 25 ML; Start 08/01/18 at 18:30 Glucagon (Glucagen) 1 mg Q15M PRN IM DECREASED GLUCOSE; Start 08/01/18 at 18:30 Glucose (Glutose) 15 gm Q15M PRN BUCCAL DECREASED GLUCOSE; Start 08/01/18 at 18:30 Furosemide (Lasix) 40 mg BID DIURETICS IV Last administered on 08/05/18 05:40; Admin Dose 40 MG; Start 08/03/18 at 09:30; Status Hold IV Flush (NS 10 ml) 10 ml PRN PRN IV IV PROTOCOL; Start 08/03/18 at 13:00 Potassium Chloride (Potassium Chloride Pwd/Soln) 20 meq PER PROTOCOL PRN PO POTASSIUM REPLACEMENT PROTOCOL Last administered on 08/07/18 20:53; Admin Dose 20 MEQ; Start 08/04/18 at 10:30 Potassium Chloride (Potassium Chloride Pwd/Soln) 30 meq PER PROTOCOL PRN PO POTASSIUM REPLACEMENT PROTOCOL; Start 08/04/18 at 10:30 Potassium Chloride (Potassium Chloride Pwd/Soln) 40 meq PER PROTOCOL PRN PO POTASSIUM REPLACEMENT PROTOCOL; Start 08/04/18 at 10:30 Metoprolol Tartrate (Lopressor) 50 mg BID PO Last administered on 08/14/18 10:42; Admin Dose 50 MG; Start 08/04/18 at 16:30 Hydromorphone HCl (Dilaudid) 1.5 mg DAILY IV Last administered on 08/15/18 14:54; Admin Dose 1.5 MG; Start 08/06/18 at 09:00 Insulin Aspart (Novolog Insulin Pen) (Adult SC Insulin - Mild Algorithm)... AC MEALS AND BEDTIME SC Last administered on 08/12/18 17:15; Admin Dose 1 UNIT; Start 08/05/18 at 11:30 Apixaban (Eliquis) 5 mg BID PO Last administered on 08/15/18 10:02; Admin Dose 5 MG; Start 08/05/18 at 21:00 Mupirocin (Bactroban) 1 applic DAILY TOP Last administered on 08/15/18 10:00; Admin Dose 1 APPLIC; Start 08/08/18 at 09:00 Collagenase (Santyl) 1 applic DAILY TOP Last administered on 08/15/18 10:00; Admin Dose 1 APPLIC; Start 08/11/18 at 09:00 Multivitamins Therapeutic (Theragran) 1 tab DAILY PO Last administered on 08/15/18 10:01; Admin Dose 1 TAB; Start 08/11/18 at 09:00 Ascorbic Acid (Vitamin C) 500 mg DAILY PO Last administered on 08/15/18 10:01; Admin Dose 500 MG; Start 08/11/18 at 09:00 Folic Acid (Folic Acid) 1 mg DAILY PO Last administered on 08/15/18 10:01; Admin Dose 1 MG; Start 08/11/18 at 09:00 Zinc Sulfate (Zinc Sulfate) 220 mg DAILY PO Last administered on 08/15/18 10:01; Admin Dose 220 MG; Start 08/11/18 at 09:00 Acetaminophen/ Hydrocodone Bitart ([place] (10/325)) 1 tab Q4H PRN PO MODERATE PAIN LEVEL 4-6 Last administered on 08/15/18 10:33; Admin Dose 1 TAB; Start 08/11/18 at 03:30 Tramadol HCl (Ultram) 50 mg Q6H PRN PO MODERATE PAIN LEVEL 4-6 Last administered on 08/14/18 00:48; Admin Dose 50 MG; Start 08/12/18 at 22:00 Citalopram Hydrobromide (Celexa) 20 mg DAILY PO Last administered on 08/15/18 10:01; Admin Dose 20 MG; Start 08/13/18 at 11:30 Furosemide (Lasix) 40 mg DAILY IV Last administered on 08/14/18 10:41; Admin Dose 40 MG; Start 08/13/18 at 14:00 Metoclopramide HCl (Reglan) 5 mg AC MEALS PO Last administered on 08/15/18 12:31; Admin Dose 5 MG; Start 08/13/18 at 17:30 Doxycycline Hyclate (Vibramycin) 100 mg BID PO Last administered on 08/15/18 10:01; Admin Dose 100 MG; Start 08/13/18 at 21:00 Metronidazole (Flagyl) 500 mg Q8 PO Last administered on 08/15/18 14:54; Admin Dose 500 MG; Start 08/13/18 at 15:00 Quetiapine Fumarate (Seroquel) 100 mg HS PO Last administered on 08/14/18 20:35; Admin Dose 100 MG; Start 08/14/18 at 21:00 ALCIRA STEWART August 15, 2018 16:23
--- NOTE | 2018-08-15 17:15 | CONS ---
Assessment/Plan Assessment/Plan Hospital Course (Demo Recall) ID PROGRESS NOTE CURRENT ABX: DAY #=> Doxycycline + Flagyl 08/14/18 0652 08/15/18 1046 24H INTERVAL SUMMARY * Awake, alert, oriented, sense of humor intact "I feel a heck of a lot better" * VSS, NAD, PIC RUXT, LLEXT leg DSG intact MICRO/OTHER * 08/11/18 (-)C.DIFF * 08/03/18 LEG WOUND CX (+) WOUND CULTURE Final Organism 1 METHICILLIN RESISTANT S.AUREUS QUANTITY 1+ * 07/31/18 BCx (+)1/2 bottles from ED ==> (+)MRSA * BLOOD CULTURE Preliminary Organism 1 METHICILLIN RESISTANT S.AUREUS * 07/31/18 Bernard: 07/31/18-161 Rcvd: 07/31/18-1619 Source: CSF Sp Descrip: Microbiology GRAM STAIN Final WHITE BLOOD CELLS RARE NO ORGANISMS SEEN PHYSICAL EXAMINATION: GENERAL: VSS, NAD HEENT: AT, NC, anicteric, NECK: Supple, CHEST: Vented HEART: Pulse RRR ABDOMEN: soft EXTREMITIES: Warm, dry- BLEXT edema improved, LLEXT leg ACEI wrapped . SKIN: No rash, no diaphoresis ID ASSESSMENT 62 yo M admit with: 1. S/P GNR MRSA SEPSIS w/ fevers/tachycardia, lactic acidosis on admission=> RESOLVED * 07/31/18 BCx (+)1/2 bottles from ED ==> (+)MRSA 2. Cellulitis BLEXT (bilat lower ext) Wound cx ==> (+)MRSA 3. Venous hypertension with venous stasis ulcerations 4. Peripheral arterial disease 5. Respiratory failure w/bilateral pleural effusions -> s/p VDRF = extubated 6. Acute toxic metabolic encephalopathy => Polysubstance abuse * Due to illicit drug use and multiple psychotropic medications. 7. Homeless 8. Psych Dx NOS (-)MRSA Nares ABX ALLERGIES: KNDA INVASIVES: PICC RUEXT CURRENT ABX: DAY # Doxycycline + Flagyl ID RECOMMENDATIONS/PLAN: 1. Continue current ABX over the weekend. . Consultation Date/Type/Reason Admit Date/Time Jul 31, 2018 at 06:30 Initial Consult Date Requesting Provider: ADDI LOPEZ NP Date/Time of Note DATE: 08/15/18 TIME: 17:04 Exam/Review of Systems Exam Vitals Vital Signs Date Temp Pulse Resp B/P (MAP) Pulse Ox O2 O2 Flow FiO2 Time Delivery Rate 08/15/18 98.1 58 18 112/52 93 Room Air 14:01 (72) 08/13/18 2.0 05:41 Intake and Output 08/14/18 08/14/18 08/15/18 1515:00 23:00 07:00 IntakeIntake Total 560 ml 280 ml OutputOutput Total 300 ml 300 ml BalanceBalance 260 ml 280 ml -300 ml Results Result Diagram: 08/14/18 0652 08/15/18 1046 Results 24hrs Laboratory Tests Test 08/15/18 08:11 08/15/18 10:46 08/15/18 12:29 Bedside Glucose 117 132 Sodium Level 135 Potassium Level 3.1 L Chloride Level 99 Carbon Dioxide Level 27 Anion Gap 9 Blood Urea Nitrogen 20 Creatinine 0.81 Est Glomerular Filtrat Rate mL/min > 60 Glucose Level 124 Calcium Level 8.2 L Phosphorus Level 2.9 Magnesium Level 1.5 L Medications Medication Current Medications IV Flush (NS 3 ml) 3 ml PER PROTOCOL IV ; Start 07/31/18 at 09:30 Ondansetron HCl (Zofran Inj) 4 mg Q6H PRN IV NAUSEA/VOMITING Last administered on 08/14/18at 20:34; Admin Dose 4 MG; Start 07/31/18 at 09:30 Acetaminophen (Tylenol Tab) 650 mg Q6H PRN PO .PAIN 1-3 OR TEMP; Start 07/31/18 at 09:30 Miscellaneous Information (* Miscellaneous Pharmacy Order) HYPOGLYCEMIA PROTOCOL w... ONCE XX ; Start 08/01/18 at 18:30 Miscellaneous Information 1 ea NOTE XX ; Start 08/01/18 at 18:30 Glucose (Glutose) 15 gm Q15M PRN PO DECREASED GLUCOSE Last administered on 08/05/18at 09:43; Admin Dose 15 GM; Start 08/01/18 at 18:30 Glucose (Glutose) 22.5 gm Q15M PRN PO DECREASED GLUCOSE; Start 08/01/18 at 18:30 Dextrose (D50w Syringe) 25 ml Q15M PRN IV DECREASED GLUCOSE Last administered on 08/02/18 17:44; Admin Dose 25 ML; Start 08/01/18 at 18:30 Dextrose (D50w Syringe) 50 ml Q15M PRN IV DECREASED GLUCOSE Last administered on 08/01/18at 18:20; Admin Dose 25 ML; Start 08/01/18 at 18:30 Glucagon (Glucagen) 1 mg Q15M PRN IM DECREASED GLUCOSE; Start 08/01/18 at 18:30 Glucose (Glutose) 15 gm Q15M PRN BUCCAL DECREASED GLUCOSE; Start 08/01/18 at 18:30 Furosemide (Lasix) 40 mg BID DIURETICS IV Last administered on 08/05/18 05:40; Admin Dose 40 MG; Start 08/03/18 at 09:30; Status Hold IV Flush (NS 10 ml) 10 ml PRN PRN IV IV PROTOCOL; Start 08/03/18 at 13:00 Potassium Chloride (Potassium Chloride Pwd/Soln) 20 meq PER PROTOCOL PRN PO POTASSIUM REPLACEMENT PROTOCOL Last administered on 08/07/18 20:53; Admin Dose 20 MEQ; Start 08/04/18 at 10:30 Potassium Chloride (Potassium Chloride Pwd/Soln) 30 meq PER PROTOCOL PRN PO POTASSIUM REPLACEMENT PROTOCOL; Start 08/04/18 at 10:30 Potassium Chloride (Potassium Chloride Pwd/Soln) 40 meq PER PROTOCOL PRN PO POTASSIUM REPLACEMENT PROTOCOL; Start 08/04/18 at 10:30 Metoprolol Tartrate (Lopressor) 50 mg BID PO Last administered on 08/14/18at 10:42; Admin Dose 50 MG; Start 08/04/18 at 16:30 Hydromorphone HCl (Dilaudid) 1.5 mg DAILY IV Last administered on 08/15/18 14:54; Admin Dose 1.5 MG; Start 08/06/18 at 09:00 Insulin Aspart (Novolog Insulin Pen) (Adult SC Insulin - Mild Algorithm)... AC MEALS AND BEDTIME SC Last administered on 08/12/18 17:15; Admin Dose 1 UNIT; Start 08/05/18 at 11:30 Apixaban (Eliquis) 5 mg BID PO Last administered on 08/15/18 10:02; Admin Dose 5 MG; Start 08/05/18 at 21:00 Mupirocin (Bactroban) 1 applic DAILY TOP Last administered on 08/15/18 10:00; Admin Dose 1 APPLIC; Start 08/08/18 at 09:00 Collagenase (Santyl) 1 applic DAILY TOP Last administered on 08/15/18 10:00; Admin Dose 1 APPLIC; Start 08/11/18 at 09:00 Multivitamins Therapeutic (Theragran) 1 tab DAILY PO Last administered on 08/15/18 10:01; Admin Dose 1 TAB; Start 08/11/18 at 09:00 Ascorbic Acid (Vitamin C) 500 mg DAILY PO Last administered on 08/15/18 10:01; Admin Dose 500 MG; Start 08/11/18 at 09:00 Folic Acid (Folic Acid) 1 mg DAILY PO Last administered on 08/15/18 10:01; Admin Dose 1 MG; Start 08/11/18 at 09:00 Zinc Sulfate (Zinc Sulfate) 220 mg DAILY PO Last administered on 08/15/18 10:01; Admin Dose 220 MG; Start 08/11/18 at 09:00 Acetaminophen/ Hydrocodone Bitart ([place] (10/325)) 1 tab Q4H PRN PO MODERATE PAIN LEVEL 4-6 Last administered on 08/15/18 10:33; Admin Dose 1 TAB; Start 08/11/18 at 03:30 Tramadol HCl (Ultram) 50 mg Q6H PRN PO MODERATE PAIN LEVEL 4-6 Last administered on 08/14/18 00:48; Admin Dose 50 MG; Start 08/12/18 at 22:00 Citalopram Hydrobromide (Celexa) 20 mg DAILY PO Last administered on 08/15/18 10:01; Admin Dose 20 MG; Start 08/13/18 at 11:30 Furosemide (Lasix) 40 mg DAILY IV Last administered on 08/14/18 10:41; Admin Dose 40 MG; Start 08/13/18 at 14:00 Metoclopramide HCl (Reglan) 5 mg AC MEALS PO Last administered on 08/15/18 12:31; Admin Dose 5 MG; Start 08/13/18 at 17:30 Doxycycline Hyclate (Vibramycin) 100 mg BID PO Last administered on 5/11/19at 10:01; Admin Dose 100 MG; Start 08/13/18 at 21:00 Metronidazole (Flagyl) 500 mg Q8 PO Last administered on 08/15/18at 14:54; Admin Dose 500 MG; Start 08/13/18 at 15:00 Quetiapine Fumarate (Seroquel) 100 mg HS PO Last administered on 08/14/18at 20:35; Admin Dose 100 MG; Start 08/14/18 at 21:00 ESTER TAYLOR NP August 15, 2018 17:15
[2018-08-15 19:58] VITALS: BP 106/87; PULSE 74; RESP 18
[2018-08-15 21:18] VITALS: BP 110/83; PULSE 80
[2018-08-15] MEDS: QUETIAPINE 100 MG TAB PO SCH (21:21)
[2018-08-16 02:19] VITALS: BP 92/72; PULSE 74; RESP 18
[2018-08-16] MEDS: metroNIDAZOLE 500 MG TAB PO SCH ×3 (06:03→21:17)
[2018-08-16] MEDS: METOCLOPRAMIDE 5 MG TAB PO SCH ×3 (06:04→17:15)
[2018-08-16] MEDS: Insulin NOVOLOG SS MILD Algorithm (SS with meals and bedtime) SC SCH ×4 (07:00→21:00)
[2018-08-16] MEDS: METOPROLOL 50 MG TAB PO SCH ×2 (09:00→21:18)
[2018-08-16] MEDS: MULTIVITAMINS THERAPEUTIC TAB PO SCH (10:09)
[2018-08-16] MEDS: APIXABAN 5 MG TABLET PO SCH ×2 (10:10→21:17)
[2018-08-16] MEDS: ASCORBIC ACID 500 MG TAB PO SCH (10:10)
[2018-08-16] MEDS: DOXYCYCLINE 100 MG TAB PO SCH ×2 (10:10→21:17)
[2018-08-16] MEDS: FOLIC ACID 1 MG TAB PO SCH (10:10)
[2018-08-16] MEDS: ZINC SULFATE 220 MG CAP PO SCH (10:11)
[2018-08-16] MEDS: COLLAGENASE 5 GM (UD JAR) TOP SCH (10:11)
[2018-08-16] MEDS: CITALOPRAM 20 MG TAB PO SCH (10:11)
[2018-08-16] MEDS: FUROSEMIDE 40 MG INJ IV SCH (10:12)
[2018-08-16] MEDS: BALSAM PERU/CASTOR OIL 60 GM TUBE TOP SCH ×2 (10:13→21:19)
[2018-08-16] MEDS: MUPIROCIN 2% 22 GM OINT TOP SCH (10:14)
--- NOTE | 2018-08-16 10:32 | PN ---
Date/Time of Note Date/Time of Note DATE: 08/16/18 TIME: 10:28 Assessment/Plan VTE Prophylaxis Risk score (from Nsg)>0 risk: 6 Pharmacological prophylaxis: apixaban Assessment/Plan Hospital Course 62 yo male with venous stasis ulcerations, cellulitis, systolic CHF, acute respiratory failure, MRSA bacteremia MRSA bacteremia: - Presumed source is cellulitis, wounds on legs with extensive open skin - Abx changed to clindamycin per ID - Repeat cultures negative -Podiatry consultation appreciated Systolic CHF: -Echo shows an EF of 20% -Renal function improved, resumed Lasix -Continue metoprolol, add RORO-I and Colin if BP tolerates, currently BP low ASA: Resolved -Resumed Lasix - Perhaps prerenal vs ATN from abx - Monitor creatinine Gastroparesis -Reglan with meals Acute respiratory failure: - s/p extubation. NC O2 as needed Hypokalemia: - Repletion as needed Anemia: - Mild iron deficiency. Replete iron Venous stasis disease: - Wound care, pain control Atrial fibrillation: - Metoprolol for rate control - Apixaban Diarrhea -C. difficile negative Hypokalemia/hypomagnesemia -Repleted -Monitor Prophylaxis: [place] KRUEGER planning: Patient will need placement in facility, continue PT and antibiotics Result Diagram: 08/14/18 0652 08/15/18 1046 Results 24hrs Laboratory Tests Test 08/15/18 10:46 08/15/18 12:29 08/15/18 17:13 08/15/18 21:15 Sodium Level 135 Potassium Level 3.1 L Chloride Level 99 Carbon Dioxide Level 27 Anion Gap 9 Blood Urea Nitrogen 20 Creatinine 0.81 Est Glomerular > 60 Filtrat Rate mL/min Glucose Level 124 Calcium Level 8.2 L Phosphorus Level 2.9 Magnesium Level 1.5 L Bedside Glucose 132 140 121 Test 08/16/18 10:08 Bedside Glucose 119 Subjective 24 Hr Interval Summary Constitutional: no complaints Exam/Review of Systems Exam Vitals Vital Signs Date Temp Pulse Resp B/P (MAP) Pulse Ox O2 O2 Flow FiO2 Time Delivery Rate 08/16/18 98.0 74 18 92/72 (79) 95 02:19 08/15/18 Room Air 14:01 08/13/18 2.0 05:41 Intake and Output 08/15/18 08/15/18 08/16/18 1515:00 23:00 07:00 IntakeIntake Total 440 ml 580 ml BalanceBalance 440 ml 580 ml Constitutional: alert, oriented Respiratory: clear to auscultation Cardiovascular: regular rate and rhythm Gastrointestinal: soft; No distended Musculoskeletal: No nl extremities to inspection Results Results 24hrs Laboratory Tests Test 08/15/18 10:46 08/15/18 12:29 08/15/18 17:13 08/15/18 21:15 Sodium Level 135 Potassium Level 3.1 L Chloride Level 99 Carbon Dioxide Level 27 Anion Gap 9 Blood Urea Nitrogen 20 Creatinine 0.81 Est Glomerular > 60 Filtrat Rate mL/min Glucose Level 124 Calcium Level 8.2 L Phosphorus Level 2.9 Magnesium Level 1.5 L Bedside Glucose 132 140 121 Test 08/16/18 10:08 Bedside Glucose 119 Medications Medication Current Medications IV Flush (NS 3 ml) 3 ml PER PROTOCOL IV ; Start 07/31/18 at 09:30 Ondansetron HCl (Zofran Inj) 4 mg Q6H PRN IV NAUSEA/VOMITING Last administered on 08/14/18at 20:34; Admin Dose 4 MG; Start 07/31/18 at 09:30 Acetaminophen (Tylenol Tab) 650 mg Q6H PRN PO .PAIN 1-3 OR TEMP; Start 07/31/18 at 09:30 Miscellaneous Information (* Miscellaneous Pharmacy Order) HYPOGLYCEMIA PROTOCOL w... ONCE XX ; Start 08/01/18 at 18:30 Miscellaneous Information 1 ea NOTE XX ; Start 08/01/18 at 18:30 Glucose (Glutose) 15 gm Q15M PRN PO DECREASED GLUCOSE Last administered on 08/05/18at 09:43; Admin Dose 15 GM; Start 08/01/18 at 18:30 Glucose (Glutose) 22.5 gm Q15M PRN PO DECREASED GLUCOSE; Start 08/01/18 at 18:30 Dextrose (D50w Syringe) 25 ml Q15M PRN IV DECREASED GLUCOSE Last administered on 08/02/18at 17:44; Admin Dose 25 ML; Start 08/01/18 at 18:30 Dextrose (D50w Syringe) 50 ml Q15M PRN IV DECREASED GLUCOSE Last administered on 08/01/18at 18:20; Admin Dose 25 ML; Start 08/01/18 at 18:30 Glucagon (Glucagen) 1 mg Q15M PRN IM DECREASED GLUCOSE; Start 08/01/18 at 18:30 Glucose (Glutose) 15 gm Q15M PRN BUCCAL DECREASED GLUCOSE; Start 08/01/18 at 18:30 Furosemide (Lasix) 40 mg BID DIURETICS IV Last administered on 08/05/18 05:40; Admin Dose 40 MG; Start 08/03/18 at 09:30; Status Hold IV Flush (NS 10 ml) 10 ml PRN PRN IV IV PROTOCOL; Start 08/03/18 at 13:00 Potassium Chloride (Potassium Chloride Pwd/Soln) 20 meq PER PROTOCOL PRN PO POTASSIUM REPLACEMENT PROTOCOL Last administered on 08/07/18 20:53; Admin Dose 20 MEQ; Start 08/04/18 at 10:30 Potassium Chloride (Potassium Chloride Pwd/Soln) 30 meq PER PROTOCOL PRN PO POTASSIUM REPLACEMENT PROTOCOL; Start 08/04/18 at 10:30 Potassium Chloride (Potassium Chloride Pwd/Soln) 40 meq PER PROTOCOL PRN PO POTASSIUM REPLACEMENT PROTOCOL; Start 08/04/18 at 10:30 Metoprolol Tartrate (Lopressor) 50 mg BID PO Last administered on 08/15/18 21:22; Admin Dose 50 MG; Start 08/04/18 at 16:30 Hydromorphone HCl (Dilaudid) 1.5 mg DAILY IV Last administered on 08/15/18 14:54; Admin Dose 1.5 MG; Start 08/06/18 at 09:00 Insulin Aspart (Novolog Insulin Pen) (Adult SC Insulin - Mild Algorithm)... AC MEALS AND BEDTIME SC Last administered on 08/12/18 17:15; Admin Dose 1 UNIT; Start 08/05/18 at 11:30 Apixaban (Eliquis) 5 mg BID PO Last administered on 08/16/18 10:10; Admin Dose 5 MG; Start 08/05/18 at 21:00 Mupirocin (Bactroban) 1 applic DAILY TOP Last administered on 08/16/18 10:14; Admin Dose 1 APPLIC; Start 08/08/18 at 09:00 Collagenase (Santyl) 1 applic DAILY TOP Last administered on 08/16/18 10:11; Admin Dose 1 APPLIC; Start 08/11/18 at 09:00 Multivitamins Therapeutic (Theragran) 1 tab DAILY PO Last administered on 08/16/18 10:09; Admin Dose 1 TAB; Start 08/11/18 at 09:00 Ascorbic Acid (Vitamin C) 500 mg DAILY PO Last administered on 08/16/18 10:10; Admin Dose 500 MG; Start 08/11/18 at 09:00 Folic Acid (Folic Acid) 1 mg DAILY PO Last administered on 08/16/18 10:10; Admin Dose 1 MG; Start 08/11/18 at 09:00 Zinc Sulfate (Zinc Sulfate) 220 mg DAILY PO Last administered on 08/16/18 10:11; Admin Dose 220 MG; Start 08/11/18 at 09:00 Acetaminophen/ Hydrocodone Bitart ([place] (10/325)) 1 tab Q4H PRN PO MODERATE PAIN LEVEL 4-6 Last administered on 08/15/18 22:25; Admin Dose 1 TAB; Start 08/11/18 at 03:30 Tramadol HCl (Ultram) 50 mg Q6H PRN PO MODERATE PAIN LEVEL 4-6 Last administered on 08/14/18 00:48; Admin Dose 50 MG; Start 08/12/18 at 22:00 Citalopram Hydrobromide (Celexa) 20 mg DAILY PO Last administered on 08/16/18 10:11; Admin Dose 20 MG; Start 08/13/18 at 11:30 Furosemide (Lasix) 40 mg DAILY IV Last administered on 08/16/18 10:12; Admin Dose 40 MG; Start 08/13/18 at 14:00 Metoclopramide HCl (Reglan) 5 mg AC MEALS PO Last administered on 08/16/18 06:04; Admin Dose 5 MG; Start 08/13/18 at 17:30 Doxycycline Hyclate (Vibramycin) 100 mg BID PO Last administered on 08/16/18 10:10; Admin Dose 100 MG; Start 08/13/18 at 21:00 Metronidazole (Flagyl) 500 mg Q8 PO Last administered on 08/16/18 06:03; Admin Dose 500 MG; Start 08/13/18 at 15:00 Quetiapine Fumarate (Seroquel) 100 mg HS PO Last administered on 08/15/18 21:21; Admin Dose 100 MG; Start 08/14/18 at 21:00 ALCIRA STEWART August 16, 2018 10:32
[2018-08-16] MEDS: HYDROCODONE/APAP (10/325) TAB PO PRN ×3 (11:52→21:17)
[2018-08-16 14:04] VITALS: BP 117/73; PULSE 80
[2018-08-16] MEDS: HYDROmorphONE 2 MG/ML SYG IV SCH (14:35)
--- NOTE | 2018-08-16 14:55 | CONS ---
Assessment/Plan Assessment/Plan Hospital Course (Demo Recall) ID PROGRESS NOTE CURRENT ABX: DAY #=> Doxycycline + Flagyl 24H INTERVAL SUMMARY * Clincally much improved -- Feeling better, no complaints * VSS, NAD, PIC RUXT, LLEXT leg DSG intact MICRO/OTHER * 08/11/18 (-)C.DIFF * 08/03/18 LEG WOUND CX (+) WOUND CULTURE Final Organism 1 METHICILLIN RESISTANT S.AUREUS QUANTITY 1+ * 07/31/18 BCx (+)1/2 bottles from ED ==> (+)MRSA * BLOOD CULTURE Preliminary Organism 1 METHICILLIN RESISTANT S.AUREUS * 07/31/18 Bernard: 07/31/18-1619 Rcvd: 07/31/18-1620 Source: CSF Sp Descrip: Microbiology GRAM STAIN Final WHITE BLOOD CELLS RARE NO ORGANISMS SEEN PHYSICAL EXAMINATION: GENERAL: VSS, NAD HEENT: AT, NC, anicteric, NECK: Supple, CHEST: Vented HEART: Pulse RRR ABDOMEN: soft EXTREMITIES: Warm, dry- BLEXT edema improved, LLEXT leg ACEI wrapped . SKIN: No rash, no diaphoresis ID ASSESSMENT 62 yo M admit with: 1. S/P GNR MRSA SEPSIS w/ fevers/tachycardia, lactic acidosis on admission=> RESOLVED * 07/31/18 BCx (+)1/2 bottles from ED ==> (+)MRSA 2. Cellulitis BLEXT (bilat lower ext) Wound cx ==> (+)MRSA 3. Venous hypertension with venous stasis ulcerations 4. Peripheral arterial disease 5. Respiratory failure w/bilateral pleural effusions -> s/p VDRF = extubated 6. Acute toxic metabolic encephalopathy => Polysubstance abuse * Due to illicit drug use and multiple psychotropic medications. 7. Homeless 8. Psych Dx NOS (-)MRSA Nares ABX ALLERGIES: KNDA INVASIVES: PICC RUEXT CURRENT ABX: DAY # Doxycycline + Flagyl ID RECOMMENDATIONS/PLAN: 1. Continue current ABX over the weekend. . Consultation Date/Type/Reason Admit Date/Time Jul 31, 2018 at 06:30 Initial Consult Date Requesting Provider: ADDI LOPEZ NP Date/Time of Note DATE: 08/16/18 TIME: 14:54 Exam/Review of Systems Exam Vitals Vital Signs Date Temp Pulse Resp B/P (MAP) Pulse Ox O2 O2 Flow FiO2 Time Delivery Rate 08/16/18 97.5 80 117/73 97 Room Air 14:04 (88) 08/16/18 18 02:19 08/13/18 2.0 05:41 Intake and Output 08/15/18 08/15/18 08/16/18 1515:00 23:00 07:00 IntakeIntake Total 440 ml 580 ml BalanceBalance 440 ml 580 ml Results Result Diagram: 08/14/18 0652 08/15/18 1046 Results 24hrs Laboratory Tests Test 08/15/18 17:13 08/15/18 21:15 08/16/18 10:08 08/16/18 13:01 Bedside Glucose 140 121 119 125 Medications Medication Current Medications IV Flush (NS 3 ml) 3 ml PER PROTOCOL IV ; Start 07/31/18 at 09:30 Ondansetron HCl (Zofran Inj) 4 mg Q6H PRN IV NAUSEA/VOMITING Last administered on 08/14/18at 20:34; Admin Dose 4 MG; Start 07/31/18 at 09:30 Acetaminophen (Tylenol Tab) 650 mg Q6H PRN PO .PAIN 1-3 OR TEMP; Start 07/31/18 at 09:30 Miscellaneous Information (* Miscellaneous Pharmacy Order) HYPOGLYCEMIA PROTOCOL w... ONCE XX ; Start 08/01/18 at 18:30 Miscellaneous Information 1 ea NOTE XX ; Start 08/01/18 at 18:30 Glucose (Glutose) 15 gm Q15M PRN PO DECREASED GLUCOSE Last administered on 08/05/18at 09:43; Admin Dose 15 GM; Start 08/01/18 at 18:30 Glucose (Glutose) 22.5 gm Q15M PRN PO DECREASED GLUCOSE; Start 08/01/18 at 18:30 Dextrose (D50w Syringe) 25 ml Q15M PRN IV DECREASED GLUCOSE Last administered on 08/02/18at 17:44; Admin Dose 25 ML; Start 08/01/18 at 18:30 Dextrose (D50w Syringe) 50 ml Q15M PRN IV DECREASED GLUCOSE Last administered on 08/01/18 18:20; Admin Dose 25 ML; Start 08/01/18 at 18:30 Glucagon (Glucagen) 1 mg Q15M PRN IM DECREASED GLUCOSE; Start 08/01/18 at 18:30 Glucose (Glutose) 15 gm Q15M PRN BUCCAL DECREASED GLUCOSE; Start 08/01/18 at 18:30 Furosemide (Lasix) 40 mg BID DIURETICS IV Last administered on 08/05/18 05:40; Admin Dose 40 MG; Start 08/03/18 at 09:30; Status Hold IV Flush (NS 10 ml) 10 ml PRN PRN IV IV PROTOCOL; Start 08/03/18 at 13:00 Potassium Chloride (Potassium Chloride Pwd/Soln) 20 meq PER PROTOCOL PRN PO POTASSIUM REPLACEMENT PROTOCOL Last administered on 08/07/18 20:53; Admin Dose 20 MEQ; Start 08/04/18 at 10:30 Potassium Chloride (Potassium Chloride Pwd/Soln) 30 meq PER PROTOCOL PRN PO POTASSIUM REPLACEMENT PROTOCOL; Start 08/04/18 at 10:30 Potassium Chloride (Potassium Chloride Pwd/Soln) 40 meq PER PROTOCOL PRN PO POTASSIUM REPLACEMENT PROTOCOL; Start 08/04/18 at 10:30 Metoprolol Tartrate (Lopressor) 50 mg BID PO Last administered on 08/15/18 21:22; Admin Dose 50 MG; Start 08/04/18 at 16:30 Hydromorphone HCl (Dilaudid) 1.5 mg DAILY IV Last administered on 08/16/18 14:35; Admin Dose 1.5 MG; Start 08/06/18 at 09:00 Insulin Aspart (Novolog Insulin Pen) (Adult SC Insulin - Mild Algorithm)... AC MEALS AND BEDTIME SC Last administered on 08/12/18 17:15; Admin Dose 1 UNIT; Start 08/05/18 at 11:30 Apixaban (Eliquis) 5 mg BID PO Last administered on 08/16/18 10:10; Admin Dose 5 MG; Start 08/05/18 at 21:00 Mupirocin (Bactroban) 1 applic DAILY TOP Last administered on 08/16/18 10:14; Admin Dose 1 APPLIC; Start 08/08/18 at 09:00 Collagenase (Santyl) 1 applic DAILY TOP Last administered on 08/16/18 10:11; Admin Dose 1 APPLIC; Start 08/11/18 at 09:00 Multivitamins Therapeutic (Theragran) 1 tab DAILY PO Last administered on 08/16/18 10:09; Admin Dose 1 TAB; Start 08/11/18 at 09:00 Ascorbic Acid (Vitamin C) 500 mg DAILY PO Last administered on 08/16/18 10:10; Admin Dose 500 MG; Start 08/11/18 at 09:00 Folic Acid (Folic Acid) 1 mg DAILY PO Last administered on 08/16/18 10:10; Admin Dose 1 MG; Start 08/11/18 at 09:00 Zinc Sulfate (Zinc Sulfate) 220 mg DAILY PO Last administered on 08/16/18 10:11; Admin Dose 220 MG; Start 08/11/18 at 09:00 Acetaminophen/ Hydrocodone Bitart ([place] (10/325)) 1 tab Q4H PRN PO MODERATE PAIN LEVEL 4-6 Last administered on 08/16/18 11:52; Admin Dose 1 TAB; Start 08/11/18 at 03:30 Tramadol HCl (Ultram) 50 mg Q6H PRN PO MODERATE PAIN LEVEL 4-6 Last administered on 08/14/18 00:48; Admin Dose 50 MG; Start 08/12/18 at 22:00 Citalopram Hydrobromide (Celexa) 20 mg DAILY PO Last administered on 08/16/18 10:11; Admin Dose 20 MG; Start 08/13/18 at 11:30 Furosemide (Lasix) 40 mg DAILY IV Last administered on 08/16/18 10:12; Admin Dose 40 MG; Start 08/13/18 at 14:00 Metoclopramide HCl (Reglan) 5 mg AC MEALS PO Last administered on 08/16/18 11:52; Admin Dose 5 MG; Start 08/13/18 at 17:30 Doxycycline Hyclate (Vibramycin) 100 mg BID PO Last administered on 08/16/18 10:10; Admin Dose 100 MG; Start 08/13/18 at 21:00 Metronidazole (Flagyl) 500 mg Q8 PO Last administered on 08/16/18 14:34; Admin Dose 500 MG; Start 08/13/18 at 15:00 Quetiapine Fumarate (Seroquel) 100 mg HS PO Last administered on 5/11/19at 21:21; Admin Dose 100 MG; Start 08/14/18 at 21:00 ESTER TAYLOR NP August 16, 2018 14:55
[2018-08-16 20:24] VITALS: BP 111/80; PULSE 74; RESP 18
[2018-08-16] MEDS: QUETIAPINE 100 MG TAB PO SCH (21:17)
[2018-08-17 02:03] VITALS: BP 103/74; PULSE 73; RESP 18
[2018-08-17] MEDS: HYDROCODONE/APAP (10/325) TAB PO PRN ×2 (04:13→11:09)
[2018-08-17] MEDS: metroNIDAZOLE 500 MG TAB PO SCH ×2 (06:05→14:54)
[2018-08-17] MEDS: METOCLOPRAMIDE 5 MG TAB PO SCH ×3 (06:05→17:24)
[2018-08-17] MEDS: Insulin NOVOLOG SS MILD Algorithm (SS with meals and bedtime) SC SCH ×4 (07:00→20:10)
[2018-08-17 08:00] VITALS: BP 103/68; PULSE 73; RESP 18
[2018-08-17] MEDS: MULTIVITAMINS THERAPEUTIC TAB PO SCH (08:26)
[2018-08-17] MEDS: FOLIC ACID 1 MG TAB PO SCH (08:26)
[2018-08-17] MEDS: CITALOPRAM 20 MG TAB PO SCH (08:26)
[2018-08-17] MEDS: APIXABAN 5 MG TABLET PO SCH ×2 (08:26→20:09)
[2018-08-17] MEDS: DOXYCYCLINE 100 MG TAB PO SCH ×2 (08:26→20:10)
[2018-08-17] MEDS: ASCORBIC ACID 500 MG TAB PO SCH (08:26)
[2018-08-17] MEDS: METOPROLOL 50 MG TAB PO SCH ×2 (08:27→20:09)
[2018-08-17] MEDS: ZINC SULFATE 220 MG CAP PO SCH (08:27)
[2018-08-17] MEDS: BALSAM PERU/CASTOR OIL 60 GM TUBE TOP SCH ×2 (08:29→20:10)
[2018-08-17] MEDS: COLLAGENASE 5 GM (UD JAR) TOP SCH (08:29)
[2018-08-17] MEDS: FUROSEMIDE 40 MG INJ IV SCH (08:38)
[2018-08-17] MEDS: ONDANSETRON 4 MG INJ IV PRN (11:14)
[2018-08-17] MEDS: MUPIROCIN 2% 22 GM OINT TOP SCH (12:57)
[2018-08-17 14:00] VITALS: BP 92/65; PULSE 70; RESP 18
--- NOTE | 2018-08-17 15:03 | CONS ---
Assessment/Plan Assessment/Plan Hospital Course (Demo Recall) All noted, no events over night. alert, c/o food Indwelling: Right upper extremity PICC line, Becerra catheter Antimicrobials: Flagyl Doxycycline Microbiology: Blood culture since admission grew MRSA, repeat bld cx neg, wound cx + MRSA Physical examination: This is a chronically ill-appearing well-developed elderly man who is awake in no distress. Head atraumatic normocephalic neck is supple chest rise symmetrical breath sounds diminished the bases heart S1-S2 abdomen soft bowel sounds hypoactive extremities with bilateral lower extremities edema patient has significant cellulitis with draining wounds Assessment: 1. S/p severe sepsis, present on admission 2. MRSA bacteremia likely secondary to infected wounds 3. Bilateral lower extremity cellulitis 4. Peripheral arterial disease 5. Acute encephalopathy on admission 6. Left cephalic vein DVT 7. Pneumonia/CHF exacerbation==>s/p extubated 8. Polysubstance abuse Plan: Stable, stool for C dif neg preliminary, dc Flagyl Consultation Date/Type/Reason Admit Date/Time Jul 31, 2018 at 06:30 Initial Consult Date 08/01/18 Type of Consult id Requesting Provider: ADDI LOPEZ NP Date/Time of Note DATE: 08/17/18 TIME: 15:02 Exam/Review of Systems Exam Vitals Vital Signs Date Temp Pulse Resp B/P (MAP) Pulse Ox O2 O2 Flow FiO2 Time Delivery Rate 08/17/18 97.9 70 18 92/65 (74) 96 14:00 08/16/18 Room Air 14:04 Intake and Output 08/16/18 08/16/18 08/17/18 1515:00 23:00 07:00 IntakeIntake Total 500 ml BalanceBalance 500 ml Results Result Diagram: 08/14/18 0652 08/17/18 0507 Results 24hrs Laboratory Tests Test 08/16/18 17:12 08/16/18 21:16 08/17/18 05:07 08/17/18 08:21 Bedside Glucose 146 128 111 Sodium Level 137 Potassium Level 3.5 Chloride Level 101 Carbon Dioxide Level 27 Anion Gap 9 Blood Urea Nitrogen 18 Creatinine 0.78 Est Glomerular > 60 Filtrat Rate mL/min Glucose Level 95 Calcium Level 8.1 L Phosphorus Level 3.1 Magnesium Level 1.3 L Test 08/17/18 12:56 Bedside Glucose 104 Medications Medication Current Medications IV Flush (NS 3 ml) 3 ml PER PROTOCOL IV ; Start 07/31/18 at 09:30 Ondansetron HCl (Zofran Inj) 4 mg Q6H PRN IV NAUSEA/VOMITING Last administered on 08/17/18at 11:14; Admin Dose 4 MG; Start 07/31/18 at 09:30 Acetaminophen (Tylenol Tab) 650 mg Q6H PRN PO .PAIN 1-3 OR TEMP; Start 07/31/18 at 09:30 Miscellaneous Information (* Miscellaneous Pharmacy Order) HYPOGLYCEMIA PROTOCOL w... ONCE XX ; Start 08/01/18 at 18:30 Miscellaneous Information 1 ea NOTE XX ; Start 08/01/18 at 18:30 Glucose (Glutose) 15 gm Q15M PRN PO DECREASED GLUCOSE Last administered on 08/05/18at 09:43; Admin Dose 15 GM; Start 08/01/18 at 18:30 Glucose (Glutose) 22.5 gm Q15M PRN PO DECREASED GLUCOSE; Start 08/01/18 at 18:30 Dextrose (D50w Syringe) 25 ml Q15M PRN IV DECREASED GLUCOSE Last administered on 08/02/18at 17:44; Admin Dose 25 ML; Start 08/01/18 at 18:30 Dextrose (D50w Syringe) 50 ml Q15M PRN IV DECREASED GLUCOSE Last administered on 08/01/18at 18:20; Admin Dose 25 ML; Start 08/01/18 at 18:30 Glucagon (Glucagen) 1 mg Q15M PRN IM DECREASED GLUCOSE; Start 08/01/18 at 18:30 Glucose (Glutose) 15 gm Q15M PRN BUCCAL DECREASED GLUCOSE; Start 08/01/18 at 18:30 Furosemide (Lasix) 40 mg BID DIURETICS IV Last administered on 08/05/18at 05:40; Admin Dose 40 MG; Start 08/03/18 at 09:30; Status Hold IV Flush (NS 10 ml) 10 ml PRN PRN IV IV PROTOCOL; Start 08/03/18 at 13:00 Potassium Chloride (Potassium Chloride Pwd/Soln) 20 meq PER PROTOCOL PRN PO POTASSIUM REPLACEMENT PROTOCOL Last administered on 08/07/18at 20:53; Admin Dose 20 MEQ; Start 08/04/18 at 10:30 Potassium Chloride (Potassium Chloride Pwd/Soln) 30 meq PER PROTOCOL PRN PO POTASSIUM REPLACEMENT PROTOCOL; Start 08/04/18 at 10:30 Potassium Chloride (Potassium Chloride Pwd/Soln) 40 meq PER PROTOCOL PRN PO POTASSIUM REPLACEMENT PROTOCOL; Start 08/04/18 at 10:30 Metoprolol Tartrate (Lopressor) 50 mg BID PO Last administered on 08/17/18 08:27; Admin Dose 50 MG; Start 08/04/18 at 16:30 Hydromorphone HCl (Dilaudid) 1.5 mg DAILY IV Last administered on 08/16/18 14:35; Admin Dose 1.5 MG; Start 08/06/18 at 09:00 Insulin Aspart (Novolog Insulin Pen) (Adult SC Insulin - Mild Algorithm)... AC MEALS AND BEDTIME SC Last administered on 08/16/18 17:23; Admin Dose 1 UNIT; Start 08/05/18 at 11:30 Apixaban (Eliquis) 5 mg BID PO Last administered on 08/17/18 08:26; Admin Dose 5 MG; Start 08/05/18 at 21:00 Mupirocin (Bactroban) 1 applic DAILY TOP Last administered on 08/17/18 12:57; Admin Dose 1 APPLIC; Start 08/08/18 at 09:00 Collagenase (Santyl) 1 applic DAILY TOP Last administered on 08/17/18 08:29; Admin Dose 1 APPLIC; Start 08/11/18 at 09:00 Multivitamins Therapeutic (Theragran) 1 tab DAILY PO Last administered on 08/17/18 08:26; Admin Dose 1 TAB; Start 08/11/18 at 09:00 Ascorbic Acid (Vitamin C) 500 mg DAILY PO Last administered on 08/17/18 08:26; Admin Dose 500 MG; Start 08/11/18 at 09:00 Folic Acid (Folic Acid) 1 mg DAILY PO Last administered on 08/17/18 08:26; Admin Dose 1 MG; Start 08/11/18 at 09:00 Zinc Sulfate (Zinc Sulfate) 220 mg DAILY PO Last administered on 08/17/18 08:27; Admin Dose 220 MG; Start 08/11/18 at 09:00 Acetaminophen/ Hydrocodone Bitart ([place] (10/325)) 1 tab Q4H PRN PO MODERATE PAIN LEVEL 4-6 Last administered on 08/17/18 11:09; Admin Dose 1 TAB; Start 08/11/18 at 03:30 Tramadol HCl (Ultram) 50 mg Q6H PRN PO MODERATE PAIN LEVEL 4-6 Last administered on 08/14/18 00:48; Admin Dose 50 MG; Start 08/12/18 at 22:00 Citalopram Hydrobromide (Celexa) 20 mg DAILY PO Last administered on 08/17/18 08:26; Admin Dose 20 MG; Start 08/13/18 at 11:30 Furosemide (Lasix) 40 mg DAILY IV Last administered on 08/17/18 08:38; Admin Dose 40 MG; Start 08/13/18 at 14:00 Metoclopramide HCl (Reglan) 5 mg AC MEALS PO Last administered on 08/17/18 12:57; Admin Dose 5 MG; Start 08/13/18 at 17:30 Doxycycline Hyclate (Vibramycin) 100 mg BID PO Last administered on 08/17/18 08:26; Admin Dose 100 MG; Start 08/13/18 at 21:00 Metronidazole (Flagyl) 500 mg Q8 PO Last administered on 08/17/18 14:54; Admin Dose 500 MG; Start 08/13/18 at 15:00 Quetiapine Fumarate (Seroquel) 100 mg HS PO Last administered on 08/16/18 21:17; Admin Dose 100 MG; Start 08/14/18 at 21:00 BRADY OROURKE NP August 17, 2018 15:03
[2018-08-17] MEDS: HYDROmorphONE 2 MG/ML SYG IV SCH (16:07)
--- NOTE | 2018-08-17 17:07 | PN ---
Date/Time of Note Date/Time of Note DATE: 08/17/18 TIME: 17:06 Assessment/Plan VTE Prophylaxis Risk score (from Nsg)>0 risk: 7 SCD applied (from Nsg): Yes Pharmacological prophylaxis: heparin Lines/Catheters IV Catheter Type (from Nrsg): PICC Line Central line still needed: Yes Assessment/Plan Hospital Course EXAM: Mildly sedated, calm + JVD Clear lungs RRR Abdomen soft Peripheral edema much improved extensive superficial venous ulcerations on b/l legs without signs of infection A/P: 62 yo male with venous stasis ulcerations, cellulitis, systolic CHF, acute respiratory failure, MRSA bacteremia MRSA bacteremia: - Presumed source is cellulitis, wounds on legs with extensive open skin - Abx changed to clindamycin per ID - Repeat cultures negative Systolic CHF: - Diuresis held given ASA. Still mildly hypervolemic - Neurohormonal blockade - PO lasix Venous stasis ulcerations: - Recumbent position. Wound care ASA: -Resolved Acute respiratory failure: - s/p exutbation. NC O2 as needed Hypokalemia: - Repletion as needed Anemia: - Mild iron deficiency. Replete iron Venous stasis disease: - Wound care Atrial fibrillation: - Metoprolol for rate control - Apixaban PT/OT \ Result Diagram: 08/14/18 0652 08/17/18 0507 Results 24hrs Laboratory Tests Test 08/16/18 17:12 08/16/18 21:16 08/17/18 05:07 08/17/18 08:21 Bedside Glucose 146 128 111 Sodium Level 137 Potassium Level 3.5 Chloride Level 101 Carbon Dioxide Level 27 Anion Gap 9 Blood Urea Nitrogen 18 Creatinine 0.78 Est Glomerular > 60 Filtrat Rate mL/min Glucose Level 95 Calcium Level 8.1 L Phosphorus Level 3.1 Magnesium Level 1.3 L Test 08/17/18 12:56 Bedside Glucose 104 Subjective 24 Hr Interval Summary Free Text/Dictation Doing well Continued painful wounds on legs Insomnia Exam/Review of Systems Exam Vitals Vital Signs Date Temp Pulse Resp B/P (MAP) Pulse Ox O2 O2 Flow FiO2 Time Delivery Rate 08/17/18 97.9 70 18 92/65 (74) 96 14:00 08/16/18 Room Air 14:04 Intake and Output 08/16/18 08/16/18 08/17/18 1515:00 23:00 07:00 IntakeIntake Total 500 ml BalanceBalance 500 ml Results Results 24hrs Laboratory Tests Test 08/16/18 17:12 08/16/18 21:16 08/17/18 05:07 08/17/18 08:21 Bedside Glucose 146 128 111 Sodium Level 137 Potassium Level 3.5 Chloride Level 101 Carbon Dioxide Level 27 Anion Gap 9 Blood Urea Nitrogen 18 Creatinine 0.78 Est Glomerular > 60 Filtrat Rate mL/min Glucose Level 95 Calcium Level 8.1 L Phosphorus Level 3.1 Magnesium Level 1.3 L Test 08/17/18 12:56 Bedside Glucose 104 Medications Medication Current Medications IV Flush (NS 3 ml) 3 ml PER PROTOCOL IV ; Start 07/31/18 at 09:30 Ondansetron HCl (Zofran Inj) 4 mg Q6H PRN IV NAUSEA/VOMITING Last administered on 08/17/18at 11:14; Admin Dose 4 MG; Start 07/31/18 at 09:30 Acetaminophen (Tylenol Tab) 650 mg Q6H PRN PO .PAIN 1-3 OR TEMP; Start 07/31/18 at 09:30 Miscellaneous Information (* Miscellaneous Pharmacy Order) HYPOGLYCEMIA PROTOCOL w... ONCE XX ; Start 08/01/18 at 18:30 Miscellaneous Information 1 ea NOTE XX ; Start 08/01/18 at 18:30 Glucose (Glutose) 15 gm Q15M PRN PO DECREASED GLUCOSE Last administered on 08/05/18at 09:43; Admin Dose 15 GM; Start 08/01/18 at 18:30 Glucose (Glutose) 22.5 gm Q15M PRN PO DECREASED GLUCOSE; Start 08/01/18 at 18:30 Dextrose (D50w Syringe) 25 ml Q15M PRN IV DECREASED GLUCOSE Last administered on 08/02/18at 17:44; Admin Dose 25 ML; Start 08/01/18 at 18:30 Dextrose (D50w Syringe) 50 ml Q15M PRN IV DECREASED GLUCOSE Last administered on 08/01/18at 18:20; Admin Dose 25 ML; Start 08/01/18 at 18:30 Glucagon (Glucagen) 1 mg Q15M PRN IM DECREASED GLUCOSE; Start 08/01/18 at 18:30 Glucose (Glutose) 15 gm Q15M PRN BUCCAL DECREASED GLUCOSE; Start 08/01/18 at 18:30 Furosemide (Lasix) 40 mg BID DIURETICS IV Last administered on 08/05/18 05:40; Admin Dose 40 MG; Start 08/03/18 at 09:30; Status Hold IV Flush (NS 10 ml) 10 ml PRN PRN IV IV PROTOCOL; Start 08/03/18 at 13:00 Potassium Chloride (Potassium Chloride Pwd/Soln) 20 meq PER PROTOCOL PRN PO POTASSIUM REPLACEMENT PROTOCOL Last administered on 08/07/18 20:53; Admin Dose 20 MEQ; Start 08/04/18 at 10:30 Potassium Chloride (Potassium Chloride Pwd/Soln) 30 meq PER PROTOCOL PRN PO P OTASSIUM REPLACEMENT PROTOCOL; Start 08/04/18 at 10:30 Potassium Chloride (Potassium Chloride Pwd/Soln) 40 meq PER PROTOCOL PRN PO POTASSIUM REPLACEMENT PROTOCOL; Start 08/04/18 at 10:30 Metoprolol Tartrate (Lopressor) 50 mg BID PO Last administered on 08/17/18 08:27; Admin Dose 50 MG; Start 08/04/18 at 16:30 Hydromorphone HCl (Dilaudid) 1.5 mg DAILY IV Last administered on 08/17/18 16:07; Admin Dose 1.5 MG; Start 08/06/18 at 09:00 Insulin Aspart (Novolog Insulin Pen) (Adult SC Insulin - Mild Algorithm)... AC MEALS AND BEDTIME SC Last administered on 08/16/18 17:23; Admin Dose 1 UNIT; Start 08/05/18 at 11:30 Apixaban (Eliquis) 5 mg BID PO Last administered on 08/17/18 08:26; Admin Dose 5 MG; Start 08/05/18 at 21:00 Mupirocin (Bactroban) 1 applic DAILY TOP Last administered on 08/17/18 12:57; Admin Dose 1 APPLIC; Start 08/08/18 at 09:00 Collagenase (Santyl) 1 applic DAILY TOP Last administered on 08/17/18 08:29; Admin Dose 1 APPLIC; Start 08/11/18 at 09:00 Multivitamins Therapeutic (Theragran) 1 tab DAILY PO Last administered on 08/17/18 08:26; Admin Dose 1 TAB; Start 08/11/18 at 09:00 Ascorbic Acid (Vitamin C) 500 mg DAILY PO Last administered on 08/17/18 08:26; Admin Dose 500 MG; Start 08/11/18 at 09:00 Folic Acid (Folic Acid) 1 mg DAILY PO Last administered on 08/17/18 08:26; Admin Dose 1 MG; Start 08/11/18 at 09:00 Zinc Sulfate (Zinc Sulfate) 220 mg DAILY PO Last administered on 08/17/18 08:27; Admin Dose 220 MG; Start 08/11/18 at 09:00 Acetaminophen/ Hydrocodone Bitart ([place] (10/325)) 1 tab Q4H PRN PO MODERATE PAIN LEVEL 4-6 Last administered on 08/17/18 11:09; Admin Dose 1 TAB; Start 08/11/18 at 03:30 Tramadol HCl (Ultram) 50 mg Q6H PRN PO MODERATE PAIN LEVEL 4-6 Last administered on 08/14/18 00:48; Admin Dose 50 MG; Start 08/12/18 at 22:00 Citalopram Hydrobromide (Celexa) 20 mg DAILY PO Last administered on 08/17/18 08:26; Admin Dose 20 MG; Start 08/13/18 at 11:30 Furosemide (Lasix) 40 mg DAILY IV Last administered on 08/17/18 08:38; Admin Dose 40 MG; Start 08/13/18 at 14:00 Metoclopramide HCl (Reglan) 5 mg AC MEALS PO Last administered on 08/17/18 12:57; Admin Dose 5 MG; Start 08/13/18 at 17:30 Doxycycline Hyclate (Vibramycin) 100 mg BID PO Last administered on 08/17/18 08:26; Admin Dose 100 MG; Start 08/13/18 at 21:00 Quetiapine Fumarate (Seroquel) 100 mg HS PO Last administered on 08/16/18 21:17; Admin Dose 100 MG; Start 08/14/18 at 21:00 KAI FELIX MD August 17, 2018 17:07
[2018-08-17 20:11] VITALS: BP 107/64; PULSE 75; RESP 18
[2018-08-17] MEDS: QUETIAPINE 100 MG TAB PO SCH (20:16)
[2018-08-18] MEDS ORDERED: LISINOPRIL 5 MG TAB PO SCH (09:00)
--- NOTE | 2018-08-19 17:04 | DS ---
Date/Time of Note Date/Time of Note DATE: 08/19/18 TIME: 17:03 Discharge Summary Admission/Discharge Info Admit Date/Time Jul 31, 2018 at 06:30 Discharge Date/Time August 17, 2018 at 21:15 Discharge Diagnosis Venous stasis ulcerations Bacteremia, sepsis Patient Condition: Stable Hospital Course The patient unfortunately left the hospital against medical advice last night prior to my arrival here A/P: 62 yo male with venous stasis ulcerations, cellulitis, systolic CHF, acute respiratory failure, MRSA bacteremia MRSA bacteremia: - Presumed source is cellulitis, wounds on legs with extensive open skin - Abx changed to clindamycin per ID - Repeat cultures negative Systolic CHF: - Diuresis held given ASA. Still mildly hypervolemic - Neurohormonal blockade - PO lasix Venous stasis ulcerations: - Recumbent position. Wound care ASA: -Resolved Acute respiratory failure: - s/p exutbation. NC O2 as needed Hypokalemia: - Repletion as needed Anemia: - Mild iron deficiency. Replete iron Venous stasis disease: - Wound care Atrial fibrillation: - Metoprolol for rate control - Apixaban PT/OT \ Home Meds Unable to Obtain Active Prescriptions or Reported Meds Primary Care Provider Care Physician No Primary KAI FELIX MD August 19, 2018 17:04
== END 2018-08-17 21:15 | disposition left against medical advice (07) | DRG 871 ==
LOC: E/R 23:46 → ICU 07-31 06:30 → EDBEDREQSVC 07-31 06:45 → 6WM 08-04 19:48 → 5EC 08-08 16:01
PROVIDERS: ADMIT Internal Medicine; ATTEND Internal Medicine
PROC: 0W993ZZ Drainage of Right Pleural Cavity, Percutaneous Approach (ICD-10-PCS; 2018-07-31)
PROC: 009U3ZX Drainage of Spinal Canal, Percutaneous Approach, Diagnostic (ICD-10-PCS; 2018-07-31)
PROC: 0BH18EZ Insertion of Endotracheal Airway into Trachea, Via Natural or Artificial Opening Endoscopic (ICD-10-PCS; 2018-07-31)
PROC: 5A1945Z Respiratory Ventilation, 24-96 Consecutive Hours (ICD-10-PCS; 2018-07-31)
PROC: 02HV33Z Insertion of Infusion Device into Superior Vena Cava, Percutaneous Approach (ICD-10-PCS; principal; 2018-08-03)
DX: A41.02 Sepsis due to Methicillin resistant Staphylococcus aureus (principal); G92 Toxic encephalopathy; J96.00 Acute respiratory failure, unspecified whether with hypoxia or hypercapnia; I50.23 Acute on chronic systolic (congestive) heart failure; J18.9 Pneumonia, unspecified organism; L03.115 Cellulitis of right lower limb; L03.116 Cellulitis of left lower limb; E87.2 Acidosis; L97.929 Non-pressure chronic ulcer of unspecified part of left lower leg with unspecified severity; I42.9 Cardiomyopathy, unspecified; L97.919 Non-pressure chronic ulcer of unspecified part of right lower leg with unspecified severity; N17.9 Acute kidney failure, unspecified; I87.313 Chronic venous hypertension (idiopathic) with ulcer of bilateral lower extremity; I82.612 Acute embolism and thrombosis of superficial veins of left upper extremity; J90 Pleural effusion, not elsewhere classified; R65.20 Severe sepsis without septic shock; F17.200 Nicotine dependence, unspecified, uncomplicated; E86.0 Dehydration; E87.6 Hypokalemia; I11.0 Hypertensive heart disease with heart failure; J44.9 Chronic obstructive pulmonary disease, unspecified; E83.42 Hypomagnesemia; I87.2 Venous insufficiency (chronic) (peripheral); D64.9 Anemia, unspecified; I48.91 Unspecified atrial fibrillation; K31.84 Gastroparesis; D50.9 Iron deficiency anemia, unspecified; Z59.0 Homelessness
CPT/HCPCS: 31500; 36415; 36569; 36600; 70450; 71045; 73590; 73630; 76937; 76942; 80048; 80053; 80061; 80202; 80307; 81001; 81003; 82140; 82607; 82728; 82803; 82945; 82962; 83036; 83540; 83605; 83735; 84100; 84145; 84155; 84157; 84300; 84443; 85025; 85610; 85651; 85730; 86140; 86692; 86787; 86788; 86789; 87070; 87075; 87081; 87086; 89051; 92610; 93005; 93306; 93922; 93970; 94002; 94003; 94770; 96374; 96375; 97110; 97162; 97530; J0692; J1170; J1630; J1650; J1815; J1940; J2060; J2405; J2543; J3010; J3370; J3475; J3480; J7030; J7042; J7070; P9047